=== PATIENT | female | born 1930 | race Caucasian/White ===

== ENCOUNTER 2016-10-25 07:49 | Inpatient (IN) ==
--- NOTE | 2016-10-25 08:07 | Emergency Department Note ---
Disposition Clinical Impression: Congestive heart failure Qualifiers: Congestive heart failure type: unspecified congestive heart failure type Congestive heart failure chronicity: acute on chronic Qualified Code(s): I50.9 - Heart failure, unspecified Disposition: Admitted As Inpatient Condition: Good Time of Disposition: 11:31 General Adult HPI - General Chief complaint: ED Shortness of Breath/Dyspnea Stated complaint: shortness of breat Time Seen by Provider: 10/25/16 07:50 Source: EMS Limitations: no limitations Nursing Notes Reviewed: Yes Vital Signs Reviewed: Yes - History of Present Illness HPI Narrative: Patient presenting to the emergency department via EMS. Patient complaining of a 2 day history of shortness of breath. She denies any nausea vomiting or diarrhea. She denies any chest pain however she does report a tightness across her upper abdomen. This is also been going on for 2 days. History of CHF. She is reporting an increase in swelling in her lower extremities. Pain Scale: 0 - Related Data Allergies Allergy/AdvReac Type Severity Reaction Status Date / Time Penicillins [PCN] Allergy Hives Verified 10/19/16 12:26 All systems ED: reviewed and negative except as stated. Constitutional: Denies: fever, chills ENT ED: Denies: congestion, dysphagia Cardiovascular: Reports: edema (Bilateral lower extremities worse than normal.) . Denies: chest pain, palpitations, syncope Respiratory: Reports: dyspnea (Progressively getting worse over the last 2 days. ). Denies: cough, sputum production Gastrointestinal: Reports: abdominal pain (Upper abdominal tightness.). Denies : nausea, vomiting, diarrhea Genitourinary: Denies: urgency, dysuria, frequency, hematuria Musculoskeletal: Denies: back pain, neck pain Past Medical History - Past Medical History Medical history: Reports: CHF - Social History Smoking Status: Never smoker Smokeless Tobacco Status: No Alcohol use: Reports: none Drug use: Reports: none Physical Exam - General Limitations: no limitations General appearance: alert, in distress (Mild respiratory distress. She is using accessory muscles.) - Head Head exam: atraumatic, normocephalic, normal inspection - Eye Eye exam: Present: normal appearance, PERRL, EOMI, scleral icterus - ENT ENT exam: normal exam, normal oropharynx, mucous membranes moist, normal external ear exam - Neck Neck exam: Present: normal inspection, full ROM, trachea midline. Absent: tenderness, meningismus, lymphadenopathy - Chest Chest inspection: Present: normal inspection, symmetric chest wall rise - Respiratory Respiratory exam: Present: normal lung sounds bilaterally. Absent: respiratory distress, wheezes, stridor - Cardiovascular Cardiovascular exam: Present: regular rate, normal rhythm, normal heart sounds - Abdominal Exam Abdominal exam: Present: soft, Non-Tender, normal bowel sounds. Absent: tenderness, distention, organomegaly, Walls's sign, Rovsing's sign, tenderness at McBurney's Point - Extremities Exam Extremities exam: Present: normal inspection, full ROM, normal capillary refill , pedal edema (Bilaterally. Up to The tibias.). Absent: tenderness - Back Exam Back exam: Present: normal inspection, full ROM. Absent: tenderness, CVA tenderness (R), CVA tenderness (L) - Neurological Exam Neurological exam: Present: alert, oriented X3 - Psychiatric Psychiatric exam: Present: normal affect, normal mood - Skin Skin exam: Present: warm, dry, intact, normal color. Absent: rash, cyanosis Course Course Narrative: Female patient presents emergency department by EMS. Patient is complaining of a increase in shortness of breath over the past 2 days. She states she is also had an increase in her pedal edema over the past 2 days. Also complaining of an upper abdominal tightness. She denies any nausea vomiting or diarrhea. She denies any fevers or chills. She does have a history of CHF but no COPD. She states she has been taking her Lasix as prescribed. Her lung sounds are remarkably clear. She does have some pedal edema up to her tibias. This is mild. We will get basic lab workup due to a cardiac workup on the patient as well. On presentation she is on 2 L and satting 98%. She does not wear oxygen at home. However she is using her accessory muscles to breathe. - Reevaluation(s) Reevaluation #1: Female patient still mildly short of breath. Does appear to have CHF exacerbation on her chest x-ray. Patient ambulated throughout the emergency department and her oxygen saturation decreased into the 80s. We are admitting her for an acute on chronic CHF exacerbation. Vital Signs Temperature 97.6 F 10/25/16 07:50 Pulse Rate 95 10/25/16 07:50 Respiratory Rate 20 10/25/16 07:50 Blood Pressure 166/98 10/25/16 07:50 O2 Sat by Pulse Oximetry 98 10/25/16 07:50 Temperature 97.6 F 10/25/16 07:50 Pulse Rate 69 10/25/16 10:57 Respiratory Rate 24 10/25/16 10:57 Blood Pressure 171/94 10/25/16 10:57 O2 Sat by Pulse Oximetry 93 10/25/16 10:57 Oxygen Delivery Oxygen Delivery Nasal Cannula Medical Decision Making - Medical Records Medical records reviewed: Yes I reviewed the patient's medical records. - Lab Data Lab results reviewed: Yes I reviewed the patient's lab results. Result diagrams: 10/25/16 08:26 10/25/16 08:26 Lab Results 10/25/16 10/25/16 10/25/16 Range/Units 08:26 08:26 08:26 WBC 6.1 (4.3-11.1) K/mcL RBC 4.07 (3.82-4.97) M/mcL Hgb 10.9 L (11.5-15.4) g/dL Hct 34.7 L (35.3-44.9) % MCV 85.3 (83.0-100.0) fL MCH 26.8 L (28.0-33.3) pg MCHC 31.4 L (31.6-35.5) g/dL RDW 16.1 H (11.5-14.5) % Plt Count 155 (140-400) K/mcL MPV 11.8 (9.4-12.4) fL Immature Gran % 0.3 (0-4) % Seg Neutrophils % 74.2 % Lymphocytes % 11.6 % Monocytes % 9.8 % Eosinophils % 3.3 % Basophils % 0.8 % Neutrophils # 4.5 (1.6-8.9) K/mcL Lymphocytes # 0.7 (0.6-4.6) K/mcL Monocytes # 0.6 (0.0-1.3) K/mcL Eosinophils # 0.2 (0.0-0.6) K/mcL Basophils # 0.1 (0.0-0.2) K/mcL Immature Plt Fraction 8.1 H (1.1-6.1) % Sodium 142 (136-145) mEq/L Potassium 3.5 (3.5-4.5) mEq/L Chloride 106 (98-109) mEq/L Carbon Dioxide 23 (19-29) mEq/L BUN 19 (7-20) mg/dL Creatinine 1.01 (0.57-1.11) mg/dL Est GFR ( Amer) > 60 (> 60) Est GFR (Non-Af Amer) 52 L (> 60) BUN/Creatinine Ratio 19 (6-26) Glucose 128 H (70-99) mg/dL Calculated Osmolality 298 (280-300) Calcium 9.5 (8.6-10.8) mg/dL Troponin I 0.02 (0-0.03) ng/mL B-Natriuretic Peptide (0-100) pg/mL 10/25/16 Range/Units 08:26 WBC (4.3-11.1) K/mcL RBC (3.82-4.97) M/mcL Hgb (11.5-15.4) g/dL Hct (35.3-44.9) % MCV (83.0-100.0) fL MCH (28.0-33.3) pg MCHC (31.6-35.5) g/dL RDW (11.5-14.5) % Plt Count (140-400) K/mcL MPV (9.4-12.4) fL Immature Gran % (0-4) % Seg Neutrophils % % Lymphocytes % % Monocytes % % Eosinophils % % Basophils % % Neutrophils # (1.6-8.9) K/mcL Lymphocytes # (0.6-4.6) K/mcL Monocytes # (0.0-1.3) K/mcL Eosinophils # (0.0-0.6) K/mcL Basophils # (0.0-0.2) K/mcL Immature Plt Fraction (1.1-6.1) % Sodium (136-145) mEq/L Potassium (3.5-4.5) mEq/L Chloride (98-109) mEq/L Carbon Dioxide (19-29) mEq/L BUN (7-20) mg/dL Creatinine (0.57-1.11) mg/dL Est GFR ( Amer) (> 60) Est GFR (Non-Af Amer) (> 60) BUN/Creatinine Ratio (6-26) Glucose (70-99) mg/dL Calculated Osmolality (280-300) Calcium (8.6-10.8) mg/dL Troponin I (0-0.03) ng/mL B-Natriuretic Peptide 843 H (0-100) pg/mL - Radiology Data Radiology results reviewed: Yes I reviewed the patient's radiology results. - EKG Data EKG #1 EKG attestation: Yes I reviewed and interpreted this EKG. EKG results narrative: Ventricularly paced rhythm at a rate of 99. QRS duration is 206. QT is 448. QTC is 504. No significant changes from previous EKG dated 07/09/2014.
[2016-10-25 08:34] LABS: Basophils # 0.1 K/mcL (0.0-0.2); Basophils % 0.8 %; Eosinophils # 0.2 K/mcL (0.0-0.6); Eosinophils % 3.3 %; Hematocrit 34.7 % (35.3-44.9); Hemoglobin 10.9 g/dL (11.5-15.4); Immature Granulocytes % 0.3 % (0-4); Immature Platelets 8.1 % (1.1-6.1); Lymphocytes # 0.7 K/mcL (0.6-4.6); Lymphocytes % 11.6 %; Mean Corpuscular HGB Conc 31.4 g/dL (31.6-35.5); Mean Corpuscular Hemoglobin 26.8 pg (28.0-33.3); Mean Corpuscular Volume 85.3 fL (83.0-100.0); Mean Platelet Volume 11.8 fL (9.4-12.4); Monocytes # 0.6 K/mcL (0.0-1.3); Monocytes % 9.8 %; Neutrophils # 4.5 K/mcL (1.6-8.9); Platelet Count 155 K/mcL (140-400); Red Blood Count 4.07 M/mcL (3.82-4.97); Red Cell Distribution Width 16.1 % (11.5-14.5); Segmented Neutrophils % 74.2 %
--- NOTE | 2016-10-25 08:43 | Emergency Department Note ---
START Narrative - START START: I examined this patient and my medical decision-making was reviewed with the ASSISTANT MECHANIC/PA/Advanced Practice Nurse/Resident Physician. I agree with the documented findings, disposition and treatment plan as described except to the extent set forth below. ED attending note: Patient seen with emergency medicine resident Dr. Edward. Please see a copy of his note for details of the H&P, evaluation, management and disposition of this patient. We independently had [id number] contact with the patient Briefly: A 5-year-old female with history of CHF but not COPD by EMS from home for 2 days increasing shortness of breath and upper abdominal fullness. Afebrile with stable vital signs. Physical exam shows a mild peripheral edema but the lungs are clear. EKG shows no acute ischemic changes. Screening labs and itching are pending. Disposition pending.
[2016-10-25 08:48] LABS: BUN/Creatinine Ratio 19 (6-26); Blood Urea Nitrogen 19 mg/dL (7-20); Calcium 9.5 mg/dL (8.6-10.8); Carbon Dioxide 23 mEq/L (19-29); Chloride 106 mEq/L (98-109); Glucose 128 mg/dL (70-99); Osmolality,Calculated 298 (280-300); Potassium 3.5 mEq/L (3.5-4.5); Sodium 142 mEq/L (136-145); eGFR For African Americans > 60 (> 60); eGFR For Non-African Americans 52 (> 60)
[2016-10-25] MEDS ORDERED: Furosemide 40 MG/4 ML VIAL IVP ONE ×2 (09:29→10:21)
[2016-10-25] MEDS ORDERED: Naloxone 0.4 MG/ML INJ IVP PRN (10:53)
[2016-10-25] MEDS ORDERED: Acetaminophen 325 MG TABLET PO PRN (10:53)
--- NOTE | 2016-10-25 12:21 | Internal Med History&Physical ---
Date of Encounter: 10/25/16 Time of Encounter: 12:12 Assessment and Plan (1) Acute on chronic diastolic (congestive) heart failure Current visit: Yes Status: Acute Patient reports waking this morning with difficulty breathing. She has a history of CHF and her Lasix was recently increased from 40mg daily to 40mg/ 20mg AM/PM. Echo on 09/22/16 shows LVEF of 30-35% moderately dilated left ventricle, indeterminate left ventricular diastolic function, mild to moderate aortic regurg, moderate mitral regurg, moderate pulmonary hypertension. Chest x -ray showed interstitial pulmonary edema with possible perihilar alveolar edema , bilateral pleural effusions and mild cardiomegaly. BNP was elevated at 843. On exam, she was tachypnic, using accessory muscles, and had diminished breath sounds. She was diaphoretic and was satting 95% on 4-5L NC. 80mg Lasix IV Push in the ER. Cardiology consult. 60mg Lasix IVP BID BiPAP NItro drip titrate oxygen to maintain O2 sats > 92% Daily weights I/Os Cardiac diet with 1.5L fluid restriction. serial troponins (2) Acute respiratory failure Current visit: Yes Status: Acute Secondary to acute on chronic diastolic congestive heart failure. Patient does not wear oxygen at home. She is tachypnic, using accessory muscles, and satting 95% on 4-5L NC. Bipap ordered will diurese with lasix. Qualifiers: Respiratory failure complication: hypoxia Qualified Code(s): J96.01 - Acute respiratory failure with hypoxia (3) Atrial fibrillation Current visit: Yes Status: Chronic S/p ventricular pacemaker. Continue home doses of carvedilol for rate control and Coumadin for anti-coagulation. Qualifiers: Atrial fibrillation type: chronic Qualified Code(s): I48.2 - Chronic atrial fibrillation (4) Anticoagulated on Coumadin Current visit: Yes Status: Acute PT/INR ordered. Patient has been following in the [facility] anti-coagulation clinic. Continue home dose of coumadin as long as INR is therapeutic. If not therapeutic, have pharmacy dose coumadin. (5) DVT prophylaxis Current visit: Yes Status: Acute anti-embolic stockings Patient on Coumadin for her afib. Additional pharmacologic prophylaxis is not warranted. Internal Medicine - H&P: HPI Chief complaint: shortness of breath Admitted From: Emergency Dept Plans for Post Hospital Care: Home History of present illness: Ms. Amanda is a 86 year old female with hypertension, hyperlipidemia, congestive heart failure, valvular disease, atrial fibrillation, bradycardia tachycardia syndrome status post pacemaker, cardiomyopathy who presented to the emergency department today with complaints of shortness of breath. She reports she woke up at 3:30 this morning with difficulty breathing. She reports she was sleeping flat on one pillow when this happened. She said at the side of the bed was helped a little bit. She denies any chest pain, palpitations, recent cough, fever, chills, sweats. Patient denies shortness of breath leading up to this incident, however her daughter reports that she has been short of breath on exertion over the last several days. Evaluation in emergency department included a chest x-ray which showed interstitial pulmonary edema with possible perihilar alveolar edema, bilateral pleural effusions and mild cardiomegaly. EKG showed a ventricular paced rhythm. Troponin was negative at 0.02. BNP was elevated to 843. On exam, patient was to And dyspneic, using accessory muscles to breathe. Satting 95% on 4-5 L nasal cannula. Lungs had diminished breath sounds. Bilateral lower extremity had +2 pitting edema. Past Med Surg Social Fam HX - Past Medical History Medical history: atrial fibrillation, cardiomyopathy, CHF, hyperlipidemia, hypertension, thyroid disease - Past Surgical History Surgical History: angioplasty/stent, appendectomy, cholecystectomy, hysterectomy , pacemaker - Social History Smoking Status: Never smoker Smokeless Tobacco Status: No Alcohol use: none Drug use: none - Family History Father Living Status: Cause of : cancer Hx Family Cancer: Yes Mother Living Status: Cause of : CVA Daughter Living Status: Cause of : Cancer Hx Family Cancer: Yes Internal Medicine - H&P: Meds Carvedilol [Coreg] 25 mg PO BID 10/25/16 [History] Cholecalciferol (Vitamin D3) [Vitamin D] 1,000 unit PO DAILY 10/25/16 [History] Cyanocobalamin (Vitamin B-12) [Vitamin B12] 1,000 mcg PO DAILY 10/25/16 [History ] Febuxostat [Uloric] 40 mg PO DAILY 10/25/16 [History] Ferrous Sulfate [Slow Fe] 65 mg PO DAILY 10/25/16 [History] Furosemide [Lasix] 20 mg PO QPM 10/25/16 [History] Furosemide [Lasix] 40 mg PO QAM 10/25/16 [History] Krill Oil 500 mg PO DAILY 10/25/16 [History] Levothyroxine [Synthroid] 100 mcg PO DAILY 10/25/16 [History] Lisinopril [Zestril] 40 mg PO DAILY 10/25/16 [History] Multivitamin [Multi-Day Vitamins] 1 tab PO DAILY 10/25/16 [History] Omeprazole [PriLOSEC] 20 mg PO DAILY 10/25/16 [History] Pravastatin Sodium [Pravachol] 80 mg PO DAILY 10/25/16 [History] Vit C/Vit E/Lutein/Min/[place]-3 [Ocuvite Softgel] 1 cap PO DAILY 10/25/16 [ History] Warfarin [Coumadin] 2 mg PO DAILY 10/25/16 [History] Allergies Penicillins [PCN] Allergy (Verified 10/19/16 12:26) Hives All Systems PM: A 10-system review of systems was performed and is negative for pertinent findings except as documented above in the HPI. - Constitutional Constitutional: no chills, no fever(s), no night sweats - EENT Eyes: no change in vision, no discharge, no pain, no photophobia Ears: no ear discharge, no ear pain, no tinnitus Nose, mouth and throat: no dysphagia, no nasal discharge, no neck pain, no sore throat - Cardiovascular Cardiovascular ROS IM: dyspnea, dyspnea on exertion, edema, orthopnea, no chest pain, no diaphoresis, no lightheadedness, no palpitations, no syncope - Respiratory Respiratory: dyspnea, dyspnea on exertion, no cough, no wheezing, no excessive phlegm production - Gastrointestinal Gastrointestinal: no abdominal pain, no diarrhea, no hematemesis, no hematochezia, no melena, no nausea, no vomiting - Genitourinary Genitourinary: no change in urinary stream, no dysuria, no flank pain, no hematuria - Musculoskeletal Musculoskeletal ROS IM: no numbness, no tingling - Integumentary Integumentary IM: no rash, no unusual bruising - Neurological Neurological ROS: no confusion, no convulsions, no focal weakness, no numbness, no tingling, no tremor(s) - Hematologic/Lymphatic Hematologic/Lymphatic: no easy bruising - Constitutional Vitals: Temp Pulse Resp BP Pulse Ox 97.6 F 69 24 170/94 93 10/25/16 07:50 10/25/16 10:57 10/25/16 11:49 10/25/16 11:49 10/25/16 10:57 General appearance: Present: mild distress, A&O X 3, pleasant - Head Head exam: Present: atraumatic, normocephalic - Eye Eye exam: Present: PERRL, conjuntiva pink, sclera anicteric Pupils: Present: PERRL - Neck Neck exam general surgery: Present: supple, trachea midline. Absent: lymphadenopathy - Respiratory Respiratory exam: Present: accessory muscle use, decreased breath sounds, respiratory distress, tachypnea. Absent: rales, rhonchi, wheezes - Cardiovascular Cardiovascular exam: Present: RRR, +S1, +S2. Absent: diastolic murmur, gallop, rubs, systolic murmur - GI/Abdominal GI/Abdominal exam: Present: normal bowel sounds, soft, no peritoneal signs. Absent: distended, tenderness - Extremities Exam Extremities exam: Present: pedal edema (+2 BLE edema), warm, radial pulses palpable and symetrical. Absent: calf tenderness, cyanotic - Neurological Exam Neurological exam: Present: CN II-XII intact, oriented X3, no focal deficits. Absent: facial droop, speech deficit - Skin Skin exam: Present: dry, intact Internal Med - H&P Results - Labs CBC & Chem 7: 10/25/16 08:26 10/25/16 08:26 Labs: All Lab Results (24 Hours) 10/25/16 10/25/16 10/25/16 Range/Units 08:26 08:26 08:26 WBC 6.1 (4.3-11.1) K/mcL RBC 4.07 (3.82-4.97) M/mcL Hgb 10.9 L (11.5-15.4) g/dL Hct 34.7 L (35.3-44.9) % MCV 85.3 (83.0-100.0) fL MCH 26.8 L (28.0-33.3) pg MCHC 31.4 L (31.6-35.5) g/dL RDW 16.1 H (11.5-14.5) % Plt Count 155 (140-400) K/mcL MPV 11.8 (9.4-12.4) fL Immature Gran % 0.3 (0-4) % Seg Neutrophils % 74.2 % Lymphocytes % 11.6 % Monocytes % 9.8 % Eosinophils % 3.3 % Basophils % 0.8 % Neutrophils # 4.5 (1.6-8.9) K/mcL Lymphocytes # 0.7 (0.6-4.6) K/mcL Monocytes # 0.6 (0.0-1.3) K/mcL Eosinophils # 0.2 (0.0-0.6) K/mcL Basophils # 0.1 (0.0-0.2) K/mcL Immature Plt Fraction 8.1 H (1.1-6.1) % Sodium 142 (136-145) mEq/L Potassium 3.5 (3.5-4.5) mEq/L Chloride 106 (98-109) mEq/L Carbon Dioxide 23 (19-29) mEq/L BUN 19 (7-20) mg/dL Creatinine 1.01 (0.57-1.11) mg/dL Est GFR ( Amer) > 60 (> 60) Est GFR (Non-Af Amer) 52 L (> 60) BUN/Creatinine Ratio 19 (6-26) Glucose 128 H (70-99) mg/dL Calculated Osmolality 298 (280-300) Calcium 9.5 (8.6-10.8) mg/dL Troponin I 0.02 (0-0.03) ng/mL B-Natriuretic Peptide (0-100) pg/mL 10/25/16 Range/Units 08:26 WBC (4.3-11.1) K/mcL RBC (3.82-4.97) M/mcL Hgb (11.5-15.4) g/dL Hct (35.3-44.9) % MCV (83.0-100.0) fL MCH (28.0-33.3) pg MCHC (31.6-35.5) g/dL RDW (11.5-14.5) % Plt Count (140-400) K/mcL MPV (9.4-12.4) fL Immature Gran % (0-4) % Seg Neutrophils % % Lymphocytes % % Monocytes % % Eosinophils % % Basophils % % Neutrophils # (1.6-8.9) K/mcL Lymphocytes # (0.6-4.6) K/mcL Monocytes # (0.0-1.3) K/mcL Eosinophils # (0.0-0.6) K/mcL Basophils # (0.0-0.2) K/mcL Immature Plt Fraction (1.1-6.1) % Sodium (136-145) mEq/L Potassium (3.5-4.5) mEq/L Chloride (98-109) mEq/L Carbon Dioxide (19-29) mEq/L BUN (7-20) mg/dL Creatinine (0.57-1.11) mg/dL Est GFR ( Amer) (> 60) Est GFR (Non-Af Amer) (> 60) BUN/Creatinine Ratio (6-26) Glucose (70-99) mg/dL Calculated Osmolality (280-300) Calcium (8.6-10.8) mg/dL Troponin I (0-0.03) ng/mL B-Natriuretic Peptide 843 H (0-100) pg/mL - Diagnostic Studies Chest x-ray Additional comments: Chest X-Ray 10/25/16 07:56 IMPRESSION: 1. Interstitial pulmonary edema with possible perihilar alveolar edema, bilateral pleural effusions, and mild cardiomegaly, suggesting congestive heart failure. 2. Bibasilar atelectasis. D/ / Jaiden Fisher MD / Jaiden Fisher MD Interpreting Provider: Jaiden Fisher MD
[2016-10-25 12:32] LABS: INR 2.9; Prothrombin Time 31.9 Seconds (9.4-12.1)
[2016-10-25 12:34] LABS: Activated Partial Thrombo Time 40.3 Seconds (26.0-36.0)
--- NOTE | 2016-10-25 12:53 | Event Note ---
Date of Encounter: 10/25/16 Time of Encounter: 12:51 Patients examined with nurse practitioner. Agree with this assessment and plan. Pulmonary edema. 80 mg IV lasix given in the ED and campos catheter placed. still hypertensive so nitroglycerin drip will be started. few hours of BiPAP till oxygenation improves. Currently on 5 L of oxygen. Continue Lasix 60 mg IV twice a day. She had a cath in 1998 no occlsive disease but no recent cardiology evaluation. Serial troponin and cardiology consultation. She is full code.
[2016-10-25] MEDS ORDERED: Nitroglycerin 25 MG/250 ML INFUS..BTL IVC SCH (13:00)
[2016-10-25] MEDS ORDERED: 0.9 % Sodium Chloride 500 ML ONE (13:23)
[2016-10-25] MEDS: Lisinopril 20 MG TABLET PO SCH (13:30)
[2016-10-25] MEDS ORDERED: Furosemide 40 MG/4 ML VIAL IVP SCH (17:00)
[2016-10-25] MEDS: Furosemide 40 MG/4 ML VIAL IVP SCH (17:03)
[2016-10-25] MEDS ORDERED: Warfarin perPT PO PRN (18:00)
[2016-10-25] MEDS ORDERED: *HR* Warfarin 1 MG TABLET PO SCH (18:00)
[2016-10-26] MEDS ORDERED: *HR* LORazepam 0.5 MG TABLET PO ONE (03:10)
[2016-10-26 05:18] LABS: INR 3.7; Prothrombin Time 41.2 Seconds (9.4-12.1)
[2016-10-26 05:33] LABS: Basophils % 0.5 %; Eosinophils # 0.2 K/mcL (0.0-0.6); Eosinophils % 2.7 %; Hematocrit 32.6 % (35.3-44.9); Hemoglobin 10.1 g/dL (11.5-15.4); Immature Granulocytes % 0.5 % (0-4); Lymphocytes # 0.5 K/mcL (0.6-4.6); Lymphocytes % 8.4 %; Mean Corpuscular Hemoglobin 26.6 pg (28.0-33.3); Mean Platelet Volume 11.4 fL (9.4-12.4); Monocytes # 0.8 K/mcL (0.0-1.3); Monocytes % 12.3 %; Neutrophils # 4.8 K/mcL (1.6-8.9); Platelet Count 138 K/mcL (140-400); Red Blood Count 3.79 M/mcL (3.82-4.97); Segmented Neutrophils % 75.6 %
[2016-10-26 05:38] LABS: BUN/Creatinine Ratio 20 (6-26); Blood Urea Nitrogen 18 mg/dL (7-20); Calcium 8.9 mg/dL (8.6-10.8); Carbon Dioxide 31 mEq/L (19-29); Chloride 103 mEq/L (98-109); Glucose 101 mg/dL (70-99); Osmolality,Calculated 296 (280-300); Potassium 3.2 mEq/L (3.5-4.5); Sodium 142 mEq/L (136-145); eGFR For African Americans > 60 (> 60); eGFR For Non-African Americans 58 (> 60)
[2016-10-26] MEDS: Furosemide 40 MG/4 ML VIAL IVP SCH (07:49)
[2016-10-26] MEDS: Lisinopril 20 MG TABLET PO SCH (07:54)
[2016-10-26] MEDS ORDERED: *HR* Warfarin 2 MG TABLET PO SCH ×2 (09:00→18:00)
[2016-10-26] MEDS ORDERED: Lisinopril 20 MG TABLET PO SCH (09:00)
--- NOTE | 2016-10-26 09:47 | Cardiology Consult Note ---
Date of Encounter: 10/26/16 Time of Encounter: 09:00 Assessment and Plan (1) Congestive heart failure Current Visit: Yes Status: Acute Acute on chronic CHF exacerbation likely secondary to dietary indiscretion to Na /fluid. Hx of systolic CHF dating back to 2013. Most recent TTE (09/22/16): EF 30-35%, LV moderately dilated, RV mildly dilated and hypokinetic, mild-moderate AR, moderate MR and TR. Recent nuclear stress on 10/19/16 demonstrated fixed perfusion to inferior wall and apex; perfusion imaging negative for ischemia. Gated EF=42%, LV is dilated. - Continue IV diuresis for additional 24 hours, transition to Lasix 40 mg BID at discharge. (Home Lasix 40 in AM, 20 in PM). Cumulative I&O: -3333mL. Patient states dyspnea and edema have significantly improved. Reinforced importance of CHF guidelines including low Na/1.5 fluid restriction diet. Continue betablocker and ACEi. Follow-up with [facility] in 1-2 weeks after discharge. Qualifiers: Congestive heart failure type: systolic Congestive heart failure chronicity : acute on chronic Qualified Code(s): I50.23 - Acute on chronic systolic ( congestive) heart failure (2) Atrial fibrillation Current Visit: Yes Status: Chronic Hx of atrial fibrillation on Coumadin therapy (followed by [facility]) INR supratherapeutic today--pharmacy dosing as inpatient. Continue betablocker for rate control. Qualifiers: Atrial fibrillation type: chronic Qualified Code(s): I48.2 - Chronic atrial fibrillation Discussion w patient/family: The assessment and plan as outlined above was discussed with the patient and/or family members who expressed understanding and agreement. All questions were answered. Thank you for involving us in the care of your patient. Please call with any questions. The patient will be discussed with Dr. Torres; changes to be made accordingly. History of Present Illness Consult date: 10/26/16 Requesting physician: Andres Whyte Consult reason: CHF Chief complaint: Shortness of breath History of present illness: Ms. Patel is a 86 year old female with PMH significant for tachybrady s/p PPM , afib (coumadin), HTN, HLD, systolic CHF, and hypothyroidism who presented to the ED with 2-day history of worsening shortness of breath with associated increase in lower extremity edema. She reports non-compliance with dietary fluid and sodium intake. She denies any other CV symptoms including chest pain or discomfort, syncope, palpitations, or dizziness. Prior CV testing: TTE 01/08/14: LVEF 40%, moderately dilated LV, severely enlarged LA, moderately enlarged RA, mildly dilated RV with mild RV hypokinesis, moderate MR , mild AR, mild-moderate TR, RVSP 50 TTE 07/09/14: LVEF 35%, moderately dilated LV, severe biatrial enlargement, moderately dilated RV, mild-moderate AR, probably severe MR, moderate TN, moderate TR, RVSP 67. TTE 09/22/16: LVEF 30-35%, moderately dilated, RV mildly dilated and hypokinetic, mild-moderate AR, moderate MR, moderate TR, mild TN, RVSP 57. Regadenoson nuclear 10/19/16: perfusion negative for ischemia, fixed perfusion defect to the inferior wall and apex, gated EF=42%, LV is dilated Past Med Surg Social Fam HX - Past Medical History Attestation: Yes The following information was validated with the patient. Source: patient, old records reviewed Medical history: atrial fibrillation, CHF, hyperlipidemia, hypertension, thyroid disease Psychiatric history: anxiety - Past Surgical History Surgical History: appendectomy, cholecystectomy, hysterectomy, pacemaker - Social History Smoking Status: Never smoker Smokeless Tobacco Status: No Alcohol use: none Drug use: none - Family History Father Living Status: Cause of : cancer Hx Family Cancer: Yes Mother Living Status: Cause of : CVA Daughter Living Status: Cause of : Cancer Hx Family Cancer: Yes Medications and Allergies Carvedilol [Coreg] 25 mg PO BID 10/25/16 [History] Cholecalciferol (Vitamin D3) [Vitamin D] 1,000 unit PO DAILY 10/25/16 [History] Cyanocobalamin (Vitamin B-12) [Vitamin B12] 1,000 mcg PO DAILY 10/25/16 [History ] Febuxostat [Uloric] 40 mg PO DAILY 10/25/16 [History] Ferrous Sulfate [Slow Fe] 65 mg PO DAILY 10/25/16 [History] Furosemide [Lasix] 20 mg PO QPM 10/25/16 [History] Furosemide [Lasix] 40 mg PO QAM 10/25/16 [History] Krill Oil 500 mg PO DAILY 10/25/16 [History] Levothyroxine [Synthroid] 100 mcg PO DAILY 10/25/16 [History] Lisinopril [Zestril] 40 mg PO DAILY 10/25/16 [History] Multivitamin [Multi-Day Vitamins] 1 tab PO DAILY 10/25/16 [History] Omeprazole [PriLOSEC] 20 mg PO DAILY 10/25/16 [History] Pravastatin Sodium [Pravachol] 80 mg PO DAILY 10/25/16 [History] Vit C/Vit E/Lutein/Min/[place]-3 [Ocuvite Softgel] 1 cap PO DAILY 10/25/16 [ History] Warfarin [Coumadin] 2 mg PO DAILY 10/25/16 [History] Allergies Penicillins [PCN] Allergy (Verified 10/19/16 12:26) Hives All Systems Review: A 10-system review of systems was performed and is negative for pertinent findings except as documented above in the HPI. - Cardiovascular Cardiovascular: as per HPI Physical Examination Vital Signs, Last 4 Hours Temp Pulse Resp BP Pulse Ox 10/26/16 07:59 93 10/26/16 06:50 97.6 F 69 16 117/72 95 General: Conversant, No Apparent Distress HEENT: Atraumatic, Normocephaly Neck: No JVD Cardiac: Reg Rate and Rhythm (paced) Lungs: Other (Bibasilar diminished; few expiratory wheezes noted. ) Neuro: Alert and responsive Abdomen: Soft Skin: No rashes noted on visualized skin Musculoskeletal: No Chest Wall Tenderness Extremities: Other (mild pre-tibial edema; non-pitting. ) Results 10/26/16 04:46 10/26/16 04:46 Lab Results 10/25/16 10/25/16 10/26/16 14:43 20:37 04:46 WBC 6.4 Hgb 10.1 L Hct 32.6 L Plt Count 138 L INR Sodium Potassium Chloride Carbon Dioxide BUN Creatinine Glucose Calcium Troponin I 0.02 0.03 10/26/16 10/26/16 04:46 04:46 WBC Hgb Hct Plt Count INR 3.7 Sodium 142 Potassium 3.2 L Chloride 103 Carbon Dioxide 31 H BUN 18 Creatinine 0.92 Glucose 101 H Calcium 8.9 Troponin I - Imaging and Cardiology Stress Test: report reviewed Echo: report reviewed Other Results: 12 hour tele: avg HR=72 paced. - EKG Interpretation EKG results cardiology: personally reviewed Consult Discharge Plan - Plan Referrals: Clemencia Velasquez CNP [Primary Care Provider] -
--- NOTE | 2016-10-26 12:10 | Internal Med Progress Note ---
Date of Encounter: 10/26/16 Time of Encounter: 12:10 - Assessment and plan (1) Acute on chronic diastolic (congestive) heart failure Current Visit: Yes Status: Acute Assessment and plan: Improving transition to lasix po Continue to monitor (2) Acute respiratory failure Current Visit: Yes Status: Acute Assessment and plan: Still requiring 2L O2 Qualify for home O2 prior to d/c Continue O2 supplement Qualifiers: Respiratory failure complication: hypoxia Qualified Code(s): J96.01 - Acute respiratory failure with hypoxia (3) Atrial fibrillation Current Visit: Yes Status: Chronic Assessment and plan: HR is controlled, continue home meds Qualifiers: Atrial fibrillation type: chronic Qualified Code(s): I48.2 - Chronic atrial fibrillation (4) Anticoagulated on Coumadin Current Visit: Yes Status: Acute Assessment and plan: INR 3.7 Pharmacy to adjust dose with INR Monitor INR (5) DVT prophylaxis Current Visit: Yes Status: Acute - Subjective Interval history: 86 year old female with PMH significant for tachybrady s/p PPM, afib (coumadin) , HTN, HLD, systolic CHF, and hypothyroidism She is admitted for management of CHF exacerbation and HTN Urgency She is seen at bedside, sitting out of bed , in chair Denies new complains, reports improvement in symptoms BP is controlled now Nitro drip has been discontinued Cardiology eval appreciated She is still requiring oxygen - Constitutional Vitals: Temp Pulse Resp BP Pulse Ox 98.2 F 71 16 117/73 95 10/26/16 11:45 10/26/16 11:45 10/26/16 11:45 10/26/16 11:45 10/26/16 11:46 General appearance: Present: A&O X 3, pleasant, no acute distress, obese - Head Head exam: Present: atraumatic, normocephalic - Eye Eye exam: Present: PERRL, conjuntiva pink, sclera anicteric Pupils: Present: PERRL - Neck Neck exam general surgery: Present: supple, trachea midline. Absent: lymphadenopathy - Respiratory Respiratory exam: Present: CTAB. Absent: accessory muscle use, rales, rhonchi, wheezes - Cardiovascular Cardiovascular exam: Present: irregular rhythm, +S1, +S2. Absent: diastolic murmur, gallop, rubs, systolic murmur - GI/Abdominal GI/Abdominal exam: Present: normal bowel sounds, soft, no peritoneal signs. Absent: distended, tenderness - Extremities Exam Extremities exam: Present: warm, radial pulses palpable and symetrical. Absent : calf tenderness, cyanotic, pedal edema - Neurological Exam Neurological exam: Present: alert, CN II-XII intact, oriented X3, no focal deficits. Absent: pronater drift, facial droop, speech deficit - Skin Skin exam: Present: dry, intact Internal Medicine: Result - Labs CBC & Chem 7: 10/26/16 04:46 10/26/16 04:46 Labs: Short CBC 10/26/16 Range/Units 04:46 WBC 6.4 (4.3-11.1) K/mcL Hgb 10.1 L (11.5-15.4) g/dL Hct 32.6 L (35.3-44.9) % Plt Count 138 L (140-400) K/mcL Neutrophils # 4.8 (1.6-8.9) K/mcL BMP 10/26/16 04:46 Sodium 142 Potassium 3.2 L Chloride 103 Carbon Dioxide 31 H BUN 18 Creatinine 0.92 Glucose 101 H Calcium 8.9 Cardiac Enzymes 10/25/16 10/25/16 Range/Units 14:43 20:37 Troponin I 0.02 0.03 (0-0.03) ng/mL - ABG Interpretation ABG results: PT/INR, D-dimer PT 41.2 Seconds (9.4-12.1) H 10/26/16 04:46 - VTE Documentation of Mechanical Device: Graduated compression elastic hosiery Consult Discharge Plan - Plan Referrals: Clemencia Velasquez CNP [Primary Care Provider] - Jaiden Torres MD [Partnered Physician] - 11/09/16 10:45 am
[2016-10-26] MEDS: Furosemide 40 MG TABLET PO SCH (15:55)
--- NOTE | 2016-10-26 16:02 | Electrocardiograph Report ---
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
[2016-10-27 04:30] LABS: INR 3.5; Prothrombin Time 39.2 Seconds (9.4-12.1)
[2016-10-27 04:44] LABS: BUN/Creatinine Ratio 22 (6-26); Blood Urea Nitrogen 22 mg/dL (7-20); Calcium 9.5 mg/dL (8.6-10.8); Carbon Dioxide 30 mEq/L (19-29); Chloride 102 mEq/L (98-109); Glucose 107 mg/dL (70-99); Osmolality,Calculated 298 (280-300); Potassium 3.9 mEq/L (3.5-4.5); Sodium 142 mEq/L (136-145); eGFR For African Americans > 60 (> 60); eGFR For Non-African Americans 52 (> 60)
[2016-10-27] MEDS: Lisinopril 20 MG TABLET PO SCH (08:06)
[2016-10-27] MEDS: Furosemide 40 MG TABLET PO SCH ×2 (08:06→16:08)
--- NOTE | 2016-10-27 09:48 | Discharge Summary ---
Date of Encounter: 10/28/16 Time of Encounter: 09:47 - Discharge Diagnosis (1) Acute on chronic diastolic (congestive) heart failure Status: Acute (2) Acute respiratory failure Status: Acute Qualifiers: Respiratory failure complication: hypoxia Qualified Code(s): J96.01 - Acute respiratory failure with hypoxia (3) Atrial fibrillation Status: Chronic Qualifiers: Atrial fibrillation type: chronic Qualified Code(s): I48.2 - Chronic atrial fibrillation (4) Anticoagulated on Coumadin Status: Acute (5) DVT prophylaxis Status: Acute - Discharge Medications Prescriptions: Furosemide [Lasix] 40 mg PO BIDDIURETIC #60 tablet Warfarin [Coumadin] 1 mg PO 1800 #6 tablet Home Medications: Carvedilol [Coreg] 25 mg PO BID 10/25/16 [History] Cholecalciferol (Vitamin D3) [Vitamin D3] 1,000 unit PO DAILY 10/25/16 [History] Cyanocobalamin (Vitamin B-12) [Vitamin B12] 1,000 mcg PO DAILY 10/25/16 [History ] Febuxostat [Uloric] 40 mg PO DAILY 10/25/16 [History] Ferrous Sulfate [Slow Fe] 65 mg PO DAILY 10/25/16 [History] Krill Oil 500 mg PO DAILY 10/25/16 [History] Levothyroxine [Synthroid] 100 mcg PO DAILY 10/25/16 [History] Lisinopril [Zestril] 40 mg PO DAILY 10/25/16 [History] Multivitamin [Multi-Day Vitamins] 1 tab PO DAILY 10/25/16 [History] Omeprazole [PriLOSEC] 20 mg PO DAILY 10/25/16 [History] Pravastatin Sodium [Pravachol] 80 mg PO DAILY 10/25/16 [History] Vit C/Vit E/Lutein/Min/[place]-3 [Ocuvite Softgel] 1 cap PO DAILY 10/25/16 [ History] Furosemide [Lasix] 40 mg PO BIDDIURETIC #60 tablet 10/27/16 [Rx] Warfarin [Coumadin] 1 mg PO 1800 #6 tablet 10/27/16 [Rx] Allergies/Adverse Reactions: Allergies Penicillins [PCN] Allergy (Verified 10/19/16 12:26) Hives Date of admission: 10/25/16 12:38 Primary care physician: Clemencia Velasquez, Consults: 10/25/16 12:56 Consult to Cardiology [CONS] Routine Comment: Consulting Provider: Cardiology Sarah Beth Reason for Consult: Patient of Dr. Torres with acute CHF requiring bipap, nitro, aggressive diuresis. concern for underlying coronary disease Call Completed: No 10/27/16 08:17 Consult to [place] [CONS] Routine Reason for SW Consult: Patient will need home o2 Discharging clinician: Michael Araujo Anticipated date of discharge: 10/27/16 - Patient Status Disposition: Home, Self-Care Condition: Good - Discharge Instructions Follow Up With: Clemencia Velasquez CNP [Primary Care Provider] - Jaiden Torres MD [Partnered Physician] - 11/09/16 10:45 am Hospital course: Ms. Patel is a 86 year old female - Time Spent with Patient Total time spent providing and/or coordinating discharge services: - Constitutional Vitals: Temp Pulse Resp BP Pulse Ox 98.0 F 81 18 141/84 91 10/27/16 08:00 10/27/16 08:00 10/27/16 08:00 10/27/16 08:00 10/27/16 08:15 General appearance: Present: A&O X 3, pleasant, no acute distress, obese - Head Head exam: Present: atraumatic, normocephalic - Eye Eye exam: Present: PERRL, conjuntiva pink, sclera anicteric Pupils: Present: PERRL - Neck Neck exam general surgery: Present: supple, trachea midline. Absent: lymphadenopathy - Respiratory Respiratory exam: Present: CTAB. Absent: accessory muscle use, rales, rhonchi, wheezes - Cardiovascular Cardiovascular exam: Present: irregular rhythm, +S1, +S2. Absent: diastolic murmur, gallop, rubs, systolic murmur - GI/Abdominal GI/Abdominal exam: Present: normal bowel sounds, soft, no peritoneal signs. Absent: distended, tenderness - Extremities Exam Extremities exam: Present: warm, radial pulses palpable and symetrical. Absent : calf tenderness, cyanotic, pedal edema - Neurological Exam Neurological exam: Present: alert, CN II-XII intact, oriented X3, no focal deficits. Absent: pronater drift, facial droop, speech deficit - Skin Skin exam: Present: dry, intact - VTE Documentation of Mechanical Device: Graduated compression elastic hosiery
--- NOTE | 2016-10-27 10:00 | Internal Med Progress Note ---
Date of Encounter: 10/27/16 Time of Encounter: 09:58 - Assessment and plan (1) Acute on chronic diastolic (congestive) heart failure Current Visit: Yes Status: Acute Assessment and plan: Improving Continue lasix po Continue to monitor (2) Acute respiratory failure Current Visit: Yes Status: Acute Assessment and plan: Still requiring 1-2L L O2 Qualify for home O2 prior to d/c Continue O2 supplement Qualifiers: Respiratory failure complication: hypoxia Qualified Code(s): J96.01 - Acute respiratory failure with hypoxia (3) Atrial fibrillation Current Visit: Yes Status: Chronic Assessment and plan: HR is controlled, continue home meds Qualifiers: Atrial fibrillation type: chronic Qualified Code(s): I48.2 - Chronic atrial fibrillation (4) Anticoagulated on Coumadin Current Visit: Yes Status: Acute Assessment and plan: INR 3.5 Pharmacy to adjust dose with INR Monitor INR (5) DVT prophylaxis Current Visit: Yes Status: Acute - Subjective Interval history: 86 year old female with PMH significant for tachybrady s/p PPM, afib (coumadin) , HTN, HLD, systolic CHF, and hypothyroidism She is admitted for management of CHF exacerbation and HTN Urgency She is seen at bedside, sitting out of bed , in chair I turned off patient's O2 as I walked into her room ans she saturated between 94 -98% throughout my evaluation She denies new complains but has requested to stay one more might for diuresis Her INR today is 3.5, coumadin will be adjusted by pharmacy Home O2 qualification before discharge a.m - Constitutional Vitals: Temp Pulse Resp BP Pulse Ox 98.0 F 81 18 141/84 91 10/27/16 08:00 10/27/16 08:00 10/27/16 08:00 10/27/16 08:00 10/27/16 08:15 General appearance: Present: A&O X 3, pleasant, no acute distress, obese - Head Head exam: Present: atraumatic, normocephalic - Eye Eye exam: Present: PERRL, conjuntiva pink, sclera anicteric Pupils: Present: PERRL - Neck Neck exam general surgery: Present: supple, trachea midline. Absent: lymphadenopathy - Respiratory Respiratory exam: Present: CTAB. Absent: accessory muscle use, rales, rhonchi, wheezes - Cardiovascular Cardiovascular exam: Present: irregular rhythm, +S1, +S2. Absent: diastolic murmur, gallop, rubs, systolic murmur - GI/Abdominal GI/Abdominal exam: Present: normal bowel sounds, soft, no peritoneal signs. Absent: distended, tenderness - Extremities Exam Extremities exam: Present: warm, radial pulses palpable and symetrical. Absent : calf tenderness, cyanotic, pedal edema - Neurological Exam Neurological exam: Present: alert, CN II-XII intact, oriented X3, no focal deficits. Absent: pronater drift, facial droop, speech deficit - Skin Skin exam: Present: dry, intact Internal Medicine: Result - Labs CBC & Chem 7: 10/26/16 04:46 10/27/16 04:15 Labs: BMP 10/27/16 04:15 Sodium 142 Potassium 3.9 Chloride 102 Carbon Dioxide 30 H BUN 22 H Creatinine 1.02 Glucose 107 H Calcium 9.5 - ABG Interpretation ABG results: PT/INR, D-dimer PT 39.2 Seconds (9.4-12.1) H 10/27/16 04:15 - VTE Documentation of Mechanical Device: Graduated compression elastic hosiery Consult Discharge Plan - Plan Referrals: Clemencia Velasquez CNP [Primary Care Provider] - Jaiden Torres MD [Partnered Physician] - 11/09/16 10:45 am Prescriptions: Furosemide [Lasix] 40 mg PO BIDDIURETIC #60 tablet Warfarin [Coumadin] 1 mg PO 1800 #6 tablet
[2016-10-28 06:49] LABS: INR 2.8; Prothrombin Time 31.4 Seconds (9.4-12.1)
[2016-10-28] MEDS: Lisinopril 20 MG TABLET PO SCH (08:27)
[2016-10-28] MEDS: Furosemide 40 MG TABLET PO SCH (08:27)
[2016-10-28 08:29] VITALS: BP 142/77
--- NOTE | 2016-10-28 11:07 | Discharge Summary ---
Date of Encounter: 10/28/16 Time of Encounter: 11:05 - Discharge Diagnosis (1) Acute on chronic diastolic (congestive) heart failure Priority: Primary Status: Acute (2) Acute respiratory failure Priority: Primary Status: Acute Qualifiers: Respiratory failure complication: hypoxia Qualified Code(s): J96.01 - Acute respiratory failure with hypoxia (3) Atrial fibrillation Priority: Secondary Status: Chronic Qualifiers: Atrial fibrillation type: chronic Qualified Code(s): I48.2 - Chronic atrial fibrillation (4) Anticoagulated on Coumadin Priority: Secondary Status: Chronic (5) DVT prophylaxis Priority: Secondary Status: Chronic - Discharge Medications Prescriptions: Furosemide [Lasix] 40 mg PO BIDDIURETIC #60 tablet Warfarin [Coumadin] 1 mg PO 1800 #6 tablet Home Medications: Carvedilol [Coreg] 25 mg PO BID 10/25/16 [History] Cholecalciferol (Vitamin D3) [Vitamin D3] 1,000 unit PO DAILY 10/25/16 [History] Cyanocobalamin (Vitamin B-12) [Vitamin B12] 1,000 mcg PO DAILY 10/25/16 [History ] Febuxostat [Uloric] 40 mg PO DAILY 10/25/16 [History] Ferrous Sulfate [Slow Fe] 65 mg PO DAILY 10/25/16 [History] Krill Oil 500 mg PO DAILY 10/25/16 [History] Levothyroxine [Synthroid] 100 mcg PO DAILY 10/25/16 [History] Lisinopril [Zestril] 40 mg PO DAILY 10/25/16 [History] Multivitamin [Multi-Day Vitamins] 1 tab PO DAILY 10/25/16 [History] Omeprazole [PriLOSEC] 20 mg PO DAILY 10/25/16 [History] Pravastatin Sodium [Pravachol] 80 mg PO DAILY 10/25/16 [History] Vit C/Vit E/Lutein/Min/[place]-3 [Ocuvite Softgel] 1 cap PO DAILY 10/25/16 [ History] Furosemide [Lasix] 40 mg PO BIDDIURETIC #60 tablet 10/27/16 [Rx] Warfarin [Coumadin] 1 mg PO 1800 #6 tablet 10/27/16 [Rx] Allergies/Adverse Reactions: Allergies Penicillins [PCN] Allergy (Verified 10/19/16 12:26) Hives Date of admission: 10/25/16 12:38 Primary care physician: Clemencia Velasquez, Consults: 10/25/16 12:56 Consult to Cardiology [CONS] Routine Comment: Consulting Provider: Heather Burleson Reason for Consult: Patient of Dr. Torres with acute CHF requiring bipap, nitro, aggressive diuresis. concern for underlying coronary disease Call Completed: No 10/27/16 08:17 Consult to Farm Implement Engine Mechanic [CONS] Routine Reason for SW Consult: Patient will need home o2 Discharging clinician: Michael Araujo Anticipated date of discharge: 10/28/16 - Patient Status Disposition: Home, Self-Care Condition: Fair Functional capacity at discharge: independent ambulation Overall status at discharge: patient is progressing back to baseline - Discharge Instructions Instructions: Furosemide (By mouth), Warfarin (By mouth), Heart Failure (DC) Follow Up With: Clemencia Velasquez CNP [Primary Care Provider] - 11/02/16 1:30 pm Jaiden Torres MD [Partnered Physician] - 11/09/16 10:45 am - Diet and Activity Activity: resume usual activities as tolerated, wear oxygen at all times Diet: low salt diet Interval History: See below Hospital course: 86 year old female with PMH significant for tachybrady s/p PPM, afib (coumadin) , HTN, HLD, systolic CHF, (with EF 30-35%) and hypothyroidism She was admitted for management of acute hypoxic respirator failure secondary to acute on chronic CHF exacerbation and HTN Urgency likely secondary to indiscretion with fluid and sodium intake She was managed with IV diuretics, supplemental O2, nitro drip. Cardiology was consulted and agreed with management Work up was negative for ischemia. EKG unremarkable, Troponin negative, CBC and chem were at her baseline Most recent TTE (09/22/16): EF 30-35%, LV moderately dilated, RV mildly dilated and hypokinetic, mild-moderate AR, moderate MR and TR. Recent nuclear stress on 10/19/16 demonstrated fixed perfusion to inferior wall and apex; perfusion imaging negative for ischemia. Gated EF=42%, LV is dilated. She was transitioned to po lasix 10/27 and total intake/output was negative -[id number] She continues to require oxygen supplementation Her INR has been supra-therapeutic since admission but is 2.8 on 1mg Coumadin this morning She is seen at [facility] today, stable with no complains She is discharged on home oxygen and po lasix 40mg bid, as well as 1mg Coumadin daily until INR check by INR clinic She stated she has an appointment in her INR clinic 10/19, advised to keep Follow up with PCP within one week and with cardiology within 2 weeks Verbalized understanding to plan of care - Time Spent with Patient Total time spent providing and/or coordinating discharge services: Less than 30 minutes - Constitutional Vitals: Temp Pulse Resp BP Pulse Ox 97.9 F 72 18 142/77 94 10/28/16 08:26 10/28/16 08:26 10/28/16 08:26 10/28/16 08:26 10/28/16 10:49 General appearance: Present: A&O X 3, pleasant, no acute distress, obese - Head Head exam: Present: atraumatic, normocephalic - Eye Eye exam: Present: PERRL, conjuntiva pink, sclera anicteric Pupils: Present: PERRL - Neck Neck exam general surgery: Present: supple, trachea midline. Absent: lymphadenopathy - Respiratory Respiratory exam: Present: CTAB. Absent: accessory muscle use, rales, rhonchi, wheezes - Cardiovascular Cardiovascular exam: Present: irregular rhythm, +S1, +S2. Absent: diastolic murmur, gallop, rubs, systolic murmur - GI/Abdominal GI/Abdominal exam: Present: normal bowel sounds, soft, no peritoneal signs. Absent: distended, tenderness - Extremities Exam Extremities exam: Present: warm, radial pulses palpable and symetrical. Absent : calf tenderness, cyanotic, pedal edema - Neurological Exam Neurological exam: Present: alert, CN II-XII intact, oriented X3, no focal deficits. Absent: pronater drift, facial droop, speech deficit - Skin Skin exam: Present: dry, intact - VTE Documentation of Mechanical Device: Graduated compression elastic hosiery
[2016-10-28] MEDS ORDERED: *HR* Warfarin 1 MG TABLET PO ONE (18:00)
== END 2016-10-28 13:15 | disposition home or self-care (01) | DRG 291 ==
LOC: 2ANU 07:49 → EMEROO 07:49 → 2ANU 12:07
PROVIDERS: ADMIT Hospitalist; ATTEND Internal Medicine

== ENCOUNTER 2017-04-23 11:34 | Observation (INO) ==
[2017-04-23] MEDS ORDERED: Lidocaine -MPF 1% 2 ML VIAL ID ONE (12:20)
[2017-04-23] MEDS ORDERED: Clindamycin 900 MG/50 ML 900 MG/50 ML IV.SOLN IVPB ONE (12:20)
[2017-04-23] MEDS: Ringers Solution, Lactated 1,000 ML IVC SCH (12:25)
[2017-04-23] MEDS ORDERED: Bupivacaine/EPI 1:200k 0.5%PF 10 ML VIAL ONE (12:26)
[2017-04-23] MEDS ORDERED: *HR* Midazolam HCl 2 MG/2 ML VIAL ONE (12:42)
[2017-04-23] MEDS ORDERED: *HR* Succinylcholine 200 MG/10 ML VIAL IVP ONE (12:42)
[2017-04-23] MEDS ORDERED: *HR* FentaNYL (PF) 100 MCG/2 ML VIAL ONE (12:42)
[2017-04-23] MEDS ORDERED: Lidocaine -MPF 2% 2 ML VIAL ONE (12:42)
[2017-04-23] MEDS ORDERED: Dexamethasone 4 MG/ML VIAL ONE (12:42)
[2017-04-23] MEDS ORDERED: *HR* Propofol 200 MG/20 ML VIAL IVP ONE (12:42)
[2017-04-23] MEDS ORDERED: Ondansetron 4 MG/2 ML VIAL ONE (12:42)
[2017-04-23] MEDS ORDERED: *HR* Etomidate 40 MG/20 ML VIAL IVP ONE (12:43)
[2017-04-23] MEDS ORDERED: *HR* EPINEPHrine 1 MG/ML AMPUL ONE (12:47)
--- NOTE | 2017-04-23 13:13 | History & Physical Report ---
Date of Encounter: 04/23/17 Time of Encounter: 13:13 24 Hour HP Update - Instructions Instructions: If the History and Physical is less than 30 days old and was completed prior to A.M. admission and or procedure and has NOT been updated on calendar day of procedure please complete this update prior to performing procedure. - Update Patient reports changes in Medical Condition: No Changes in examination, assessment, or condition: No Changes in Medication: No Preop tests/diagnostics Reviewed: Yes Surgery Remains Indicated: Yes Consent for Planned Operative Procedure(s) Verified: Yes
--- NOTE | 2017-04-23 13:31 | Anesthesia Evaluation PreOp ---
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: Denies Any Significant HX Other Medical History: Thyroid, GERD (Heartburn, controlled) Anesthesia History: No Prior Anesthetic Complications Alcohol Use: none Drug use: none Medications and Allergies Carvedilol [Coreg] 25 mg PO BID 10/25/16 [History] Cholecalciferol (Vitamin D3) [Vitamin D3] 1,000 unit PO DAILY 10/25/16 [History] Cyanocobalamin (Vitamin B-12) [Vitamin B12] 1,000 mcg PO DAILY 10/25/16 [History ] Ferrous Sulfate [Slow Fe] 65 mg PO DAILY 10/25/16 [History] Krill Oil 500 mg PO DAILY 10/25/16 [History] Levothyroxine [Synthroid] 100 mcg PO DAILY 10/25/16 [History] Lisinopril [Zestril] 40 mg PO DAILY 10/25/16 [History] Multivitamin [Multi-Day Vitamins] 1 tab PO DAILY 10/25/16 [History] Omeprazole [PriLOSEC] 20 mg PO DAILY 10/25/16 [History] Pravastatin Sodium [Pravachol] 80 mg PO DAILY 10/25/16 [History] Vit C/Vit E/Lutein/Min/[place]-3 [Ocuvite Softgel] 1 cap PO DAILY 10/25/16 [ History] Furosemide [Lasix] 40 mg PO BIDDIURETIC #60 tablet 10/27/16 [Rx] Ibuprofen 400 mg PO Q4-6H PRN #30 tablet 03/31/17 [Rx] Warfarin [Coumadin] 1 mg PO TH 04/23/17 [History] Warfarin [Coumadin] 2 mg PO SUMOTUWEFRSA 04/23/17 [History] 3 Allergy/AdvReac Type Severity Reaction Status Date / Time Penicillins [PCN] Allergy Hives Verified 04/23/17 12:41 - Meds/Allergy Pre-op Review Medications Reviewed: Yes Allergies Reviewed: Yes Anesthesia Results - Labs Laboratory Tests 03/04/17 04/20/17 04/22/17 09:49 11:28 10:31 Hgb 9.8 L Hct 31.0 L Plt Count 190 INR APTT Sodium 142 Potassium 4.2 BUN 49 H Creatinine 1.45 H 04/22/17 10:31 Hgb Hct Plt Count INR 1.2 APTT 31.8 Sodium Potassium BUN Creatinine Anesthesia Exam Vital Signs/O2 Sat/Glucose, Most Recent Temp Pulse Resp BP Pulse Ox 98.1 F 74 18 133/68 95 04/23/17 12:14 04/23/17 12:14 04/23/17 12:14 04/23/17 12:14 04/23/17 12:14 - Cardiac Rhythm: Regular - Pulmonary Breath Sounds: bilateral Clear Anesthesia Assess/Plan ASA Score: 3 Anesthetic Plan: General Monitoring Plan: Standard Monitors Recovery Plan: PACU Anes Supervising Prov Stmt: I have participated in the evaluation of this patient. Patient informed and consented. Risks, benefits, and alternatives discussed. Patient wishes to proceed.
[2017-04-23] MEDS ORDERED: *HR* Promethazine 25 MG/ML VIAL IVP PRN (14:28)
[2017-04-23] MEDS ORDERED: *HR* OxyCODONE/APAP 5/325 TABLET PO PRN (15:35)
--- NOTE | 2017-04-23 15:37 | Discharge Summary ---
Outpatient Proc Discharge Plan - Plan Additional Instructions: DISCHARGE INSTRUCTIONS Dr. Sumner DISCHARGE DIAGNOSIS/PROCEDURE Open reduction and internal fixation of the right distal radius PAIN AND SWELLING: The goal of pain medication is to reduce your pain and make you more comfortable. Pain medication may not completely relieve all discomfort. Control of swelling is an important part of pain control. To control swelling and pain: 1. Use a pillow to elevate the hand 10 to 14 inches above the heart level. 2. If your splint is positioned so that one or more of your fingers is free, then we encourage gentle movement of those fingers. If the splint blocks your motion, then we ask that you avoid motion of these fingers or hand. If the splint does not include the elbow, then we encourage you to bend and straighten your elbow 4 to 5 times per day to prevent stiffness. 3. Use ice packs over the affected area (on the soft side of the dressings is preferred - if there is one) for 10 minute intervals every hour while the hand is elevated. Be careful, however, to keep the dressing dry! 4. If you were given a sling, then wear the sling on when walking around for long periods of time. Otherwise, elevated as directed above. Continued use of the sling does not provide proper elevation of the extremity to prevent swelling. 5. The anesthesiologist may have given you a nerve block (an injection near your neck or shoulder) to numb your hand and arm. This is to help control your pain. Therefore, it is normal to experience some numbness and tingling in your arm and fingers up to approximately 18 hours after surgery. Your surgeon may have given a nerve block directly at the site of surgery which may also cause some numbness and tingling to the affected area. ACTIVITY: Avoid aggressive activities with the right upper extremity WOUND CARE: Keep the wound clean, dry, and covered. The purpose of the dressing is to keep the surgical site protected and to promote healing. If you have a splint or a cast, it is designed to also help protect the surgical site. You may take a shower or bath with your dressing, splint, or cast in place, but you must keep it dry. One common way to do this is to place a bag over the area and seal with tape. If your dressing, splint, or cast becomes soaked, then phone our office as soon as possible. Unless otherwise instructed, do not remove your dressing or splint. There may be some bloody spotting on the dressing initially , and this is normal. Excessive bleeding that soaks the dressing must be reported to us. DRIVING: Do not drive while taking narcotic pain medications. DIET: Begin with clear liquids, and then increase your diet as you feel comfortable. MEDICATIONS: Pain: Percocet Your prescribed pain medication contains Tylenol. You must be careful not to exceed 4,000 mg (4 g) of Tylenol (or generic equivalent), from all sources, within a single 24-hour period. Gradually wean to Tylenol (or generic equivalent) for pain. Over the counter ibuprofen can be taken as directed in addition to your prescribed pain medication unless otherwise stated by your doctor. DO NOT TAKE IBUPROFEN IF YOU HAVE A HISTORY OF STOMACH ULCERS OR ARE TAKING BLOOD THINNERS LIKE COUMADIN OR PLAVIX. FOLLOW-UP Follow-up with Dr. Sumenr at the office 2 weeks from the surgery date for a post operative evaluation. Call the office at [phone] to schedule or confirm your appointment. WHEN TO CALL THE DOCTOR OR WHEN TO SEEK CARE BEFORE YOUR APPOINTMENT 1. Excess swelling or increased numbness not made better by elevating the hand and moving the fingers. 2. Uncontrolled pain. 3. A color change in your hand or fingers. 4. Worsening redness or drainage. 5. Fevers over 100.5 degrees F or 38.1 degrees C. 6. Any symptoms that bring concern to you. Prescriptions: OxyCODONE/APAP 5/325 [Percocet 5/325 MG] 1 each PO Q6HR PRN #25 tablet PRN Reason: Pain Home Medications: Carvedilol [Coreg] 25 mg PO BID 10/25/16 [History] Cholecalciferol (Vitamin D3) [Vitamin D3] 1,000 unit PO DAILY 10/25/16 [History] Cyanocobalamin (Vitamin B-12) [Vitamin B12] 1,000 mcg PO DAILY 10/25/16 [History ] Ferrous Sulfate [Slow Fe] 65 mg PO DAILY 10/25/16 [History] Krill Oil 500 mg PO DAILY 10/25/16 [History] Levothyroxine [Synthroid] 100 mcg PO DAILY 10/25/16 [History] Lisinopril [Zestril] 40 mg PO DAILY 10/25/16 [History] Multivitamin [Multi-Day Vitamins] 1 tab PO DAILY 10/25/16 [History] Omeprazole [PriLOSEC] 20 mg PO DAILY 10/25/16 [History] Pravastatin Sodium [Pravachol] 80 mg PO DAILY 10/25/16 [History] Vit C/Vit E/Lutein/Min/[place]-3 [Ocuvite Softgel] 1 cap PO DAILY 10/25/16 [ History] Furosemide [Lasix] 40 mg PO BIDDIURETIC #60 tablet 10/27/16 [Rx] Ibuprofen 400 mg PO Q4-6H PRN #30 tablet 03/31/17 [Rx] OxyCODONE/APAP 5/325 [Percocet 5/325 MG] 1 each PO Q6HR PRN #25 tablet 04/23/17 [Rx] Warfarin [Coumadin] 1 mg PO TH 04/23/17 [History] Warfarin [Coumadin] 2 mg PO SUMOTUWEFRSA 04/23/17 [History]
[2017-04-23] MEDS: *HR* HYDROmorphone (PF) 1 MG/ML SYRINGE IVP PRN ×2 (15:51→15:58)
[2017-04-23] MEDS ORDERED: *HR* OxyCODONE/APAP 5/325 TABLET PO STA (18:14)
--- NOTE | 2017-04-23 19:39 | Anesthesia Evaluation Post Op ---
Date of Encounter: 04/23/17 Time of Encounter: 19:38 - Vital Signs Vital Signs: Last Vital Signs Temp 97.5 F L 04/23/17 16:23 Pulse 70 04/23/17 16:53 Resp 16 04/23/17 16:53 BP 111/59 04/23/17 16:53 Pulse Ox 96 04/23/17 16:53 - Lungs Lungs: Clear Ascult./Percussion - Airway Airway: Non-obstructed - Cardiovascular Regular Rate - Mental Status Mental Status: Alert & Oriented, Answers Appropriately - Pain Pain Scale: 2 - Nausea Vomiting Nausea Vomiting: Not Present - Hydration Hydration: Tolerates oral liquids - Discharge PostOp Status: Discharge Patient to home
--- NOTE | 2017-04-23 20:41 | Orthopedic Operative Note ---
Date of procedure: 04/23/17 Procedure: OPERATIVE REPORT DATE OF PROCEDURE: 04/23/2017 SURGEON: Humberto Sumner MD CLARIFYING PLANT OPERATOR(S): There were no assistants PREOPERATIVE DIAGNOSIS: Right intra-articular distal radius fracture with 2 articular fragments. POSTOPERATIVE DIAGNOSIS: Same PROCEDURE: Open reduction and internal fixation of the right distal radius. ANESTHESIA: General anesthesia PREOPERATIVE ANTIBIOTICS: 900 mg Clindamycin ESTIMATED BLOOD LOSS: 2 milliliters TOURNIQUET TIME: 64 minutes at 250 mmHg IMPLANTS: Skeletal dynamics distal radius volar locking plate LOCAL INJECTION: 0.5% bupivacaine with 1:200,000 epinephrine; 10 mL used in total PREOPERATIVE NOTE AND INDICATIONS: This patient is an 87-year-old female who sustained a right distal radius fracture which had gone on to displacement after nonoperative management. Treatment options were discussed and she wished to pursue open reduction and internal fixation are to stabilize and prevent further displacement which could potentially cause pain in the future. The surgical plan was discussed with the patient. The risks, benefits, alternatives, and potential complications of this procedure were discussed with the patient including injury to veins, arteries, nerves, tendons, ligaments, and bone. Also discussed were the risks of infection, bleeding, pain, blood clots, the possible need for a blood transfusion, the possible need for further procedures, heart attack, stroke, and . Additional risks including malunion, nonunion, symptomatically, and tendon ruptures and possibly the need to remove the hardware in the future. All of this was explained in simple terms , and the patient verbalized understanding and wished to proceed. Consent was given to proceed with surgery. PROCEDURE: The patient was seen in the preoperative holding area where the identify and the consent were confirmed. The right wrist was marked. Final questions were answered. The patient was brought back to the operating room and placed supine on the operating room table. A huddle was performed with the patient and all vital surgical team members confirming patient identity, the correct procedure, and the correct operative site. General anesthesia was administered. The right upper extremity was prepped and draped in the usual sterile fashion. A surgical time out was performed immediately preceding the incision with all personnel in the operating room to confirm patient identity, the correct operative site and extremity, correct radiographic studies, availability of appropriate surgical equipment, and agreement on the planned procedure. The limb was exsanguinated and the tourniquet was inflated. A longitudinal incision was made per the approach of [place]. Dissection proceeded to the FCR which was reflected ulnarly. Antebrachial fascia deep to this was opened and the contents of the volar forearm reflected ulnarly and the radial artery reflected radially. The radial septum was taken down. The space of [place] was opened. The transitional fibrous zone as well as the pronator was taken down. The fracture was partially healed and broken apart with an osteotome. Dissection proceeded radially and the shaft was pronated out of the wound and the dorsal periosteum was broken apart. This allowed for easy reduction of the fracture. The definitive plate was placed on the bone and fixed proximally with a cortical screw in the oblong hole. Distal pegs were placed followed by 2 cortical screws in the shaft proximally given her poor bone quality. X-ray showed good position and the tourniquet was deflated. Discrete bleeders were liked cauterized. The skin was closed with interrupted nylon stitches. A sterile dressing and volar short arm splint were placed. The instrument, sponge, and needle counts were correct after wound closure. POST OPERATIVE PLAN: Weight Bearing: Nonweightbearing to the right upper extremity. DVT Prophylaxis: Ambulation Activity: Avoid aggressive activities with right upper extremity. Wound Care: Keep the dressing and splint clean, dry, and intact Pain Control: Percocet Follow Up: 2 weeks
--- NOTE | 2017-04-23 20:59 | Internal Med History&Physical ---
<Rajesh Herrera - Last Filed: 04/24/17 02:19> Date of Encounter: 04/23/17 Time of Encounter: 20:59 Assessment and Plan (1) Acute respiratory failure Current visit: No Status: Acute Patient with post-op hypoxia in the PACU on POD#0 likely anesthesia induced from preceding operation Supplemental O2 prn Duonebs Lasix Continue to monitor Qualifiers: Respiratory failure complication: hypoxia Qualified Code(s): J96.01 - Acute respiratory failure with hypoxia (2) Systolic CHF, acute on chronic Current visit: Yes Status: Acute CXR reveals mild pulmonary edema with small bilateral pleural effusions. BNP 356, rales on exam, leg edema 09/22/16 Echo revealed LVEF 30-35%, Left ventricle is moderately dilated, Indeterminate left venticular diastoic function, RV is mildly dilated and hypokinetic. Moderate pulmonary hypertension. The IVC is dilated. Continue Lasix Fluid restriction (3) Fracture of right distal radius Current visit: Yes Status: Acute POD#0 s/p open reduction and internal fixation of right intra-articular distal radius. X-ray reveals postoperative change of plate and screw fixation in the distal right radius, with fragments in anatomic alignment. Dilaudid/Percocet prn pain PT/OT consulted Qualifiers: Fracture type: closed Fracture morphology: unspecified fracture morphology Fracture healing: with nonunion Qualified Code(s): S52.501K - Unspecified fracture of the lower end of right radius, subsequent encounter for closed fracture with nonunion (4) Atrial fibrillation Current visit: Yes Status: Chronic Continue home meds Qualifiers: Atrial fibrillation type: chronic Qualified Code(s): I48.2 - Chronic atrial fibrillation (5) Anticoagulated on Coumadin Current visit: Yes Status: Chronic Resume home Coumadin INR 1.2 (6) Anemia Current visit: Yes Status: Acute Likely acute blood loss related to recent surgery No signs of bleeding on exam Continue to monitor Qualifiers: Anemia type: unspecified type Qualified Code(s): D64.9 - Anemia, unspecified (7) HTN (hypertension) Current visit: Yes Status: Chronic Continue home meds Qualifiers: Hypertension type: unspecified Qualified Code(s): I10 - Essential (primary ) hypertension (8) HLD (hyperlipidemia) Current visit: Yes Status: Chronic Continue home meds Qualifiers: Hyperlipidemia type: unspecified Qualified Code(s): E78.5 - Hyperlipidemia , unspecified (9) Hypothyroidism Current visit: Yes Status: Chronic Continue home meds Qualifiers: Hypothyroidism type: unspecified Qualified Code(s): E03.9 - Hypothyroidism , unspecified (10) Obesity (BMI 30-39.9) Current visit: Yes Status: Chronic Discussed diet modification and exercise (11) DVT prophylaxis Current visit: Yes Status: Acute Resume Coumadin. Encourage ambulation Internal Medicine - H&P: HPI Chief complaint: Post-op hypoxia Admitted From: Home Plans for Post Hospital Care: Home History of present illness: Ms. Patel is a 87 year old female with a PMH of systolic CHF, HTN, HLD, A-fib on Coumadin, PACER, and POD#0 s/p open reduction and internal fixation of right intra-articular distal radius that was admitted due to post-op hypoxia in the PACU. She reports no difficulty breathing at time of exam. Her SpO2 has been between 92 -99% on 2L NC. Her right upper extremity is immobilized. Patient denies fever, chills, CP, SOB, abd pain, N/V/D/C, or leg edema. Past Med Surg Social Fam HX - Past Medical History Medical history: atrial fibrillation, CHF, hyperlipidemia, hypertension, thyroid disease Psychiatric history: no psych history - Past Surgical History Surgical History: appendectomy, cholecystectomy, hysterectomy, orthopedic, other (right distal radius ORIF), pacemaker - Social History Smoking Status: Never smoker Smokeless Tobacco Status: No Alcohol use: none Drug use: none - Family History Father Living Status: Hx Family Cancer: Yes Mother Living Status: Daughter Living Status: Hx Family Cancer: Yes Internal Medicine - H&P: Meds Carvedilol [Coreg] 25 mg PO BID 10/25/16 [History] Cholecalciferol (Vitamin D3) [Vitamin D3] 1,000 unit PO DAILY 10/25/16 [History] Cyanocobalamin (Vitamin B-12) [Vitamin B12] 1,000 mcg PO DAILY 10/25/16 [History ] Ferrous Sulfate [Slow Fe] 65 mg PO DAILY 10/25/16 [History] Krill Oil 500 mg PO DAILY 10/25/16 [History] Levothyroxine [Synthroid] 100 mcg PO DAILY 10/25/16 [History] Lisinopril [Zestril] 40 mg PO DAILY 10/25/16 [History] Multivitamin [Multi-Day Vitamins] 1 tab PO DAILY 10/25/16 [History] Omeprazole [PriLOSEC] 20 mg PO DAILY 10/25/16 [History] Pravastatin Sodium [Pravachol] 80 mg PO DAILY 10/25/16 [History] Vit C/Vit E/Lutein/Min/[place]-3 [Ocuvite Softgel] 1 cap PO DAILY 10/25/16 [ History] Furosemide [Lasix] 40 mg PO BIDDIURETIC #60 tablet 10/27/16 [Rx] Ibuprofen 400 mg PO Q4-6H PRN #30 tablet 03/31/17 [Rx] OxyCODONE/APAP 5/325 [Percocet 5/325 MG] 1 each PO Q6HR PRN #25 tablet 04/23/17 [Rx] Warfarin [Coumadin] 1 mg PO TH 04/23/17 [History] Warfarin [Coumadin] 2 mg PO SUMOTUWEFRSA 04/23/17 [History] 3 Allergy/AdvReac Type Severity Reaction Status Date / Time Penicillins [PCN] Allergy Hives Verified 04/23/17 12:41 All Systems PM: A 10-system review of systems was performed and is negative for pertinent findings except as documented above in the HPI. - Constitutional Constitutional: no chills, no fatigue, no falls, no weakness, no weight gain, no weight loss - EENT Eyes: no change in vision Nose, mouth and throat: no nasal congestion, no sore throat - Cardiovascular Cardiovascular ROS IM: no chest pain, no palpitations - Respiratory Respiratory: no cough, no dyspnea, no pain on inspiration, no chest congestion - Gastrointestinal Gastrointestinal: no abdominal pain, no bloating, no diarrhea, no nausea, no vomiting - Genitourinary Genitourinary: no dysuria, no urinary frequency, no urinary urgency Menstruation: post hysterectomy - Musculoskeletal Musculoskeletal ROS IM: arthralgias, limited range of motion, myalgias, no numbness, no tingling - Integumentary Integumentary IM: new lesions, no skin ulcer - Neurological Neurological ROS: no dizziness, no numbness, no tingling, no weakness - Psychiatric Psychiatric: no anxiety, no depression - Endocrine Endocrine IM: no polydipsia, no polyphagia, no polyuria - Constitutional Vitals: Temp Pulse Resp BP Pulse Ox 97.5 F L 76 16 126/69 99 04/23/17 16:23 04/23/17 20:00 04/23/17 20:00 04/23/17 20:00 04/23/17 20:00 General appearance: Present: cooperative, A&O X 3, pleasant, no acute distress, obese, answers questions appropriately - Head Head exam: Present: atraumatic, normal inspection, normocephalic - Eye Eye exam: Present: EOMI, PERRL - ENT ENT exam: Present: mucous membranes moist, normal oropharynx - Neck Neck exam general surgery: Present: normal inspection, supple. Absent: tenderness - Respiratory Respiratory exam: Present: decreased breath sounds (bibasilar), rales (mild) - Cardiovascular Cardiovascular exam: Present: RRR, +S1, +S2 - GI/Abdominal GI/Abdominal exam: Present: normal bowel sounds, soft. Absent: guarding - Additional comments: no campos - Extremities Exam Extremities exam: Present: pedal edema (1+), warm. Absent: full ROM (Right upper extremity immobilized) - Back Exam Back exam: Present: normal inspection. Absent: paraspinal tenderness, tenderness - Neurological Exam Neurological exam: Present: alert, oriented X3, no focal deficits. Absent: facial droop, speech deficit - Psychiatric Psychiatric exam: Present: normal affect, normal mood - Skin Skin exam: Present: dry, normal color, warm Internal Med - H&P Results - Labs CBC & Chem 7: 04/23/17 22:07 04/23/17 22:07 - EKG Data -: EKG Interpreted by Myself (Paced rhythm) - EKG Data Prior EKG available for review: yes When compared to previous EKG: there is no significant change - Impressions Impressions Fluoroscopy 04/23/17 00:00 IMPRESSION: Intraprocedural fluoroscopic spot images as above. See separate procedure report for more information. D/ / Geremias Ames MD / Geremias Ames MD Interpreting Provider: Geremias Aems MD Wrist X-Ray 04/23/17 00:00 IMPRESSION: Intraprocedural fluoroscopic spot images as above. See separate procedure report for more information. D/ / Geremias Ames MD / Geremias Ames MD Interpreting Provider: Geremias Ames MD Chest X-Ray 04/23/17 21:27 IMPRESSION: Mild pulmonary edema with small bilateral pleural effusions. D/ / Roseanne Hendricks MD / Roseanne Hendricks MD Interpreting Provider: Roseanne Hendricks MD <Humera Choudhury - Last Filed: 04/24/17 06:14> Date of Encounter: 04/24/17 Internal Medicine - H&P: HPI History of present illness: Ms. Patel is a 87 year old female All Systems PM: A 10-system review of systems was performed and is negative for pertinent findings except as documented above in the HPI. - Constitutional Vitals: Temp Pulse Resp BP Pulse Ox 97.5 F L 75 18 108/66 100 04/24/17 04:16 04/24/17 04:16 04/24/17 04:16 04/24/17 04:16 04/24/17 04:16 Internal Med - H&P Results - Labs CBC & Chem 7: 04/24/17 05:00 04/24/17 05:00 Labs: Short CBC 04/23/17 04/24/17 Range/Units 22:07 05:00 WBC 7.0 7.3 (4.3-11.1) K/mcL Hgb 9.1 L 8.6 L (11.5-15.4) g/dL Hct 28.3 L 27.4 L (35.3-44.9) % Plt Count 150 156 (140-400) K/mcL Neutrophils # 6.1 (1.6-8.9) K/mcL BMP 04/23/17 04/24/17 22:07 05:00 Sodium 138 140 Potassium 4.3 4.1 Chloride 104 103 Carbon Dioxide 26 29 BUN 22 H 20 Creatinine 1.19 H 1.08 Glucose 171 H 126 H Calcium 9.1 9.2 Liver Function 04/23/17 Range/Units 22:07 Total Bilirubin 1.0 (0.2-1.2) mg/dL AST 37 H (5-34) Units/L ALT 27 (0-55) Units/L Alkaline Phosphatase 103 (38-126) Units/L Albumin 3.5 (3.5-5.0) g/dL - Impressions ITS Impressions Fluoroscopy 04/23/17 00:00 IMPRESSION: Intraprocedural fluoroscopic spot images as above. See separate procedure report for more information. D/ / Geremias Ames MD / Geremias Ames MD Interpreting Provider: Geremias Ames MD Wrist X-Ray 04/23/17 00:00 IMPRESSION: Intraprocedural fluoroscopic spot images as above. See separate procedure report for more information. D/ / Geremias Ames MD / Geremias Ames MD Interpreting Provider: Geremias Ames MD Chest X-Ray 04/23/17 21:27 IMPRESSION: Mild pulmonary edema with small bilateral pleural effusions. D/ / Roseanne Hendricks MD / Roseanne Hendricks MD Interpreting Provider: Roseanne Hendricks MD - Attending Attestation I have seen and examined the patient independently. I have discussed with resident Dr Herrera regarding the management plan. Agree with the documentation. Patient has low saturation after general anesthesia. Need close monitoring. Now patient feels fine. No cardiopulmonary problems identified so far. We will continue to closely monitor pt.
[2017-04-23] MEDS ORDERED: Ondansetron 4 MG/2 ML VIAL IVP PRN (21:17)
[2017-04-23] MEDS ORDERED: Naloxone 0.4 MG/ML INJ IVP PRN (21:17)
[2017-04-23] MEDS ORDERED: Ibuprofen 400 MG TABLET PO PRN (21:27)
[2017-04-23] MEDS: Furosemide 40 MG TABLET PO SCH (22:11)
[2017-04-23 22:17] LABS: Basophils % 0.3 %; Eosinophils % 0.1 %; Hematocrit 28.3 % (35.3-44.9); Hemoglobin 9.1 g/dL (11.5-15.4); Immature Granulocytes % 0.4 % (0-4); Lymphocytes # 0.5 K/mcL (0.6-4.6); Lymphocytes % 7.1 %; Mean Corpuscular HGB Conc 32.2 g/dL (31.6-35.5); Mean Corpuscular Hemoglobin 28.6 pg (28.0-33.3); Mean Platelet Volume 10.7 fL (9.4-12.4); Monocytes # 0.3 K/mcL (0.0-1.3); Monocytes % 4.9 %; Neutrophils # 6.1 K/mcL (1.6-8.9); Platelet Count 150 K/mcL (140-400); Red Blood Count 3.18 M/mcL (3.82-4.97); Red Cell Distribution Width 14.5 % (11.5-14.5); Segmented Neutrophils % 87.2 %
[2017-04-23 22:22] LABS: INR 1.2; Prothrombin Time 13.2 Seconds (9.4-12.1)
[2017-04-23 22:24] LABS: Activated Partial Thrombo Time 29.6 Seconds (26.0-36.0)
[2017-04-23 22:30] LABS: Albumin 3.5 g/dL (3.5-5.0); Albumin/Globulin Ratio 1.1 (1.1-2.2); Calcium 9.1 mg/dL (8.6-10.8); Globulin 3.1 g/dL (2.4-3.5); Potassium 4.3 mEq/L (3.5-4.5); Total Protein 6.6 g/dL (6.0-8.3)
[2017-04-23] MEDS: Clindamycin 900 MG/50 ML 900 MG/50 ML IV.SOLN IVPB SCH (23:38)
[2017-04-24] MEDS: Ipratropium/Albuterol Neb 3 ML IH SCH ×4 (01:19→10:43)
[2017-04-24 05:38] LABS: Hematocrit 27.4 % (35.3-44.9); Hemoglobin 8.6 g/dL (11.5-15.4); Immature Platelets 6.1 % (1.1-6.1); Mean Corpuscular HGB Conc 31.4 g/dL (31.6-35.5); Mean Corpuscular Hemoglobin 28.3 pg (28.0-33.3); Mean Corpuscular Volume 90.1 fL (83.0-100.0); Mean Platelet Volume 11.1 fL (9.4-12.4); Red Blood Count 3.04 M/mcL (3.82-4.97); Red Cell Distribution Width 14.5 % (11.5-14.5)
[2017-04-24 05:51] LABS: Calcium 9.2 mg/dL (8.6-10.8); Potassium 4.1 mEq/L (3.5-4.5)
[2017-04-24] MEDS ORDERED: Famotidine 20 MG/2 ML VIAL IVP SCH (06:00)
[2017-04-24] MEDS: Clindamycin 900 MG/50 ML 900 MG/50 ML IV.SOLN IVPB SCH (08:53)
[2017-04-24] MEDS: Furosemide 40 MG TABLET PO SCH (08:56)
[2017-04-24] MEDS ORDERED: Cyanocobalamin (B-12) 1,000 MCG TABLET PO SCH (09:00)
[2017-04-24] MEDS ORDERED: FERROUS SULFATE 65 MG PO SCH (09:00)
[2017-04-24] MEDS ORDERED: Lisinopril 20 MG TABLET PO SCH (09:00)
[2017-04-24] MEDS ORDERED: Multivit/Ca/Min/Fe/FA 1 TAB TABLET PO SCH ×2 (09:00)
[2017-04-24] MEDS ORDERED: Cholecalciferol (D-3) 1,000 UNIT TABLET PO SCH (09:00)
[2017-04-24 09:02] VITALS: BP 112/66
--- NOTE | 2017-04-24 10:01 | Orthopedics Progress Note ---
Date of Encounter: 04/24/17 Time of Encounter: 09:59 - Assessment and Plan (1) Fracture of right distal radius Current Visit: Yes Status: Acute POD#1 s/p ORIF R distal radius -Keep splint on -No lifting with right arm -Ok to d/c when cleared medically Qualifiers: Fracture type: closed Fracture morphology: unspecified fracture morphology Fracture healing: with nonunion Qualified Code(s): S52.501K - Unspecified fracture of the lower end of right radius, subsequent encounter for closed fracture with nonunion Subjective Interval history: Doing well 1 day s/p ORIF R distal radius. Denies CP or SOB currently. Pain controlled Objective Vital signs: Vital Signs Temp Pulse Resp BP Pulse Ox 04/24/17 09:25 100 04/24/17 09:02 75 112/66 04/24/17 08:17 16 100 04/24/17 07:18 97.9 F 71 16 110/68 98 04/24/17 04:16 97.5 F L 75 18 108/66 100 04/23/17 23:45 97.9 F 80 18 119/70 99 04/23/17 21:27 98 F 79 16 118/69 98 04/23/17 20:00 76 16 126/69 99 04/23/17 18:53 75 16 125/79 93 04/23/17 17:53 70 18 123/62 97 04/23/17 17:23 70 18 121/60 97 04/23/17 16:53 70 16 111/59 96 04/23/17 16:23 97.5 F L 75 16 118/63 92 04/23/17 16:15 97.5 F L 69 17 118/65 98 04/23/17 16:05 97.5 F L 69 14 116/61 94 04/23/17 15:55 70 15 116/61 97 04/23/17 15:45 70 17 123/64 94 04/23/17 15:35 97.8 F 88 14 121/75 93 04/23/17 12:14 98.1 F 74 18 133/68 95 Intake and Output 04/23/17 04/24/17 04/24/17 23:59 07:59 15:59 Intake Total 50 / 50 240 / 240 Output Total 0 / 0 375 / 375 Balance 0 / 0 -325 / -325 240 / 240 Intake: IV Fluids 50 / 50 Cleocin Premix 900 MG/50 ML 900 50 / 50 mg In 50 ml @ 50 mls/hr IVPB Q8HR [facility] Rx#:[id number] Oral 240 / 240 Output: Urine 0 / 0 375 / 375 Other: Meal Breakfast Percent of Meal Consumed 100% # Voids 1 1 Weight 103.52 kg Patient Weight 04/24/17 23:59 Weight 103.52 kg Dressing c/d/i. Splint in place Wiggles fingers +m/r/u - Labs CBC & BMP: 04/24/17 05:00 04/24/17 05:00 Labs: Abnormal lab results RBC 3.04 M/mcL (3.82-4.97) L 04/24/17 05:00 Hgb 8.6 g/dL (11.5-15.4) L 04/24/17 05:00 Hct 27.4 % (35.3-44.9) L 04/24/17 05:00 MCHC 31.4 g/dL (31.6-35.5) L 04/24/17 05:00 Lymphocytes # 0.5 K/mcL (0.6-4.6) L 04/23/17 22:07 PT 13.2 Seconds (9.4-12.1) H 04/23/17 22:07 Est GFR ( Amer) 58 (> 60) L 04/24/17 05:00 Est GFR (Non-Af Amer) 48 (> 60) L 04/24/17 05:00 Glucose 126 mg/dL (70-99) H 04/24/17 05:00 AST 37 Units/L (5-34) H 04/23/17 22:07 B-Natriuretic Peptide 536 pg/mL (0-100) H 04/23/17 22:07 - VTE Documentation of Mechanical Device: Intermittent pneumatic compression device Consult Discharge Plan - Plan Additional Instructions: DISCHARGE INSTRUCTIONS Dr. Sumner DISCHARGE DIAGNOSIS/PROCEDURE Open reduction and internal fixation of the right distal radius PAIN AND SWELLING: The goal of pain medication is to reduce your pain and make you more comfortable. Pain medication may not completely relieve all discomfort. Control of swelling is an important part of pain control. To control swelling and pain: 1. Use a pillow to elevate the hand 10 to 14 inches above the heart level. 2. If your splint is positioned so that one or more of your fingers is free, then we encourage gentle movement of those fingers. If the splint blocks your motion, then we ask that you avoid motion of these fingers or hand. If the splint does not include the elbow, then we encourage you to bend and straighten your elbow 4 to 5 times per day to prevent stiffness. 3. Use ice packs over the affected area (on the soft side of the dressings is preferred - if there is one) for 10 minute intervals every hour while the hand is elevated. Be careful, however, to keep the dressing dry! 4. If you were given a sling, then wear the sling on when walking around for long periods of time. Otherwise, elevated as directed above. Continued use of the sling does not provide proper elevation of the extremity to prevent swelling. 5. The anesthesiologist may have given you a nerve block (an injection near your neck or shoulder) to numb your hand and arm. This is to help control your pain. Therefore, it is normal to experience some numbness and tingling in your arm and fingers up to approximately 18 hours after surgery. Your surgeon may have given a nerve block directly at the site of surgery which may also cause some numbness and tingling to the affected area. ACTIVITY: Avoid aggressive activities with the right upper extremity WOUND CARE: Keep the wound clean, dry, and covered. The purpose of the dressing is to keep the surgical site protected and to promote healing. If you have a splint or a cast, it is designed to also help protect the surgical site. You may take a shower or bath with your dressing, splint, or cast in place, but you must keep it dry. One common way to do this is to place a bag over the area and seal with tape. If your dressing, splint, or cast becomes soaked, then phone our office as soon as possible. Unless otherwise instructed, do not remove your dressing or splint. There may be some bloody spotting on the dressing initially , and this is normal. Excessive bleeding that soaks the dressing must be reported to us. DRIVING: Do not drive while taking narcotic pain medications. DIET: Begin with clear liquids, and then increase your diet as you feel comfortable. MEDICATIONS: Pain: Percocet Your prescribed pain medication contains Tylenol. You must be careful not to exceed 4,000 mg (4 g) of Tylenol (or generic equivalent), from all sources, within a single 24-hour period. Gradually wean to Tylenol (or generic equivalent) for pain. Over the counter ibuprofen can be taken as directed in addition to your prescribed pain medication unless otherwise stated by your doctor. DO NOT TAKE IBUPROFEN IF YOU HAVE A HISTORY OF STOMACH ULCERS OR ARE TAKING BLOOD THINNERS LIKE COUMADIN OR PLAVIX. FOLLOW-UP Follow-up with Dr. Sumner at the office 2 weeks from the surgery date for a post operative evaluation. Call the office at [phone] to schedule or confirm your appointment. WHEN TO CALL THE DOCTOR OR WHEN TO SEEK CARE BEFORE YOUR APPOINTMENT 1. Excess swelling or increased numbness not made better by elevating the hand and moving the fingers. 2. Uncontrolled pain. 3. A color change in your hand or fingers. 4. Worsening redness or drainage. 5. Fevers over 100.5 degrees F or 38.1 degrees C. 6. Any symptoms that bring concern to you. Home Medication List * You have been given a list of your current medications. If you have changes in your medications, update your list. * Provide a list of current medications to your primary care physician. * Carry a copy of your current medications with you in case of an emergency. Follow Up Appointment * Please call your surgeon's office within 24 hours or next business day to schedule a follow up appointment. Referrals: Clemencia Velasquez, [employer] [Primary Care Provider] -
--- NOTE | 2017-04-24 13:13 | Discharge Summary ---
<Alison Lozada - Last Filed: 04/24/17 16:47> Date of Encounter: 04/24/17 Time of Encounter: 10:30 - Discharge Diagnosis (1) Acute respiratory failure Priority: Primary Status: Resolved Qualifiers: Respiratory failure complication: hypoxia Qualified Code(s): J96.01 - Acute respiratory failure with hypoxia (2) Systolic CHF, acute on chronic Priority: Secondary Status: Acute (3) Fracture of right distal radius Priority: Secondary Status: Acute Qualifiers: Fracture type: closed Fracture morphology: unspecified fracture morphology Qualified Code(s): S52.501A - Unspecified fracture of the lower end of right radius, initial encounter for closed fracture (4) Anemia Priority: Secondary Status: Acute Qualifiers: Anemia type: unspecified type Qualified Code(s): D64.9 - Anemia, unspecified (5) Atrial fibrillation Priority: Secondary Status: Chronic Qualifiers: Atrial fibrillation type: chronic Qualified Code(s): I48.2 - Chronic atrial fibrillation - Discharge Medications Prescriptions: Oxycodone HCl/Acetaminophen [Percocet 5-325 mg Tablet] 1 each PO Q6H PRN #10 tablet PRN Reason: Pain Home Medications: Carvedilol [Coreg] 25 mg PO BID 10/25/16 [History] Cholecalciferol (Vitamin D3) [Vitamin D3] 1,000 unit PO DAILY 10/25/16 [History] Cyanocobalamin (Vitamin B-12) [Vitamin B12] 1,000 mcg PO DAILY 10/25/16 [History ] Ferrous Sulfate [Slow Fe] 65 mg PO DAILY 10/25/16 [History] Krill Oil 500 mg PO DAILY 10/25/16 [History] Levothyroxine [Synthroid] 100 mcg PO DAILY 10/25/16 [History] Lisinopril [Zestril] 40 mg PO DAILY 10/25/16 [History] Multivitamin [Multi-Day Vitamins] 1 tab PO DAILY 10/25/16 [History] Omeprazole [PriLOSEC] 20 mg PO DAILY 10/25/16 [History] Pravastatin Sodium [Pravachol] 80 mg PO DAILY 10/25/16 [History] Vit C/Vit E/Lutein/Min/Randolph-3 [Ocuvite Softgel] 1 cap PO DAILY 10/25/16 [ History] Furosemide [Lasix] 40 mg PO BIDDIURETIC #60 tablet 10/27/16 [Rx] Ibuprofen 400 mg PO Q4-6H PRN #30 tablet 03/31/17 [Rx] OxyCODONE/APAP 5/325 [Percocet 5/325 MG] 1 each PO Q6HR PRN #25 tablet 04/23/17 [Rx] Warfarin [Coumadin] 1 mg PO TH 04/23/17 [History] Warfarin [Coumadin] 2 mg PO SUMOTUWEFRSA 04/23/17 [History] Oxycodone HCl/Acetaminophen [Percocet 5-325 mg Tablet] 1 each PO Q6H PRN #10 tablet 04/24/17 [Rx] Allergies/Adverse Reactions: 3 Allergy/AdvReac Type Severity Reaction Status Date / Time Penicillins [PCN] Allergy Hives Verified 04/23/17 12:41 Procedures/tests Complete & Pending: Procedures Performed prior 72 hours Category Date Time Status EKG [ECG 12 lead ECG] [ECG] Stat Y 04/23/17 21:29 Ordered Date of admission: 04/23/17 20:35 Primary care physician: Clemencia Velasquez, Consults: 04/23/17 21:21 Consult to Occupational Therapy [CONS] Routine Comment: Evaluate, develop and implement POC Reason for Consult: post-op right radial ORIF Consult to Physical Therapy [CONS] Routine Comment: Evaluate, develop and implement POC Reason for Consult: post-op right radial ORIF Discharging clinician: Alison Lozada Anticipated date of discharge: 04/24/17 - Patient Status Disposition: Home, Self-Care Condition: Fair Functional capacity at discharge: independent ambulation Overall status at discharge: patient is progressing back to baseline - Discharge Instructions Follow Up With: Clemencia Velasquez CNP [Primary Care Provider] - Humberto Sumner MD [Partnered Physician] - (Web request made, office will call you with an appointment) Additional Instructions: DISCHARGE INSTRUCTIONS Dr. Sumner DISCHARGE DIAGNOSIS/PROCEDURE Open reduction and internal fixation of the right distal radius PAIN AND SWELLING: The goal of pain medication is to reduce your pain and make you more comfortable. Pain medication may not completely relieve all discomfort. Control of swelling is an important part of pain control. To control swelling and pain: 1. Use a pillow to elevate the hand 10 to 14 inches above the heart level. 2. If your splint is positioned so that one or more of your fingers is free, then we encourage gentle movement of those fingers. If the splint blocks your motion, then we ask that you avoid motion of these fingers or hand. If the splint does not include the elbow, then we encourage you to bend and straighten your elbow 4 to 5 times per day to prevent stiffness. 3. Use ice packs over the affected area (on the soft side of the dressings is preferred - if there is one) for 10 minute intervals every hour while the hand is elevated. Be careful, however, to keep the dressing dry! 4. If you were given a sling, then wear the sling on when walking around for long periods of time. Otherwise, elevated as directed above. Continued use of the sling does not provide proper elevation of the extremity to prevent swelling. 5. The anesthesiologist may have given you a nerve block (an injection near your neck or shoulder) to numb your hand and arm. This is to help control your pain. Therefore, it is normal to experience some numbness and tingling in your arm and fingers up to approximately 18 hours after surgery. Your surgeon may have given a nerve block directly at the site of surgery which may also cause some numbness and tingling to the affected area. ACTIVITY: Avoid aggressive activities with the right upper extremity WOUND CARE: Keep the wound clean, dry, and covered. The purpose of the dressing is to keep the surgical site protected and to promote healing. If you have a splint or a cast, it is designed to also help protect the surgical site. You may take a shower or bath with your dressing, splint, or cast in place, but you must keep it dry. One common way to do this is to place a bag over the area and seal with tape. If your dressing, splint, or cast becomes soaked, then phone our office as soon as possible. Unless otherwise instructed, do not remove your dressing or splint. There may be some bloody spotting on the dressing initially , and this is normal. Excessive bleeding that soaks the dressing must be reported to us. DRIVING: Do not drive while taking narcotic pain medications. DIET: Begin with clear liquids, and then increase your diet as you feel comfortable. MEDICATIONS: Pain: Percocet Your prescribed pain medication contains Tylenol. You must be careful not to exceed 4,000 mg (4 g) of Tylenol (or generic equivalent), from all sources, within a single 24-hour period. Gradually wean to Tylenol (or generic equivalent) for pain. Over the counter ibuprofen can be taken as directed in addition to your prescribed pain medication unless otherwise stated by your doctor. DO NOT TAKE IBUPROFEN IF YOU HAVE A HISTORY OF STOMACH ULCERS OR ARE TAKING BLOOD THINNERS LIKE COUMADIN OR PLAVIX. FOLLOW-UP Follow-up with Dr. Sumner at the office 2 weeks from the surgery date for a post operative evaluation. Call the office at [phone] to schedule or confirm your appointment. WHEN TO CALL THE DOCTOR OR WHEN TO SEEK CARE BEFORE YOUR APPOINTMENT 1. Excess swelling or increased numbness not made better by elevating the hand and moving the fingers. 2. Uncontrolled pain. 3. A color change in your hand or fingers. 4. Worsening redness or drainage. 5. Fevers over 100.5 degrees F or 38.1 degrees C. 6. Any symptoms that bring concern to you. Home Medication List * You have been given a list of your current medications. If you have changes in your medications, update your list. * Provide a list of current medications to your primary care physician. * Carry a copy of your current medications with you in case of an emergency. Follow Up Appointment * Please call your surgeon's office within 24 hours or next business day to schedule a follow up appointment. - Diet and Activity Activity: increase activity as tolerated, resume usual activities as tolerated Diet: low fat, low cholesterol, low salt diet Interval History: Patient seen and examined this morning at bedside. She states she feels well, would like to go home today, and has no complaints. Pt denies any shortness of breath, chest pain, heart palpitations, nausea, vomiting. Hospital course: Ms. Patel is an 87 year old female who was admitted for post-op hypoxia in the PACU following the ORIF of her right distal radius. Her CXR showed pulmonary edema with small pleural effusions bilaterally. Supplemental oxygen and duonebs were given. She was diuresed with lasix and fluids were restricted. Patient's hypoxia resolved by the time of discharge, saturating 100% on 1L NC. Labwork was largely unremarkable. Anemia, however, was noted but no signs of bleeding were found and likely was the result of acute blood loss during surgery. - Time Spent with Patient Total time spent providing and/or coordinating discharge services: - Constitutional Vitals: Temp Pulse Resp BP Pulse Ox 97.9 F 75 16 112/66 100 04/24/17 07:18 04/24/17 09:02 04/24/17 10:47 04/24/17 09:02 04/24/17 10:47 General appearance: Present: cooperative, A&O X 3, pleasant, no acute distress, answers questions appropriately - Head Head exam: Present: atraumatic, normocephalic - Eye Eye exam: Present: EOMI, normal appearance - Neck Neck exam general surgery: Present: full ROM, supple - Respiratory Respiratory exam: Present: CTAB. Absent: rales, respiratory distress, rhonchi, wheezes - Cardiovascular Cardiovascular exam: Present: RRR, +S1, +S2 Additional comments: no murmurs - GI/Abdominal GI/Abdominal exam: Present: soft. Absent: distended, tenderness - Extremities Exam Additional comments: Rt UE with cast and sling. Able to move all fingers. Capillary refill < 2 seconds. Good library assistant strength bilaterally. - Neurological Exam Neurological exam: Present: alert, oriented X3. Absent: no focal deficits, facial droop, speech deficit - Psychiatric Psychiatric exam: Present: normal affect - VTE Documentation of Mechanical Device: Intermittent pneumatic compression device <Deondre Geller - Last Filed: 04/24/17 18:01> Date of Encounter: 04/24/17 - Discharge Diagnosis (1) Acute respiratory failure Status: Resolved Qualifiers: Respiratory failure complication: hypoxia Qualified Code(s): J96.01 - Acute respiratory failure with hypoxia (2) Systolic CHF, acute on chronic Status: Acute (3) HTN (hypertension) Status: Chronic Qualifiers: Hypertension type: essential hypertension Qualified Code(s): I10 - Essential (primary) hypertension (4) HLD (hyperlipidemia) Priority: Secondary Status: Chronic Qualifiers: Hyperlipidemia type: mixed hyperlipidemia Qualified Code(s): E78.2 - Mixed hyperlipidemia (5) Atrial fibrillation Status: Chronic Qualifiers: Atrial fibrillation type: chronic Qualified Code(s): I48.2 - Chronic atrial fibrillation (6) Hypothyroidism Priority: Secondary Status: Chronic Qualifiers: Hypothyroidism type: acquired Qualified Code(s): E03.9 - Hypothyroidism, unspecified (7) Fracture of right distal radius Status: Acute Qualifiers: Encounter type: subsequent encounter Fracture type: closed Fracture morphology: unspecified fracture morphology Fracture healing: with routine healing Qualified Code(s): S52.501D - Unspecified fracture of the lower end of right radius, subsequent encounter for closed fracture with routine healing Procedures/tests Complete & Pending: Procedures Performed prior 72 hours Category Date Time Status EKG [ECG 12 lead ECG] [ECG] Stat Y 04/23/17 21:29 Ordered Date of admission: 04/23/17 20:35 Primary care physician: Clemencia Velasquez, Consults: 04/23/17 21:21 Consult to Occupational Therapy [CONS] Routine Comment: Evaluate, develop and implement POC Reason for Consult: post-op right radial ORIF Consult to Physical Therapy [CONS] Routine Comment: Evaluate, develop and implement POC Reason for Consult: post-op right radial ORIF Hospital course: Ms. Patel is a 87 year old female - Time Spent with Patient Total time spent providing and/or coordinating discharge services: - Constitutional Vitals: Temp Pulse Resp BP Pulse Ox 97.9 F 75 16 112/66 100 04/24/17 07:18 04/24/17 09:02 04/24/17 10:47 04/24/17 09:02 04/24/17 10:47 - Attending Attestation I examined this patient and my medical decision-making was reviewed with the Resident Physician on 04/24/17. I agree with the documented findings, disposition and treatment plan as described except to the extent set forth below. Ms Patel has been placed in observation due to acute hypoxia following orthopedic surgical procedure. She was noted to have acute exac of CHF. She was diuresed and is much improved today. She is afebrile and vitals are stable. She is ready for discharge home today. Exam Alert. Comfortable Mucus membranes dry Heart reg No wheeze Plan D/C today Follow up with Dr. Sumner and PCP.
[2017-04-24] MEDS: Ringers Solution, Lactated 1,000 ML IVC SCH (13:21)
[2017-04-24] MEDS ORDERED: *HR* Warfarin 1 MG TABLET PO SCH (18:00)
--- NOTE | 2017-04-26 06:12 | Electrocardiograph Report ---
[address] [address] Test Date: 2017-04-23 Pat Name: Angela Patel Department: 114 Room: 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
[2017-04-29] MEDS ORDERED: *HR* Warfarin 1 MG TABLET PO SCH (18:00)
== END 2017-04-24 15:05 | disposition home or self-care (01) ==
LOC: 3NENU 11:34 → SAMDAY 11:34
PROVIDERS: ADMIT Hospitalist; ATTEND Internal Medicine

== ENCOUNTER 2017-07-15 06:26 | Inpatient (IN) ==
[2017-07-15] MEDS ORDERED: Furosemide 40 MG/4 ML VIAL IVP ONE (06:31)
--- NOTE | 2017-07-15 06:34 | Emergency Department Note ---
Disposition Clinical Impression: Shortness of breath CHF (congestive heart failure) Qualifiers: Congestive heart failure type: unspecified Congestive heart failure chronicity : unspecified Qualified Code(s): I50.9 - Heart failure, unspecified Disposition: Still a Patient Condition: Good Referrals: Clemencia Velasquez CNP [Primary Care Provider] - Forms: ED Satisfaction Letter Time of Disposition: 07:01 General Adult HPI - General Chief complaint: ED Shortness of Breath/Dyspnea Stated complaint: difficulty in breathing Time Seen by Provider: 07/15/17 06:29 Source: patient, EMS Mode of arrival: EMS Limitations: no limitations Nursing Notes Reviewed: Yes Vital Signs Reviewed: Yes - History of Present Illness HPI Narrative: Patient is a 87-year-old female with a past medical history of congestive heart failure presents to the emergency department with worsening shortness of breath. She states that she feels like she cannot catch her breath. She feels like she is unable to take area. She states that this is happened before but not like this. She states that she has had some mild increased swelling in her lower extremities. Patient states that nothing seems to make her symptoms any worse. She states that she seems to be better when she sitting up. - Related Data Home Medications Medication Instructions Recorded Confirmed Carvedilol [Coreg] 25 mg PO BID 10/25/16 04/23/17 Cholecalciferol (Vitamin D3) 1,000 unit PO DAILY 10/25/16 04/23/17 [Vitamin D3] Cyanocobalamin (Vitamin B-12) 1,000 mcg PO DAILY 10/25/16 04/23/17 [Vitamin B12] Ferrous Sulfate [Slow Fe] 65 mg PO DAILY 10/25/16 04/23/17 Krill Oil 500 mg PO DAILY 10/25/16 04/23/17 Levothyroxine [Synthroid] 100 mcg PO DAILY 10/25/16 04/23/17 Lisinopril [Zestril] 40 mg PO DAILY 10/25/16 04/23/17 Multivitamin [Multi-Day Vitamins] 1 tab PO DAILY 10/25/16 04/23/17 Omeprazole [PriLOSEC] 20 mg PO DAILY 10/25/16 04/23/17 Pravastatin Sodium [Pravachol] 80 mg PO DAILY 10/25/16 04/23/17 Vit C/Vit E/Lutein/Min/[place]-3 1 cap PO DAILY 10/25/16 04/23/17 [Ocuvite Softgel] Warfarin [Coumadin] 1 mg PO TH 04/23/17 04/23/17 Warfarin [Coumadin] 2 mg PO SUMOTUWEFRSA 04/23/17 04/23/17 Previous Rx's Medication Instructions Recorded Furosemide [Lasix] 40 mg PO BIDDIURETIC #60 tablet 10/27/16 Ibuprofen 400 mg PO Q4-6H PRN #30 tablet 03/31/17 OxyCODONE/APAP 5/325 [Percocet 1 each PO Q6HR PRN #25 tablet 04/23/17 5/325 MG] Oxycodone HCl/Acetaminophen 1 each PO Q6H PRN #10 tablet 04/24/17 [Percocet 5-325 mg Tablet] Allergies Allergy/AdvReac Type Severity Reaction Status Date / Time Penicillins [PCN] Allergy Hives Verified 04/23/17 12:41 All systems ED: reviewed and negative except as stated. Respiratory: Reports: dyspnea Past Medical History - Past Medical History Medical history: Reports: atrial fibrillation, CHF, hyperlipidemia, hypertension , thyroid disease Surgical history: Reports: appendectomy, cholecystectomy, hysterectomy, orthopedic, other (right distal radius ORIF), pacemaker Psychiatric history: Reports: no psych history - Social History Smoking Status: Never smoker Smokeless Tobacco Status: No Alcohol use: Reports: none Drug use: Reports: none Physical Exam - General Limitations: no limitations General appearance: alert, anxious - Head Head exam: atraumatic, normocephalic - Eye Eye exam: Present: normal appearance, EOMI - Neck Neck exam: Present: normal inspection, full ROM - Respiratory Respiratory exam: Present: other (Crackles bilaterally) - Cardiovascular Cardiovascular exam: Present: regular rate, normal rhythm, normal heart sounds, +S1, +S2 - Abdominal Exam Abdominal exam: Present: soft, Non-Tender, normal bowel sounds - Extremities Exam Extremities exam: Present: pedal edema, other (Lower extremity edema bilaterally ) - Neurological Exam Neurological exam: Present: alert, oriented X3 - Psychiatric Psychiatric exam: Present: normal affect, anxious - Skin Skin exam: Present: warm, dry, intact Course Vital Signs Temperature 97.7 F 07/15/17 06:27 Pulse Rate 102 07/15/17 06:27 Respiratory Rate 23 07/15/17 06:27 Blood Pressure 156/105 07/15/17 06:27 O2 Sat by Pulse Oximetry 94 07/15/17 06:27 Temperature 97.7 F 07/15/17 06:27 Pulse Rate 72 07/15/17 06:53 Respiratory Rate 24 07/15/17 06:53 Blood Pressure 147/95 07/15/17 06:53 O2 Sat by Pulse Oximetry 96 07/15/17 06:53 Oxygen Delivery Oxygen Delivery Bipap Medical Decision Making - MDM Narrative Medical decision making narrative: To the patient presenting to the emergency department with shortness of breath and increased work of breathing the patient will get a cardiac workup including laboratory testing, EKG, chest x-ray. We will give the patient a dose of Lasix and put her BiPAP. Patient will be signed out to the day team of Dr Badillo and Dr Jarquin. I anticipate that this patient will require admission to the hospital for further evaluation and management. - Lab Data Result diagrams: 07/15/17 06:25 Lab Results 07/15/17 07/15/17 07/15/17 Range/Units 06:25 06:25 06:39 WBC 8.7 (4.3-11.1) K/mcL RBC 4.50 (3.82-4.97) M/mcL Hgb 12.0 (11.5-15.4) g/dL Hct 38.4 (35.3-44.9) % MCV 85.3 (83.0-100.0) fL MCH 26.7 L (28.0-33.3) pg MCHC 31.3 L (31.6-35.5) g/dL RDW 15.5 H (11.5-14.5) % Plt Count 212 (140-400) K/mcL MPV 11.3 (9.4-12.4) fL Immature Gran % 0.5 (0-4) % Seg Neutrophils % 68.4 % Lymphocytes % 13.9 % Monocytes % 10.7 % Eosinophils % 5.6 % Basophils % 0.9 % Neutrophils # 6.0 (1.6-8.9) K/mcL Lymphocytes # 1.2 (0.6-4.6) K/mcL Monocytes # 0.9 (0.0-1.3) K/mcL Eosinophils # 0.5 (0.0-0.6) K/mcL Basophils # 0.1 (0.0-0.2) K/mcL Ur Specimen Adequacy See below A Urine Color Dark Yellow (Yellow) Urine Clarity Cloudy A (Clear) Urine pH 5.0 (5.0-8.0) pH Units Ur Specific [place] 1.027 H (1.010-1.025) Urine Protein 30 H (Neg-Trace) mg/dL Urine Glucose (UA) Normal (Normal) mg/dL Urine Ketones Trace H (Negative) mg/dL Urine Blood Moderate H (Negative) Urine Nitrite Positive A (Negative) Urine Bilirubin Small H (Negative) Urine Urobilinogen Normal (Normal) mg/dL Ur Leukocyte Esterase Moderate H (Negative) Urine Microscopic RBC 0-3 (0-3) per hpf Urine Microscopic WBC 0-3 (0-3) per hpf Ur Squamous Epith Cells Moderate H (None-Few) per lpf Urine Bacteria Many H (None-Few) per hpf Urine Mucus Moderate H (Few) Ur Culture Indicated? YES A (NO) Specimen Rejected Container - EKG Data EKG #1 EKG attestation: Yes I reviewed and interpreted this EKG. EKG results narrative: EKG showed a electronically ventricularly paced rhythm at 91 beats a minute, she was duration of 203, QTC of 485 there is no staining noted on this EKG. This is compared to previous EKG on 04/23/17 which showed a electronically ventricular paced rhythm at 69 bpm S.B.A.R. - S.B.A.R. Situation: Demographics, MOA Background: Presenting Complaint, Relevant PMH, Meds, & Allergies Assessment: Vital Signs, Course and respsone to treatment, Exam Concerns, Patient/Family Expectation, Pertinant Lab Results, Outstanding Labs Recommendation: Barrier(s) to disposition, Recommendation based on pending studies, treatments, or consults S.B.A.R. Report Given to: Dr Ozuna and Britton S.B.A.RKylah Repor Time: 07:01
--- NOTE | 2017-07-15 06:37 | Emergency Department Note ---
START Narrative - START START: I examined this patient and my medical decision-making was reviewed with the Resident Physician. I agree with the documented findings, disposition and treatment plan as described except to the extent set forth below. 87 year old female with HX of CHF and presents with worsening orthopnea and exetional dyspnea over the past three days and states that she is now experingincg chest pain but denies volume overload. PAtinet will be placed on bipap due to respiratory distress and we will treat with lasix and start cardiopulmonary workup and admit to medicine. This patinet will likely be signed out to the day team (Britton).
[2017-07-15 06:54] LABS: Bilirubin,Urine Small (Negative); Blood,Urine Moderate (Negative); Clarity,Urine Cloudy (Clear); Color,Urine Dark Yellow (Yellow); Glucose,Urine (UA) Normal (Normal); Ketones,Urine Trace mg/dL (Negative); Leukocyte Esterase,Urine Moderate (Negative); Nitrite,Urine Positive (Negative); Protein,Urine 30 mg/dL (Neg-Trace); Specific Gravity,Urine 1.027 (1.010-1.025); Urobilinogen,Urine Normal (Normal)
[2017-07-15 06:55] LABS: Basophils # 0.1 K/mcL (0.0-0.2); Basophils % 0.9 %; Eosinophils # 0.5 K/mcL (0.0-0.6); Eosinophils % 5.6 %; Hematocrit 38.4 % (35.3-44.9); Immature Granulocytes % 0.5 % (0-4); Lymphocytes # 1.2 K/mcL (0.6-4.6); Lymphocytes % 13.9 %; Mean Corpuscular HGB Conc 31.3 g/dL (31.6-35.5); Mean Corpuscular Hemoglobin 26.7 pg (28.0-33.3); Mean Corpuscular Volume 85.3 fL (83.0-100.0); Mean Platelet Volume 11.3 fL (9.4-12.4); Monocytes # 0.9 K/mcL (0.0-1.3); Monocytes % 10.7 %; Platelet Count 212 K/mcL (140-400); Red Cell Distribution Width 15.5 % (11.5-14.5); Segmented Neutrophils % 68.4 %
[2017-07-15 06:56] LABS: RBC,Urine 0-3 per hpf (0-3); Squamous Epithelial Cell,Urine Moderate per lpf (None-Few); WBC,Urine 0-3 per hpf (0-3)
[2017-07-15 06:57] LABS: Bacteria,Urine Many per hpf (None-Few); Mucus,Urine Moderate (Few)
--- NOTE | 2017-07-15 07:08 | Emergency Department Note ---
Disposition Clinical Impression: Shortness of breath CHF (congestive heart failure) Qualifiers: Congestive heart failure type: unspecified Congestive heart failure chronicity : unspecified Qualified Code(s): I50.9 - Heart failure, unspecified UTI (urinary tract infection) Qualifiers: Urinary tract infection type: site unspecified Hematuria presence: without hematuria Qualified Code(s): N39.0 - Urinary tract infection, site not specified Disposition: Admitted As Inpatient Condition: Fair Referrals: Clemencia Velasquez [employer] [Primary Care Provider] - Forms: ED Satisfaction Letter Time of Disposition: 07:09 General Adult HPI - General Chief complaint: ED Shortness of Breath/Dyspnea Stated complaint: difficulty in breathing Time Seen by Provider: 07/15/17 06:29 Source: patient, EMS Mode of arrival: EMS Limitations: no limitations - History of Present Illness HPI Narrative: Patient was signed out by the primary provider. Please see their history of physical for complete documentation. Pain Scale: 0 - Related Data Home Medications Medication Instructions Recorded Confirmed Carvedilol [Coreg] 25 mg PO BID 10/25/16 07/15/17 Cholecalciferol (Vitamin D3) 1,000 unit PO DAILY 10/25/16 07/15/17 [Vitamin D3] Cyanocobalamin (Vitamin B-12) 1,000 mcg PO DAILY 10/25/16 07/15/17 [Vitamin B12] Ferrous Sulfate [Slow Fe] 65 mg PO DAILY 10/25/16 07/15/17 Krill Oil 500 mg PO DAILY 10/25/16 07/15/17 Lisinopril [Zestril] 40 mg PO DAILY 10/25/16 07/15/17 Multivitamin [Multi-Day Vitamins] 1 tab PO DAILY 10/25/16 07/15/17 Omeprazole [PriLOSEC] 20 mg PO DAILY 10/25/16 07/15/17 Pravastatin Sodium [Pravachol] 80 mg PO DAILY 10/25/16 07/15/17 Vit C/Vit E/Lutein/Min/[place]-3 1 cap PO DAILY 10/25/16 07/15/17 [Ocuvite Softgel] Warfarin [Coumadin] 1 mg PO TH 04/23/17 07/15/17 Warfarin [Coumadin] 2 mg PO SUMOTUWEFRSA 04/23/17 07/15/17 Levothyroxine [Synthroid] 112 mcg PO 0630 07/15/17 07/15/17 Previous Rx's Medication Instructions Recorded Furosemide [Lasix] 40 mg PO BIDDIURETIC #60 tablet 10/27/16 Ibuprofen 400 mg PO Q4-6H PRN #30 tablet 03/31/17 Allergies Allergy/AdvReac Type Severity Reaction Status Date / Time Penicillins [PCN] Allergy Hives Verified 07/15/17 07:21 Respiratory: Reports: dyspnea Past Medical History - Past Medical History Medical history: Reports: atrial fibrillation, CHF, hyperlipidemia, hypertension , thyroid disease Surgical history: Reports: appendectomy, cholecystectomy, hysterectomy, orthopedic, other (right distal radius ORIF), pacemaker Psychiatric history: Reports: no psych history - Social History Smoking Status: Never smoker Smokeless Tobacco Status: No Alcohol use: Reports: none Drug use: Reports: none Physical Exam - General Limitations: no limitations General appearance: alert, in no apparent distress, obese - Head Head exam: atraumatic, normocephalic, normal inspection - Eye Eye exam: Present: normal appearance, EOMI - ENT ENT exam: normal exam, mucous membranes moist - Neck Neck exam: Present: normal inspection - Chest Chest inspection: Present: normal inspection, symmetric chest wall rise - Respiratory Respiratory exam: Present: accessory muscle use, other (BiPAP in place Bibasilar Rales) - Cardiovascular Cardiovascular exam: Present: regular rate, normal rhythm. Absent: systolic murmur - Abdominal Exam Abdominal exam: Present: soft, Non-Tender - Extremities Exam Extremities exam: Present: normal inspection, full ROM, pedal edema (2+ bilateral pedal edema). Absent: tenderness - Back Exam Back exam: Present: normal inspection - Neurological Exam Neurological exam: Present: alert, oriented X3 - Skin Skin exam: Present: warm, dry, intact, normal color Course Course Narrative: 87-year-old female presents for evaluation of shortness of breath. Patient states she has been gradually having worsening dyspnea over the past few days. Patient woke up this morning and could not breathe. Patient does have a history of congestive heart failure. Patient is not oxygen dependent home. States she has been taking her diuresis medication at home. Denying any chest pain. No fevers or cough. Per report the patient was hypoxic on room air at home initiating BiPAP on ED presentation. - Reevaluation(s) Reevaluation #1: Patient seen and examined. Patient appears resting comfortably on BiPAP. Patient's chest x-ray shows findings of congestive heart failure. Patient was started on Lasix 40 mg IV. Time: 07:08 Vital Signs Temperature 97.7 F 07/15/17 06:27 Pulse Rate 102 07/15/17 06:27 Respiratory Rate 23 07/15/17 06:27 Blood Pressure 156/105 07/15/17 06:27 O2 Sat by Pulse Oximetry 94 07/15/17 06:27 Temperature 97.7 F 07/15/17 06:27 Pulse Rate 69 07/15/17 07:33 Respiratory Rate 26 07/15/17 08:13 Blood Pressure 126/81 07/15/17 07:33 O2 Sat by Pulse Oximetry 95 07/15/17 08:13 Oxygen Delivery Oxygen Delivery Bipap Medical Decision Making - MDM Narrative Medical decision making narrative: 87-year-old female presents for evaluation of dyspnea. Patient does have a history of congestive heart failure. Patient was found to be hypoxic on room air. Patient is not oxygen dependent at home. Patient was placed on BiPAP. Patient respiratory status improved. Patient's labs reviewed. Patient's been denying any chest pain. Patient's urine does show signs of infection with prior cultures grew Escherichia coli which was sensitive to Rocephin. Patient was placed on Rocephin the emergency department. Patient's been resting comfortably in the emergency department. - Lab Data Lab results reviewed: Yes I reviewed the patient's lab results. Result diagrams: 07/15/17 06:25 07/15/17 06:25 Lab Results 07/15/17 07/15/17 07/15/17 Range/Units 06:25 06:25 06:25 WBC 8.7 (4.3-11.1) K/mcL RBC 4.50 (3.82-4.97) M/mcL Hgb 12.0 (11.5-15.4) g/dL Hct 38.4 (35.3-44.9) % MCV 85.3 (83.0-100.0) fL MCH 26.7 L (28.0-33.3) pg MCHC 31.3 L (31.6-35.5) g/dL RDW 15.5 H (11.5-14.5) % Plt Count 212 (140-400) K/mcL MPV 11.3 (9.4-12.4) fL Immature Gran % 0.5 (0-4) % Seg Neutrophils % 68.4 % Lymphocytes % 13.9 % Monocytes % 10.7 % Eosinophils % 5.6 % Basophils % 0.9 % Neutrophils # 6.0 (1.6-8.9) K/mcL Lymphocytes # 1.2 (0.6-4.6) K/mcL Monocytes # 0.9 (0.0-1.3) K/mcL Eosinophils # 0.5 (0.0-0.6) K/mcL Basophils # 0.1 (0.0-0.2) K/mcL Sodium 140 (136-145) mEq/L Potassium 4.7 (3.5-5.1) mEq/L Chloride 110 H (98-107) mEq/L Carbon Dioxide 21 L (23-29) mEq/L BUN 26 H (8-23) mg/dL Creatinine 1.13 (0.60-1.20) mg/dL Est GFR ( Amer) 55 L (> 60) Est GFR (Non-Af Amer) 46 L (> 60) BUN/Creatinine Ratio 23 (6-26) Glucose 131 H (70-105) mg/dL Calculated Osmolality 297 (280-300) Lactic Acid (0.5-2.2) mmol/L Calcium 10.0 (8.6-10.3) mg/dL Troponin I < 0.03 (< 0.04) ng/mL B-Natriuretic Peptide (Less than 100) pg/mL Ur Specimen Adequacy Urine Color (Yellow) Urine Clarity (Clear) Urine pH (5.0-8.0) pH Units Ur Specific [place] (1.010-1.025) Urine Protein (Neg-Trace) mg/dL Urine Glucose (UA) (Normal) mg/dL Urine Ketones (Negative) mg/dL Urine Blood (Negative) Urine Nitrite (Negative) Urine Bilirubin (Negative) Urine Urobilinogen (Normal) mg/dL Ur Leukocyte Esterase (Negative) Urine Microscopic RBC (0-3) per hpf Urine Microscopic WBC (0-3) per hpf Ur Squamous Epith Cells (None-Few) per lpf Urine Bacteria (None-Few) per hpf Urine Mucus (Few) Ur Culture Indicated? (NO) Specimen Rejected 07/15/17 07/15/1707/15/18 Range/Units 06:25 06:25 06:39 WBC (4.3-11.1) K/mcL RBC (3.82-4.97) M/mcL Hgb (11.5-15.4) g/dL Hct (35.3-44.9) % MCV (83.0-100.0) fL MCH (28.0-33.3) pg MCHC (31.6-35.5) g/dL RDW (11.5-14.5) % Plt Count (140-400) K/mcL MPV (9.4-12.4) fL Immature Gran % (0-4) % Seg Neutrophils % % Lymphocytes % % Monocytes % % Eosinophils % % Basophils % % Neutrophils # (1.6-8.9) K/mcL Lymphocytes # (0.6-4.6) K/mcL Monocytes # (0.0-1.3) K/mcL Eosinophils # (0.0-0.6) K/mcL Basophils # (0.0-0.2) K/mcL Sodium (136-145) mEq/L Potassium (3.5-5.1) mEq/L Chloride (98-107) mEq/L Carbon Dioxide (23-29) mEq/L BUN (8-23) mg/dL Creatinine (0.60-1.20) mg/dL Est GFR ( Amer) (> 60) Est GFR (Non-Af Amer) (> 60) BUN/Creatinine Ratio (6-26) Glucose (70-105) mg/dL Calculated Osmolality (280-300) Lactic Acid (0.5-2.2) mmol/L Calcium (8.6-10.3) mg/dL Troponin I (< 0.04) ng/mL B-Natriuretic Peptide 603 H (Less than 100) pg/mL Ur Specimen Adequacy See below A Urine Color Dark Yellow (Yellow) Urine Clarity Cloudy A (Clear) Urine pH 5.0 (5.0-8.0) pH Units Ur Specific [place] 1.027 H (1.010-1.025) Urine Protein 30 H (Neg-Trace) mg/dL Urine Glucose (UA) Normal (Normal) mg/dL Urine Ketones Trace H (Negative) mg/dL Urine Blood Moderate H (Negative) Urine Nitrite Positive A (Negative) Urine Bilirubin Small H (Negative) Urine Urobilinogen Normal (Normal) mg/dL Ur Leukocyte Esterase Moderate H (Negative) Urine Microscopic RBC 0-3 (0-3) per hpf Urine Microscopic WBC 0-3 (0-3) per hpf Ur Squamous Epith Cells Moderate H (None-Few) per lpf Urine Bacteria Many H (None-Few) per hpf Urine Mucus Moderate H (Few) Ur Culture Indicated? YES A (NO) Specimen Rejected Container 07/15/17 Range/Units 06:51 WBC (4.3-11.1) K/mcL RBC (3.82-4.97) M/mcL Hgb (11.5-15.4) g/dL Hct (35.3-44.9) % MCV (83.0-100.0) fL MCH (28.0-33.3) pg MCHC (31.6-35.5) g/dL RDW (11.5-14.5) % Plt Count (140-400) K/mcL MPV (9.4-12.4) fL Immature Gran % (0-4) % Seg Neutrophils % % Lymphocytes % % Monocytes % % Eosinophils % % Basophils % % Neutrophils # (1.6-8.9) K/mcL Lymphocytes # (0.6-4.6) K/mcL Monocytes # (0.0-1.3) K/mcL Eosinophils # (0.0-0.6) K/mcL Basophils # (0.0-0.2) K/mcL Sodium (136-145) mEq/L Potassium (3.5-5.1) mEq/L Chloride (98-107) mEq/L Carbon Dioxide (23-29) mEq/L BUN (8-23) mg/dL Creatinine (0.60-1.20) mg/dL Est GFR ( Amer) (> 60) Est GFR (Non-Af Amer) (> 60) BUN/Creatinine Ratio (6-26) Glucose (70-105) mg/dL Calculated Osmolality (280-300) Lactic Acid 1.2 (0.5-2.2) mmol/L Calcium (8.6-10.3) mg/dL Troponin I (< 0.04) ng/mL B-Natriuretic Peptide (Less than 100) pg/mL Ur Specimen Adequacy Urine Color (Yellow) Urine Clarity (Clear) Urine pH (5.0-8.0) pH Units Ur Specific [place] (1.010-1.025) Urine Protein (Neg-Trace) mg/dL Urine Glucose (UA) (Normal) mg/dL Urine Ketones (Negative) mg/dL Urine Blood (Negative) Urine Nitrite (Negative) Urine Bilirubin (Negative) Urine Urobilinogen (Normal) mg/dL Ur Leukocyte Esterase (Negative) Urine Microscopic RBC (0-3) per hpf Urine Microscopic WBC (0-3) per hpf Ur Squamous Epith Cells (None-Few) per lpf Urine Bacteria (None-Few) per hpf Urine Mucus (Few) Ur Culture Indicated? (NO) Specimen Rejected - Radiology Data Radiology results reviewed: Yes I reviewed the patient's radiology results. Chest X-Ray 07/15/17 06:29 IMPRESSION: Cardiomegaly with moderate to severe pulmonary edema. Trace bilateral effusions. D/ / Geremias Ames MD / Geremias Ames MD Interpreting Provider: Geremias Ames MD S.B.AKylahR. - S.B.A.R. Situation: Demographics Background: Presenting Complaint Assessment: Vital Signs, Course and respsone to treatment, Patient/Family Expectation Recommendation: Barrier(s) to disposition, Recommendation based on pending studies, treatments, or consults S.B.A.R. Report Given to: Dr. Gonzalez Attestation Statement - Attestation Attestation: I examined this patient and my medical decision-making was reviewed with the Resident Physician. I agree with the documented findings, disposition and treatment plan as described except to the extent set forth below. 87-year-old female presents the ED because of difficulty breathing. She has had about 24 progression of dyspnea with orthopnea and exertional symptoms. Denies focal pain. No fever. No productive cough. Presented to the ED by EMS with moderate oxygen demands and required placement on BiPAP upon arrival. Elderly female was currently awake and interactive. On BiPAP tolerating well. Neck is supple. No JVD. Chest with inspiratory rales in both bases. Cardiac exam distant heart tones, no murmurs. Abdomen soft and nontender. Extremities warm and dry with 1+ edema. No asymmetric calf tenderness. Chest x-ray consistent with pulmonary edema. Urinalysis was also unremarkable positive nitrites and moderate leukocytes and bacteria. She is started on IV diuresis and IV antibiotics and will be admitted.
[2017-07-15 07:19] LABS: Potassium 4.7 mEq/L (3.5-5.1)
[2017-07-15] MEDS ORDERED: cefTRIAXone 1,000 MG in Water for inj. (sterile) 20 ML 10 ML IVP ONE (07:42)
[2017-07-15] MEDS ORDERED: *HR* Morphine 2 MG/ML SYRINGE IVP PRN (08:39)
[2017-07-15] MEDS ORDERED: Naloxone 0.4 MG/ML INJ IVP PRN (08:39)
[2017-07-15] MEDS ORDERED: Ondansetron ODT 4 MG TAB.RAPDIS SL PRN (08:39)
--- NOTE | 2017-07-15 08:59 | Internal Med History&Physical ---
Date of Encounter: 07/15/17 Time of Encounter: 08:51 Assessment and Plan (1) Systolic CHF, acute on chronic Current visit: No Status: Acute 87/female Multiple comorbid issues. Systolic congestive heart failure: EKG ( today): Left ventricular hypertrophy. Chest x-ray ( today): Bilateral vascular condition. Echocardiogram ( 09/2016): Ejection fraction: 30-35%. Dilated LV. RV hypokinetic, moderate AR/MR/TR Stress test: 10/2016: fixed perfusion to inferior wall and apex, perfusion imaging: Negative for ischemia, gaited EF: 42% Etiology for congestive heart failure: Likely nonischemic cardiomyopathy. Patient presented with worsening shortness of breath along with cough. Noted that urine analysis is suggestive for urinary tract infection. Precipitating factor for acute on chronic systolic CHF: Noncompliance versus infection( Source :?Urine) Plan: Admit as inpatient: Patient needs intravenous diuretics, was monitoring of the respiratory status, monitoring of electrolytes. Intravenous furosemide 20 mg twice a day HOld Oral Lasix. Resume home medications. Blood cultures/urine culture. Intravenous ceftriaxone 1 g every 24 hours. Close monitoring Of note: I examined this patient in the emergency room #4. Patient's family member was at bedside. Patient's daughter was at bedside. Plan of care discussed with the patient and family members. All questions answered. (2) UTI (urinary tract infection) Current visit: Yes Status: Acute Possible urinary tract infection. Started on antibiotics: IV ceftriaxone in the emergency room. We will continue same antibiotics for now. We will monitor the blood cultures/urine cultures closely. Qualifiers: Urinary tract infection type: acute cystitis Hematuria presence: without hematuria Qualified Code(s): N30.00 - Acute cystitis without hematuria (3) Atrial fibrillation Current visit: No Status: Chronic Chronic atrial fibrillation. Rate control: Coreg 25 mg twice a day. Present heart rate between 60 and 80 Anticoagulation: Coumadin Awaiting for INR. Qualifiers: Atrial fibrillation type: chronic Qualified Code(s): I48.2 - Chronic atrial fibrillation (4) HTN (hypertension) Current visit: No Status: Chronic Blood pressure is within acceptable range. We will resume home medication. Close monitoring of the blood pressure. Qualifiers: Hypertension type: essential hypertension Qualified Code(s): I10 - Essential (primary) hypertension (5) HLD (hyperlipidemia) Current visit: No Status: Chronic Stable. Resume home medication. Lipid panel in the morning. Qualifiers: Hyperlipidemia type: mixed hyperlipidemia Qualified Code(s): E78.2 - Mixed hyperlipidemia (6) DVT prophylaxis Current visit: No Status: Acute Coumadin Medical decision making: This patient has a moderate to severe risk of worsening in spite of being on appropriate medication/treatment due to the chronic underlying comorbid conditions. Internal Medicine - H&P: HPI Chief complaint: Shortness of breath Admitted From: Emergency Dept Plans for Post Hospital Care: Home History of present illness: PCP: [facility] Clemencia Velasquez. Cardiology : Dr Anderson. Brief PMH: Hypertension, hyperlipidemia, hypothyroidism, atrial fibrillation, systolic congestive heart failure with ejection fraction 30-35% in September 2016. History of present medical illness: The patient claims that she has worsening shortness of breath. Per patient: When I get up in the morning I was more short of breath and over a day it was gradually worsened. I am unable to walk even 10 steps. I feel that someone is sitting on my chest and I cannot lay down flat. Patient denies abdominal pain, nausea, vomiting, dizziness or diarrhea. In view of the persistent worsening shortness of breath patient was brought to the emergency room for further evaluation. Workup in the emergency room: Patient was evaluated in the emergency room. She was hypoxic. She was started on IV Lasix in view of the pulmonary vascular congestion on radiological examination. She was placed on a BiPAP as it was very difficult for her to breath. Reason for admission: Acute exacerbation of systolic congestive heart failure. Precipitating factor: Possible noncompliance with the fluid intake versus infection (source :? Urine). Etiology: Nonischemic cardiomyopathy Family history: Noncontributory Past Med Surg Social Fam HX - Past Medical History Medical history: atrial fibrillation, CHF, hyperlipidemia, hypertension, thyroid disease Psychiatric history: no psych history - Past Surgical History Surgical History: appendectomy, cholecystectomy, hysterectomy, orthopedic, other (right distal radius ORIF), pacemaker - Social History Smoking Status: Never smoker Smokeless Tobacco Status: No Alcohol use: none Drug use: none - Family History Father Living Status: Hx Family Cancer: Yes Mother Living Status: Daughter Living Status: Hx Family Cancer: Yes Internal Medicine - H&P: Meds Carvedilol [Coreg] 25 mg PO BID 10/25/16 [History] Cholecalciferol (Vitamin D3) [Vitamin D3] 1,000 unit PO DAILY 10/25/16 [History] Cyanocobalamin (Vitamin B-12) [Vitamin B12] 1,000 mcg PO DAILY 10/25/16 [History ] Ferrous Sulfate [Slow Fe] 65 mg PO DAILY 10/25/16 [History] Krill Oil 500 mg PO DAILY 10/25/16 [History] Lisinopril [Zestril] 40 mg PO DAILY 10/25/16 [History] Multivitamin [Multi-Day Vitamins] 1 tab PO DAILY 10/25/16 [History] Omeprazole [PriLOSEC] 20 mg PO DAILY 10/25/16 [History] Pravastatin Sodium [Pravachol] 80 mg PO DAILY 10/25/16 [History] Vit C/Vit E/Lutein/Min/[place]-3 [Ocuvite Softgel] 1 cap PO DAILY 10/25/16 [ History] Furosemide [Lasix] 40 mg PO BIDDIURETIC #60 tablet 10/27/16 [Rx] Ibuprofen 400 mg PO Q4-6H PRN #30 tablet 03/31/17 [Rx] Warfarin [Coumadin] 1 mg PO TH 04/23/17 [History] Warfarin [Coumadin] 2 mg PO SUMOTUWEFRSA 04/23/17 [History] Levothyroxine [Synthroid] 112 mcg PO 0630 07/15/17 [History] 3 Allergy/AdvReac Type Severity Reaction Status Date / Time Penicillins [PCN] Allergy Hives Verified 07/15/17 07:21 All Systems PM: A 10-system review of systems was performed and is negative for pertinent findings except as documented above in the HPI. - Constitutional Constitutional: no chills, no fever(s), no night sweats - EENT Eyes: no change in vision, no discharge, no pain, no photophobia Ears: no ear discharge, no ear pain, no tinnitus Nose, mouth and throat: no dysphagia, no nasal discharge, no neck pain, no sore throat - Cardiovascular Cardiovascular ROS IM: diaphoresis, dyspnea, edema, lightheadedness, no chest pain, no palpitations, no syncope - Respiratory Respiratory: cough, dyspnea, wheezing, no excessive phlegm production - Gastrointestinal Gastrointestinal: no abdominal pain, no diarrhea, no hematemesis, no hematochezia, no melena, no nausea, no vomiting - Genitourinary Genitourinary: no change in urinary stream, no dysuria, no flank pain, no hematuria - Musculoskeletal Musculoskeletal ROS IM: no numbness, no tingling - Integumentary Integumentary IM: no rash, no unusual bruising - Neurological Neurological ROS: no confusion, no convulsions, no focal weakness, no numbness, no tingling, no tremor(s) - Hematologic/Lymphatic Hematologic/Lymphatic: no easy bruising - Constitutional Vitals: Temp Pulse Resp BP Pulse Ox 97.7 F 69 26 126/81 95 07/15/17 06:27 07/15/17 07:33 07/15/17 08:13 07/15/17 07:33 07/15/17 08:13 General appearance: Present: A&O X 3, pleasant, no acute distress, answers questions appropriately - Head Head exam: Present: atraumatic, normocephalic - Eye Eye exam: Present: PERRL, conjuntiva pink, sclera anicteric Pupils: Present: PERRL - Neck Neck exam general surgery: Present: supple, trachea midline. Absent: lymphadenopathy Additional comments: Elevated JVP - Respiratory Respiratory exam: Present: CTAB, rales. Absent: accessory muscle use, rhonchi, wheezes Additional comments: Bilateral, bibasilar crepitations. - Cardiovascular Cardiovascular exam: Present: gallop, RRR, +S1, +S2, +S3. Absent: diastolic murmur, rubs, systolic murmur - GI/Abdominal GI/Abdominal exam: Present: normal bowel sounds, soft, no peritoneal signs. Absent: distended, tenderness - Extremities Exam Extremities exam: Present: warm, radial pulses palpable and symmetrical. Absent : calf tenderness, cyanotic, pedal edema - Neurological Exam Neurological exam: Present: CN II-XII intact, oriented X3, no focal deficits. Absent: pronater drift, facial droop, speech deficit - Skin Skin exam: Present: dry, intact Internal Med - H&P Results - Labs CBC & Chem 7: 07/15/17 06:25 07/15/17 06:25
[2017-07-15 10:15] LABS: INR 2.7; Prothrombin Time 29.9 Seconds (9.4-12.1)
[2017-07-15] MEDS: Furosemide 20 MG/2 ML VIAL IVP SCH ×2 (13:27→17:34)
[2017-07-15] MEDS: Lisinopril 20 MG TABLET PO SCH (15:34)
[2017-07-15] MEDS ORDERED: *HR* Warfarin 1 MG TABLET PO SCH (18:00)
[2017-07-16 03:07] LABS: Basophils # 0.1 K/mcL (0.0-0.2); Basophils % 0.8 %; Eosinophils # 0.5 K/mcL (0.0-0.6); Eosinophils % 7.6 %; Immature Granulocytes % 0.3 % (0-4); Lymphocytes # 0.9 K/mcL (0.6-4.6); Lymphocytes % 13.7 %; Mean Corpuscular HGB Conc 31.9 g/dL (31.6-35.5); Mean Corpuscular Hemoglobin 27.3 pg (28.0-33.3); Mean Corpuscular Volume 85.4 fL (83.0-100.0); Monocytes # 0.7 K/mcL (0.0-1.3); Monocytes % 11.5 %; Neutrophils # 4.2 K/mcL (1.6-8.9); Platelet Count 152 K/mcL (140-400); Red Blood Count 3.63 M/mcL (3.82-4.97); Red Cell Distribution Width 15.2 % (11.5-14.5); Segmented Neutrophils % 66.1 %
[2017-07-16 03:08] LABS: Hemoglobin 9.9 g/dL (11.5-15.4)
[2017-07-16 03:12] LABS: INR 3.4; Prothrombin Time 37.8 Seconds (9.4-12.1)
[2017-07-16 03:14] LABS: Activated Partial Thrombo Time 41.9 Seconds (26.0-36.0)
[2017-07-16 03:27] LABS: Albumin 3.6 g/dL (3.5-5.7); Albumin/Globulin Ratio 1.4 (1.1-2.2); Bilirubin,Total 0.8 mg/dL (0.3-1.0); Calcium 8.9 mg/dL (8.6-10.3); Globulin 2.6 g/dL (2.4-3.5); Phosphorous 3.9 mg/dL (2.7-4.5); Potassium 3.9 mEq/L (3.5-5.1); Total Protein 6.2 g/dL (6.4-8.9)
[2017-07-16] MEDS: Furosemide 20 MG/2 ML VIAL IVP SCH ×2 (08:42→17:54)
[2017-07-16] MEDS: Lisinopril 20 MG TABLET PO SCH (08:42)
[2017-07-16] MEDS ORDERED: cefTRIAXone 1,000 MG in Water for inj. (sterile) 20 ML 10 ML IVP SCH (10:00)
--- NOTE | 2017-07-16 12:19 | Electrocardiograph Report ---
[place] [id number] Test Date: 2017-07-15 Pat Name: Angela Patel Department: 102 Room: 2NE22 Gender: F Recreation Director: Giacomo : [id number] Requested By: Adonis Roberts Order Number: [id number] Reading MD: Yrn Jasmine MD Measurements Intervals [place] Rate: 91 P: OR: 0 QRS: -59 QRSD: 203 T: 109 QT: 436 QTc: 485 Interpretive Statements ELECTRONIC VENTRICULAR PACEMAKER, UNCERTAIN UNDERLYING RHYTHM Electronically Signed On 07-16-2017 12:17:58 EST by Yrn Jasmine MD
--- NOTE | 2017-07-16 12:58 | Internal Med Progress Note ---
Date of Encounter: 07/16/17 Time of Encounter: 12:56 - Assessment and plan (1) Systolic CHF, acute on chronic Current Visit: No Status: Acute Assessment and plan: Acute systolic CHF exacerbation Chest x-ray shows severe pulmonary edema with bilateral pleural effusions Strict I's and O's and daily weight Takes Lasix 40 mg twice a day, continue IV Lasix Echocardiogram from September 2016 showed Ejection fraction was 30-35% with moderate mitral regurgitation and tricuspid regurgitation (2) UTI (urinary tract infection) Current Visit: Yes Status: Acute Assessment and plan: The patient has history of Escherichia coli ESBL was Stop Rocephin and start Invanz final culture report and sensitivity are available Urine culture is showing gram-negative rods Qualifiers: Urinary tract infection type: acute cystitis Hematuria presence: without hematuria Qualified Code(s): N30.00 - Acute cystitis without hematuria (3) Atrial fibrillation Current Visit: No Status: Chronic Assessment and plan: Continue Coreg and dose warfarin per pharmacy May hold tonight's dose of warfarin due to supratherapeutic INR Qualifiers: Atrial fibrillation type: chronic Qualified Code(s): I48.2 - Chronic atrial fibrillation (4) HTN (hypertension) Current Visit: No Status: Chronic Qualifiers: Hypertension type: essential hypertension Qualified Code(s): I10 - Essential (primary) hypertension (5) HLD (hyperlipidemia) Current Visit: No Status: Chronic Qualifiers: Hyperlipidemia type: mixed hyperlipidemia Qualified Code(s): E78.2 - Mixed hyperlipidemia (6) Hypothyroidism Current Visit: No Status: Chronic Assessment and plan: Continue levothyroxine Qualifiers: Hypothyroidism type: acquired Qualified Code(s): E03.9 - Hypothyroidism, unspecified (7) Anemia Current Visit: No Status: Acute Assessment and plan: Chronic iron deficiency anemia Qualifiers: Anemia type: unspecified type Qualified Code(s): D64.9 - Anemia, unspecified - Subjective Interval history: Feeling still short of breath, no abdominal pain, no dysuria, no chest pain, no nausea or vomiting - Constitutional Vitals: Temp Pulse Resp BP Pulse Ox 97.7 F 74 15 121/75 92 07/16/17 11:00 07/16/17 11:00 07/16/17 11:00 07/16/17 11:00 07/16/17 11:00 General appearance: Present: A&O X 3, pleasant, no acute distress, answers questions appropriately - Head Head exam: Present: atraumatic, normocephalic - Eye Eye exam: Present: PERRL, conjuntiva pink, sclera anicteric Pupils: Present: PERRL - Neck Neck exam general surgery: Present: supple, trachea midline. Absent: lymphadenopathy - Respiratory Respiratory exam: Present: CTAB, rales (Diffuse fine crackles). Absent: accessory muscle use, rhonchi, wheezes - Cardiovascular Cardiovascular exam: Present: RRR, +S1, +S2. Absent: diastolic murmur, gallop, rubs, systolic murmur - GI/Abdominal GI/Abdominal exam: Present: normal bowel sounds, soft, no peritoneal signs. Absent: distended, tenderness - Extremities Exam Extremities exam: Present: warm, radial pulses palpable and symmetrical. Absent : calf tenderness, cyanotic, pedal edema - Neurological Exam Neurological exam: Present: CN II-XII intact, oriented X3, no focal deficits. Absent: pronater drift, facial droop, speech deficit - Skin Skin exam: Present: dry, intact Internal Medicine: Result - Labs CBC & Chem 7: 07/16/17 02:33 07/16/17 02:33 Labs: Short CBC 07/16/17 Range/Units 02:33 WBC 6.3 (4.3-11.1) K/mcL Hgb 9.9 L D (11.5-15.4) g/dL Hct 31.0 L (35.3-44.9) % Plt Count 152 (140-400) K/mcL Neutrophils # 4.2 (1.6-8.9) K/mcL BMP 07/16/17 02:33 Sodium 140 Potassium 3.9 Chloride 106 Carbon Dioxide 26 BUN 24 H Creatinine 1.09 Glucose 94 Calcium 8.9 Cardiac Enzymes 07/15/17 07/15/17 Range/Units 16:40 20:29 Troponin I < 0.03 < 0.03 (< 0.04) ng/mL Liver Function 07/16/17 Range/Units 02:33 Total Bilirubin 0.8 (0.3-1.0) mg/dL AST 15 (13-39) Units/L ALT 11 (7-52) Units/L Alkaline Phosphatase 77 (34-104) Units/L Albumin 3.6 (3.5-5.7) g/dL - ABG Interpretation ABG results: PT/INR, D-dimer PT 37.8 Seconds (9.4-12.1) H 07/16/17 02:33 - VTE Documentation of Mechanical Device: Graduated compression elastic hosiery Consult Discharge Plan - Plan Referrals: Clemencia Velasquez, MOLD PRESSER [Primary Care Provider] -
[2017-07-16] MEDS: Ertapenem 1,000 MG in Water for inj. (sterile) 20 ML 10 ML IVP SCH (15:25)
[2017-07-16] MEDS ORDERED: Warfarin perPT PO PRN (18:00)
[2017-07-16] MEDS ORDERED: *HR* Warfarin 2 MG TABLET PO SCH (18:00)
[2017-07-17 05:12] LABS: Hematocrit 33.5 % (35.3-44.9); Hemoglobin 10.4 g/dL (11.5-15.4); Mean Corpuscular Hemoglobin 26.4 pg (28.0-33.3); Mean Platelet Volume 11.8 fL (9.4-12.4); Platelet Count 170 K/mcL (140-400); Red Blood Count 3.94 M/mcL (3.82-4.97)
[2017-07-17 05:31] LABS: Calcium 8.8 mg/dL (8.6-10.3); INR 2.9; Potassium 3.8 mEq/L (3.5-5.1); Prothrombin Time 31.9 Seconds (9.4-12.1)
[2017-07-17] MEDS ORDERED: Water for inj. (sterile) 20 ML 20 ML IV ONE (08:02)
[2017-07-17] MEDS: Lisinopril 20 MG TABLET PO SCH (08:07)
[2017-07-17] MEDS: Furosemide 20 MG/2 ML VIAL IVP SCH ×2 (08:08→17:28)
[2017-07-17] MEDS: Ertapenem 1,000 MG in Water for inj. (sterile) 20 ML 10 ML IVP SCH (08:08)
--- NOTE | 2017-07-17 15:07 | Internal Med Progress Note ---
Date of Encounter: 07/17/17 Time of Encounter: 15:05 - Assessment and plan (1) Systolic CHF, acute on chronic Current Visit: No Status: Acute Assessment and plan: Acute hypoxic respiratory failure secondary to acute pulmonary edema and bilateral pleural effusions due to acute systolic CHF exacerbation Chest x-ray shows severe pulmonary edema with bilateral pleural effusions Strict I's and O's and daily weight Takes Lasix 40 mg twice a day, continue IV Lasix 40 mg twice a day Echocardiogram from September 2016 showed Ejection fraction was 30-35% with moderate mitral regurgitation and tricuspid regurgitation (2) UTI (urinary tract infection) Current Visit: Yes Status: Acute Assessment and plan: The patient has history of Escherichia coli ESBL , but the new culture shows Escherichia coli only resistant to Levaquin Resume Rocephin (day 3 of antibiotics) and stop Invanz Qualifiers: Urinary tract infection type: acute cystitis Hematuria presence: without hematuria Qualified Code(s): N30.00 - Acute cystitis without hematuria (3) Atrial fibrillation Current Visit: No Status: Chronic Assessment and plan: Continue Coreg and dose warfarin per pharmacy Qualifiers: Atrial fibrillation type: chronic Qualified Code(s): I48.2 - Chronic atrial fibrillation (4) HTN (hypertension) Current Visit: No Status: Chronic Qualifiers: Hypertension type: essential hypertension Qualified Code(s): I10 - Essential (primary) hypertension (5) HLD (hyperlipidemia) Current Visit: No Status: Chronic Qualifiers: Hyperlipidemia type: mixed hyperlipidemia Qualified Code(s): E78.2 - Mixed hyperlipidemia (6) Hypothyroidism Current Visit: No Status: Chronic Assessment and plan: Continue levothyroxine Qualifiers: Hypothyroidism type: acquired Qualified Code(s): E03.9 - Hypothyroidism, unspecified (7) Anemia Current Visit: No Status: Acute Assessment and plan: Chronic iron deficiency anemia Qualifiers: Anemia type: unspecified type Qualified Code(s): D64.9 - Anemia, unspecified - Subjective Interval history: Feeling better, less short of breath, no abdominal pain, no dysuria, no chest pain, no nausea or vomiting - Constitutional Vitals: Temp Pulse Resp BP Pulse Ox 97.9 F 71 16 135/60 93 07/17/17 06:31 07/17/17 06:31 07/17/17 06:31 07/17/17 06:31 07/17/17 06:31 General appearance: Present: A&O X 3, pleasant, no acute distress, answers questions appropriately Internal Medicine: Result - Labs CBC & Chem 7: 07/17/17 04:05 07/17/17 04:05 Labs: Short CBC 07/17/17 Range/Units 04:05 WBC 6.5 (4.3-11.1) K/mcL Hgb 10.4 L (11.5-15.4) g/dL Hct 33.5 L (35.3-44.9) % Plt Count 170 (140-400) K/mcL BMP 07/17/17 04:05 Sodium 137 Potassium 3.8 Chloride 106 Carbon Dioxide 30 H BUN 22 Creatinine 1.11 Glucose 91 Calcium 8.8 - ABG Interpretation ABG results: PT/INR, D-dimer PT 31.9 Seconds (9.4-12.1) H 07/17/17 04:05 - VTE Documentation of Mechanical Device: Graduated compression elastic hosiery Consult Discharge Plan - Plan Referrals: Clemencia Velaqsuez CNP [Primary Care Provider] - 07/26/17 1:00 pm Anson Guzman DO [Partnered Physician] - 08/06/17 11:00 am
[2017-07-17] MEDS: cefTRIAXone 1,000 MG in Water for inj. (sterile) 20 ML 10 ML IVPB SCH (17:26)
[2017-07-17] MEDS ORDERED: *HR* Warfarin 3 MG TABLET PO ONE (18:00)
[2017-07-18 04:03] LABS: INR 2.3; Prothrombin Time 25.6 Seconds (9.4-12.1)
[2017-07-18 06:29] VITALS: BP 128/66
--- NOTE | 2017-07-18 08:57 | Discharge Summary ---
Date of Encounter: 07/18/17 Time of Encounter: 08:54 - Discharge Diagnosis (1) Systolic CHF, acute on chronic Priority: Primary Status: Acute Comments: Acute hypoxic respiratory failure secondary to acute pulmonary edema and bilateral pleural effusions due to acute systolic CHF exacerbation (2) UTI (urinary tract infection) Priority: Secondary Status: Acute Qualifiers: Urinary tract infection type: acute cystitis Hematuria presence: without hematuria Qualified Code(s): N30.00 - Acute cystitis without hematuria (3) Atrial fibrillation Priority: Secondary Status: Chronic Qualifiers: Atrial fibrillation type: chronic Qualified Code(s): I48.2 - Chronic atrial fibrillation (4) HTN (hypertension) Priority: Secondary Status: Chronic Qualifiers: Hypertension type: essential hypertension Qualified Code(s): I10 - Essential (primary) hypertension (5) HLD (hyperlipidemia) Priority: Secondary Status: Chronic Qualifiers: Hyperlipidemia type: mixed hyperlipidemia Qualified Code(s): E78.2 - Mixed hyperlipidemia (6) Hypothyroidism Priority: Secondary Status: Chronic Qualifiers: Hypothyroidism type: acquired Qualified Code(s): E03.9 - Hypothyroidism, unspecified (7) Anemia Priority: Secondary Status: Acute Qualifiers: Anemia type: unspecified type Qualified Code(s): D64.9 - Anemia, unspecified - Discharge Medications Prescriptions: Furosemide [Lasix] 40 mg PO BIDDIURETIC #60 tablet Potassium Chloride 10 meq PO DAILY #30 tab.er.prt Home Medications: Carvedilol [Coreg] 25 mg PO BID 10/25/16 [History] Cholecalciferol (Vitamin D3) [Vitamin D3] 1,000 unit PO DAILY 10/25/16 [History] Cyanocobalamin (Vitamin B-12) [Vitamin B12] 1,000 mcg PO DAILY 10/25/16 [History ] Ferrous Sulfate [Slow Fe] 65 mg PO DAILY 10/25/16 [History] Krill Oil 500 mg PO DAILY 10/25/16 [History] Lisinopril [Zestril] 40 mg PO DAILY 10/25/16 [History] Multivitamin [Multi-Day Vitamins] 1 tab PO DAILY 10/25/16 [History] Omeprazole [PriLOSEC] 20 mg PO DAILY 10/25/16 [History] Pravastatin Sodium [Pravachol] 80 mg PO DAILY 10/25/16 [History] Vit C/Vit E/[place]/Min/[place]-3 [Ocuvite Softgel] 1 cap PO DAILY 10/25/16 [ History] Ibuprofen 400 mg PO Q4-6H PRN #30 tablet 03/31/17 [Rx] Warfarin [Coumadin] 1 mg PO TH 04/23/17 [History] Warfarin [Coumadin] 2 mg PO SUMOTUWEFRSA 04/23/17 [History] Levothyroxine [Synthroid] 112 mcg PO 0630 07/15/17 [History] Furosemide [Lasix] 40 mg PO BIDDIURETIC #60 tablet 07/18/17 [Rx] Potassium Chloride 10 meq PO DAILY #30 tab.er.prt 07/18/17 [Rx] Allergies/Adverse Reactions: 3 Allergy/AdvReac Type Severity Reaction Status Date / Time Penicillins [PCN] Allergy Hives Verified 07/15/17 07:21 Date of admission: 07/15/17 08:41 Primary care physician: Clemencia Velasquez, - Patient Status Disposition: Home, Self-Care Condition: Fair Overall status at discharge: patient is progressing back to baseline - Discharge Instructions Follow Up With: Clemencia Velasquez, MARK [Primary Care Provider] - 07/26/17 1:00 pm Anson Guzman DO [Partnered Physician] - 08/06/17 11:00 am Additional Instructions: Follow-up with primary care physician within the next 7 days. Continue doses of Lasix at home. Decrease fluid intake. - Diet and Activity Activity: increase activity as tolerated Diet: low fat, low cholesterol Hospital course: Ms. Patel is a 87 year old female with a past medical history of hypertension , hyperlipidemia, hypothyroidism, atrial fibrillation on Coumadin, systolic congestive heart failure. Echocardiogram from September 2016 showed Ejection fraction was 30-35% with moderate mitral regurgitation and tricuspid regurgitation. Was feeling short of breath, Chest x-ray showed severe pulmonary edema with bilateral pleural effusions. Was started on IV Lasix. Was diagnosed with a possible UTI and was started on Rocephin, she was switched to Invanz as she has history of Escherichia coli ESBL. This time she did not grow ESBL for which she was switched back to Rocephin. Takes Lasix 40 mg twice a day, but drinks lots of fluid at home. INR has been therapeutic during her entire hospitalization and today is 2.3 Prefers to be discharged today and control her fluid intake at home. - Time Spent with Patient Total time spent providing and/or coordinating discharge services: Greater than 30 minutes (40 min) - Constitutional Vitals: Temp Pulse Resp BP Pulse Ox 97.6 F 75 15 128/66 94 07/18/17 06:25 07/18/17 06:25 07/18/17 06:25 07/18/17 06:25 07/18/17 06:25 General appearance: Present: A&O X 3, pleasant, no acute distress, answers questions appropriately - Head Head exam: Present: atraumatic, normocephalic - Eye Eye exam: Present: PERRL, conjuntiva pink, sclera anicteric Pupils: Present: PERRL - Neck Neck exam general surgery: Present: supple, trachea midline. Absent: lymphadenopathy - Respiratory Respiratory exam: Present: CTAB. Absent: accessory muscle use, rales, rhonchi, wheezes - Cardiovascular Cardiovascular exam: Present: RRR, +S1, +S2. Absent: diastolic murmur, gallop, rubs, systolic murmur - GI/Abdominal GI/Abdominal exam: Present: normal bowel sounds, soft, no peritoneal signs. Absent: distended, tenderness - Extremities Exam Extremities exam: Present: warm, radial pulses palpable and symmetrical. Absent : calf tenderness, cyanotic, pedal edema - Neurological Exam Neurological exam: Present: CN II-XII intact, oriented X3, no focal deficits. Absent: pronater drift, facial droop, speech deficit - Skin Skin exam: Present: dry, intact - VTE Documentation of Mechanical Device: Graduated compression elastic hosiery
[2017-07-18] MEDS ORDERED: ERTAPENEM IVP SCH (09:00)
[2017-07-18] MEDS ORDERED: WATER FOR INJ IVP SCH (09:00)
[2017-07-18] MEDS: Furosemide 20 MG/2 ML VIAL IVP SCH (14:33)
[2017-07-18] MEDS: Lisinopril 20 MG TABLET PO SCH (14:34)
[2017-07-18] MEDS: cefTRIAXone 1,000 MG in Water for inj. (sterile) 20 ML 10 ML IVPB SCH (14:34)
[2017-07-18] MEDS ORDERED: *HR* Warfarin 2 MG TABLET PO ONE (18:00)
== END 2017-07-18 14:19 | disposition home or self-care (01) | DRG 291 ==
LOC: EMEROO 06:26 → 3BNU 08:27 → SUATTDRO 08:41 → 2SOUTHHOLD 16:49 → 2NENU 16:55
PROVIDERS: ADMIT Internal Medicine; ATTEND Internal Medicine

== ENCOUNTER 2017-11-21 17:37 | Inpatient (IN) ==
--- NOTE | 2017-11-21 18:08 | Emergency Department Note ---
Disposition Clinical Impression: Congestive heart failure Community acquired pneumonia Qualifiers: Laterality: unspecified laterality Qualified Code(s): J18.9 - Pneumonia, unspecified organism Disposition: Admitted As Inpatient Condition: Fair Referrals: Clemencia Velasquez CNP [Primary Care Provider] - Forms: ED Satisfaction Letter Time of Disposition: 19:15 SOB HPI - General Chief Complaint: ED Shortness of Breath/Dyspnea Stated Complaint: JILL Time Seen by Provider: 11/21/17 17:40 Source: patient, EMS Limitations: no limitations Nursing Notes Reviewed: Yes Vital Signs Reviewed: Yes - History of Present Illness Patient presents to ED if the chief complaint of shortness of breath. Patient has a history of CHF and is on Lasix. Also has a history of A. fib with pacemaker and is on Coumadin. History of coronary artery disease. States that she went to see her primary care physician 4 days ago for a sore throat and nasal congestion and was placed on "erythromycin" states that she took all of that and is not getting any better. About 2 days ago she started developing some shortness of breath and exertional dyspnea, which is gradually worsened. States that she chronically has peripheral edema and that it is slightly worse than baseline. Does have some associated pleuritic chest tightness and pain that central. Nothing really seems to make it better. She is not oxygen dependent and has no history of COPD. She denies any headache, changes in vision, neck pain, rash, abdominal pain, nausea, vomiting or diarrhea. She denies any fever but states that she has had the sweats and chills over the last few days. - Related Data Home Medications Medication Instructions Recorded Confirmed Carvedilol [Coreg] 25 mg PO BID 10/25/16 07/15/17 Cholecalciferol (Vitamin D3) 1,000 unit PO DAILY 10/25/16 07/15/17 [Vitamin D3] Cyanocobalamin (Vitamin B-12) 1,000 mcg PO DAILY 10/25/16 07/15/17 [Vitamin B12] Ferrous Sulfate [Slow Fe] 65 mg PO DAILY 10/25/16 07/15/17 Krill Oil 500 mg PO DAILY 10/25/16 07/15/17 Lisinopril [Zestril] 40 mg PO DAILY 10/25/16 07/15/17 Multivitamin [Multi-Day Vitamins] 1 tab PO DAILY 10/25/16 07/15/17 Omeprazole [PriLOSEC] 20 mg PO DAILY 10/25/16 07/15/17 Pravastatin Sodium [Pravachol] 80 mg PO DAILY 10/25/16 07/15/17 Vit C/Vit E/Lutein/Min/[place]-3 1 cap PO DAILY 10/25/16 07/15/17 [Ocuvite Softgel] Warfarin [Coumadin] 1 mg PO TH 04/23/17 07/15/17 Warfarin [Coumadin] 2 mg PO SUMOTUWEFRSA 04/23/17 07/15/17 Levothyroxine [Synthroid] 112 mcg PO 0630 07/15/17 07/15/17 Previous Rx's Medication Instructions Recorded Ibuprofen 400 mg PO Q4-6H PRN #30 tablet 03/31/17 Furosemide [Lasix] 40 mg PO BIDDIURETIC #60 tablet 07/18/17 Potassium Chloride 10 meq PO DAILY #30 tab.er.prt 07/18/17 Allergies Allergy/AdvReac Type Severity Reaction Status Date / Time Penicillins [PCN] Allergy Hives Verified 07/15/17 07:21 Review of Systems: As reviewed in the HPI. All other systems reviewed are negative or normal. Past Medical History - Past Medical History Attestation: Yes The following information was validated with the patient. Source: patient, old records reviewed Medical history: Reports: atrial fibrillation, CHF, hyperlipidemia, hypertension , thyroid disease Surgical history: Reports: appendectomy, cholecystectomy, hysterectomy, orthopedic, other, pacemaker Psychiatric history: Reports: no psych history - Social History Smoking Status: Never smoker Smokeless Tobacco Status: No Alcohol use: Reports: none Drug use: Reports: none Physical Exam CONSTITUTIONAL: [well appearing in no acute distress] SKIN: [Warm, dry, and intact without rash] EYES: [extraocular movements are grossly intact, clear conjunctiva] HENT: [Normocephalic, atraumatic, moist mucus membranes] NECK: [no obvious swelling, normal range of motion] PULMONARY: [normal chest rise and fall, no respiratory distress or stridor, mild Rales bilateral bases CARDIOVASCULAR: [regular rate, distal extremities are warm and well perfused, irregularly irregular rhythm, soft systolic murmur] GASTROINSTESTINAL: [nondistended, non-tender] GENITOURINARY: [deferred] NEUROLOGIC: [normal speech, moves all extremities,] MUSCULOSKELETAL: [no gross deformities, pedal edema, atraumatic] PSYCHIATRIC: [normal mood and affect] - General Limitations: no limitations General appearance: alert, in no apparent distress Course Course Narrative: Patient presenting with shortness of breath and cough. Sounds like she has CHF. We will get labs and workup. - Reevaluation(s) Reevaluation #1: Patient has pneumonia. We will start her on Rocephin and azithromycin. Also given a dose of Lasix. Patient will be admitted to the hospital service. Vital Signs Temperature 97.9 F 11/21/17 17:38 Pulse Rate 81 11/21/17 17:38 Respiratory Rate 18 11/21/17 17:38 Blood Pressure 143/73 11/21/17 17:38 O2 Sat by Pulse Oximetry 93 11/21/17 17:38 Temperature 97.9 F 11/21/17 17:38 Pulse Rate 81 11/21/17 17:38 Respiratory Rate 18 11/21/17 17:38 Blood Pressure 143/73 11/21/17 17:38 O2 Sat by Pulse Oximetry 93 11/21/17 17:53 Oxygen Delivery Oxygen Delivery Nasal Cannula Shortness of Breath/Dyspnea - Medical Records Medical records reviewed: Yes I reviewed the patient's medical records. - Lab Data Lab results reviewed: Yes I reviewed the patient's lab results. Result diagrams: 11/21/17 18:11 11/21/17 18:11 Lab Results 11/21/17 11/21/17 11/21/17 Range/Units 18:11 18:11 18:11 WBC 9.8 (4.3-11.1) K/mcL RBC 3.99 (3.82-4.97) M/mcL Hgb 11.2 L (11.5-15.4) g/dL Hct 34.0 L (35.3-44.9) % MCV 85.2 (83.0-100.0) fL MCH 28.1 (28.0-33.3) pg MCHC 32.9 (31.6-35.5) g/dL RDW 14.7 H (11.5-14.5) % Plt Count 198 (140-400) K/mcL MPV 10.7 (9.4-12.4) fL Immature Gran % 0.6 (0-4) % Seg Neutrophils % 74.0 % Lymphocytes % 10.4 % Monocytes % 11.4 % Eosinophils % 3.0 % Basophils % 0.6 % Neutrophils # 7.2 (1.6-8.9) K/mcL Lymphocytes # 1.0 (0.6-4.6) K/mcL Monocytes # 1.1 (0.0-1.3) K/mcL Eosinophils # 0.3 (0.0-0.6) K/mcL Basophils # 0.1 (0.0-0.2) K/mcL Nucleated RBCs/100 WBC 0.2 H (0) /100 WBC PT 36.0 H (9.4-12.1) Seconds INR 3.3 Sodium 141 (136-145) mEq/L Potassium 3.9 (3.5-5.1) mEq/L Chloride 107 (98-107) mEq/L Carbon Dioxide 23 (23-29) mEq/L BUN 37 H (8-23) mg/dL Creatinine 1.25 H (0.60-1.20) mg/dL Est GFR ( Amer) 49 L (> 60) Est GFR (Non-Af Amer) 41 L (> 60) BUN/Creatinine Ratio 30 H (6-26) Glucose 119 H (70-105) mg/dL Calculated Osmolality 302 H (280-300) Lactic Acid (0.5-2.2) mmol/L Calcium 9.6 (8.6-10.3) mg/dL Troponin I < 0.03 (< 0.04) ng/mL B-Natriuretic Peptide (Less than 100) pg/mL 11/21/17 11/21/17 Range/Units 18:11 18:11 WBC (4.3-11.1) K/mcL RBC (3.82-4.97) M/mcL Hgb (11.5-15.4) g/dL Hct (35.3-44.9) % MCV (83.0-100.0) fL MCH (28.0-33.3) pg MCHC (31.6-35.5) g/dL RDW (11.5-14.5) % Plt Count (140-400) K/mcL MPV (9.4-12.4) fL Immature Gran % (0-4) % Seg Neutrophils % % Lymphocytes % % Monocytes % % Eosinophils % % Basophils % % Neutrophils # (1.6-8.9) K/mcL Lymphocytes # (0.6-4.6) K/mcL Monocytes # (0.0-1.3) K/mcL Eosinophils # (0.0-0.6) K/mcL Basophils # (0.0-0.2) K/mcL Nucleated RBCs/100 WBC (0) /100 WBC PT (9.4-12.1) Seconds INR Sodium (136-145) mEq/L Potassium (3.5-5.1) mEq/L Chloride (98-107) mEq/L Carbon Dioxide (23-29) mEq/L BUN (8-23) mg/dL Creatinine (0.60-1.20) mg/dL Est GFR ( Amer) (> 60) Est GFR (Non-Af Amer) (> 60) BUN/Creatinine Ratio (6-26) Glucose (70-105) mg/dL Calculated Osmolality (280-300) Lactic Acid 0.8 (0.5-2.2) mmol/L Calcium (8.6-10.3) mg/dL Troponin I (< 0.04) ng/mL B-Natriuretic Peptide 638 H (Less than 100) pg/mL - Radiology Data Radiology results reviewed: Yes I reviewed the patient's radiology results. - EKG Data EKG attestation: Yes I reviewed and interpreted this EKG. EKG results narrative: Patient's rhythm, rate 75, QRS to 10, QTC 496, no previous available at this time
[2017-11-21 18:20] LABS: Basophils # 0.1 K/mcL (0.0-0.2); Basophils % 0.6 %; Eosinophils # 0.3 K/mcL (0.0-0.6); Hemoglobin 11.2 g/dL (11.5-15.4); Immature Granulocytes % 0.6 % (0-4); Lymphocytes % 10.4 %; Mean Corpuscular HGB Conc 32.9 g/dL (31.6-35.5); Mean Corpuscular Hemoglobin 28.1 pg (28.0-33.3); Mean Corpuscular Volume 85.2 fL (83.0-100.0); Mean Platelet Volume 10.7 fL (9.4-12.4); Monocytes # 1.1 K/mcL (0.0-1.3); Monocytes % 11.4 %; Neutrophils # 7.2 K/mcL (1.6-8.9); Nucleated Red Blood Cells 0.2 /100 WBC (0); Platelet Count 198 K/mcL (140-400); Red Blood Count 3.99 M/mcL (3.82-4.97); Red Cell Distribution Width 14.7 % (11.5-14.5)
[2017-11-21 18:27] LABS: INR 3.3
[2017-11-21 18:42] LABS: BUN/Creatinine Ratio 30 (6-26); Blood Urea Nitrogen 37 mg/dL (8-23); Calcium 9.6 mg/dL (8.6-10.3); Carbon Dioxide 23 mEq/L (23-29); Chloride 107 mEq/L (98-107); Glucose 119 mg/dL (70-105); Osmolality,Calculated 302 (280-300); Potassium 3.9 mEq/L (3.5-5.1); Sodium 141 mEq/L (136-145); Troponin I < 0.03 ng/mL (< 0.04); eGFR For African Americans 49 (> 60); eGFR For Non-African Americans 41 (> 60)
[2017-11-21] MEDS ORDERED: cefTRIAXone 1,000 MG in Water for inj. (sterile) 20 ML 10 ML IVP ONE (18:50)
[2017-11-21] MEDS ORDERED: Azithromycin 500 MG in D5% in Water 250 ML IVPB ONE (18:50)
[2017-11-21] MEDS ORDERED: Furosemide 40 MG/4 ML VIAL IVP ONE (18:54)
--- NOTE | 2017-11-21 18:54 | Emergency Department Note ---
Disposition Clinical Impression: Congestive heart failure Community acquired pneumonia Qualifiers: Laterality: unspecified laterality Qualified Code(s): J18.9 - Pneumonia, unspecified organism Disposition: Admitted As Inpatient Condition: Fair Referrals: Clemencia Velasquez CNP [Primary Care Provider] - Forms: ED Satisfaction Letter Time of Disposition: 19:44 General Adult HPI - General Chief complaint: ED Shortness of Breath/Dyspnea Stated complaint: JILL Time Seen by Provider: 11/21/17 17:40 Source: patient, EMS Limitations: no limitations - History of Present Illness Pain Scale: 0 - Related Data Home Medications Medication Instructions Recorded Confirmed Carvedilol [Coreg] 25 mg PO BID 10/25/16 07/15/17 Cholecalciferol (Vitamin D3) 1,000 unit PO DAILY 10/25/16 07/15/17 [Vitamin D3] Cyanocobalamin (Vitamin B-12) 1,000 mcg PO DAILY 10/25/16 07/15/17 [Vitamin B12] Ferrous Sulfate [Slow Fe] 65 mg PO DAILY 10/25/16 07/15/17 Krill Oil 500 mg PO DAILY 10/25/16 07/15/17 Lisinopril [Zestril] 40 mg PO DAILY 10/25/16 07/15/17 Multivitamin [Multi-Day Vitamins] 1 tab PO DAILY 10/25/16 07/15/17 Omeprazole [PriLOSEC] 20 mg PO DAILY 10/25/16 07/15/17 Pravastatin Sodium [Pravachol] 80 mg PO DAILY 10/25/16 07/15/17 Vit C/Vit E/Lutein/Min/[place]-3 1 cap PO DAILY 10/25/16 07/15/17 [Ocuvite Softgel] Warfarin [Coumadin] 1 mg PO TH 04/23/17 07/15/17 Warfarin [Coumadin] 2 mg PO SUMOTUWEFRSA 04/23/17 07/15/17 Levothyroxine [Synthroid] 112 mcg PO 0630 07/15/17 07/15/17 Previous Rx's Medication Instructions Recorded Ibuprofen 400 mg PO Q4-6H PRN #30 tablet 03/31/17 Furosemide [Lasix] 40 mg PO BIDDIURETIC #60 tablet 07/18/17 Potassium Chloride 10 meq PO DAILY #30 tab.er.prt 07/18/17 Allergies Allergy/AdvReac Type Severity Reaction Status Date / Time Penicillins [PCN] Allergy Hives Verified 07/15/17 07:21 Past Medical History - Past Medical History Medical history: Reports: atrial fibrillation, CHF, hyperlipidemia, hypertension , thyroid disease Surgical history: Reports: appendectomy, cholecystectomy, hysterectomy, orthopedic, other, pacemaker Psychiatric history: Reports: no psych history - Social History Smoking Status: Never smoker Smokeless Tobacco Status: No Alcohol use: Reports: none Drug use: Reports: none Physical Exam - General Limitations: no limitations General appearance: alert, in no apparent distress Course Vital Signs Temperature 97.9 F 11/21/17 17:38 Pulse Rate 81 11/21/17 17:38 Respiratory Rate 18 11/21/17 17:38 Blood Pressure 143/73 11/21/17 17:38 O2 Sat by Pulse Oximetry 93 11/21/17 17:38 Temperature 97.9 F 11/21/17 17:38 Pulse Rate 81 11/21/17 17:38 Respiratory Rate 18 11/21/17 17:38 Blood Pressure 143/73 11/21/17 17:38 O2 Sat by Pulse Oximetry 93 11/21/17 17:53 Oxygen Delivery Oxygen Delivery Nasal Cannula Medical Decision Making - Lab Data Result diagrams: 11/21/17 18:11 11/21/17 18:11 Lab Results 11/21/17 11/21/17 11/21/17 Range/Units 18:11 18:11 18:11 WBC 9.8 (4.3-11.1) K/mcL RBC 3.99 (3.82-4.97) M/mcL Hgb 11.2 L (11.5-15.4) g/dL Hct 34.0 L (35.3-44.9) % MCV 85.2 (83.0-100.0) fL MCH 28.1 (28.0-33.3) pg MCHC 32.9 (31.6-35.5) g/dL RDW 14.7 H (11.5-14.5) % Plt Count 198 (140-400) K/mcL MPV 10.7 (9.4-12.4) fL Immature Gran % 0.6 (0-4) % Seg Neutrophils % 74.0 % Lymphocytes % 10.4 % Monocytes % 11.4 % Eosinophils % 3.0 % Basophils % 0.6 % Neutrophils # 7.2 (1.6-8.9) K/mcL Lymphocytes # 1.0 (0.6-4.6) K/mcL Monocytes # 1.1 (0.0-1.3) K/mcL Eosinophils # 0.3 (0.0-0.6) K/mcL Basophils # 0.1 (0.0-0.2) K/mcL Nucleated RBCs/100 WBC 0.2 H (0) /100 WBC PT 36.0 H (9.4-12.1) Seconds INR 3.3 Sodium 141 (136-145) mEq/L Potassium 3.9 (3.5-5.1) mEq/L Chloride 107 (98-107) mEq/L Carbon Dioxide 23 (23-29) mEq/L BUN 37 H (8-23) mg/dL Creatinine 1.25 H (0.60-1.20) mg/dL Est GFR ( Amer) 49 L (> 60) Est GFR (Non-Af Amer) 41 L (> 60) BUN/Creatinine Ratio 30 H (6-26) Glucose 119 H (70-105) mg/dL Calculated Osmolality 302 H (280-300) Lactic Acid (0.5-2.2) mmol/L Calcium 9.6 (8.6-10.3) mg/dL Troponin I < 0.03 (< 0.04) ng/mL B-Natriuretic Peptide (Less than 100) pg/mL 11/21/17 11/21/17 Range/Units 18:11 18:11 WBC (4.3-11.1) K/mcL RBC (3.82-4.97) M/mcL Hgb (11.5-15.4) g/dL Hct (35.3-44.9) % MCV (83.0-100.0) fL MCH (28.0-33.3) pg MCHC (31.6-35.5) g/dL RDW (11.5-14.5) % Plt Count (140-400) K/mcL MPV (9.4-12.4) fL Immature Gran % (0-4) % Seg Neutrophils % % Lymphocytes % % Monocytes % % Eosinophils % % Basophils % % Neutrophils # (1.6-8.9) K/mcL Lymphocytes # (0.6-4.6) K/mcL Monocytes # (0.0-1.3) K/mcL Eosinophils # (0.0-0.6) K/mcL Basophils # (0.0-0.2) K/mcL Nucleated RBCs/100 WBC (0) /100 WBC PT (9.4-12.1) Seconds INR Sodium (136-145) mEq/L Potassium (3.5-5.1) mEq/L Chloride (98-107) mEq/L Carbon Dioxide (23-29) mEq/L BUN (8-23) mg/dL Creatinine (0.60-1.20) mg/dL Est GFR ( Amer) (> 60) Est GFR (Non-Af Amer) (> 60) BUN/Creatinine Ratio (6-26) Glucose (70-105) mg/dL Calculated Osmolality (280-300) Lactic Acid 0.8 (0.5-2.2) mmol/L Calcium (8.6-10.3) mg/dL Troponin I (< 0.04) ng/mL B-Natriuretic Peptide 638 H (Less than 100) pg/mL Critical Care Time Critical Care Time: Yes Total Critical Care Time: 35 Attestation: Critical care performed: Time is exclusive of separately billable procedures. Time includes: direct patient care, patient reassessment, coordination of patient care, interpretation of data (laboratory data, radiology data, and respiratory data), review of patient's medical records, medical consultation and documentation of patient care. Procedures included in critical care time: Procedures excluded from critical care time: Attestation Statement - Attestation Attestation: I examined this patient and my medical decision-making was reviewed with the Resident Physician. I agree with the documented findings, disposition and treatment plan as described except to the extent set forth below. Patient to ED with shortness of breath. Cough. Recently saw her nurse practitioner was started on erythromycin. She took the last dose today and is feeling worse. Congestion. History of CHF. She states she usually gets pedal edema but she has an exacerbation. She is not swollen at this time. On examination she is in no acute distress. Lung exam display some rhonchi in the bases. No pedal edema. She is in no respiratory distress. She is noted to be hypoxic on room air. Plan. Patient requiring 2-3 L of oxygen sat above 92%. Chest x-ray shows patchy airspace disease. We will give her some Lasix and antibiotic. She will be treated for kidney requiring pneumonia. Hypoxic. Admitted to medicine.
[2017-11-21] MEDS ORDERED: Acetaminophen 325 MG TABLET PO PRN (19:28)
[2017-11-21] MEDS ORDERED: Naloxone 0.4 MG/ML INJ IVP PRN (19:28)
--- NOTE | 2017-11-21 19:36 | Internal Med History&Physical ---
Date of Encounter: 11/21/17 Time of Encounter: 19:31 Internal Medicine - H&P: HPI Chief complaint: Shortness of breath Admitted From: Emergency Dept Plans for Post Hospital Care: Home History of present illness: Ms. Patel is a 87 year old female with a past medical history of hypertension , hyperlipidemia, CKD3, hypothyroidism, atrial fibrillation on Coumadin s/p pacemaker, systolic congestive heart failure. Echocardiogram from September 2016 showed Ejection fraction was 30-35% with moderate mitral regurgitation and tricuspid regurgitation who presents with shortness of breath for 4 days or so. Started as sore throat adn congestion. Wentot PCP and put on abx "erythromycin" and didnt feel better. She started feeling short of breath last couple of days. Describes exertional dyspnea. Has chronic LE edema that is worse for her. Dry cough. No measured fever but reports chills. In the ED, reportedly O2 sats in the 80s but nothing documented and put on supplemental O2. Was found to have pneumonia on CXR. Given ceftriaxone and azithro in the ED. Given lasix 40 mg IV as well. Denies headache, blurry vision, nausea, vomiting, chest pain, diarrhea, constipation, abdominal pain, urinary symptoms, or neurological symptoms. Past Med Surg Social Fam HX - Past Medical History Medical history: atrial fibrillation, CHF, hyperlipidemia, hypertension, thyroid disease Psychiatric history: no psych history - Past Surgical History Surgical History: appendectomy, cholecystectomy, hysterectomy, orthopedic, other , pacemaker - Social History Smoking Status: Never smoker Smokeless Tobacco Status: No Alcohol use: none Drug use: none - Family History Father Living Status: Hx Family Cancer: Yes Mother Living Status: Daughter Living Status: Hx Family Cancer: Yes Internal Medicine - H&P: Meds Carvedilol [Coreg] 25 mg PO BID 10/25/16 [History] Cholecalciferol (Vitamin D3) [Vitamin D3] 1,000 unit PO DAILY 10/25/16 [History] Cyanocobalamin (Vitamin B-12) [Vitamin B12] 1,000 mcg PO DAILY 10/25/16 [History ] Ferrous Sulfate [Slow Fe] 65 mg PO DAILY 10/25/16 [History] Krill Oil 500 mg PO DAILY 10/25/16 [History] Lisinopril [Zestril] 40 mg PO DAILY 10/25/16 [History] Multivitamin [Multi-Day Vitamins] 1 tab PO DAILY 10/25/16 [History] Omeprazole [PriLOSEC] 20 mg PO DAILY 10/25/16 [History] Pravastatin Sodium [Pravachol] 80 mg PO DAILY 10/25/16 [History] Vit C/Vit E/Lutein/Min/[place]-3 [Ocuvite Softgel] 1 cap PO DAILY 10/25/16 [ History] Ibuprofen 400 mg PO Q4-6H PRN #30 tablet 03/31/17 [Rx] Warfarin [Coumadin] 1 mg PO TH 04/23/17 [History] Warfarin [Coumadin] 2 mg PO SUMOTUWEFRSA 04/23/17 [History] Levothyroxine [Synthroid] 112 mcg PO 0630 07/15/17 [History] Furosemide [Lasix] 40 mg PO BIDDIURETIC #60 tablet 07/18/17 [Rx] Potassium Chloride 10 meq PO DAILY #30 tab.er.prt 07/18/17 [Rx] 3 Allergy/AdvReac Type Severity Reaction Status Date / Time Penicillins [PCN] Allergy Hives Verified 07/15/17 07:21 All Systems PM: A 10-system review of systems was performed and is negative for pertinent findings except as documented above in the HPI. Review of systems: All systems reviewed are negative except for as mentioned - Constitutional Vitals: Temp Pulse Resp BP Pulse Ox 97.9 F 81 18 143/73 93 11/21/17 17:38 11/21/17 17:38 11/21/17 17:38 11/21/17 17:38 11/21/17 17:53 Exam: GEN: NAD HEENT: AT, NC, No cyanosis, oral mucosa is moist, No JVD Lymphatics: No lymphadenoapthy Eyes: Extrocular muscles intact, anicteric CVS: RRR. S1, S2, No m/r/g RESP: Bibasilar crackles with coarse breath sounds bilaterally ABD: Soft, NT, ND, +BS EXT: Pedal edema, No rashes, 2+ DP NEURO: Nonfocal, CN II-XII intact, No focal motor or sensory deficits Psych: Cooperative, Not anxious or depressed Internal Med - H&P Results - Labs CBC & Chem 7: 11/21/17 18:11 11/21/17 18:11 Labs: Short CBC 05/20/18 Range/Units 18:11 WBC 9.8 (4.3-11.1) K/mcL Hgb 11.2 L (11.5-15.4) g/dL Hct 34.0 L (35.3-44.9) % Plt Count 198 (140-400) K/mcL Neutrophils # 7.2 (1.6-8.9) K/mcL BMP 11/21/17 18:11 Sodium 141 Potassium 3.9 Chloride 107 Carbon Dioxide 23 BUN 37 H Creatinine 1.25 H Glucose 119 H Calcium 9.6 Cardiac Enzymes 11/21/17 Range/Units 18:11 Troponin I < 0.03 (< 0.04) ng/mL - Impressions ITS Impressions Chest X-Ray 11/21/17 17:42 IMPRESSION: Bilateral patchy airspace disease could represent a multifocal pneumonia. Follow-up is recommended to ensure resolution. D/ / Jaiden Valdez MD / Jaiden Valdez MD Interpreting Provider: Jaiden Valdez MD - Assessment and plan (1) Community acquired pneumonia Current Visit: Yes Status: Acute Assessment and plan: We will place the patient on azithromycin and Rocephin. Check sputum culture. Check urine strep and Legionella. O2 support as needed. Nebulizers. Follow- up on blood cultures. Qualifiers: Laterality: unspecified laterality Qualified Code(s): J18.9 - Pneumonia, unspecified organism (2) Systolic CHF, acute on chronic Current Visit: No Status: Acute Assessment and plan: This is mild. BNP mildly elevated at 6.. We will continue diuresis with Lasix 40 mg IV twice a day. Monitor I&O's. Cardiac diet. Resume rest of cardiac meds. (3) Atrial fibrillation Current Visit: No Status: Chronic Assessment and plan: Continue anticoagulation with Coumadin. Resume beta rex once verified. Qualifiers: Atrial fibrillation type: chronic Qualified Code(s): I48.2 - Chronic atrial fibrillation (4) HTN (hypertension) Current Visit: No Status: Chronic Assessment and plan: Resume home antihypertensives Qualifiers: Hypertension type: essential hypertension Qualified Code(s): I10 - Essential (primary) hypertension (5) HLD (hyperlipidemia) Current Visit: No Status: Chronic Assessment and plan: Continue home statin Qualifiers: Hyperlipidemia type: mixed hyperlipidemia Qualified Code(s): E78.2 - Mixed hyperlipidemia (6) Hypothyroidism Current Visit: No Status: Chronic Assessment and plan: Continue home dose levothyroxine Qualifiers: Hypothyroidism type: acquired Qualified Code(s): E03.9 - Hypothyroidism, unspecified (7) DVT prophylaxis Current Visit: No Status: Acute Assessment and plan: On Coumadin - Time Spent With Patient Total time spent is greater than 50% in coordination of care (as documented) at patient's floor/unit and/or counseling patient:
[2017-11-21] MEDS ORDERED: Azithromycin 500 MG in D5% in Water 250 ML IVPB SCH (20:00)
[2017-11-21] MEDS ORDERED: *HR* Warfarin 1 MG TABLET PO ONE (20:15)
[2017-11-21] MEDS ORDERED: Furosemide 40 MG/4 ML VIAL IVP SCH (21:00)
[2017-11-21 21:19] LABS: Bilirubin,Urine Negative (Negative); Blood,Urine Trace (Negative); Clarity,Urine Clear (Clear); Color,Urine Yellow (Yellow); Glucose,Urine (UA) Normal (Normal); Ketones,Urine Trace mg/dL (Negative); Leukocyte Esterase,Urine Trace (Negative); Nitrite,Urine Negative (Negative); Protein,Urine Negative (Neg-Trace); Specific Gravity,Urine 1.016 (1.010-1.025); Urobilinogen,Urine Normal (Normal)
[2017-11-21 21:22] LABS: Bacteria,Urine Few per hpf (None-Few); Hyaline Casts,Urine None Seen per lpf (None-Few); RBC,Urine 0-3 per hpf (0-3); Squamous Epithelial Cell,Urine Few per lpf (None-Few); WBC,Urine 0-3 per hpf (0-3)
[2017-11-21] MEDS: Ipratropium/Albuterol Neb 3 ML IH SCH (22:12)
[2017-11-22] MEDS: Ipratropium/Albuterol Neb 3 ML IH SCH ×4 (04:22→21:33)
[2017-11-22 06:00] LABS: Basophils % 0.6 %; Eosinophils # 0.2 K/mcL (0.0-0.6); Eosinophils % 2.4 %; Hematocrit 29.6 % (35.3-44.9); Hemoglobin 9.7 g/dL (11.5-15.4); INR 3.9; Immature Granulocytes % 0.3 % (0-4); Lymphocytes # 0.9 K/mcL (0.6-4.6); Lymphocytes % 13.1 %; Mean Corpuscular HGB Conc 32.8 g/dL (31.6-35.5); Mean Corpuscular Volume 85.5 fL (83.0-100.0); Mean Platelet Volume 11.2 fL (9.4-12.4); Monocytes # 0.9 K/mcL (0.0-1.3); Monocytes % 13.3 %; Platelet Count 175 K/mcL (140-400); Prothrombin Time 42.7 Seconds (9.4-12.1); Red Blood Count 3.46 M/mcL (3.82-4.97); Red Cell Distribution Width 14.7 % (11.5-14.5); Segmented Neutrophils % 70.3 %
[2017-11-22 06:16] LABS: Magnesium 2.2 mg/dL (1.6-2.6); Potassium 3.5 mEq/L (3.5-5.1)
[2017-11-22] MEDS: Cholecalciferol (D-3) 1,000 UNIT TABLET PO SCH (08:23)
[2017-11-22] MEDS: Cyanocobalamin (B-12) 1,000 MCG TABLET PO SCH (08:23)
[2017-11-22] MEDS: Furosemide 40 MG/4 ML VIAL IVP SCH ×2 (08:23→18:12)
[2017-11-22] MEDS: Multivit/Ca/Min/Fe/FA 1 TAB TABLET PO SCH (08:23)
[2017-11-22] MEDS: Patient Taking Own Medication 1 EACH PO SCH (08:24)
[2017-11-22] MEDS: cefTRIAXone 1,000 MG in Water for inj. (sterile) 20 ML 10 ML IVP SCH (08:24)
--- NOTE | 2017-11-22 12:17 | Internal Med Progress Note ---
Date of Encounter: 11/22/17 Time of Encounter: 12:15 - Assessment and plan (1) Congestive heart failure Current Visit: Yes Status: Acute Assessment and plan: Acute on chronic systolic heart failure receiving IV diuresis clinically better Qualifiers: Heart failure type: systolic Heart failure chronicity: acute on chronic Qualified Code(s): I50.23 - Acute on chronic systolic (congestive) heart failure (2) Atrial fibrillation Current Visit: No Status: Chronic Assessment and plan: Patient rhythm is paced she is anticoagulated INR is therapeutic Qualifiers: Atrial fibrillation type: chronic Qualified Code(s): I48.2 - Chronic atrial fibrillation (3) Anticoagulated on Coumadin Current Visit: No Status: Chronic Assessment and plan: : Therapeutic (4) HTN (hypertension) Current Visit: No Status: Chronic Assessment and plan: Chronic and well controlled Qualifiers: Hypertension type: essential hypertension Qualified Code(s): I10 - Essential (primary) hypertension (5) HLD (hyperlipidemia) Current Visit: No Status: Chronic Qualifiers: Hyperlipidemia type: pure hypercholesterolemia Qualified Code(s): E78.00 - Pure hypercholesterolemia, unspecified; E78.0 - Pure hypercholesterolemia (6) Obesity (BMI 30-39.9) Current Visit: No Status: Chronic Assessment and plan: Chronic (7) Anemia Current Visit: No Status: Chronic Qualifiers: Anemia type: unspecified type Qualified Code(s): D64.9 - Anemia, unspecified (8) Community acquired pneumonia Current Visit: Yes Status: Acute Assessment and plan: Patient on Rocephin and Zithromax clinically better Qualifiers: Laterality: unspecified laterality Qualified Code(s): J18.9 - Pneumonia, unspecified organism - Time Spent With Patient Total time spent is greater than 50% in coordination of care (as documented) at patient's floor/unit and/or counseling patient: - Subjective Interval history: Patient with history of chronic atrial fibrillation on Coumadin, cardiomyopathy EF to 35%, high cholesterol, hypertension, has a pacemaker, CK D, and hypothyroidism. Patient was admitted with 4 days of progressive shortness of breath which is exertional also increased leg edema emergency room chest x-ray shows pneumonia BNP was 638 patient receiving IV diureses and on Zithromax and Rocephin monitor showed paced rhythm. Patient states she felt clinically better shortness of breath is better no chest pain leg edema is also better - Constitutional Vitals: Temp Pulse Resp BP Pulse Ox 97.8 F 70 18 131/71 94 11/22/17 07:00 11/22/17 11:00 11/22/17 11:00 11/22/17 11:00 11/22/17 10:46 - Head Head exam: Present: atraumatic, normocephalic - Respiratory Respiratory exam: Present: rales, rhonchi - Cardiovascular Cardiovascular exam: Present: RRR, systolic murmur - GI/Abdominal GI/Abdominal exam: Present: normal bowel sounds, soft, no peritoneal signs. Absent: distended, tenderness - Extremities Exam Extremities exam: Present: pedal edema Internal Medicine: Result - Labs CBC & Chem 7: 11/22/17 05:08 11/22/17 05:08 Labs: Short CBC 11/22/17 Range/Units 05:08 WBC 7.1 (4.3-11.1) K/mcL Hgb 9.7 L D (11.5-15.4) g/dL Hct 29.6 L (35.3-44.9) % Plt Count 175 (140-400) K/mcL Neutrophils # 5.0 (1.6-8.9) K/mcL BMP 11/22/17 05:08 Sodium 144 Potassium 3.5 Chloride 109 H Carbon Dioxide 28 BUN 32 H Creatinine 1.09 Glucose 98 Calcium 9.0 Urine 11/21/17 Range/Units 20:55 Urine Color Yellow (Yellow) Urine Clarity Clear (Clear) Urine pH 6.0 (5.0-8.0) pH Units Ur Specific [place] 1.016 (1.010-1.025) Urine Protein Negative (Neg-Trace) mg/dL Urine Glucose (UA) Normal (Normal) mg/dL - ABG Interpretation ABG results: PT/INR, D-dimer PT 42.7 Seconds (9.4-12.1) H 11/22/17 05:08 Consult Discharge Plan - Plan Referrals: Clemencia Velasquez CNP [Primary Care Provider] - 12/02/17 1:30 pm
--- NOTE | 2017-11-22 13:56 | Electrocardiograph Report ---
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
[2017-11-22] MEDS ORDERED: Warfarin perPT PO PRN (18:00)
[2017-11-22] MEDS: Azithromycin 500 MG in D5% in Water 250 ML IVPB SCH (20:25)
[2017-11-22] MEDS ORDERED: GuaiFENesin Liq 200 MG/10 ML UDC PO PRN (21:21)
[2017-11-23] MEDS: Ipratropium/Albuterol Neb 3 ML IH SCH ×4 (03:50→22:09)
[2017-11-23 06:24] LABS: INR 3.4; Prothrombin Time 38.1 Seconds (9.4-12.1)
[2017-11-23] MEDS: cefTRIAXone 1,000 MG in Water for inj. (sterile) 20 ML 10 ML IVP SCH (09:23)
[2017-11-23] MEDS: Multivit/Ca/Min/Fe/FA 1 TAB TABLET PO SCH (09:24)
[2017-11-23] MEDS: Furosemide 40 MG/4 ML VIAL IVP SCH (09:24)
[2017-11-23] MEDS: Cholecalciferol (D-3) 1,000 UNIT TABLET PO SCH (09:24)
[2017-11-23] MEDS: Cyanocobalamin (B-12) 1,000 MCG TABLET PO SCH (09:24)
[2017-11-23] MEDS: Patient Taking Own Medication 1 EACH PO SCH (09:24)
--- NOTE | 2017-11-23 11:20 | Internal Med Progress Note ---
Addendum entered and electronically signed by Calin Zafar DO 11:30: UTI: urine culture growing gram negative krish: on ceftriaxone Original Note: <Calin Zafar - Last Filed: 11/23/17 11:17> Date of Encounter: 11/23/17 Time of Encounter: 11:18 - Assessment and plan (1) Acute respiratory failure Current Visit: Yes Status: Acute Assessment and plan: 2nd to community acquired PNA and chf exacerbation continue O2 supplementation, duonebs Qualifiers: Respiratory failure complication: hypoxia Qualified Code(s): J96.01 - Acute respiratory failure with hypoxia (2) Systolic CHF, acute on chronic Current Visit: Yes Status: Resolved Assessment and plan: BNP mildly elevated at 638 previous echo: 09/22/2016: LVEF of 30-35% with LV dilation, LV distolic dysfucniton. resolved transtion to PO prednisone I/O: -2009 Monitor I&O's. Cardiac diet. Resume rest of cardiac meds. (3) Atrial fibrillation Current Visit: Yes Status: Chronic Assessment and plan: continue coreg and coumadin Qualifiers: Atrial fibrillation type: chronic Qualified Code(s): I48.2 - Chronic atrial fibrillation (4) DVT prophylaxis Current Visit: Yes Status: Acute Assessment and plan: On Coumadin (5) HTN (hypertension) Current Visit: Yes Status: Chronic Assessment and plan: controlled continue coreg and lasix, lisinopril Qualifiers: Hypertension type: essential hypertension Qualified Code(s): I10 - Essential (primary) hypertension (6) HLD (hyperlipidemia) Current Visit: Yes Status: Chronic Assessment and plan: Continue home statin Qualifiers: Hyperlipidemia type: pure hypercholesterolemia Qualified Code(s): E78.00 - Pure hypercholesterolemia, unspecified; E78.0 - Pure hypercholesterolemia (7) Hypothyroidism Current Visit: Yes Status: Chronic Assessment and plan: Continue home dose levothyroxine Qualifiers: Hypothyroidism type: acquired Qualified Code(s): E03.9 - Hypothyroidism, unspecified (8) Community acquired pneumonia Current Visit: Yes Status: Acute Assessment and plan: cxr: Bilateral patchy airspace disease could represent a multifocal pneumonia. requiring O2 supplementation blood cultures negative urine antigens negative afebrile wb WNl continue ceftriazone and azithromcyn day 3 Qualifiers: Laterality: unspecified laterality Qualified Code(s): J18.9 - Pneumonia, unspecified organism - Time Spent With Patient Total time spent is greater than 50% in coordination of care (as documented) at patient's floor/unit and/or counseling patient: - Subjective Interval history: Patient reports her breathing has improved. She deniesh chest pain, abdominal pain, N/V. She is tolerating her diet. She is on 3L O2 and does not use O2 at home. - Constitutional Vitals: Temp Pulse Resp BP Pulse Ox 98.2 F 77 15 120/77 93 11/23/17 10:40 11/23/17 10:40 11/23/17 10:40 11/23/17 10:40 11/23/17 10:40 General appearance: Present: A&O X 3 - Head Head exam: Present: atraumatic, normocephalic - Eye Eye exam: Present: PERRL, conjuntiva pink, sclera anicteric - Neck Neck exam general surgery: Present: supple, trachea midline. Absent: lymphadenopathy - Respiratory Respiratory exam: Present: decreased breath sounds. Absent: accessory muscle use, rales, rhonchi, wheezes - Cardiovascular Cardiovascular exam: Present: RRR, +S1, +S2. Absent: diastolic murmur, gallop, rubs, systolic murmur - GI/Abdominal GI/Abdominal exam: Present: normal bowel sounds, soft, no peritoneal signs. Absent: distended, tenderness - Extremities Exam Extremities exam: Present: warm, radial pulses palpable and symmetrical. Absent : calf tenderness, cyanotic, pedal edema - Neurological Exam Neurological exam: Present: oriented X3. Absent: facial droop, speech deficit - Skin Skin exam: Present: dry, intact Internal Medicine: Result - Labs CBC & Chem 7: 11/22/17 05:08 11/22/17 05:08 - ABG Interpretation ABG results: PT/INR, D-dimer PT 38.1 Seconds (9.4-12.1) H 11/23/17 05:43 Consult Discharge Plan - Plan Referrals: Clemencia Velasquez CNP [Primary Care Provider] - 12/02/17 1:30 pm <Ramiro Diggs - Last Filed: 11/23/17 15:35> Date of Encounter: 11/23/17 - Assessment and plan (1) Acute respiratory failure Current Visit: Yes Status: Acute Qualifiers: Respiratory failure complication: hypoxia Qualified Code(s): J96.01 - Acute respiratory failure with hypoxia (2) Atrial fibrillation Current Visit: Yes Status: Chronic Qualifiers: Atrial fibrillation type: chronic Qualified Code(s): I48.2 - Chronic atrial fibrillation (3) DVT prophylaxis Current Visit: Yes Status: Acute (4) HTN (hypertension) Current Visit: Yes Status: Chronic Qualifiers: Hypertension type: essential hypertension Qualified Code(s): I10 - Essential (primary) hypertension (5) HLD (hyperlipidemia) Current Visit: Yes Status: Chronic Qualifiers: Hyperlipidemia type: pure hypercholesterolemia Qualified Code(s): E78.00 - Pure hypercholesterolemia, unspecified; E78.0 - Pure hypercholesterolemia (6) Hypothyroidism Current Visit: Yes Status: Chronic Qualifiers: Hypothyroidism type: acquired Qualified Code(s): E03.9 - Hypothyroidism, unspecified (7) Systolic CHF, acute on chronic Current Visit: Yes Status: Resolved (8) Community acquired pneumonia Current Visit: Yes Status: Acute Qualifiers: Laterality: unspecified laterality Qualified Code(s): J18.9 - Pneumonia, unspecified organism - Time Spent With Patient Total time spent is greater than 50% in coordination of care (as documented) at patient's floor/unit and/or counseling patient: - Constitutional Vitals: Temp Pulse Resp BP Pulse Ox 98.2 F 77 15 120/77 93 11/23/17 10:40 11/23/17 10:40 11/23/17 10:40 11/23/17 10:40 11/23/17 11:36 Internal Medicine: Result - Labs CBC & Chem 7: 11/22/17 05:08 11/22/17 05:08 - ABG Interpretation ABG results: PT/INR, D-dimer PT 38.1 Seconds (9.4-12.1) H 11/23/17 05:43 - Attending Attestation Acute hypoxic respiratory failure secondary to mono, unknown agent/possible UTI Possible acute systolic CHF exacerbation Order echocardiogram Continue Lasix Continue Rocephin day #3, azithromycin day #2 I examined this patient and my medical decision-making was reviewed with the Resident Physician. I agree with the documented findings, disposition and treatment plan as described except to the extent set forth below.
[2017-11-23] MEDS: Furosemide 40 MG TABLET PO SCH (17:25)
[2017-11-23] MEDS: Azithromycin 500 MG in D5% in Water 250 ML IVPB SCH (22:52)
[2017-11-24 04:17] LABS: Basophils # 0.1 K/mcL (0.0-0.2); Basophils % 0.9 %; Eosinophils # 0.6 K/mcL (0.0-0.6); Eosinophils % 8.5 %; Hematocrit 27.3 % (35.3-44.9); Immature Granulocytes % 0.6 % (0-4); Lymphocytes # 0.8 K/mcL (0.6-4.6); Lymphocytes % 11.8 %; Mean Corpuscular Hemoglobin 28.3 pg (28.0-33.3); Mean Corpuscular Volume 85.8 fL (83.0-100.0); Mean Platelet Volume 10.8 fL (9.4-12.4); Monocytes % 14.9 %; Neutrophils # 4.3 K/mcL (1.6-8.9); Platelet Count 155 K/mcL (140-400); Red Blood Count 3.18 M/mcL (3.82-4.97); Red Cell Distribution Width 14.6 % (11.5-14.5); Segmented Neutrophils % 63.3 %
[2017-11-24 04:22] LABS: INR 2.9; Prothrombin Time 31.4 Seconds (9.4-12.1)
[2017-11-24] MEDS: Ipratropium/Albuterol Neb 3 ML IH SCH ×2 (04:23→10:51)
[2017-11-24 04:33] LABS: Calcium 8.6 mg/dL (8.6-10.3); Potassium 3.6 mEq/L (3.5-5.1)
[2017-11-24 07:19] VITALS: BP 124/65
[2017-11-24] MEDS ORDERED: Lisinopril 20 MG TABLET PO SCH (09:00)
[2017-11-24] MEDS: Furosemide 40 MG TABLET PO SCH (10:10)
[2017-11-24] MEDS: Patient Taking Own Medication 1 EACH PO SCH (10:11)
[2017-11-24] MEDS: Cholecalciferol (D-3) 1,000 UNIT TABLET PO SCH (10:11)
[2017-11-24] MEDS: Multivit/Ca/Min/Fe/FA 1 TAB TABLET PO SCH (10:11)
[2017-11-24] MEDS: Cyanocobalamin (B-12) 1,000 MCG TABLET PO SCH (10:11)
--- NOTE | 2017-11-24 10:21 | Discharge Summary ---
<Calin Zafar - Last Filed: 11/24/17 10:19> - NOTES TO OUTPATIENT PROVIDER Notes to Outpatient Provider: Patient abdomen before coming acquired pneumonia. Received 3 days of azithromycin and 3 days of ceftriaxone. Will be discharged on 4 additional days of Cefdinir. Also found to have ESBL Escherichia coli in urine. Will be sent home on Macrobid for 6 days. She qualified for home oxygen at 3 L. Date of Encounter: 11/24/17 Time of Encounter: 10:19 - Discharge Diagnosis (1) Acute respiratory failure Priority: Primary Status: Resolved Assessment and Plan: 2nd to community acquired PNA and chf exacerbation Qualified for home oxygen at 3 L. Qualifiers: Respiratory failure complication: hypoxia Qualified Code(s): J96.01 - Acute respiratory failure with hypoxia (2) UTI (urinary tract infection) Priority: Secondary Status: Acute Assessment and Plan: ESBL Escherichia coli Received 1 dose of ertapenem inpatient Discharged on Macrobid 6 days. Qualifiers: Urinary tract infection type: acute cystitis Hematuria presence: without hematuria Qualified Code(s): N30.00 - Acute cystitis without hematuria (3) Systolic CHF, acute on chronic Priority: Secondary Status: Resolved Assessment and Plan: BNP mildly elevated at 638 previous echo: 09/22/2016: LVEF of 30-35% with LV dilation, LV distolic dysfucniton. resolved Given IV Lasix Continue home dose Lasix on discharge (4) Atrial fibrillation Priority: Secondary Status: Chronic Assessment and Plan: continue coreg and coumadin Qualifiers: Atrial fibrillation type: chronic Qualified Code(s): I48.2 - Chronic atrial fibrillation (5) DVT prophylaxis Priority: Secondary Status: Acute (6) HTN (hypertension) Priority: Secondary Status: Chronic Assessment and Plan: controlled continue coreg and lasix, lisinopril Qualifiers: Hypertension type: essential hypertension Qualified Code(s): I10 - Essential (primary) hypertension (7) HLD (hyperlipidemia) Priority: Secondary Status: Chronic Assessment and Plan: Continue home statin Qualifiers: Hyperlipidemia type: pure hypercholesterolemia Qualified Code(s): E78.00 - Pure hypercholesterolemia, unspecified; E78.0 - Pure hypercholesterolemia (8) Hypothyroidism Priority: Secondary Status: Chronic Assessment and Plan: Continue home dose levothyroxine Qualifiers: Hypothyroidism type: acquired Qualified Code(s): E03.9 - Hypothyroidism, unspecified (9) Community acquired pneumonia Priority: Secondary Status: Acute Assessment and Plan: cxr: Bilateral patchy airspace disease could represent a multifocal pneumonia. requiring O2 supplementation blood cultures negative urine antigens negative afebrile wb WNl Completed 3 days of azithromycin and ceftriaxone. Discharged on Cefdinir 4 days Qualifiers: Laterality: unspecified laterality Qualified Code(s): J18.9 - Pneumonia, unspecified organism Hospital course: Ms. Patel is a 87 year old female presented with shortness of breath. Found to have grown acquired pneumonia treated with IV antibiotics. Blood culture negative. Urine Legionella and streptococcal antigens negative. Urine culture positive for Escherichia coli MDRO. Treated with one day of ertapenem. Patient will be discharged on Macrobid. Patient qualified for home oxygen at 3 L. She is tolerating her diet and ambulating independently. Discharge discussed with: patient - Time Spent with Patient Total time spent providing and/or coordinating discharge services: Greater than 30 minutes - Discharge Medications Prescriptions: Cefdinir [Omnicef] 300 mg PO BID #8 capsule Nitrofurantoin (BID) [Macrobid] 100 mg PO BID #12 capsule Home Medications: Cholecalciferol (Vitamin D3) [Vitamin D3] 1,000 unit PO DAILY 10/25/16 [History] Cyanocobalamin (Vitamin B-12) [Vitamin B12] 1,000 mcg PO DAILY 10/25/16 [History ] Ferrous Sulfate [Slow Fe] 65 mg PO DAILY 10/25/16 [History] Krill Oil 500 mg PO DAILY 10/25/16 [History] Lisinopril [Zestril] 40 mg PO DAILY 10/25/16 [History] Omeprazole [PriLOSEC] 20 mg PO DAILY 10/25/16 [History] Pravastatin Sodium [Pravachol] 80 mg PO DAILY 10/25/16 [History] Vit C/Vit E/Lutein/Min/[place]-3 [Ocuvite Softgel] 1 cap PO DAILY 10/25/16 [ History] Levothyroxine [Synthroid] 112 mcg PO 0630 07/15/17 [History] Furosemide [Lasix] 40 mg PO BIDDIURETIC #60 tablet 07/18/17 [Rx] Potassium Chloride 10 meq PO DAILY #30 tab.er.prt 07/18/17 [Rx] Warfarin [Coumadin] 2 mg PO SUTUWETHSA@1800 11/21/17 [History] Warfarin [Coumadin] 3 mg PO MOFR@1800 11/21/17 [History] amLODIPine [Norvasc] 5 mg PO DAILY 11/22/17 [History] Carvedilol [Coreg] 25 mg PO BIDWM #0 tablet 11/24/17 [Rx] Cefdinir [Omnicef] 300 mg PO BID #8 capsule 11/24/17 [Rx] Nitrofurantoin (BID) [Macrobid] 100 mg PO BID #12 capsule 11/24/17 [Rx] Allergies/Adverse Reactions: 3 Allergy/AdvReac Type Severity Reaction Status Date / Time Penicillins [PCN] Allergy Hives Verified 07/15/17 07:21 Date of admission: 11/21/17 20:51 Primary care physician: Clemencia Velasquez, Discharging clinician: Calin Zafar Anticipated date of discharge: 11/24/17 - Constitutional Vitals: Temp Pulse Resp BP Pulse Ox 98.1 F 78 18 124/65 93 11/24/17 07:00 11/24/17 07:00 11/24/17 07:00 11/24/17 07:00 11/24/17 07:00 General appearance: Present: A&O X 3 - Head Head exam: Present: atraumatic, normocephalic - Eye Eye exam: Present: PERRL, conjuntiva pink, sclera anicteric - Neck Neck exam general surgery: Present: supple, trachea midline. Absent: lymphadenopathy - Respiratory Respiratory exam: Present: CTAB. Absent: accessory muscle use, rales, rhonchi, wheezes - Cardiovascular Cardiovascular exam: Present: RRR, +S1, +S2. Absent: diastolic murmur, gallop, rubs, systolic murmur - GI/Abdominal GI/Abdominal exam: Present: normal bowel sounds, soft, no peritoneal signs. Absent: distended, tenderness - Extremities Exam Extremities exam: Present: warm, radial pulses palpable and symmetrical. Absent : calf tenderness, cyanotic, pedal edema - Neurological Exam Neurological exam: Present: CN II-XII intact, oriented X3, no focal deficits. Absent: pronater drift, facial droop, speech deficit - Skin Skin exam: Present: dry, intact - Patient Status Disposition: Home, Self-Care Condition: Fair Functional capacity at discharge: independent ambulation Overall status at discharge: patient is progressing back to baseline - Discharge Instructions Instructions: Heart Failure (DC), Atrial Fibrillation (DC), Acute Respiratory Distress Syndrome (DC), Hypothyroidism (DC), Chronic Hypertension (DC), Pneumonia (DC) Follow Up With: Clemencia Velasquez CNP [Primary Care Provider] - 12/02/17 1:30 pm - Diet and Activity Activity: increase activity as tolerated Diet: low fat, low cholesterol, low salt diet <Ramiro Diggs - Last Filed: 11/24/17 13:06> Date of Encounter: 11/24/17 - Discharge Diagnosis (1) Acute respiratory failure Status: Resolved Qualifiers: Respiratory failure complication: hypoxia Qualified Code(s): J96.01 - Acute respiratory failure with hypoxia (2) Atrial fibrillation Status: Chronic Qualifiers: Atrial fibrillation type: chronic Qualified Code(s): I48.2 - Chronic atrial fibrillation (3) DVT prophylaxis Status: Acute (4) HTN (hypertension) Status: Chronic Qualifiers: Hypertension type: essential hypertension Qualified Code(s): I10 - Essential (primary) hypertension (5) HLD (hyperlipidemia) Status: Chronic Qualifiers: Hyperlipidemia type: pure hypercholesterolemia Qualified Code(s): E78.00 - Pure hypercholesterolemia, unspecified; E78.0 - Pure hypercholesterolemia (6) Hypothyroidism Status: Chronic Qualifiers: Hypothyroidism type: acquired Qualified Code(s): E03.9 - Hypothyroidism, unspecified (7) Systolic CHF, acute on chronic Status: Resolved (8) UTI (urinary tract infection) Status: Acute Qualifiers: Urinary tract infection type: acute cystitis Hematuria presence: without hematuria Qualified Code(s): N30.00 - Acute cystitis without hematuria (9) Community acquired pneumonia Status: Acute Qualifiers: Laterality: unspecified laterality Qualified Code(s): J18.9 - Pneumonia, unspecified organism Hospital course: Ms. Patel is a 87 year old female - Time Spent with Patient Total time spent providing and/or coordinating discharge services: Date of admission: 11/21/17 20:51 Primary care physician: Clemencia Velasquez, - Constitutional Vitals: Temp Pulse Resp BP Pulse Ox 98.1 F 78 18 124/65 93 11/24/17 07:00 05/23/18 07:00 11/24/17 07:00 11/24/17 07:00 11/24/17 07:00 - Attending Attestation Acute hypoxic respiratory failure secondary to community acquired pneumonia, unknown agent/ also E coli ESBL UTI feeling much better, denies any dysuria, was given 1 dose of ertapenem Possible acute systolic CHF exacerbation Echocardiogram showed on change in EF 30-35%, mod-severe MR, MoTR Continue Lasix Continue cefdinir and nitrofurantoin time spent: 40 min I examined this patient and my medical decision-making was reviewed with the Resident Physician. I agree with the documented findings, disposition and treatment plan as described except to the extent set forth below.
[2017-11-24] MEDS ORDERED: *HR* Warfarin 3 MG TABLET PO ONE (18:00)
== END 2017-11-24 15:58 | disposition home or self-care (01) | DRG 291 ==
LOC: EMEROO 17:37 → 2NENU 20:51
PROVIDERS: ADMIT Internal Medicine; ATTEND Internal Medicine

== ENCOUNTER 2018-12-08 16:49 | Inpatient (IN) ==
--- NOTE | 2018-12-08 19:23 | Emergency Department Note ---
Disposition Clinical Impression: Anemia Qualifiers: Anemia type: unspecified type Qualified Code(s): D64.9 - Anemia, unspecified CHF (congestive heart failure) Qualifiers: Heart failure type: unspecified Heart failure chronicity: unspecified Qualified Code(s): I50.9 - Heart failure, unspecified Disposition: Admitted As Inpatient Condition: Serious Forms: ED Satisfaction Letter Time of Disposition: 20:21 Recheck wound or abnormal lab - General Chief Complaint: ED Recheck/Abnormal Lab/Rx Stated Complaint: abnormal labs Time Seen by Provider: 12/08/18 18:24 Source: patient, family Mode of arrival: ambulatory Limitations: no limitations Nursing Notes Reviewed: Yes Vital Signs Reviewed: Yes - History of Present Illness HPI Narrative: 88 yo female with past medical history of CHF, anemia currently taking iron supplements daily, A. fib, CAD, hypertension presents to the emergency department after an abnormal lab result. Patient states she has been feeling weaker than normal for the past several weeks and family states they have noticed her looking pale for the past week. She had labs drawn today which showed anemia with hemoglobin of 5.6. She was told to report to the emergency department for further evaluation and possible blood transfusion. She states she has never had to have a blood transfusion before but has needed iron transfusions in the past. She states her stools have been dark ever since she started taking iron supplements but they have not changed in color or consistency recently. She has not had any nausea or vomiting. She denies blood loss in her urine. - Related Data Home Medications Medication Instructions Recorded Confirmed Cholecalciferol (Vitamin D3) 1,000 unit PO DAILY 10/25/16 06/25/18 [Vitamin D3] Cyanocobalamin (Vitamin B-12) 1,000 mcg PO DAILY 10/25/16 06/25/18 [Vitamin B12] Ferrous Sulfate [Slow Fe] 65 mg PO DAILY 10/25/16 06/25/18 Krill Oil 500 mg PO DAILY 10/25/16 06/25/18 Lisinopril [Zestril] 40 mg PO DAILY 10/25/16 06/25/18 Omeprazole [PriLOSEC] 20 mg PO DAILY 10/25/16 06/25/18 Pravastatin Sodium [Pravachol] 80 mg PO DAILY 10/25/16 06/25/18 Vit C/Vit E/Lutein/Min/[place]-3 1 cap PO DAILY 10/25/16 06/25/18 [Ocuvite Softgel] Levothyroxine [Synthroid] 112 mcg PO 0630 07/15/17 06/25/18 amLODIPine [Norvasc] 5 mg PO DAILY 11/22/17 06/25/18 Furosemide [Lasix] 40 mg PO BID 06/25/18 06/25/18 Warfarin Sodium 2 mg PO SUTUWETHFRSA 06/25/18 06/25/18 Warfarin Sodium 3 mg PO MO 06/25/18 06/25/18 Previous Rx's Medication Instructions Recorded Potassium Chloride 10 meq PO DAILY #30 tab.er.prt 07/18/17 Carvedilol [Coreg] 25 mg PO BIDWM #0 tablet 11/24/17 Allergies Allergy/AdvReac Type Severity Reaction Status Date / Time Penicillins [PCN] Allergy Hives Verified 07/15/17 07:21 All systems ED: reviewed and negative except as stated. Review of Systems: As Per HPI Constitutional: Reports: weakness. Denies: fever, chills Eyes: Denies: vision change Cardiovascular: Denies: chest pain, palpitations, dyspnea on exertion Respiratory: Denies: cough, dyspnea, wheezes Gastrointestinal: Denies: abdominal pain, nausea, vomiting, diarrhea, hematemesis, melena, hematochezia Genitourinary: Denies: dysuria, hematuria Musculoskeletal: Denies: back pain, neck pain Integumentary: Denies: rash Neurological: Denies: headache Endocrine: Reports: fatigue Past Medical History - Past Medical History Attestation: Yes The following information was validated with the patient. Source: patient Medical history: Reports: atrial fibrillation, cardiomyopathy, CHF, coronary artery disease, hyperlipidemia, hypertension, thyroid disease, valvular heart disease Surgical history: Reports: appendectomy, cholecystectomy, hysterectomy, orthopedic, other, pacemaker Psychiatric history: Reports: no psych history - Social History Smoking Status: Never smoker Smokeless Tobacco Status: No Alcohol use: Reports: none Drug use: Reports: none Physical Exam - General Limitations: no limitations General appearance: alert, in no apparent distress, other (Appears pale) - Head Head exam: atraumatic, normocephalic - Eye Eye exam: Present: normal appearance, PERRL, EOMI, other (Conjunctival pallor) - ENT ENT exam: normal exam, normal oropharynx - Neck Neck exam: Present: normal inspection. Absent: tenderness, lymphadenopathy - Chest Chest inspection: Present: normal inspection. Absent: tenderness - Respiratory Respiratory exam: Present: normal lung sounds bilaterally. Absent: wheezes - Cardiovascular Cardiovascular exam: Present: regular rate, normal rhythm - Abdominal Exam Abdominal exam: Present: soft, Non-Tender. Absent: distention, guarding, rebound, rigidity - Extremities Exam Extremities exam: Present: normal inspection, pedal edema (1+ pedal edema bilaterally), other (Chronic venous stasis changes over the patient's bilateral frontal tibias). Absent: tenderness - Neurological Exam Neurological exam: Present: alert, oriented X3 - Psychiatric Psychiatric exam: Present: normal affect, normal mood - Skin Skin exam: Present: warm, dry, intact Course Vital Signs Temperature 97.9 F 12/08/18 17:13 Pulse Rate 74 12/08/18 17:13 Respiratory Rate 18 12/08/18 17:13 Blood Pressure 113/69 12/08/18 17:13 O2 Sat by Pulse Oximetry 95 12/08/18 17:13 Temperature 97.9 F 12/08/18 17:13 Pulse Rate 74 12/08/18 17:13 Respiratory Rate 18 12/08/18 17:13 Blood Pressure 113/69 12/08/18 17:13 O2 Sat by Pulse Oximetry 95 12/08/18 17:13 Oxygen Delivery Oxygen Delivery Room Air Recheck wound or abnormal lab - MDM Narrative Medical decision making narrative: Patient presents significant anemia of 5.6. We will repeat the labs and ordered 2 units of blood for at this time. As she is taking iron supplements, stool guaiac testing will likely be positive and will not be an honest determination of GI loss therefore will not be performed at this time. Patient's repeat hemoglobin was 6 and she is supratherapeutic on her INR 4.4. We will transfuse 2 units slowly to the patient and reverse her INR with oral vitamin K. The patient will be admitted to the hospitalist service for observation and further workup of her worsening anemia. Patient is agreeable with this plan of care. - Medical Records Medical records reviewed: Yes I reviewed the patient's medical records. - Lab Data Lab results reviewed: Yes I reviewed the patient's lab results. Result diagrams: 12/08/18 19:19 12/08/18 19:19 Lab Results 12/08/18 12/08/18 12/08/18 Range/Units 19:19 19:19 19:19 WBC 6.1 (4.3-11.1) K/mcL RBC 2.44 L (3.82-4.97) M/mcL Hgb 6.0 L* (11.5-15.4) g/dL Hct 19.5 L (35.3-44.9) % MCV 79.9 L (83.0-100.0) fL MCH 24.6 L (28.0-33.3) pg MCHC 30.8 L (31.6-35.5) g/dL RDW 14.9 H (11.5-14.5) % Plt Count 233 (140-400) K/mcL MPV 10.7 (9.4-12.4) fL Immature Gran % 0.3 (0-4) % Seg Neutrophils % 69.6 % Lymphocytes % 15.9 % Monocytes % 10.5 % Eosinophils % 3.0 % Basophils % 0.7 % Neutrophils # 4.3 (1.6-8.9) K/mcL Lymphocytes # 1.0 (0.6-4.6) K/mcL Monocytes # 0.6 (0.0-1.3) K/mcL Eosinophils # 0.2 (0.0-0.6) K/mcL Basophils # 0.0 (0.0-0.2) K/mcL PT (9.4-12.1) Seconds INR Sodium 137 (136-145) mEq/L Potassium 4.1 (3.5-5.1) mEq/L Chloride 101 (98-107) mEq/L Carbon Dioxide 26 (23-29) mEq/L BUN 62 H (8-23) mg/dL Creatinine 1.69 H (0.60-1.20) mg/dL Est GFR ( Amer) 35 L (> 60) Est GFR (Non-Af Amer) 29 L (> 60) BUN/Creatinine Ratio 37 H (6-26) Glucose 121 H (70-105) mg/dL Calculated Osmolality 303 H (280-300) Calcium 9.6 (8.6-10.3) mg/dL Troponin I < 0.03 (< 0.04) ng/mL Blood Type A POSITIVE Antibody Screen NEGATIVE Crossmatch See Detail 12/08/18 Range/Units 19:19 WBC (4.3-11.1) K/mcL RBC (3.82-4.97) M/mcL Hgb (11.5-15.4) g/dL Hct (35.3-44.9) % MCV (83.0-100.0) fL MCH (28.0-33.3) pg MCHC (31.6-35.5) g/dL RDW (11.5-14.5) % Plt Count (140-400) K/mcL MPV (9.4-12.4) fL Immature Gran % (0-4) % Seg Neutrophils % % Lymphocytes % % Monocytes % % Eosinophils % % Basophils % % Neutrophils # (1.6-8.9) K/mcL Lymphocytes # (0.6-4.6) K/mcL Monocytes # (0.0-1.3) K/mcL Eosinophils # (0.0-0.6) K/mcL Basophils # (0.0-0.2) K/mcL PT 49.7 H* (9.4-12.1) Seconds INR 4.4 H* Sodium (136-145) mEq/L Potassium (3.5-5.1) mEq/L Chloride (98-107) mEq/L Carbon Dioxide (23-29) mEq/L BUN (8-23) mg/dL Creatinine (0.60-1.20) mg/dL Est GFR ( Amer) (> 60) Est GFR (Non-Af Amer) (> 60) BUN/Creatinine Ratio (6-26) Glucose (70-105) mg/dL Calculated Osmolality (280-300) Calcium (8.6-10.3) mg/dL Troponin I (< 0.04) ng/mL Blood Type Antibody Screen Crossmatch - Radiology Data Radiology results reviewed: Yes I reviewed the patient's radiology results. - EKG Data EKG attestation: Yes I reviewed and interpreted this EKG. EKG results narrative: EKG obtained at 18:41 on 12/08/2018 Heart rate 71 bpm, NC interval 184, QRS duration 144, QTC 462, QTC 503 Ventricular paced rhythm without any ST segment elevations or depressions meeting sgarbossa criteria. No other T-wave abnormalities. Unchanged when compared to previous EKG dated 06/25/2018. Attestation Statement - Attestation Attestation: I, Adonis Han DO, examined this patient [id number] and my medical decision-making was reviewed with Kacie Mendosa DO, Resident Physician. I agree with the documented findings, disposition and treatment plan as described except to the extent set forth below. I personally supervised and was present for the chao/critical portions of the procedures completed by the resident documented below. Please see my progress notes for details.
--- NOTE | 2018-12-08 19:35 | Emergency Department Note ---
Disposition Clinical Impression: Anemia Qualifiers: Anemia type: unspecified type Qualified Code(s): D64.9 - Anemia, unspecified CHF (congestive heart failure) Qualifiers: Heart failure type: unspecified Heart failure chronicity: unspecified Qualified Code(s): I50.9 - Heart failure, unspecified Disposition: Admitted As Inpatient Condition: Fair Referrals: Clemencia Velasquez [employer] [Primary Care Provider] - Forms: ED Satisfaction Letter Time of Disposition: 20:28 General Adult HPI - General Chief complaint: ED Recheck/Abnormal Lab/Rx Stated complaint: abnormal labs Time Seen by Provider: 12/08/18 18:24 Source: patient, family Mode of arrival: ambulatory Limitations: no limitations - History of Present Illness Pain Scale: 0 - Related Data Home Medications Medication Instructions Recorded Confirmed Cholecalciferol (Vitamin D3) 1,000 unit PO DAILY 10/25/16 06/25/18 [Vitamin D3] Cyanocobalamin (Vitamin B-12) 1,000 mcg PO DAILY 10/25/16 06/25/18 [Vitamin B12] Ferrous Sulfate [Slow Fe] 65 mg PO DAILY 10/25/16 06/25/18 Krill Oil 500 mg PO DAILY 10/25/16 06/25/18 Lisinopril [Zestril] 40 mg PO DAILY 10/25/16 06/25/18 Omeprazole [PriLOSEC] 20 mg PO DAILY 10/25/16 06/25/18 Pravastatin Sodium [Pravachol] 80 mg PO DAILY 10/25/16 06/25/18 Vit C/Vit E/Lutein/Min/[place]-3 1 cap PO DAILY 10/25/16 06/25/18 [Ocuvite Softgel] Levothyroxine [Synthroid] 112 mcg PO 0630 07/15/17 06/25/18 amLODIPine [Norvasc] 5 mg PO DAILY 11/22/17 06/25/18 Furosemide [Lasix] 40 mg PO BID 06/25/18 06/25/18 Warfarin Sodium 2 mg PO SUTUWETHFRSA 06/25/18 06/25/18 Warfarin Sodium 3 mg PO MO 06/25/18 06/25/18 Previous Rx's Medication Instructions Recorded Potassium Chloride 10 meq PO DAILY #30 tab.er.prt 07/18/17 Carvedilol [Coreg] 25 mg PO BIDWM #0 tablet 11/24/17 Allergies Allergy/AdvReac Type Severity Reaction Status Date / Time Penicillins [PCN] Allergy Hives Verified 07/15/17 07:21 Constitutional: Reports: weakness. Denies: fever, chills Eyes: Denies: vision change Cardiovascular: Denies: chest pain, palpitations, dyspnea on exertion Respiratory: Denies: cough, dyspnea, wheezes Gastrointestinal: Denies: abdominal pain, nausea, vomiting, diarrhea, hematemesis, melena, hematochezia Genitourinary: Denies: dysuria, hematuria Musculoskeletal: Denies: back pain, neck pain Integumentary: Denies: rash Neurological: Denies: headache Endocrine: Reports: fatigue Past Medical History - Past Medical History Medical history: Reports: atrial fibrillation, cardiomyopathy, CHF, coronary artery disease, hyperlipidemia, hypertension, thyroid disease, valvular heart disease Surgical history: Reports: appendectomy, cholecystectomy, hysterectomy, orthopedic, other, pacemaker Psychiatric history: Reports: no psych history - Social History Smoking Status: Never smoker Smokeless Tobacco Status: No Alcohol use: Reports: none Drug use: Reports: none Physical Exam - General Limitations: no limitations General appearance: alert, in no apparent distress, other (Appears pale) Course Vital Signs Temperature 97.9 F 12/08/18 17:13 Pulse Rate 74 12/08/18 17:13 Respiratory Rate 18 12/08/18 17:13 Blood Pressure 113/69 12/08/18 17:13 O2 Sat by Pulse Oximetry 95 12/08/18 17:13 Temperature 97.9 F 12/08/18 17:13 Pulse Rate 74 12/08/18 17:13 Respiratory Rate 18 12/08/18 17:13 Blood Pressure 113/69 12/08/18 17:13 O2 Sat by Pulse Oximetry 95 12/08/18 17:13 Oxygen Delivery Oxygen Delivery Room Air Medical Decision Making - Lab Data Result diagrams: 12/08/18 19:19 12/08/18 19:19 Lab Results 12/08/18 12/08/18 12/08/18 Range/Units 19:19 19:19 19:19 WBC 6.1 (4.3-11.1) K/mcL RBC 2.44 L (3.82-4.97) M/mcL Hgb 6.0 L* (11.5-15.4) g/dL Hct 19.5 L (35.3-44.9) % MCV 79.9 L (83.0-100.0) fL MCH 24.6 L (28.0-33.3) pg MCHC 30.8 L (31.6-35.5) g/dL RDW 14.9 H (11.5-14.5) % Plt Count 233 (140-400) K/mcL MPV 10.7 (9.4-12.4) fL Immature Gran % 0.3 (0-4) % Seg Neutrophils % 69.6 % Lymphocytes % 15.9 % Monocytes % 10.5 % Eosinophils % 3.0 % Basophils % 0.7 % Neutrophils # 4.3 (1.6-8.9) K/mcL Lymphocytes # 1.0 (0.6-4.6) K/mcL Monocytes # 0.6 (0.0-1.3) K/mcL Eosinophils # 0.2 (0.0-0.6) K/mcL Basophils # 0.0 (0.0-0.2) K/mcL PT (9.4-12.1) Seconds INR Sodium 137 (136-145) mEq/L Potassium 4.1 (3.5-5.1) mEq/L Chloride 101 (98-107) mEq/L Carbon Dioxide 26 (23-29) mEq/L BUN 62 H (8-23) mg/dL Creatinine 1.69 H (0.60-1.20) mg/dL Est GFR ( Amer) 35 L (> 60) Est GFR (Non-Af Amer) 29 L (> 60) BUN/Creatinine Ratio 37 H (6-26) Glucose 121 H (70-105) mg/dL Calculated Osmolality 303 H (280-300) Calcium 9.6 (8.6-10.3) mg/dL Troponin I < 0.03 (< 0.04) ng/mL Blood Type A POSITIVE Antibody Screen NEGATIVE Crossmatch See Detail 12/08/18 Range/Units 19:19 WBC (4.3-11.1) K/mcL RBC (3.82-4.97) M/mcL Hgb (11.5-15.4) g/dL Hct (35.3-44.9) % MCV (83.0-100.0) fL MCH (28.0-33.3) pg MCHC (31.6-35.5) g/dL RDW (11.5-14.5) % Plt Count (140-400) K/mcL MPV (9.4-12.4) fL Immature Gran % (0-4) % Seg Neutrophils % % Lymphocytes % % Monocytes % % Eosinophils % % Basophils % % Neutrophils # (1.6-8.9) K/mcL Lymphocytes # (0.6-4.6) K/mcL Monocytes # (0.0-1.3) K/mcL Eosinophils # (0.0-0.6) K/mcL Basophils # (0.0-0.2) K/mcL PT 49.7 H* (9.4-12.1) Seconds INR 4.4 H* Sodium (136-145) mEq/L Potassium (3.5-5.1) mEq/L Chloride (98-107) mEq/L Carbon Dioxide (23-29) mEq/L BUN (8-23) mg/dL Creatinine (0.60-1.20) mg/dL Est GFR ( Amer) (> 60) Est GFR (Non-Af Amer) (> 60) BUN/Creatinine Ratio (6-26) Glucose (70-105) mg/dL Calculated Osmolality (280-300) Calcium (8.6-10.3) mg/dL Troponin I (< 0.04) ng/mL Blood Type Antibody Screen Crossmatch Critical Care Time Critical Care Time: Yes Total Critical Care Time: 45 Attestation: Critical care performed: Time is exclusive of separately billable procedures. Time includes: direct patient care, patient reassessment, coordination of patient care, interpretation of data (laboratory data, radiology data, and respiratory data), review of patient's medical records, medical consultation and documentation of patient care. Procedures included in critical care time: Procedures excluded from critical care time: Attestation Statement - Attestation Attestation: I, Adonis Han DO, examined this patient [id number] and my medical decision-making was reviewed with Kacie Mendosa DO, Resident Physician. I agree with the documented findings, disposition and treatment plan as described except to the extent set forth below. I personally supervised and was present for the chao/critical portions of the procedures completed by the resident documented below. Please see my progress notes for details. 88-year-old female presents emergency room after being seen by her primary care provider today for evaluation of generalized malaise and weakness. Patient was found to have a hemoglobin of 5.6. She is recommended come the emergency room. She denies any chest pain or shortness of breath. Denies any fevers or chills. She has not had any nausea vomiting or diarrhea. She does not remember ever being anemic but she is chronically on iron pills. Denies any nausea vomiting or diarrhea. No headache no vision change. She has not fallen or injured herself. She is on blood thinners secondary to a history of vascular issues. Head is atraumatic. Pupils are equal and reactive. Conjunctiva is pale. Oral mucosa is patent. Trachea is midline. Lungs are clear. Heart is regular. Abdomen is soft nontender nondistended with no guarding no rigidity no peritoneal symptoms. Rectal examination is deferred at this point considering a grossly be positive secondary to the iron supplementation will have a skewed result. Urinalysis will be collected. Extremities otherwise normal in no specific signs of pitting edema or abnormality. Patient is otherwise in no distress and stable. CBC chemistry type and screen urinalysis chest x-ray EKG will be collected and resulted. EKG will be reviewed by myself in documented by the resident physician. Patient will be ordered for 2 units of blood to be transfused. Patient will most likely require admission after the workup for continued management and observation secondary to being on blood thinners and have any acute blood loss. See detailed documentation of the physical exam, medical intervention, medical decision-making and disposition in the resident physician's note. 45 minutes of critical care will be applied the patient's treatment course at this time. 1945 INR is 4.4. Patient will be provided with 15 mg of vitamin K here. 2 units of blood been ordered. Patient is otherwise asymptomatic. Admission process to be established. 2014 Patient was reviewed with the hospitalist Dr. Roman. Detailed review the presentation the symptoms medical intervention as well as the workup were discussed. No other emergent recommendations or concerns noted this time. Ute ent will be monitored here in the emergency department to the admission process is completed. Patient is otherwise clinical stable and showing no acute signs of decompensation.
[2018-12-08 19:42] LABS: Basophils % 0.7 %; Eosinophils # 0.2 K/mcL (0.0-0.6); Hematocrit 19.5 % (35.3-44.9); Immature Granulocytes % 0.3 % (0-4); Lymphocytes % 15.9 %; Mean Corpuscular HGB Conc 30.8 g/dL (31.6-35.5); Mean Corpuscular Hemoglobin 24.6 pg (28.0-33.3); Mean Corpuscular Volume 79.9 fL (83.0-100.0); Mean Platelet Volume 10.7 fL (9.4-12.4); Monocytes # 0.6 K/mcL (0.0-1.3); Monocytes % 10.5 %; Neutrophils # 4.3 K/mcL (1.6-8.9); Platelet Count 233 K/mcL (140-400); Red Blood Count 2.44 M/mcL (3.82-4.97); Red Cell Distribution Width 14.9 % (11.5-14.5); Segmented Neutrophils % 69.6 %; White Blood Count 6.1 K/mcL (4.3-11.1)
[2018-12-08] MEDS ORDERED: *HR* Phytonadione 5 MG TABLET PO ONE (19:48)
[2018-12-08 19:57] LABS: Prothrombin Time 49.7 Seconds (9.4-12.1)
[2018-12-08 19:58] LABS: INR 4.4
[2018-12-08 20:08] LABS: BUN/Creatinine Ratio 37 (6-26); Blood Urea Nitrogen 62 mg/dL (8-23); Calcium 9.6 mg/dL (8.6-10.3); Carbon Dioxide 26 mEq/L (23-29); Chloride 101 mEq/L (98-107); Glucose 121 mg/dL (70-105); Osmolality,Calculated 303 (280-300); Potassium 4.1 mEq/L (3.5-5.1); Sodium 137 mEq/L (136-145); Troponin I < 0.03 ng/mL (< 0.04); eGFR For African Americans 35 (> 60); eGFR For Non-African Americans 29 (> 60)
[2018-12-08] MEDS ORDERED: 0.9 % Sodium Chloride 500 ML ONE (21:07)
--- NOTE | 2018-12-08 23:58 | Internal Med History&Physical ---
<Prem Zimmer S - Last Filed: 12/09/18 02:27> Date of Encounter: 12/09/18 Time of Encounter: 00:46 Internal Medicine - H&P: HPI Chief complaint: anemia Admitted From: Home Plans for Post Hospital Care: Home History of present illness: Ms. Patel is a 88 year old female with PMH of atrial fibrillation, ca rdiomyopathy, CHF, coronary artery disease, hyperlipidemia, hypertension, thyroid disease, and valvular heart disease. She is coming here today at the request of her PCP for the chief complaint of abnormal labs. She was found to have a low blood count while being evaluated this morning at her doctor. She has had increasing weakness over the last few weeks and feels as tho she looks much more paler. She was found to have a hemoglobin of 5.6 and was told to go to the ER. She denies any chest pain, SOB, or falls. She denies seeing evidence of active bleeding such as hemoptysis, epistaxis, bleeding from her gums when she brushes her teeth, hematochezia/melana or dysuria. She does take iron suppl ementation and hasn't noticed a difference in the appearance of her stools. She has never had the need for a blood transfusion before. In the ER she was found to have a hemoglobin of 6. She was typed and screened and given a transfusion of blood. She was found to have a supratheraputic INR and was given vitamin K. She will be admitted for further evaluation. Past Med Surg Social Fam HX - Past Medical History Medical history: atrial fibrillation, cardiomyopathy, CHF, coronary artery disease, hyperlipidemia, hypertension, thyroid disease, valvular heart disease Additional medical history: per daughter Psychiatric history: no psych history - Past Surgical History Surgical History: appendectomy, cholecystectomy, hysterectomy, orthopedic, other, pacemaker Additional surgical history: knees - Social History Smoking Status: Never smoker Smokeless Tobacco Status: No Alcohol use: none Drug use: none - Family History Father Living Status: Hx Family Cancer: Yes Mother Living Status: Hx Family Cardiac Disorders: No Hx Family Respiratory Disorders: No Hx Family Cancer: No Hx Family GI Disorders: No Hx Family Endocrine Disorder: No Hx Family Neuromuscular Disorders: No Hx Family Neurologic Disorders: No Hx Family HEENT Disorders: No Hx Family Autoimmune Disorders: No Daughter Living Status: Still Living Hx Family Cardiac Disorders: No Hx Family Respiratory Disorders: No Hx Family Cancer: No Hx Family GI Disorders: No Hx Family Endocrine Disorder: No Hx Family Neuromuscular Disorders: No Hx Family Neurologic Disorders: No Hx Family HEENT Disorders: No Hx Family Autoimmune Disorders: No Internal Medicine - H&P: Meds Cholecalciferol (Vitamin D3) [Vitamin D3] 1,000 unit PO DAILY 10/25/16 [History] Cyanocobalamin (Vitamin B-12) [Vitamin B12] 1,000 mcg PO DAILY 10/25/16 [History] Ferrous Sulfate [Slow Fe] 65 mg PO DAILY 10/25/16 [History] Krill Oil 500 mg PO DAILY 10/25/16 [History] Lisinopril [Zestril] 40 mg PO DAILY 10/25/16 [History] Omeprazole [PriLOSEC] 20 mg PO DAILY 10/25/16 [History] Pravastatin Sodium [Pravachol] 80 mg PO DAILY 10/25/16 [History] Vit C/Vit E/Lutein/Min/[place]-3 [Ocuvite Softgel] 1 cap PO DAILY 10/25/16 [Histo ry] Levothyroxine [Synthroid] 112 mcg PO 0630 07/15/17 [History] Potassium Chloride 10 meq PO DAILY #30 tab.er.prt 07/18/17 [Rx] amLODIPine [Norvasc] 5 mg PO DAILY 11/22/17 [History] Carvedilol [Coreg] 25 mg PO BIDWM #0 tablet 11/24/17 [Rx] Furosemide [Lasix] 40 mg PO BID 06/25/18 [History] Warfarin Sodium 2 mg PO SUTUWETHFRSA 06/25/18 [History] Warfarin Sodium 3 mg PO MO 06/25/18 [History] Allergy/AdvReac Type Severity Reaction Status Date / Time Penicillins [PCN] Allergy Hives Verified 07/15/17 07:21 All Systems PM: A 10-system review of systems was performed and is negative for pertinent findings except as documented above in the HPI. - Constitutional Constitutional: fatigue, lethargy, weakness - EENT Eyes: no blurry vision, no change in vision Ears: no tinnitus Nose, mouth and throat: no bleeding gums, no epistaxis - Cardiovascular Cardiovascular ROS IM: no chest pain, no dyspnea, no dyspnea on exertion, no lightheadedness - Respiratory Respiratory: no cough, no dyspnea, no hemoptysis, no dyspnea on exertion - Gastrointestinal Gastrointestinal: no abdominal pain, no diarrhea, no hematemesis, no hematochezia, no melena, no vomiting - Genitourinary Genitourinary: dysuria, no hematuria - Musculoskeletal Musculoskeletal ROS IM: muscle weakness, no numbness, no tingling - Integumentary Integumentary IM: no new lesions, no unusual bruising - Neurological Neurological ROS: weakness, no focal weakness, no frequent falls, no numbness, no tremor(s) - Psychiatric Psychiatric: no anxiety, no depression - Endocrine Endocrine IM: fatigue - Hematologic/Lymphatic Hematologic/Lymphatic: no easy bleeding, no easy bruising - Constitutional Vitals: Temp Pulse Resp BP Pulse Ox 98.0 F 73 16 110/57 95 12/08/18 21:26 12/08/18 21:26 12/08/18 21:26 12/08/18 21:26 12/08/18 17:13 Exam: general - aox3, nad, laying in bed comfortably heent - no scleral icterus, pale conjunctiva, dry MM cardio - rrr,s1s2 cta no mrg lungs - ctab no wheeze/rhonchi/rales, not in respirtory distress abd - soft, ntnd, no rebound or guarding, no peritoneal signs extremities - moves all extremities equally, strength intact, no significant edema skin - chronic venous stasis changes bilaterally, warm/dry/intact neuro - no fnd, sensation intact psych - appropriate mood/affect Internal Med - H&P Results - Labs CBC & Chem 7: 12/08/18 19:19 12/08/18 19:19 Labs: Short CBC 12/08/18 Range/Units 19:19 WBC 6.1 (4.3-11.1) K/mcL Hgb 6.0 L* (11.5-15.4) g/dL Hct 19.5 L (35.3-44.9) % Plt Count 233 (140-400) K/mcL Neutrophils # 4.3 (1.6-8.9) K/mcL BMP 12/08/18 19:19 Sodium 137 Potassium 4.1 Chloride 101 Carbon Dioxide 26 BUN 62 H Creatinine 1.69 H Glucose 121 H Calcium 9.6 Cardiac Enzymes 12/08/18 Range/Units 19:19 Troponin I < 0.03 (< 0.04) ng/mL - Impressions ITS Impressions Chest X-Ray 12/08/18 18:25 IMPRESSION: Pulmonary vascular congestion with bibasilar airspace disease, likely reflecting pulmonary edema. Correlate with any clinical evidence of superimposed pneumonia. D/ / Jarred Baptiste MD / Jarred Baptiste MD Interpreting Provider: Jarred Baptiste MD - Assessment and Plan (1) Supratherapeutic INR Current Visit: Yes Status: Acute Assessment and plan: Supratheraputic INR on admission in the setting of acute anemia - pt on coumadin for a fib - not sure when she had last coumadin clinic check up - denies active bleeding, hematuria, dysuria, melena, hemetemesis, hematochezia INR 4.4 on admission, given one dose of vitamin K in the ER Hemoglobin of 6.0 with low MCV, previous baseline around 9-10 Transfused two unit pRBC CHADVASc of 6 HASBLED 5 Plan: - transfuse as needed if hgb<7 - H&H q6hr - iron panel pending - can consider transfusing iron in AM - telemetry monitoring - GI consulted - PT/INR in the AM - hold coumadin - FEN: NPO - dvt prophylaxis: scd - dispo: GI workup, transfusion of pRBC, theraputic INR anticoagulation discussion and weighing risks and benefits of continuing therapy in AM (2) Obesity Current Visit: No Status: Chronic Assessment and plan: bmi 37.1, chronic, counselled. Qualifiers: Obesity type: due to excess calories Obesity classification: adult class 2 (BMI 35 - 39.9) Serious obesity comorbidity presence: without serious comorbidity Body mass index: BMI 37.0-37.9 Qualified Code(s): E66.09 - Other obesity due to excess calories; Z68.37 - Body mass index (BMI) 37.0-37.9, adult (3) Anemia Current Visit: Yes Status: Acute Assessment and plan: See above for supratheraputic INR. Qualifiers: Anemia type: unspecified type Qualified Code(s): D64.9 - Anemia, unspecified (4) Atrial fibrillation Current Visit: No Status: Chronic Assessment and plan: On BB and coumadin. Will hold home coumadin in the setting of supratheraputic INR. Qualifiers: Atrial fibrillation type: chronic Qualified Code(s): I48.2 - Chronic atrial fibrillation (5) HTN (hypertension) Current Visit: No Status: Chronic Assessment and plan: chronic, con't home meds when reconciled. Qualifiers: Hypertension type: essential hypertension Qualified Code(s): I10 - Essential (primary) hypertension (6) HLD (hyperlipidemia) Current Visit: No Status: Chronic Assessment and plan: chronic, con't home meds when reconciled. Qualifiers: Hyperlipidemia type: pure hypercholesterolemia Qualified Code(s): E78.00 - Pure hypercholesterolemia, unspecified; E78.0 - Pure hypercholesterolemia (7) Hypothyroidism Current Visit: No Status: Chronic Assessment and plan: chronic, con't home synthroid when reconciled. Qualifiers: Hypothyroidism type: acquired Qualified Code(s): E03.9 - Hypothyroidism, unspecified (8) DVT prophylaxis Current Visit: Yes Status: Acute Assessment and plan: scd (9) Acute kidney injury Current Visit: Yes Status: Acute Assessment and plan: Creatinine 1.69 on admission. Previous baseline appears to be around 1.3, will monitor renal fxn. Likely pre-renal in the setting of hypovolemia. - Time Spent With Patient Total time spent is greater than 50% in coordination of care (as documented) at patient's floor/unit and/or counseling patient: 25 - 35 minutes <Catina Roman - Last Filed: 12/09/18 07:52> Date of Encounter: 12/09/18 Internal Medicine - H&P: HPI History of present illness: Ms. Patel is a 88 year old female All Systems PM: A 10-system review of systems was performed and is negative for pertinent findings except as documented above in the HPI. - Constitutional Vitals: Temp Pulse Resp BP Pulse Ox 98.7 F 69 16 107/62 93 12/09/18 07:05 12/09/18 07:05 12/09/18 07:05 12/09/18 06:50 12/09/18 07:05 Internal Med - H&P Results - Labs CBC & Chem 7: 12/09/18 02:22 12/09/18 02:22 Labs: Short CBC 12/08/18 12/09/18 Range/Units 19:19 02:22 WBC 6.1 (4.3-11.1) K/mcL Hgb 6.0 L* 5.9 L* (11.5-15.4) g/dL Hct 19.5 L 18.8 L (35.3-44.9) % Plt Count 233 (140-400) K/mcL Neutrophils # 4.3 (1.6-8.9) K/mcL BMP 12/08/18 12/09/18 19:19 02:22 Sodium 137 136 Potassium 4.1 3.9 Chloride 101 105 Carbon Dioxide 26 26 BUN 62 H 56 H Creatinine 1.69 H 1.50 H Glucose 121 H 105 Calcium 9.6 8.9 Cardiac Enzymes 12/08/18 Range/Units 19:19 Troponin I < 0.03 (< 0.04) ng/mL Urine 12/09/18 Range/Units 00:30 Urine Color Yellow (Yellow) Urine Clarity Clear (Clear) Urine pH 6.0 (5.0-8.0) pH Units Ur Specific [place] 1.012 (1.010-1.025) Urine Protein Negative (Neg-Trace) mg/dL Urine Glucose (UA) Normal (Normal) mg/dL - Impressions ITS Impressions Chest X-Ray 12/08/18 18:25 IMPRESSION: Pulmonary vascular congestion with bibasilar airspace disease, likely reflecting pulmonary edema. Correlate with any clinical evidence of superimposed pneumonia. D/ / Jarred Baptiste MD / Jarred Baptiste MD Interpreting Provider: Jarred Baptiste MD - Time Spent With Patient Total time spent is greater than 50% in coordination of care (as documented) at patient's floor/unit and/or counseling patient: - Attending Attestation I performed a history and physical examination the patient and discussed her management with the resident. I reviewed the resident's note and agree with the assessment and plan of care. Patient is a 88 year old female with PMH of atrial fibrillation on warfarin who is referred to the ED due to outpatient laboratory workup showing anemia. Patient found to have a hemoglobin of 6.2 on arrival. Rectal exam was negative for any occult blood. Patient denies any reports of hematochezia. She states that her stool is always dark in the setting of her ir on supplementation. She has been feeling more fatigued as of late. Was additionally found to have an supratherapeutic INR 4.4 and REGLA. Patient was given a one-time dose of vitamin K transfuse 2 units of packed red blood cells. GI consult for possible GI bleed.
[2018-12-08] MEDS ORDERED: Naloxone 0.4 MG/ML INJ IVP PRN (23:59)
[2018-12-09 01:24] LABS: Bilirubin,Urine Negative (Negative); Blood,Urine Negative (Negative); Clarity,Urine Clear (Clear); Color,Urine Yellow (Yellow); Glucose,Urine (UA) Normal (Normal); Ketones,Urine Negative (Negative); Leukocyte Esterase,Urine Small (Negative); Nitrite,Urine Negative (Negative); Protein,Urine Negative (Neg-Trace); Specific Gravity,Urine 1.012 (1.010-1.025); Urobilinogen,Urine Normal (Normal)
[2018-12-09 01:30] LABS: Bacteria,Urine None Seen per hpf (None-Few); Hyaline Casts,Urine None Seen per lpf (None-Few); RBC,Urine 0-3 per hpf (0-3); Squamous Epithelial Cell,Urine Moderate per lpf (None-Few)
[2018-12-09 02:58] LABS: % Iron Saturation 9 % (15-50); Calcium 8.9 mg/dL (8.6-10.3); Iron 31 mcg/dL (50-170); Potassium 3.9 mEq/L (3.5-5.1); Transferrin 253 mg/dL (203-362)
[2018-12-09 03:02] LABS: Hematocrit 18.8 % (35.3-44.9)
[2018-12-09 03:12] LABS: Hemoglobin 5.9 g/dL (11.5-15.4)
[2018-12-09 03:32] LABS: INR 4.6; Prothrombin Time 51.5 Seconds (9.4-12.1)
[2018-12-09] MEDS ORDERED: 0.9 % Sodium Chloride 250 ML ONE ×4 (03:40→14:03)
[2018-12-09] MEDS: Pantoprazole 40 MG VIAL IVP SCH ×2 (06:12→18:01)
[2018-12-09] MEDS: Iron Sucrose Complex 200 MG in 0.9 % Sodium Chloride 100 ML IVPB SCH (09:11)
[2018-12-09 09:42] LABS: Hematocrit 20.7 % (35.3-44.9); Hemoglobin 6.5 g/dL (11.5-15.4)
[2018-12-09] MEDS ORDERED: Furosemide 40 MG/4 ML VIAL IVP ONE (12:11)
--- NOTE | 2018-12-09 12:57 | Gastroenterology Consult Note ---
<SarmientoJaiden cyr Hugh - Last Filed: 12/09/18 12:54> Date of Encounter: 12/09/18 Time of Encounter: 10:20 - Assessment and plan (1) Anemia Current Visit: Yes Status: Acute Assessment and plan: Hgb 5.6 prior to admission. On admission Hgb 6 and this AM Hgb 5.9. She has received 2 units PRBC. Continue to monitor CBC and transfuse PRBC as needed. Plan for EGD and colonoscopy once INR ~1.5. Qualifiers: Anemia type: unspecified type Qualified Code(s): D64.9 - Anemia, unspecified (2) Supratherapeutic INR Current Visit: Yes Status: Acute Assessment and plan: INR 4.4 on admission and 4.6 today. She has received one unit FFP. Recommend correcting INR to ~1.5 - Time Spent With Patient Total time spent is greater than 50% in coordination of care (as documented) at patient's floor/unit and/or counseling patient: GI History of Present Illness - Data of Consult Patient: new to practice Consult date: 12/09/18 Requesting Physician: Raffy Griffith MD - Consult Narrative Reason for consult: Anemia History of present illness: Ms. Patel is a 88 year old female with PMHx of Afib on Coumadin, cardiomyopathy, CHF, CAD, HLD, HTN, who was sent to the hospital by her PCP due to Hgb 5.6. She admits to fatigue. She denies fever, chills, chest pain, shortness of breath, abdominal pain, nausea, vomiting, melena, hematochezia. She is having daily BM. On admission Hgb 6, INR 4.4 and this AM Hgb 5.9, INR 4.6. She has received 2 units PRBC and one unit FFP. Procedures: No records NSAIDs: None Anticoagulation: Coumadin Past Med Surg Social Fam HX - Past Medical History Medical history: arthritis, atrial fibrillation, cardiomyopathy, CHF, coronary artery disease, hyperlipidemia, hypertension, thyroid disease, valvular heart disease Additional medical history: per daughter Psychiatric history: no psych history - Past Surgical History Surgical History: appendectomy, cholecystectomy, hysterectomy, orthopedic, other, pacemaker Additional surgical history: knees - Social History Smoking Status: Never smoker Smokeless Tobacco Status: No Alcohol use: none Drug use: none - Family History Father Living Status: Hx Family Cancer: Yes Mother Living Status: Hx Family Cardiac Disorders: No Hx Family Respiratory Disorders: No Hx Family Cancer: No Hx Family GI Disorders: No Hx Family Endocrine Disorder: No Hx Family Neuromuscular Disorders: No Hx Family Neurologic Disorders: No Hx Family HEENT Disorders: No Hx Family Autoimmune Disorders: No Daughter History Unknown: Yes Name: Carly Avitia Living Status: Still Living Hx Family Cardiac Disorders: No Hx Family Respiratory Disorders: No Hx Family Cancer: Yes (breast cancer) Hx Family GI Disorders: No Hx Family Endocrine Disorder: No Hx Family Neuromuscular Disorders: No Hx Family Neurologic Disorders: No Hx Family HEENT Disorders: No Hx Family Autoimmune Disorders: No - Gastrointestinal Gastrointestinal: Present: as per HPI - Constitutional Constitutional: as per HPI - EENT Eyes: as per HPI Ears: Present: as per HPI Nose, mouth and throat: Present: as per HPI - Cardiovascular Cardiovascular ROS: Present: as per HPI - Respiratory Respiratory IM: Present: as per HPI - Genitourinary Genitourinary: Absent: change in color, Urinary frequency - Neurological ROS Neurological GI: Present: as per HPI - Hematologic/Lymphatic Hematologic/Lymphatic pediatric: Present: as per HPI - Musculoskeletal Musculoskeletal ROS GI: Present: as per HPI - Integumentary Integumentary GI: Present: as per HPI - Psychiatric ROS Psychiatric GI: Present: as per HPI - Endocrine Endocrine IM: Present: as per HPI - Constitutional Vitals: Temp Pulse Resp BP Pulse Ox 98.1 F 82 18 123/61 95 12/09/18 12:01 12/09/18 12:01 12/09/18 12:01 12/09/18 12:01 12/09/18 10:44 General appearance: Present: cooperative, A&O X 3, no acute distress, answers questions appropriately - Head Head exam: Present: atraumatic, normocephalic - Eye Eye exam: Present: normal appearance, sclera anicteric - ENT ENT exam: Present: mucous membranes dry - Neck Neck exam general surgery: Present: normal inspection, trachea midline - Respiratory Respiratory exam: Present: CTAB. Absent: rales, rhonchi - Cardiovascular Cardiovascular exam: Present: RRR, +S1, +S2 - GI/Abdominal GI/Abdominal exam: Present: soft, no peritoneal signs. Absent: distended, firm, guarding, tenderness - Rectal Rectal exam: Present: deferred - Extremities Exam Extremities exam: Present: warm - Neurological Exam Neurological exam: Present: no focal deficits - Psychiatric Psychiatric exam: Present: normal affect, normal mood - Skin Skin exam: Present: dry, intact, normal color, warm Results - Labs CBC & Chem 7: 12/09/18 09:02 12/09/18 02:22 Labs: Last Result 12/09/18 12/09/18 02:22 02:22 Calcium 8.9 Iron 31 L % Saturation 9 L Transferrin 253 Entire Visit 12/09/18 12/09/18 12/09/18 02:22 02:22 09:02 Hgb 5.9 L* 6.5 L Hct 18.8 L 20.7 L PT 51.5 H* - ABG ABG results: PT/INR, D-dimer PT 51.5 Seconds (9.4-12.1) H* 12/09/18 02:22 - Impressions Impressions Chest X-Ray 12/08/18 18:25 IMPRESSION: Pulmonary vascular congestion with bibasilar airspace disease, likely reflecting pulmonary edema. Correlate with any clinical evidence of superimposed pneumonia. D/ / Jarred Baptiste MD / Jarred Baptiste MD Interpreting Provider: Jarred Baptiste MD Consult Discharge Plan - Plan Referrals: Clemencia Velasquez, [employer] [Primary Care Provider] - <Carlos Tristan - Last Filed: 12/12/18 04:36> Date of Encounter: 12/12/18 - Time Spent With Patient Total time spent is greater than 50% in coordination of care (as documented) at patient's floor/unit and/or counseling patient: GI History of Present Illness - Data of Consult Requesting Physician: Raffy Griffith MD - Consult Narrative History of present illness: Ms. Patel is a 88 year old female - Constitutional Vitals: Temp Pulse Resp BP Pulse Ox 98.0 F 75 20 105/58 97 12/12/18 02:55 12/12/18 02:55 12/12/18 02:55 12/12/18 02:55 12/12/18 02:55 Results - Labs CBC & Chem 7: 12/11/18 09:01 12/11/18 09:01 Labs: Entire Visit 12/11/18 20:17 PT 18.5 H - ABG ABG results: PT/INR, D-dimer PT 18.5 Seconds (9.4-12.1) H 12/11/18 20:17 - Impressions Impressions Chest X-Ray 12/11/18 09:09 IMPRESSION: 1. Cardiomegaly with mild interstitial edema. D/ / 12/11/2018 10:28:31 Joy Liu MD / Stella Moser Interpreting Provider: Joy Liu MD - Attending Attestation Ms Patel was admitted with severe anemia with hemoglobin of 6 gm% and was transfused with 2 units of packed cells and one FFP. Plan endoscopy. Discussed w [facility] team and patient. I have personally performed a face to face evaluation on this patient. I have reviewed and agree with the care plan. History and Exam by me shows:
--- NOTE | 2018-12-09 14:38 | Internal Med Progress Note ---
<CorinamiguelHector hoffman - Last Filed: 12/09/18 14:36> Hospitalist Progress Note - Encounter Date of Encounter: 12/09/18 Time of Encounter: 08:40 - Subjective Interval History: When seen today patient denied any chest pain, shortness of breath, abdominal pain, dysuria, hematuria, melena, or hematochezia. Patient does tell me that she used to go to the Coumadin clinic every week however the last time that she went recently was 1 month ago. - Exam Vitals: Temp Pulse Resp BP Pulse Ox 98.4 F 70 17 122/66 95 12/09/18 14:29 12/09/18 14:29 12/09/18 14:29 12/09/18 14:29 12/09/18 14:29 Exam: GENERAL APPEARANCE: Well developed, well nourished, alert and cooperative, and appears to be in no acute distress. HEAD: normocephalic. EYES: PERRL, EOMI. Fundi normal, vision is grossly intact. EARS: hearing grossly intact. NOSE: No nasal discharge. THROAT: Oral cavity and pharynx normal. No inflammation, swelling, exudate, or lesions. Teeth and gingiva in good general condition. NECK: Neck supple, non-tender without lymphadenopathy, masses or thyromegaly. CARDIAC: Normal S1 and S2. No S3, S4 or murmurs. Rhythm is regular. There is no peripheral edema, cyanosis or pallor. Extremities are warm and well perfused. Capillary refill is less than 2 seconds. No carotid bruits. LUNGS: Clear to auscultation and percussion without rales, rhonchi, wheezing or diminished breath sounds. ABDOMEN: Positive bowel sounds. Soft, nondistended, nontender. No guarding or rebound. No masses. MUSKULOSKELETAL: No joint erythema or tenderness. Normal muscular development. EXTREMITIES: No significant deformity or joint abnormality. No edema. Peripheral pulses intact. No varicosities. LOWER EXTREMITY: Examination of both feet reveals all toes to be normal in size and symmetry, normal range of motion, normal sensation with distal capillary filling of less than 2 seconds without tenderness, swelling, discoloration, nodules, weakness or deformity; SKIN: Skin normal color, texture and turgor with no lesions or eruptions. PSYCHIATRIC: The mental examination revealed the patient was oriented to person, place, and time. - Assessment and Plan (1) Supratherapeutic INR Current Visit: Yes Status: Acute Assessment and Plan: Supratheraputic INR on admission in the setting of acute anemia - pt on coumadin for a fib - Last Coumadin check up was 1 month ago. - denies active bleeding, hematuria, dysuria, melena, hemetemesis, hematochezia INR 4.4 on admission, given one dose of vitamin K in the ER Hemoglobin of 6.0 with low MCV, previous baseline around 9-10 Transfused two unit pRBC CHADVASc of 6 HASBLED 5 12/09/18: Patient's INR is at 4.6. Hemoglobin is at 5.9. Received 2 U of blood today. Iron level is low at 31 with a normal transferrin level. Anemia likely secondary to chronic disease. GI recommend correcting INR to ~1.5 Plan: - transfuse as needed if hgb<7 - Vitamin K supplement. - H&H q6hr - Start iron transfusion 200 mg IV. - telemetry monitoring - GI consulted - PT/INR in the afternoon. - hold coumadin - FEN: NPO - dvt prophylaxis: scd (2) Pulmonary congestion Current Visit: Yes Status: Acute Assessment and Plan: Patient did not display some congestion on auscultatory exam. BMP was elevated at 457. Plan: - One-time dose of Lasix 40 mg IV. (3) Obesity Current Visit: No Status: Chronic Assessment and Plan: bmi 37.1, chronic, counselled. (4) Anemia Current Visit: Yes Status: Acute Assessment and Plan: See above for supratheraputic INR. (5) Atrial fibrillation Current Visit: No Status: Chronic Assessment and Plan: HR controlled. On BB and coumadin. Will hold home coumadin in the setting of supratheraputic INR. (6) HTN (hypertension) Current Visit: No Status: Chronic Assessment and Plan: Chronic. BP currently controlled. C/W home meds when reconciled. (7) HLD (hyperlipidemia) Current Visit: No Status: Chronic Assessment and Plan: chronic, con't home meds when reconciled. (8) Hypothyroidism Current Visit: No Status: Chronic Assessment and Plan: chronic, con't home synthroid when reconciled. (9) Acute kidney injury superimposed on CKD Current Visit: Yes Status: Acute Assessment and Plan: REGLA on CKD stage III. Creatinine 1.69 on admission. Current creatinine at 1.50. Previous baseline appears to be around 1.3. Likely pre-renal in the setting of hypovolemia. Plan: - Avoid neck for toxic medications. - Renal dose medications. DVT Prophylaxis: SCDs. - Time Spent with Patient Total time spent is greater than 50% in coordination of care (as documented) at patient's floor/unit and/or counseling patient: Internal Medicine: Result - Labs CBC & Chem 7: 12/09/18 09:02 12/09/18 02:22 Labs: Short CBC 12/08/18 12/09/18 12/09/18 Range/Units 19:19 02:22 09:02 WBC 6.1 (4.3-11.1) K/mcL Hgb 6.0 L* 5.9 L* 6.5 L (11.5-15.4) g/dL Hct 19.5 L 18.8 L 20.7 L (35.3-44.9) % Plt Count 233 (140-400) K/mcL Neutrophils # 4.3 (1.6-8.9) K/mcL BMP 12/08/18 12/09/18 19:19 02:22 Sodium 137 136 Potassium 4.1 3.9 Chloride 101 105 Carbon Dioxide 26 26 BUN 62 H 56 H Creatinine 1.69 H 1.50 H Glucose 121 H 105 Calcium 9.6 8.9 Cardiac Enzymes 12/08/18 Range/Units 19:19 Troponin I < 0.03 (< 0.04) ng/mL Urine 12/09/18 Range/Units 00:30 Urine Color Yellow (Yellow) Urine Clarity Clear (Clear) Urine pH 6.0 (5.0-8.0) pH Units Ur Specific [place] 1.012 (1.010-1.025) Urine Protein Negative (Neg-Trace) mg/dL Urine Glucose (UA) Normal (Normal) mg/dL - ABG Interpretation ABG results: PT/INR, D-dimer PT 51.5 Seconds (9.4-12.1) H* 12/09/18 02:22 - Impressions Impressions Chest X-Ray 12/08/18 18:25 IMPRESSION: Pulmonary vascular congestion with bibasilar airspace disease, likely reflecting pulmonary edema. Correlate with any clinical evidence of superimposed pneumonia. D/ / Jarred Baptiste MD / Jarred Baptiste MD Interpreting Provider: Jarred Baptiste MD Consult Discharge Plan - Plan Referrals: Clemencia Velasquez, PRODUCT MANAGEMENT SPECIALIST [Primary Care Provider] - <Raffy Griffith - Last Filed: 12/09/18 19:09> Hospitalist Progress Note - Encounter Date of Encounter: 12/09/18 - Exam Vitals: Temp Pulse Resp BP Pulse Ox 98.5 F 72 18 102/54 93 12/09/18 16:56 12/09/18 16:56 12/09/18 16:56 12/09/18 16:56 12/09/18 16:56 - Time Spent with Patient Total time spent is greater than 50% in coordination of care (as documented) at patient's floor/unit and/or counseling patient: Internal Medicine: Result - Labs CBC & Chem 7: 12/09/18 17:55 12/09/18 02:22 Labs: Short CBC 12/08/18 12/09/18 12/09/18 Range/Units 19:19 02:22 09:02 WBC 6.1 (4.3-11.1) K/mcL Hgb 6.0 L* 5.9 L* 6.5 L (11.5-15.4) g/dL Hct 19.5 L 18.8 L 20.7 L (35.3-44.9) % Plt Count 233 (140-400) K/mcL Neutrophils # 4.3 (1.6-8.9) K/mcL 12/09/18 Range/Units 17:55 WBC (4.3-11.1) K/mcL Hgb 8.9 L D (11.5-15.4) g/dL Hct 27.3 L (35.3-44.9) % Plt Count (140-400) K/mcL Neutrophils # (1.6-8.9) K/mcL BMP 12/08/18 12/09/18 19:19 02:22 Sodium 137 136 Potassium 4.1 3.9 Chloride 101 105 Carbon Dioxide 26 26 BUN 62 H 56 H Creatinine 1.69 H 1.50 H Glucose 121 H 105 Calcium 9.6 8.9 Cardiac Enzymes 12/08/18 Range/Units 19:19 Troponin I < 0.03 (< 0.04) ng/mL Urine 12/09/18 Range/Units 00:30 Urine Color Yellow (Yellow) Urine Clarity Clear (Clear) Urine pH 6.0 (5.0-8.0) pH Units Ur Specific [place] 1.012 (1.010-1.025) Urine Protein Negative (Neg-Trace) mg/dL Urine Glucose (UA) Normal (Normal) mg/dL - ABG Interpretation ABG results: PT/INR, D-dimer PT 27.6 Seconds (9.4-12.1) H 12/09/18 17:55 - Impressions Impressions Chest X-Ray 12/08/18 18:25 IMPRESSION: Pulmonary vascular congestion with bibasilar airspace disease, likely reflecting pulmonary edema. Correlate with any clinical evidence of superimposed pneumonia. D/ / Jarred Baptiste MD / Jarred Baptiste MD Interpreting Provider: Jarred Baptiste MD - Attending Attestation I examined this patient and my medical decision-making was reviewed with the Resident Physician. I agree with the documented findings, disposition and treatment plan as described except to the extent set forth below. <Hector Todd - Last Filed: 12/09/18 14:36> (3) Obesity Qualifiers: Obesity type: due to excess calories Obesity classification: adult class 2 (BMI 35 - 39.9) Serious obesity comorbidity presence: without serious comorbidity Body mass index: BMI 37.0-37.9 Qualified Code(s): E66.09 - Other obesity due to excess calories; Z68.37 - Body mass index (BMI) 37.0-37.9, adult (4) Anemia Qualifiers: Anemia type: unspecified type Qualified Code(s): D64.9 - Anemia, unspecified (5) Atrial fibrillation Qualifiers: Atrial fibrillation type: chronic Qualified Code(s): I48.2 - Chronic atrial fibrillation (6) HTN (hypertension) Qualifiers: Hypertension type: essential hypertension Qualified Code(s): I10 - Essential (primary) hypertension (7) HLD (hyperlipidemia) Qualifiers: Hyperlipidemia type: pure hypercholesterolemia Qualified Code(s): E78.00 - Pure hypercholesterolemia, unspecified; E78.0 - Pure hypercholesterolemia (8) Hypothyroidism Qualifiers: Hypothyroidism type: acquired Qualified Code(s): E03.9 - Hypothyroidism, unspecified
--- NOTE | 2018-12-09 14:48 | Electrocardiograph Report ---
[place] [id number] Test Date: 2018-12-08 Pat Name: Angela Patel Department: [id number] Room: [facility] Gender: F Tearer [employer] Clipping: : [id number] Requested By: Kacie Mendosa Order Number: [id number] Reading MD: Serafin Stewart Measurements Intervals [place] Rate: 71 P: 0 MI: 184 QRS: 0 QRSD: 144 T: 107 QT: 462 QTc: 503 Interpretive Statements Ventricular-paced rhythm No further analysis attempted due to paced rhythm Electronically Signed On 12-09-2018 14:47:02 EDT by Serafin Stewart
[2018-12-09 18:06] LABS: Hematocrit 27.3 % (35.3-44.9)
[2018-12-09 18:08] LABS: Hemoglobin 8.9 g/dL (11.5-15.4)
[2018-12-09 18:14] LABS: INR 2.4; Prothrombin Time 27.6 Seconds (9.4-12.1)
[2018-12-10 01:31] LABS: Hemoglobin 8.3 g/dL (11.5-15.4); Mean Corpuscular HGB Conc 31.9 g/dL (31.6-35.5); Mean Corpuscular Hemoglobin 26.2 pg (28.0-33.3); Mean Platelet Volume 10.8 fL (9.4-12.4); Platelet Count 186 K/mcL (140-400); Red Blood Count 3.17 M/mcL (3.82-4.97); Red Cell Distribution Width 15.2 % (11.5-14.5); White Blood Count 7.8 K/mcL (4.3-11.1)
[2018-12-10 01:38] LABS: INR 2.3; Prothrombin Time 25.4 Seconds (9.4-12.1)
[2018-12-10 01:50] LABS: Potassium 3.7 mEq/L (3.5-5.1)
[2018-12-10] MEDS: Pantoprazole 40 MG VIAL IVP SCH ×2 (05:16→17:21)
[2018-12-10] MEDS ORDERED: *HR* LORazepam 2 MG/ML VIAL IVP ONE (05:19)
[2018-12-10] MEDS ORDERED: Furosemide 20 MG/2 ML VIAL IVP ONE (05:35)
[2018-12-10] MEDS: Cyanocobalamin (B-12) 1,000 MCG TABLET PO SCH (08:56)
[2018-12-10] MEDS: Iron Sucrose Complex 200 MG in 0.9 % Sodium Chloride 100 ML IVPB SCH (08:56)
[2018-12-10] MEDS: Lisinopril 20 MG TABLET PO SCH (08:57)
[2018-12-10] MEDS: amLODIPine 5 MG TABLET PO SCH (08:57)
--- NOTE | 2018-12-10 13:03 | Internal Med Progress Note ---
Hospitalist Progress Note - Encounter Date of Encounter: 12/10/18 Time of Encounter: 11:00 - Subjective Interval History: No acute events. Denies any bleeding, melena, hematochezia, hematemesis, hemoptysis. - Exam Vitals: Temp Pulse Resp BP Pulse Ox 98.2 F 71 18 112/65 92 12/10/18 11:58 12/10/18 11:58 12/10/18 11:58 12/10/18 11:58 12/10/18 11:58 Exam: GENERAL APPEARANCE: Well developed, well nourished, alert and cooperative, and appears to be in no acute distress. HEAD: normocephalic. EYES: PERRL, EOMI. Fundi normal, vision is grossly intact. EARS: hearing grossly intact. NOSE: No nasal discharge. THROAT: Oral cavity and pharynx normal. No inflammation, swelling, exudate, or lesions. Teeth and gingiva in good general condition. NECK: Neck supple, non-tender without lymphadenopathy, masses or thyromegaly. CARDIAC: Normal S1 and S2. No S3, S4 or murmurs. Rhythm is regular. There is no peripheral edema, cyanosis or pallor. Extremities are warm and well perfused. Capillary refill is less than 2 seconds. No carotid bruits. LUNGS: Clear to auscultation and percussion without rales, rhonchi, wheezing or diminished breath sounds. ABDOMEN: Positive bowel sounds. Soft, nondistended, nontender. No guarding or rebound. No masses. MUSKULOSKELETAL: No joint erythema or tenderness. Normal muscular development. EXTREMITIES: No significant deformity or joint abnormality. No edema. Peripheral pulses intact. No varicosities. LOWER EXTREMITY: Examination of both feet reveals all toes to be normal in size and symmetry, normal range of motion, normal sensation with distal capillary filling of less than 2 seconds without tenderness, swelling, discoloration, nodules, weakness or deformity; SKIN: Skin normal color, texture and turgor with no lesions or eruptions. PSYCHIATRIC: The mental examination revealed the patient was oriented to person, place, and time. - Assessment and Plan (1) Anemia Current Visit: Yes Status: Chronic Assessment and Plan: Likely acute blood loss anemia Presented with INR 4.6 and hemoglobin 5.9. S/P 4 units PRBC, now HH stable. Chadsvasc 6, has-bled 5 Ruling out GIB, needs INR <1.5 for endoscopy Hemodynamically stable. (2) Acute kidney injury superimposed on CKD Current Visit: Yes Status: Acute (3) Congestive heart failure Current Visit: Yes Status: Acute (4) Pulmonary congestion Current Visit: Yes Status: Acute (5) Supratherapeutic INR Current Visit: Yes Status: Acute (6) Valvular heart disease Current Visit: No Status: Acute (7) Anticoagulated on Coumadin Current Visit: No Status: Chronic Assessment and Plan: Plan as above, holding coumadin due to acute anemia. (8) Atrial fibrillation Current Visit: No Status: Chronic Assessment and Plan: HR controlled. On BB and coumadin. Will hold home coumadin in the setting of supratheraputic INR. (9) CKD (chronic kidney disease) Current Visit: No Status: Chronic (10) HLD (hyperlipidemia) Current Visit: No Status: Chronic (11) HTN (hypertension) Current Visit: No Status: Chronic (12) Obesity Current Visit: No Status: Chronic DVT Prophylaxis: SCDs. - Time Spent with Patient Total time spent is greater than 50% in coordination of care (as documented) at patient's floor/unit and/or counseling patient: Internal Medicine: Result - Labs CBC & Chem 7: 12/10/18 01:07 12/10/18 01:07 Labs: Short CBC 12/09/18 12/10/18 Range/Units 17:55 01:07 WBC 7.8 (4.3-11.1) K/mcL Hgb 8.9 L D 8.3 L (11.5-15.4) g/dL Hct 27.3 L 26.0 L (35.3-44.9) % Plt Count 186 (140-400) K/mcL BMP 12/10/18 01:07 Sodium 140 Potassium 3.7 Chloride 105 Carbon Dioxide 26 BUN 42 H Creatinine 1.48 H Glucose 96 Calcium 9.0 - ABG Interpretation ABG results: PT/INR, D-dimer PT 25.4 Seconds (9.4-12.1) H 12/10/18 01:07 Consult Discharge Plan - Plan Referrals: Clemencia Velasquez, METAL GRINDER [Primary Care Provider] - (1) Anemia Qualifiers: Anemia type: iron deficiency (3) Congestive heart failure Qualifiers: Heart failure type: unspecified Heart failure chronicity: unspecified Qualified Code(s): I50.9 - Heart failure, unspecified (8) Atrial fibrillation Qualifiers: Atrial fibrillation type: chronic Qualified Code(s): I48.2 - Chronic atrial fibrillation (9) CKD (chronic kidney disease) Qualifiers: Chronic kidney disease stage: stage 4 (severe) Qualified Code(s): N18.4 - Chronic kidney disease, stage 4 (severe) (10) HLD (hyperlipidemia) Qualifiers: Hyperlipidemia type: pure hypercholesterolemia Qualified Code(s): E78.00 - Pure hypercholesterolemia, unspecified; E78.0 - Pure hypercholesterolemia (11) HTN (hypertension) Qualifiers: Hypertension type: essential hypertension Qualified Code(s): I10 - Essential (primary) hypertension (12) Obesity Qualifiers: Obesity type: due to excess calories Obesity classification: adult class 2 (BMI 35 - 39.9) Serious obesity comorbidity presence: without serious comorbidity Body mass index: BMI 37.0-37.9 Qualified Code(s): E66.09 - Other obesity due to excess calories; Z68.37 - Body mass index (BMI) 37.0-37.9, adult
[2018-12-10 16:09] LABS: Hematocrit 27.7 % (35.3-44.9); Hemoglobin 8.7 g/dL (11.5-15.4)
[2018-12-10] MEDS ORDERED: *HR* Phytonadione 5 MG TABLET PO ONE (17:41)
[2018-12-11] MEDS ORDERED: Melatonin 3 MG TABLET PO PRN (03:30)
[2018-12-11] MEDS: Pantoprazole 40 MG VIAL IVP SCH ×2 (06:12→18:01)
[2018-12-11] MEDS: Lisinopril 20 MG TABLET PO SCH (08:13)
[2018-12-11] MEDS: Cyanocobalamin (B-12) 1,000 MCG TABLET PO SCH (08:13)
[2018-12-11] MEDS: amLODIPine 5 MG TABLET PO SCH (08:14)
[2018-12-11] MEDS: Iron Sucrose Complex 200 MG in 0.9 % Sodium Chloride 100 ML IVPB SCH (08:14)
--- NOTE | 2018-12-11 08:48 | Internal Med Progress Note ---
Hospitalist Progress Note - Encounter Date of Encounter: 12/11/18 Time of Encounter: 09:02 - Subjective Interval History: Patient had episode of hematuria overnight. Denies chest pain, SOB, melena, n/v, abdominal pain. - Exam Vitals: Temp Pulse Resp BP Pulse Ox 98.5 F 70 16 106/62 96 12/11/18 07:02 12/11/18 07:02 12/11/18 07:02 12/11/18 07:02 12/11/18 07:02 Exam: GENERAL APPEARANCE: Well developed, well nourished, alert and cooperative, and appears to be in no acute distress. HEAD: normocephalic. EYES: PERRL, EOMI. Fundi normal, vision is grossly intact. EARS: hearing grossly intact. NOSE: No nasal discharge. THROAT: Oral cavity and pharynx normal. No inflammation, swelling, exudate, or lesions. Teeth and gingiva in good general condition. NECK: Neck supple, non-tender without lymphadenopathy, masses or thyromegaly. CARDIAC: Normal S1 and S2. No S3, S4 or murmurs. Rhythm is regular. There is no peripheral edema, cyanosis or pallor. Extremities are warm and well perfused. Capillary refill is less than 2 seconds. No carotid bruits. LUNGS: Fine rales and both lung bases. ABDOMEN: Positive bowel sounds. Soft, nondistended, nontender. No guarding or rebound. No masses. MUSKULOSKELETAL: No joint erythema or tenderness. Normal muscular development. EXTREMITIES: No significant deformity or joint abnormality. No edema. Peripheral pulses intact. No varicosities. LOWER EXTREMITY: Trace pedal edema SKIN: Skin normal color, texture and turgor with no lesions or eruptions. PSYCHIATRIC: The mental examination revealed the patient was oriented to person, place, and time. - Assessment and Plan (1) Anemia Current Visit: Yes Status: Chronic Assessment and Plan: Acute blood loss anemia Suspect due to hematuria but will need to rule out GI bleed. On admission INR 4.6 and hemoglobin 5.9. S/P 4 units PRBC, now HH stable. Chadsvasc 6, has-bled 5 Hemodynamically stable Ruling out GIB, needs INR <1.5 for endoscopy Morning labs delayed, will await to see current INR. (2) Acute kidney injury superimposed on CKD Current Visit: Yes Status: Acute Assessment and Plan: Likely prerenal from hypoperfusion of anemia. Improving, near baseline renal function. (3) Congestive heart failure Current Visit: Yes Status: Acute Assessment and Plan: No acute issues. Giving dose of IV Lasix today as patient does appear to have f ine rales on exam and is prone to fluid overload. (4) Supratherapeutic INR Current Visit: Yes Status: Acute Assessment and Plan: Plan as above. (5) Valvular heart disease Current Visit: No Status: Acute (6) Anticoagulated on Coumadin Current Visit: No Status: Chronic Assessment and Plan: Plan as above, holding coumadin due to acute anemia. (7) Atrial fibrillation Current Visit: No Status: Chronic Assessment and Plan: HR controlled. On BB and coumadin. Will hold home coumadin in the setting of supratheraputic INR. (8) CKD (chronic kidney disease) Current Visit: No Status: Chronic (9) HLD (hyperlipidemia) Current Visit: No Status: Chronic (10) HTN (hypertension) Current Visit: No Status: Chronic (11) Obesity Current Visit: No Status: Chronic - Time Spent with Patient Total time spent is greater than 50% in coordination of care (as documented) at patient's floor/unit and/or counseling patient: Internal Medicine: Result - Labs CBC & Chem 7: 12/10/18 16:00 12/10/18 01:07 Labs: Short CBC 12/10/18 Range/Units 16:00 Hgb 8.7 L (11.5-15.4) g/dL Hct 27.7 L (35.3-44.9) % - ABG Interpretation ABG results: PT/INR, D-dimer PT 25.4 Seconds (9.4-12.1) H 12/10/18 01:07 Consult Discharge Plan - Plan Referrals: Clemencia Velasquez, FINANCIAL SERVICES TECHNICIAN [Primary Care Provider] - (1) Anemia Qualifiers: Anemia type: iron deficiency (3) Congestive heart failure Qualifiers: Heart failure type: unspecified Heart failure chronicity: unspecified Qualified Code(s): I50.9 - Heart failure, unspecified (7) Atrial fibrillation Qualifiers: Atrial fibrillation type: chronic Qualified Code(s): I48.2 - Chronic atrial fibrillation (8) CKD (chronic kidney disease) Qualifiers: Chronic kidney disease stage: stage 4 (severe) Qualified Code(s): N18.4 - Chronic kidney disease, stage 4 (severe) (9) HLD (hyperlipidemia) Qualifiers: Hyperlipidemia type: pure hypercholesterolemia Qualified Code(s): E78.00 - Pure hypercholesterolemia, unspecified; E78.0 - Pure hypercholesterolemia (10) HTN (hypertension) Qualifiers: Hypertension type: essential hypertension Qualified Code(s): I10 - Essential (primary) hypertension (11) Obesity Qualifiers: Obesity type: due to excess calories Obesity classification: adult class 2 (BMI 35 - 39.9) Serious obesity comorbidity presence: without serious comorbidity Body mass index: BMI 37.0-37.9 Qualified Code(s): E66.09 - Other obesity due to excess calories; Z68.37 - Body mass index (BMI) 37.0-37.9, adult
[2018-12-11] MEDS ORDERED: Furosemide 20 MG/2 ML VIAL IVP ONE (09:11)
[2018-12-11 09:16] LABS: Basophils % 0.5 %; Eosinophils # 0.3 K/mcL (0.0-0.6); Hematocrit 27.9 % (35.3-44.9); Hemoglobin 8.7 g/dL (11.5-15.4); Immature Granulocytes % 0.5 % (0-4); Lymphocytes # 0.9 K/mcL (0.6-4.6); Lymphocytes % 10.5 %; Mean Corpuscular HGB Conc 31.2 g/dL (31.6-35.5); Mean Corpuscular Hemoglobin 26.5 pg (28.0-33.3); Mean Corpuscular Volume 85.1 fL (83.0-100.0); Mean Platelet Volume 10.4 fL (9.4-12.4); Monocytes % 11.5 %; Neutrophils # 6.4 K/mcL (1.6-8.9); Platelet Count 202 K/mcL (140-400); Red Blood Count 3.28 M/mcL (3.82-4.97); Red Cell Distribution Width 16.1 % (11.5-14.5); White Blood Count 8.7 K/mcL (4.3-11.1)
[2018-12-11 09:22] LABS: INR 1.7; Prothrombin Time 19.1 Seconds (9.4-12.1)
[2018-12-11 09:35] LABS: Calcium 9.1 mg/dL (8.6-10.3); Potassium 3.7 mEq/L (3.5-5.1)
[2018-12-11 20:36] LABS: INR 1.6; Prothrombin Time 18.5 Seconds (9.4-12.1)
[2018-12-11] MEDS ORDERED: SODIUM CHLORIDE/NAHCO3/KCL/PEG 4,000 ML SOLN.RECON PO ONE (20:44)
[2018-12-11] MEDS: Furosemide 40 MG TABLET PO SCH (21:00)
[2018-12-11] MEDS: cefTRIAXone 2,000 MG in Water for inj. (sterile) 20 ML 20 ML IVPB SCH (21:33)
[2018-12-11] MEDS ORDERED: Ondansetron 4 MG/2 ML VIAL IVP PRN (22:27)
[2018-12-12] MEDS: Pantoprazole 40 MG VIAL IVP SCH ×2 (05:44→16:51)
[2018-12-12 07:53] LABS: Basophils # 0.1 K/mcL (0.0-0.2); Basophils % 0.8 %; Eosinophils # 0.5 K/mcL (0.0-0.6); Eosinophils % 7.5 %; Hematocrit 28.8 % (35.3-44.9); Hemoglobin 8.8 g/dL (11.5-15.4); Immature Granulocytes % 0.3 % (0-4); Lymphocytes # 0.6 K/mcL (0.6-4.6); Mean Corpuscular HGB Conc 30.6 g/dL (31.6-35.5); Mean Corpuscular Hemoglobin 26.3 pg (28.0-33.3); Mean Corpuscular Volume 86.2 fL (83.0-100.0); Mean Platelet Volume 10.8 fL (9.4-12.4); Monocytes % 15.3 %; Neutrophils # 4.2 K/mcL (1.6-8.9); Platelet Count 211 K/mcL (140-400); Red Blood Count 3.34 M/mcL (3.82-4.97); Red Cell Distribution Width 16.6 % (11.5-14.5); Segmented Neutrophils % 66.1 %; White Blood Count 6.4 K/mcL (4.3-11.1)
[2018-12-12] MEDS: Cholecalciferol (D-3) 1,000 UNIT TABLET PO SCH (07:59)
[2018-12-12] MEDS: Cyanocobalamin (B-12) 1,000 MCG TABLET PO SCH (07:59)
[2018-12-12] MEDS: Furosemide 40 MG TABLET PO SCH ×2 (07:59→22:01)
[2018-12-12] MEDS: amLODIPine 5 MG TABLET PO SCH (07:59)
[2018-12-12] MEDS: Multivit/Ca/Min/Fe/FA 1 TAB TABLET PO SCH (07:59)
[2018-12-12] MEDS: Lisinopril 20 MG TABLET PO SCH (08:00)
[2018-12-12] MEDS: Iron Sucrose Complex 200 MG in 0.9 % Sodium Chloride 100 ML IVPB SCH (08:04)
[2018-12-12 08:05] LABS: INR 1.5; Prothrombin Time 17.1 Seconds (9.4-12.1)
[2018-12-12 08:11] LABS: Calcium 8.8 mg/dL (8.6-10.3); Potassium 3.9 mEq/L (3.5-5.1)
[2018-12-12] MEDS ORDERED: NON-FORMULARY MEDICATION 1 EACH EACH (Vit C/Vit E/Lutein/Min/Omega-3 [Ocuvite Softgel] 1 C PO SCH (09:00)
--- NOTE | 2018-12-12 10:07 | Internal Med Progress Note ---
<Hector Todd - Last Filed: 12/12/18 14:33> Hospitalist Progress Note - Encounter Date of Encounter: 12/12/18 Time of Encounter: 09:50 - Subjective Interval History: When seen today patient denied any dysuria or gross hematuria. Denied any nausea or vomiting. Denied any melena or hematochezia. Denied any chest pain or shortness of breath. Denied any fever. - Exam Vitals: Temp Pulse Resp BP Pulse Ox 98.4 F 73 18 107/54 98 12/12/18 06:35 12/12/18 06:35 12/12/18 06:35 12/12/18 06:35 12/12/18 08:51 Exam: GENERAL APPEARANCE: Well developed, well nourished, alert and cooperative, and appears to be in no acute distress. HEAD: normocephalic. EYES: PERRL, EOMI. Fundi normal, vision is grossly intact. EARS: hearing grossly intact. NOSE: No nasal discharge. THROAT: Oral cavity and pharynx normal. No inflammation, swelling, exudate, or lesions. Teeth and gingiva in good general condition. NECK: Neck supple, non-tender without lymphadenopathy, masses or thyromegaly. CARDIAC: Normal S1 and S2. No S3, S4 or murmurs. Rhythm is regular. There is no peripheral edema, cyanosis or pallor. Extremities are warm and well perfused. Capillary refill is less than 2 seconds. No carotid bruits. LUNGS: Fine rales and both lung bases. ABDOMEN: Positive bowel sounds. Soft, nondistended, nontender. No guarding or rebound. No masses. MUSKULOSKELETAL: No joint erythema or tenderness. Normal muscular development. EXTREMITIES: No significant deformity or joint abnormality. No edema. Peripheral pulses intact. No varicosities. LOWER EXTREMITY: Trace pedal edema SKIN: Skin normal color, texture and turgor with no lesions or eruptions. PSYCHIATRIC: The mental examination revealed the patient was oriented to person, place, and time. - Assessment and Plan (1) Anemia Current Visit: Yes Status: Acute Assessment and Plan: Acute blood loss anemia Suspect due to hematuria but will need to rule out GI bleed. On admission INR 4.6 and hemoglobin 5.9. S/P 4 units PRBC, now HH stable. Chadsvasc 6, has-bled 5 Hemodynamically stable Ruling out GIB, needs INR <1.5 for endoscopy Another possible source might be hematuria secondary to UTI. 12/12/18: INR level at 1.5. Hemodynamically stable. Patient has been nothing by mouth since midnight. Has been doing bowel prep. Plan: - Retroperitoneal ultrasound pending. - Continue with Rocephin day #2 for UTI. - Plan for colonoscopy and EGD. -C/W iron supplements. (2) Acute kidney injury superimposed on CKD Current Visit: Yes Status: Acute Assessment and Plan: REGLA on CKD stage III. Creatinine 1.69 on admission. Current creatinine at 1.44. Previous baseline appears to be around 1.3. Likely pre-renal in the setting of hypovolemia. 12/12/18: Her creatinine did rise from 1.29 up to 1.44. This was likely due to being started on antibiotics and due to being started Lasix for pulmonary congestion. Plan: - Avoid neck for toxic medications. - Renal dose medications. (3) Obesity Current Visit: No Status: Chronic (4) Atrial fibrillation Current Visit: No Status: Chronic Assessment and Plan: HR controlled. On BB and coumadin. Will hold home coumadin in the setting of supratheraputic INR. (5) HTN (hypertension) Current Visit: No Status: Chronic Assessment and Plan: Chronic. BP currently controlled. Plan: - Continue with home meds: coreg, amlodipine, lisinopril. (6) HLD (hyperlipidemia) Current Visit: No Status: Chronic Assessment and Plan: Continue with statin. (7) Hypothyroidism Current Visit: No Status: Chronic Assessment and Plan: - Continue with synthroid home dosage. DVT Prophylaxis: SCDs. - Time Spent with Patient Total time spent is greater than 50% in coordination of care (as documented) at patient's floor/unit and/or counseling patient: Internal Medicine: Result - Labs CBC & Chem 7: 12/12/18 07:11 12/12/18 07:11 Labs: Short CBC 12/12/18 Range/Units 07:11 WBC 6.4 (4.3-11.1) K/mcL Hgb 8.8 L (11.5-15.4) g/dL Hct 28.8 L (35.3-44.9) % Plt Count 211 (140-400) K/mcL Neutrophils # 4.2 (1.6-8.9) K/mcL BMP 12/12/18 07:11 Sodium 139 Potassium 3.9 Chloride 102 Carbon Dioxide 28 BUN 31 H Creatinine 1.44 H Glucose 101 Calcium 8.8 - ABG Interpretation ABG results: PT/INR, D-dimer PT 17.1 Seconds (9.4-12.1) H 12/12/18 07:11 - Impressions Impressions Chest X-Ray 12/11/18 09:09 IMPRESSION: 1. Cardiomegaly with mild interstitial edema. D/ / 12/11/2018 10:28:31 Joy Liu MD / Stella Moser Interpreting Provider: Joy Liu MD Consult Discharge Plan - Plan Referrals: Clemencia Velasquez, [facility] [employer] [Primary Care Provider] - <Raffy Griffith - Last Filed: 12/12/18 19:21> Hospitalist Progress Note - Encounter Date of Encounter: 12/12/18 - Exam Vitals: Temp Pulse Resp BP Pulse Ox 97.8 F 70 15 88/42 93 12/12/18 19:07 12/12/18 19:07 12/12/18 19:07 12/12/18 19:08 12/12/18 19:12 - Assessment and Plan (1) Anemia Current Visit: Yes Status: Chronic (2) Acute kidney injury superimposed on CKD Current Visit: Yes Status: Acute (3) Congestive heart failure Current Visit: Yes Status: Acute (4) Supratherapeutic INR Current Visit: Yes Status: Acute (5) Valvular heart disease Current Visit: No Status: Acute (6) Anticoagulated on Coumadin Current Visit: No Status: Chronic (7) Atrial fibrillation Current Visit: No Status: Chronic (8) CKD (chronic kidney disease) Current Visit: No Status: Chronic (9) HLD (hyperlipidemia) Current Visit: No Status: Chronic (10) HTN (hypertension) Current Visit: No Status: Chronic (11) Obesity Current Visit: No Status: Chronic - Time Spent with Patient Total time spent is greater than 50% in coordination of care (as documented) at patient's floor/unit and/or counseling patient: Internal Medicine: Result - Labs CBC & Chem 7: 12/12/18 07:11 12/12/18 07:11 Labs: Short CBC 12/12/18 Range/Units 07:11 WBC 6.4 (4.3-11.1) K/mcL Hgb 8.8 L (11.5-15.4) g/dL Hct 28.8 L (35.3-44.9) % Plt Count 211 (140-400) K/mcL Neutrophils # 4.2 (1.6-8.9) K/mcL BMP 12/12/18 07:11 Sodium 139 Potassium 3.9 Chloride 102 Carbon Dioxide 28 BUN 31 H Creatinine 1.44 H Glucose 101 Calcium 8.8 - ABG Interpretation ABG results: PT/INR, D-dimer PT 17.1 Seconds (9.4-12.1) H 12/12/18 07:11 - Attending Attestation I examined this patient and my medical decision-making was reviewed with the Resident Physician. I agree with the documented findings, disposition and treatment plan as described except to the extent set forth below. <Hector Todd - Last Filed: 12/12/18 14:33> (1) Anemia Qualifiers: Anemia type: unspecified type Qualified Code(s): D64.9 - Anemia, unspecified (3) Obesity Qualifiers: Obesity type: due to excess calories Obesity classification: adult class 2 (BMI 35 - 39.9) Serious obesity comorbidity presence: without serious comorbidity Body mass index: BMI 37.0-37.9 Qualified Code(s): E66.09 - Other obesity due to excess calories; Z68.37 - Body mass index (BMI) 37.0-37.9, adult (4) Atrial fibrillation Qualifiers: Atrial fibrillation type: chronic Qualified Code(s): I48.2 - Chronic atrial fibrillation (5) HTN (hypertension) Qualifiers: Hypertension type: essential hypertension Qualified Code(s): I10 - Essential (primary) hypertension (6) HLD (hyperlipidemia) Qualifiers: Hyperlipidemia type: pure hypercholesterolemia Qualified Code(s): E78.00 - Pure hypercholesterolemia, unspecified; E78.0 - Pure hypercholesterolemia (7) Hypothyroidism Qualifiers: Hypothyroidism type: acquired Qualified Code(s): E03.9 - Hypothyroidism, unspecified <GladisBernadine Castillo - Last Filed: 12/12/18 19:21> (1) Anemia Qualifiers: Anemia type: iron deficiency (3) Congestive heart failure Qualifiers: Heart failure type: unspecified Heart failure chronicity: unspecified Qualified Code(s): I50.9 - Heart failure, unspecified (7) Atrial fibrillation Qualifiers: Atrial fibrillation type: chronic Qualified Code(s): I48.2 - Chronic atrial fibrillation (8) CKD (chronic kidney disease) Qualifiers: Chronic kidney disease stage: stage 4 (severe) Qualified Code(s): N18.4 - Chronic kidney disease, stage 4 (severe) (9) HLD (hyperlipidemia) Qualifiers: Hyperlipidemia type: pure hypercholesterolemia Qualified Code(s): E78.00 - Pure hypercholesterolemia, unspecified; E78.0 - Pure hypercholesterolemia (10) HTN (hypertension) Qualifiers: Hypertension type: essential hypertension Qualified Code(s): I10 - Essential (primary) hypertension (11) Obesity Qualifiers: Obesity type: due to excess calories Obesity classification: adult class 2 (BMI 35 - 39.9) Serious obesity comorbidity presence: without serious comorbidity Body mass index: BMI 37.0-37.9 Qualified Code(s): E66.09 - Other obesity due to excess calories; Z68.37 - Body mass index (BMI) 37.0-37.9, adult
[2018-12-12] MEDS ORDERED: *HR* Etomidate 40 MG/20 ML VIAL IVP ONE (13:32)
[2018-12-12] MEDS ORDERED: EPHEDrine 50 MG/ML VIAL ONE (13:35)
[2018-12-12] MEDS ORDERED: *HR* Propofol 200 MG/20 ML VIAL IVP ONE (13:37)
--- NOTE | 2018-12-12 13:51 | Anesthesia Evaluation PreOp ---
Date of Encounter: 12/12/18 Time of Encounter: 13:49 - Past History Planned Operation: EGD colonoscopy Cardiac History: CHF (EF 25-30%), HTN, Hyperlipidemia, Arrhythmia (Afib), Pacemaker/ICD (pacer dependent), Other (Pulm HTN) Pulmonary History: Denies Any Significant HX AREA CAPTAIN History: Denies Any Significant HX Other Medical History: Renal (CKD), Thyroid, GERD, Other (anemia) Anesthesia History: No Prior Anesthetic Complications, Past Anesthesia : No Alcohol Use: none Drug use: none Medications and Allergies Cholecalciferol (Vitamin D3) [Vitamin D3] 1,000 unit PO DAILY 10/25/16 [History] Cyanocobalamin (Vitamin B-12) [Vitamin B12] 500 mcg PO DAILY 10/25/16 [History] Ferrous Sulfate [Slow Fe] 325 mg PO DAILY 10/25/16 [History] Krill Oil 500 mg PO DAILY 10/25/16 [History] Lisinopril [Zestril] 40 mg PO DAILY 10/25/16 [History] Omeprazole [PriLOSEC] 20 mg PO DAILY 10/25/16 [History] Pravastatin Sodium [Pravachol] 80 mg PO DAILY 10/25/16 [History] Vit C/Vit E/Lutein/Min/S [place]-3 [Ocuvite Softgel] 1 cap PO DAILY 10/25/16 [History] Levothyroxine [Synthroid] 112 mcg PO 0630 07/15/17 [History] amLODIPine [Norvasc] 5 mg PO DAILY 11/22/17 [History] Carvedilol [Coreg] 25 mg PO BIDWM #0 tablet 11/24/17 [Rx] Furosemide [Lasix] 40 mg PO BID 06/25/18 [History] Warfarin Sodium 2 mg PO SUTUWETHFRSA 06/25/18 [History] Warfarin Sodium 3 mg PO MO 06/25/18 [History] Multivitamin [One Daily Essential] 1 each PO DAILY 12/09/18 [History] Allergy/AdvReac Type Severity Reaction Status Date / Time Penicillins [PCN] Allergy Hives Verified 12/09/18 19:56 - Meds/Allergy Pre-op Review Medications Reviewed: Yes Allergies Reviewed: Yes Beta Blockers on Current Med List: Yes (coreg) If Beta Blockers taken, Date/Time (Last Dose taken): 801 Anesthesia Results - Labs 12/12/18 07:11 12/12/18 07:11 Laboratory Tests 12/12/18 07:11 PT 17.1 H INR 1.5 - Imaging EKG: report reviewed Additional studies: 06/2018 echocardiogram Impressions: LVEF 25-30%. Severely dilated left ventricle. Severe global left ventricular systolic dysfunction. Mild right ventricular hypokinesis. Mildly dilated right ventricle. Severely dilated left atrium. Moderately dilated right atrium. Moderate-severe mitral regurgitation. Moderate tricuspid regurgitation. Moderate pulmonary hypertension. A device lead was visualized in the right atrium and right ventricle. Left Ventricular Wall Motion: Rest Echo Findings The apex, apical inferior, mid inferior, basal inferior, apical anterior, mid anterior, basal anterior, apical septal, mid inferior septal, basal inferior septal, apical lateral, mid anterior lateral, basal anterior lateral, mid anterior septal, mid inferior lateral, basal anterior septal and basal inferior lateral tamayo were hypokinetic. Findings: Study Quality * Technically adequate exam. ECG Findings * Normal sinus rhythm. * Sinus rhythm with BBB. Left Ventricle * LVEF 25-30%. * Severely dilated left ventricle. * Severe global left ventricular systolic dysfunction. Right Ventricle * Mild right ventricular hypokinesis. * Mildly dilated right ventricle. Left Atrium * Severely dilated left atrium. Right Atrium * Moderately dilated right atrium. Interatrial Septum * No evidence of PFO by color Doppler. Aortic Valve * Trileaflet aortic valve. * Mildly calcified aortic valve leaflets. * Mild aortic regurgitation. * No aortic stenosis. Mitral Valve * Normal mitral valve structure. * No mitral stenosis. * Moderate-severe mitral regurgitation. Tricuspid Valve * Moderate tricuspid regurgitation. * Moderate pulmonary hypertension. * Estimated RVSP is 45 mmHg. * Estimated RA pressure is 15 mmHg. Pulmonic Valve * Normal pulmonic valve structure. * Mild pulmonic regurgitation. Aorta * Normally sized aortic root. Pericardium * The pericardium appears normal. IVC * The IVC is dilated. Pleural Effusion * Moderate pleural effusion. Device lead * A device lead was visualized in the right atrium and right ventricle. Anesthesia Exam Vital Signs/O2 Sat/Glucose, Most Recent Temp Pulse Resp BP Pulse Ox 98.2 F 78 16 114/63 94 12/12/18 10:19 12/12/18 10:19 12/12/18 10:19 12/12/18 10:19 12/12/18 10:19 - HEENT Pupil (Motor): Pupils equal Mallampati: II Teeth: Normal - AREA CAPTAIN LOC: Oriented AREA CAPTAIN Motor: Normal RUE, Normal LUE, Normal RLE, Normal LLE, Normal Face AREA CAPTAIN Sensory: Normal: RUE, LUE, RLE, LLE, Face - Cardiac Rhythm: Regular Murmur: Systolic - Pulmonary Breath Sounds: bilateral Clear Respiratory Effort: Symmetrical Anesthesia Assess/Plan ASA Score: 4 (CHF, pacer, HTN, HLD, Afib, pHTN) Level of consciousness: Cooperative, Oriented Anesthetic Plan: MAC Monitoring Plan: Standard Monitors Recovery Plan: PACU
[2018-12-12] MEDS ORDERED: 0.9 % Sodium Chloride 500 ML IVC SCH (14:00)
--- NOTE | 2018-12-12 15:38 | Anesthesia Evaluation Post Op ---
Date of Encounter: 12/12/18 Time of Encounter: 15:19 - Vital Signs Vital Signs: vss - Lungs Lungs: Clear Ascult./Percussion - Airway Airway: Non-obstructed - Cardiovascular Baseline Rhythm - Mental Status Mental Status: Alert & Oriented, Answers Appropriately - Pain Pain Scale used: [place] (Faces) - Nausea Vomiting Nausea Vomiting: Not Present - Discharge PostOp Status: Transfer Patient to floor
[2018-12-12] MEDS: cefTRIAXone 2,000 MG in Water for inj. (sterile) 20 ML 20 ML IVPB SCH (22:01)
[2018-12-13] MEDS: Pantoprazole 40 MG VIAL IVP SCH (05:25)
[2018-12-13 06:08] LABS: Mean Corpuscular HGB Conc 30.8 g/dL (31.6-35.5); Mean Corpuscular Volume 87.8 fL (83.0-100.0); Mean Platelet Volume 10.9 fL (9.4-12.4); Platelet Count 177 K/mcL (140-400); Red Blood Count 2.96 M/mcL (3.82-4.97); Red Cell Distribution Width 16.9 % (11.5-14.5); White Blood Count 8.6 K/mcL (4.3-11.1)
[2018-12-13 06:17] LABS: INR 1.4; Prothrombin Time 16.2 Seconds (9.4-12.1)
[2018-12-13 06:28] LABS: Calcium 8.8 mg/dL (8.6-10.3); Potassium 3.9 mEq/L (3.5-5.1)
[2018-12-13] MEDS: Cholecalciferol (D-3) 1,000 UNIT TABLET PO SCH (09:47)
[2018-12-13] MEDS: Furosemide 40 MG TABLET PO SCH (09:47)
[2018-12-13] MEDS: Iron Sucrose Complex 200 MG in 0.9 % Sodium Chloride 100 ML IVPB SCH (09:47)
[2018-12-13] MEDS: Multivit/Ca/Min/Fe/FA 1 TAB TABLET PO SCH (09:47)
[2018-12-13] MEDS: Cyanocobalamin (B-12) 1,000 MCG TABLET PO SCH (09:47)
[2018-12-13] MEDS: amLODIPine 5 MG TABLET PO SCH (09:48)
[2018-12-13] MEDS: Lisinopril 20 MG TABLET PO SCH (09:48)
[2018-12-13] MEDS ORDERED: Furosemide 40 MG TABLET PO SCH (17:00)
--- NOTE | 2018-12-13 17:15 | Internal Med Progress Note ---
<Hector Todd - Last Filed: 12/13/18 17:31> Hospitalist Progress Note - Encounter Date of Encounter: 12/13/18 Time of Encounter: 08:30 - Subjective Interval History: When seen today, the patient denied any chest pain or SOB. She denied any dysuria, hematuria, or urinary frequency. Denied any abdominal, nausea, or vomiting. Denied any fever. - Exam Vitals: Temp Pulse Resp BP Pulse Ox 97.8 F 70 18 128/68 92 12/13/18 14:29 12/13/18 16:21 12/13/18 16:21 12/13/18 16:21 12/13/18 16:21 Exam: GENERAL APPEARANCE: Well developed, well nourished, alert and cooperative, and appears to be in no acute distress. HEAD: normocephalic. EYES: PERRL, EOMI. Fundi normal, vision is grossly intact. EARS: hearing grossly intact. NOSE: No nasal discharge. THROAT: Oral cavity and pharynx normal. No inflammation, swelling, exudate, or lesions. Teeth and gingiva in good general condition. NECK: Neck supple, non-tender without lymphadenopathy, masses or thyromegaly. CARDIAC: Normal S1 and S2. No S3, S4 or murmurs. Rhythm is regular. There is no peripheral edema, cyanosis or pallor. Extremities are warm and well perfused. C apillary refill is less than 2 seconds. No carotid bruits. LUNGS: Fine rales and both lung bases. ABDOMEN: Positive bowel sounds. Soft, nondistended, nontender. No guarding or rebound. No masses. MUSKULOSKELETAL: No joint erythema or tenderness. Normal muscular development. EXTREMITIES: No significant deformity or joint abnormality. No edema. Peripheral pulses intact. No varicosities. LOWER EXTREMITY: No pedal edema SKIN: Skin normal color, texture and turgor with no lesions or eruptions. PSYCHIATRIC: The mental examination revealed the patient was oriented to person, place, and time. - Assessment and Plan (1) Anemia Current Visit: Yes Status: Acute Assessment and Plan: Acute blood loss anemia Suspect due to hematuria but will need to rule out GI bleed. On admission INR 4.6 and hemoglobin 5.9. S/P 4 units PRBC, now HH stable. Chadsvasc 6, has-bled 5 Hemodynamically stable Ruling out GIB, needs INR <1.5 for endoscopy Another possible source might be hematuria secondary to UTI. 12/12/18: INR level at 1.5. Hemodynamically stable. Patient has been nothing by mouth since midnight. Has been doing bowel prep. 12/13/18: EGD and colonoscopy showed no evidence of active bleeding. There was diverticula noted as well as internal hemorrhoids that were mild. Retr operitoneal ultrasound showed a 2 mm calculus in the left kidney with no evidence of hydronephrosis. Patient was noted to be hypotensive at times today with her systolic blood pressure in the 90s. Her lisinopril and amlodipine were held. Repeat blood pressure readings in the afternoon were normotensive. Patient's O2 saturation would drop during her walks. Is normally on room air at rest. Repeat chest x-ray showed continued evidence of pleural effusion. Plan: - Added parameters for amlodipine. - Decreased Coreg to 12.5 mg twice a day. - Started on Lasix 20 mg IV twice a day. To be held if systolic blood pressure is less than 100. - Lisinopril on hold. - Continue with Rocephin day #3 for UTI. - Started on incentive spirometry. -C/W iron supplements. (2) Acute kidney injury superimposed on CKD Current Visit: Yes Status: Acute Assessment and Plan: REGLA on CKD stage III. Creatinine 1.69 on admission. Current creatinine at 1.44. Previous baseline appears to be around 1.3. Likely pre-renal in the setting of hypovolemia. 12/13/18: Her creatinine fell from 1.44 down to 1.30. Plan: - Avoid neck for toxic medications. - Renal dose medications. (3) Obesity Current Visit: No Status: Chronic (4) Atrial fibrillation Current Visit: No Status: Chronic Assessment and Plan: HR controlled. On BB and coumadin. Will hold home coumadin in the setting of supratheraputic INR. (5) HTN (hypertension) Current Visit: No Status: Chronic Assessment and Plan: - Continue with home meds: coreg, amlodipine, lisinopril (hold for now due to hy potension). (6) HLD (hyperlipidemia) Current Visit: No Status: Chronic Assessment and Plan: -C/W statin. (7) Hypothyroidism Current Visit: No Status: Chronic Assessment and Plan: - Continue with synthroid home dosage. DVT Prophylaxis: SCDs. - Time Spent with Patient Total time spent is greater than 50% in coordination of care (as documented) at patient's floor/unit and/or counseling patient: Internal Medicine: Result - Labs CBC & Chem 7: 12/13/18 05:22 12/13/18 05:22 Labs: Short CBC 12/13/18 Range/Units 05:22 WBC 8.6 (4.3-11.1) K/mcL Hgb 8.0 L (11.5-15.4) g/dL Hct 26.0 L (35.3-44.9) % Plt Count 177 (140-400) K/mcL BMP 12/13/18 05:22 Sodium 134 L Potassium 3.9 Chloride 102 Carbon Dioxide 28 BUN 24 H Creatinine 1.30 H Glucose 96 Calcium 8.8 - ABG Interpretation ABG results: PT/INR, D-dimer PT 16.2 Seconds (9.4-12.1) H 12/13/18 05:22 - Impressions Impressions Retroperitoneum Ultrasound 12/12/18 21:00 IMPRESSION: Tiny calculus in the left kidney. No hydronephrosis. D/ / Osmany Rodriguez MD / Osmany Rodriguez MD Interpreting Provider: Osmany Rodriguez MD Chest X-Ray 12/13/18 15:11 IMPRESSION: Findings suggest pulmonary edema, including small bilateral pleural effusions. D/ / 12/13/2018 16:22:47 Jina Loyola MD / [email or web address] Interpreting Provider: Jina Loyola MD Consult Discharge Plan - Plan Referrals: Clemencia Velasquez, [employer] [Primary Care Provider] - <Raffy Griffith - Last Filed: 12/13/18 22:53> Hospitalist Progress Note - Encounter Date of Encounter: 12/13/18 - Exam Vitals: Temp Pulse Resp BP Pulse Ox 98.2 F 70 15 116/64 93 12/13/18 19:38 12/13/18 19:38 12/13/18 19:38 12/13/18 19:38 12/13/18 19:38 - Assessment and Plan (1) Anemia Current Visit: Yes Status: Chronic (2) Acute kidney injury superimposed on CKD Current Visit: Yes Status: Acute (3) Congestive heart failure Current Visit: Yes Status: Acute (4) Supratherapeutic INR Current Visit: Yes Status: Acute (5) Valvular heart disease Current Visit: No Status: Acute (6) Anticoagulated on Coumadin Current Visit: No Status: Chronic (7) Atrial fibrillation Current Visit: No Status: Chronic (8) CKD (chronic kidney disease) Current Visit: No Status: Chronic (9) HLD (hyperlipidemia) Current Visit: No Status: Chronic (10) HTN (hypertension) Current Visit: No Status: Chronic (11) Obesity Current Visit: No Status: Chronic - Time Spent with Patient Total time spent is greater than 50% in coordination of care (as documented) at patient's floor/unit and/or counseling patient: Internal Medicine: Result - Labs CBC & Chem 7: 12/13/18 05:22 12/13/18 05:22 Labs: Short CBC 12/13/18 Range/Units 05:22 WBC 8.6 (4.3-11.1) K/mcL Hgb 8.0 L (11.5-15.4) g/dL Hct 26.0 L (35.3-44.9) % Plt Count 177 (140-400) K/mcL BMP 12/13/18 05:22 Sodium 134 L Potassium 3.9 Chloride 102 Carbon Dioxide 28 BUN 24 H Creatinine 1.30 H Glucose 96 Calcium 8.8 - ABG Interpretation ABG results: PT/INR, D-dimer PT 16.2 Seconds (9.4-12.1) H 12/13/18 05:22 - Impressions Impressions Retroperitoneum Ultrasound 12/12/18 21:00 IMPRESSION: Tiny calculus in the left kidney. No hydronephrosis. D/ / Osmany Rodriguez MD / Osmany Rodriguez MD Interpreting Provider: Osmany Rodriguez MD Chest X-Ray 12/13/18 15:11 IMPRESSION: Findings suggest pulmonary edema, including small bilateral pleural effusions. D/ / 12/13/2018 16:22:47 Jina Loyola MD / [email or web address] Interpreting Provider: Jina Loyola MD - Attending Attestation I examined this patient and my medical decision-making was reviewed with the Resident Physician. I agree with the documented findings, disposition and treatment plan as described except to the extent set forth below. Additional diagnosis: - Acute respiratory failure with hypoxia. She is in no apparent respiratory distress. She has normal to lower normal limits of SpO2 on room air but with ambulation sats drop and do not easily come up. Chest x-ray showed pulmonary edema despite diuresis with IV Lasix doses as needed. Given her age and co-morbidities such as afib and valvular disease, she will need cautious diuresis and monitoring renal function. From anemia standpoint, she is hemodynamically stable. <Hector Todd - Last Filed: 12/13/18 17:31> (1) Anemia Qualifiers: Anemia type: unspecified type Qualified Code(s): D64.9 - Anemia, unspecified (3) Obesity Qualifiers: Obesity type: due to excess calories Obesity classification: adult class 2 (BMI 35 - 39.9) Serious obesity comorbidity presence: without serious comorbidity Body mass index: BMI 37.0-37.9 Qualified Code(s): E66.09 - Other obesity due to excess calories; Z68.37 - Body mass index (BMI) 37.0-37.9, adult (4) Atrial fibrillation Qualifiers: Atrial fibrillation type: chronic Qualified Code(s): I48.2 - Chronic atrial fibrillation (5) HTN (hypertension) Qualifiers: Hypertension type: essential hypertension Qualified Code(s): I10 - Essential (primary) hypertension (6) HLD (hyperlipidemia) Qualifiers: Hyperlipidemia type: pure hypercholesterolemia Qualified Code(s): E78.00 - Pure hypercholesterolemia, unspecified; E78.0 - Pure hypercholesterolemia (7) Hypothyroidism Qualifiers: Hypothyroidism type: acquired Qualified Code(s): E03.9 - Hypothyroidism, unspecified <Raffy Griffith - Last Filed: 12/13/18 22:53> (1) Anemia Qualifiers: Anemia type: iron deficiency (3) Congestive heart failure Qualifiers: Heart failure type: unspecified Heart failure chronicity: unspecified Q ualified Code(s): I50.9 - Heart failure, unspecified (7) Atrial fibrillation Qualifiers: Atrial fibrillation type: chronic Qualified Code(s): I48.2 - Chronic atrial fibrillation (8) CKD (chronic kidney disease) Qualifiers: Chronic kidney disease stage: stage 4 (severe) Qualified Code(s): N18.4 - Chronic kidney disease, stage 4 (severe) (9) HLD (hyperlipidemia) Qualifiers: Hyperlipidemia type: pure hypercholesterolemia Qualified Code(s): E78.00 - Pure hypercholesterolemia, unspecified; E78.0 - Pure hypercholesterolemia (10) HTN (hypertension) Qualifiers: Hypertension type: essential hypertension Qualified Code(s): I10 - Essential (primary) hypertension (11) Obesity Qualifiers: Obesity type: due to excess calories Obesity classification: adult class 2 (BMI 35 - 39.9) Serious obesity comorbidity presence: without serious comorbidity Body mass index: BMI 37.0-37.9 Qualified Code(s): E66.09 - Other obesity due to excess calories; Z68.37 - Body mass index (BMI) 37.0-37.9, adult
[2018-12-13] MEDS: Furosemide 20 MG/2 ML VIAL IVP SCH (17:28)
[2018-12-13] MEDS: cefTRIAXone 2,000 MG in Water for inj. (sterile) 20 ML 20 ML IVPB SCH (20:59)
[2018-12-14 04:49] LABS: INR 1.4; Prothrombin Time 15.9 Seconds (9.4-12.1)
[2018-12-14 04:56] LABS: Calcium 9.1 mg/dL (8.6-10.3); Potassium 3.4 mEq/L (3.5-5.1)
[2018-12-14] MEDS: Multivit/Ca/Min/Fe/FA 1 TAB TABLET PO SCH (08:13)
[2018-12-14] MEDS: Cyanocobalamin (B-12) 1,000 MCG TABLET PO SCH (08:13)
[2018-12-14] MEDS: amLODIPine 5 MG TABLET PO SCH (08:13)
[2018-12-14] MEDS: Iron Sucrose Complex 200 MG in 0.9 % Sodium Chloride 100 ML IVPB SCH (08:13)
[2018-12-14] MEDS: Cholecalciferol (D-3) 1,000 UNIT TABLET PO SCH (08:13)
[2018-12-14] MEDS: Furosemide 20 MG/2 ML VIAL IVP SCH ×2 (08:13→16:11)
--- NOTE | 2018-12-14 10:03 | Discharge Summary ---
Orders not resulted at time of discharge: Pending orders 12/15/18 04:00 INR/PT [Prothrombin Time INR] [COAG] AM 0400 Date of Encounter: 12/14/18 Time of Encounter: 10:03 - Discharge Diagnosis (1) Congestive heart failure Status: Acute Qualifiers: Heart failure type: unspecified Heart failure chronicity: unspecified Qualified Code(s): I50.9 - Heart failure, unspecified (2) Atrial fibrillation Status: Chronic Qualifiers: Atrial fibrillation type: chronic Qualified Code(s): I48.2 - Chronic atrial fibrillation (3) Anticoagulated on Coumadin Status: Chronic (4) HTN (hypertension) Status: Chronic Qualifiers: Hypertension type: essential hypertension Qualified Code(s): I10 - Essential (primary) hypertension (5) HLD (hyperlipidemia) Status: Chronic Qualifiers: Hyperlipidemia type: pure hypercholesterolemia Qualified Code(s): E78.00 - Pure hypercholesterolemia, unspecified; E78.0 - Pure hypercholesterolemia (6) Anemia Status: Chronic Qualifiers: Anemia type: iron deficiency (7) Valvular heart disease Status: Acute (8) CKD (chronic kidney disease) Status: Chronic Qualifiers: Chronic kidney disease stage: stage 4 (severe) Qualified Code(s): N18.4 - Chronic kidney disease, stage 4 (severe) (9) Supratherapeutic INR Status: Acute (10) Obesity Status: Chronic Qualifiers: Obesity type: due to excess calories Obesity classification: adult class 2 (BMI 35 - 39.9) Serious obesity comorbidity presence: without serious comorbidity Body mass index: BMI 37.0-37.9 Qualified Code(s): E66.09 - Other obesity due to excess calories; Z68.37 - Body mass index (BMI) 37.0-37.9, adult (11) Acute kidney injury superimposed on CKD Status: Acute Hospital course: Ms. Patel is a 88 year old female - Time Spent with Patient Total time spent providing and/or coordinating discharge services: - Discharge Medications Prescriptions: No Action Omeprazole [PriLOSEC] 20 mg PO DAILY Vit C/Vit E/Lutein/Min/Aurora-3 [Ocuvite Softgel] 1 cap PO DAILY Pravastatin Sodium [Pravachol] 80 mg PO DAILY Lisinopril [Zestril] 40 mg PO DAILY Krill Oil 500 mg PO DAILY Ferrous Sulfate [Slow Fe] 325 mg PO DAILY Cyanocobalamin (Vitamin B-12) [Vitamin B12] 500 mcg PO DAILY Cholecalciferol (Vitamin D3) [Vitamin D3] 1,000 unit PO DAILY Levothyroxine [Synthroid] 112 mcg PO 0630 amLODIPine [Norvasc] 5 mg PO DAILY Carvedilol [Coreg] 25 mg PO BIDWM #0 tablet Furosemide [Lasix] 40 mg PO BID Warfarin Sodium 2 mg PO SUTUWETHFRSA Warfarin Sodium 3 mg PO MO Multivitamin [One Daily Essential] 1 each PO DAILY Home Medications: Cholecalciferol (Vitamin D3) [Vitamin D3] 1,000 unit PO DAILY 10/25/16 [History] Cyanocobalamin (Vitamin B-12) [Vitamin B12] 500 mcg PO DAILY 10/25/16 [History] Ferrous Sulfate [Slow Fe] 325 mg PO DAILY 10/25/16 [History] Krill Oil 500 mg PO DAILY 10/25/16 [History] Lisinopril [Zestril] 40 mg PO DAILY 10/25/16 [History] Omeprazole [PriLOSEC] 20 mg PO DAILY 10/25/16 [History] Pravastatin Sodium [Pravachol] 80 mg PO DAILY 10/25/16 [History] Vit C/Vit E/Lutein/Min/Aurora-3 [Ocuvite Softgel] 1 cap PO DAILY 10/25/16 [History] Levothyroxine [Synthroid] 112 mcg PO 0630 07/15/17 [History] amLODIPine [Norvasc] 5 mg PO DAILY 11/22/17 [History] Carvedilol [Coreg] 25 mg PO BIDWM #0 tablet 11/24/17 [Rx] Furosemide [Lasix] 40 mg PO BID 06/25/18 [History] Warfarin Sodium 2 mg PO SUTUWETHFRSA 06/25/18 [History] Warfarin Sodium 3 mg PO MO 06/25/18 [History] Multivitamin [One Daily Essential] 1 each PO DAILY 12/09/18 [History] Allergies/Adverse Reactions: Allergy/AdvReac Type Severity Reaction Status Date / Time Penicillins [PCN] Allergy Hives Verified 12/09/18 19:56 Date of admission: 12/09/18 02:20 Primary care physician: Clemencia Velasquez CNP Consults: 12/08/18 23:59 Consult to Gastroenterology [CONS] Routine Consulting Provider: Gastroenterology Sarah Beth Reason for Consult: anemia, possible gi bleed Call Completed: No - Constitutional Vitals: Temp Pulse Resp BP Pulse Ox 98.5 F 78 16 125/70 94 12/14/18 06:39 12/14/18 06:39 12/14/18 06:39 12/14/18 06:39 12/14/18 06:39 - Patient Status Condition: Fair - Discharge Instructions Follow Up With: Clemencia Velasquez, [employer]PERATOR [Primary Care Provider] -
[2018-12-14] MEDS ORDERED: Potassium Chloride Elixir 20 MEQ/15 ML UDC PO ONE (11:17)
--- NOTE | 2018-12-14 11:24 | Internal Med Progress Note ---
<Giulia Banegas - Last Filed: 12/14/18 14:04> Hospitalist Progress Note - Encounter Date of Encounter: 12/14/18 - Exam Vitals: Temp Pulse Resp BP Pulse Ox 98.5 F 73 16 119/70 90 12/14/18 10:00 12/14/18 10:00 12/14/18 10:00 12/14/18 10:00 12/14/18 10:00 - Assessment and Plan (1) Congestive heart failure Current Visit: Yes Status: Acute (2) Atrial fibrillation Current Visit: No Status: Chronic (3) Anticoagulated on Coumadin Current Visit: No Status: Chronic (4) HTN (hypertension) Current Visit: No Status: Chronic (5) HLD (hyperlipidemia) Current Visit: No Status: Chronic (6) Anemia Current Visit: Yes Status: Chronic (7) Valvular heart disease Current Visit: No Status: Acute (8) CKD (chronic kidney disease) Current Visit: No Status: Chronic (9) Supratherapeutic INR Current Visit: Yes Status: Acute (10) Obesity Current Visit: No Status: Chronic (11) Acute kidney injury superimposed on CKD Current Visit: Yes Status: Acute - Time Spent with Patient Total time spent is greater than 50% in coordination of care (as documented) at patient's floor/unit and/or counseling patient: Internal Medicine: Result - Labs CBC & Chem 7: 12/13/18 05:22 12/14/18 04:13 Labs: BMP 12/14/18 04:13 Sodium 137 Potassium 3.4 L Chloride 100 Carbon Dioxide 28 BUN 24 H Creatinine 1.34 H Glucose 95 Calcium 9.1 - ABG Interpretation ABG results: PT/INR, D-dimer PT 15.9 Seconds (9.4-12.1) H 12/14/18 04:13 - Impressions Impressions Chest X-Ray 12/13/18 15:11 IMPRESSION: Findings suggest pulmonary edema, including small bilateral pleural effusions. D/ / 12/13/2018 16:22:47 Jina Loyola MD / [email or web address] Interpreting Provider: Jina Loyola MD Consult Discharge Plan - Plan Referrals: Clemencia Velasquez, [facility] [Primary Care Provider] - - Attending Attestation I examined this patient and my medical decision-making was reviewed with the Resident Physician Dr Pope. I agree with the documented findings, disposition and treatment plan as described except to the extent set forth below. Ms Patel is admitted with suspected GIB acute anemia. She is additionally being treated for possible UTI awake, family at bedside. no fevers, chills, dysuria or abd pain. no presyncope cp or fatigue. beginning to feel nearer baseline. denies any bleeding. gen- alert, awake,appears stated age eyes- pupils equal round , no conjunctival pallor cv- reg rate and rhythm, normal s1,s2, no le edema lungs- ctabl, no wheezing, rhonchi or crackles, normal resp effort on room air abd- soft, non tender, non distended, + bs neuro- AAOx3 Acute suspected GI blood loss anemia- stable hgb, will fu with GI outpt, may resume coumadin for afib and will monitor, will need close follow up in outpt setting HTN with hypotension, low normotension this admit- cont meds as ordered with reduced BB and holding of acei, bp stable, tolerating home diuretic dose (change to PO) Afib on AC Supratherapeutic INR- resolved - resume warfarin as above and monitor, outpt fu Hypokalemia- po repletion today Possible UTI- cx no growth, believe was checked after abx- will complete abx to complete course given risk v benefit, cont rocephin inpt Acute on chronic HFrEF resolved- she is stable on her home dosing equivalent, may change IV lasix to PO further diagnoses and plan as noted by resident <Gilma Pope - Last Filed: 12/14/18 14:58> Hospitalist Progress Note - Encounter Date of Encounter: 12/14/18 Time of Encounter: 10:15 - Subjective Interval History: Patient seen and examined at bedside. Her daughter is present. The patient denies any abnormal bleeding, shortness of breath, cough, fever, chills. She reports dysuria has resolved. She has no complaints. - Exam Vitals: Temp Pulse Resp BP Pulse Ox 98.5 F 78 16 125/70 94 12/14/18 06:39 12/14/18 06:39 12/14/18 06:39 12/14/18 06:39 12/14/18 06:39 Exam: Gen.: Vitals noted. No acute distress. AAOx3 HEENT: oropharynx clear, Normocephalic, atraumatic Cardiac: RRR, no murmur, +S1/S2 Pulmonary: CTA bilaterally, no wheezes, rales or rhonchi, equal chest expansion Abdomen: soft, nontender, Bowel sounds noted, no guarding MSK: ROM intact, no joint swelling noted Extremities: nontender calf, no cyanosis or clubbing Neuro: A&Ox3, moves all extremities, no focal deficits Psych: Appropriate mood and behavior - Assessment and Plan (1) Anemia Current Visit: Yes Status: Chronic Assessment and Plan: Anemia on admission as concerning for G.I. bleed in the setting of supratherapeutic INR. G.I. bleed ruled out by colonoscopy and EGD. Patient had not been to the Coumadin clinic in about a month. -Hemoglobin decreased slightly -MCV normal -s/p 4 unit PRBC -s/p 1 unit plasma -12/13/18: colonoscopy showed no evidence of active bleeding. There was diverticula noted as well as internal hemorrhoids that were mild. Retroperitoneal ultrasound showed a 2 mm calculus in the left kidney with no evidence of hydronephrosis. -12/13/18: EGD was normal -no obvious active bleeding Plan -will restart the patient's Coumadin for treatment of her atrial fibrillation. Will continue to monitor for bleeding. Anticipate discharge tomorrow if hemoglobin does not decrease with the restart of Coumadin. -Continue monitor hemoglobin -she is to follow up with G.I. outpatient -continue home ferrous sulfate supplementation (2) Supratherapeutic INR Current Visit: Yes Status: Acute Assessment and Plan: Resolved Supratherapeutic INR on admission. INR 4.4. Patient was given one dose of vitamin K and plasma in the ED. Patient is to follow with the [facility] however had not been to an appointments in about a month. -INR 1.4 -no obvious active bleeding -will restart Coumadin today and have her follow-up in the concluding clinic in one week -continue to monitor for bleeding (3) UTI (urinary tract infection) Current Visit: No Status: Acute Assessment and Plan: Urinary tract infection. Patient was symptomatic complaining of dysuria and increased urinary frequency. -Patient currently denies dysuria. -u/a showing leukocyte esterase and WBC -urine culture no growth -continue Rocephin day 4 with total duration of treatment 7 days. Anticipate discharge the patient was Cefdinir to complete treatment. (4) Atrial fibrillation Current Visit: No Status: Chronic Assessment and Plan: Known atrial fibrillation rate controlled with carvedilol and anticoagulation with Coumadin. -Continue carvedilol at lower dose of 12 mg b.i.d. -restart Coumadin. Patient is to follow up with Coumadin clinic upon discharge in about one week. (5) HTN (hypertension) Current Visit: No Status: Chronic Assessment and Plan: History of hypertension taking amlodipine, lisinopril, Lasix 40, carvedilol 25 b.i.d. -Blood pressure stable -continue amlodipine -carvedilol decreased to 12 mg b.i.d. -currently holding lisinopril due to lower blood pressure. Will have PCP resume lisinopril (6) HLD (hyperlipidemia) Current Visit: No Status: Chronic Assessment and Plan: History of hyperlipidemia taking atorvastatin. Continue home medication (7) Acute kidney injury superimposed on CKD Current Visit: Yes Status: Acute Assessment and Plan: Resolved Acute kidney injury on chronic kidney disease stage III. Creatinine at admission 1.69. Baseline creatinine 1.3. -Etiologies likely prerenal in the setting of hypovolemia -creatinine 1.34 stable -Will continue to monitor serum creatinine and urine output. -Will continue to avoid nephrotoxic agents and renal dose medications (8) Obesity Current Visit: No Status: Chronic Assessment and Plan: Lifestyle changes (9) Hypokalemia Current Visit: Yes Status: Acute Assessment and Plan: Hypokalemia potassium 3.4 -supplement today -continue to monitor (10) Acute on chronic systolic CHF (congestive heart failure) Current Visit: No Status: Acute Assessment and Plan: Acute on chronic CHFrEF. Continue patient's home Lasix and amlodipine. Reduced carvedilol 12 mg b.i.d. Restart home lisinopril by PCP outpatient. DVT Prophylaxis: On Coumadin - Time Spent with Patient Total time spent is greater than 50% in coordination of care (as documented) at patient's floor/unit and/or counseling patient: Internal Medicine: Result - Labs CBC & Chem 7: 12/13/18 05:22 12/14/18 04:13 Labs: BMP 12/14/18 04:13 Sodium 137 Potassium 3.4 L Chloride 100 Carbon Dioxide 28 BUN 24 H Creatinine 1.34 H Glucose 95 Calcium 9.1 - ABG Interpretation ABG results: PT/INR, D-dimer PT 15.9 Seconds (9.4-12.1) H 12/14/18 04:13 - Impressions Impressions Chest X-Ray 12/13/18 15:11 IMPRESSION: Findings suggest pulmonary edema, including small bilateral pleural effusions. D/ / 12/13/2018 16:22:47 Jina Loyola MD / [email or web address] Interpreting Provider: Jina Loyola MD <Giulia Banegas - Last Filed: 12/14/18 14:04> (1) Congestive heart failure Qualifiers: Heart failure type: unspecified Heart failure chronicity: unspecified Qualified Code(s): I50.9 - Heart failure, unspecified (2) Atrial fibrillation Qualifiers: Atrial fibrillation type: chronic Qualified Code(s): I48.2 - Chronic atrial fibrillation (4) HTN (hypertension) Qualifiers: Hypertension type: essential hypertension Qualified Code(s): I10 - Essential (primary) hypertension (5) HLD (hyperlipidemia) Qualifiers: Hyperlipidemia type: pure hypercholesterolemia Qualified Code(s): E78.00 - Pure hypercholesterolemia, unspecified; E78.0 - Pure hypercholesterolemia (6) Anemia Qualifiers: Anemia type: iron deficiency (8) CKD (chronic kidney disease) Qualifiers: Chronic kidney disease stage: stage 4 (severe) Qualified Code(s): N18.4 - Chronic kidney disease, stage 4 (severe) (10) Obesity Qualifiers: Obesity type: due to excess calories Obesity classification: adult class 2 (BMI 35 - 39.9) Serious obesity comorbidity presence: without serious comorbidity Body mass index: BMI 37.0-37.9 Qualified Code(s): E66.09 - Other obesity due to excess calories; Z68.37 - Body mass index (BMI) 37.0-37.9, adult <Gilma Pope - Last Filed: 12/14/18 14:58> (1) Anemia Qualifiers: Anemia type: iron deficiency (3) UTI (urinary tract infection) Qualifiers: Urinary tract infection type: acute cystitis Hematuria presence: without hematuria Qualified Code(s): N30.00 - Acute cystitis without hematuria (4) Atrial fibrillation Qualifiers: Atrial fibrillation type: chronic Qualified Code(s): I48.2 - Chronic atrial fibrillation (5) HTN (hypertension) Qualifiers: Hypertension type: essential hypertension Qualified Code(s): I10 - Essential (primary) hypertension (6) HLD (hyperlipidemia) Qualifiers: Hyperlipidemia type: pure hypercholesterolemia Qualified Code(s): E78.00 - Pure hypercholesterolemia, unspecified; E78.0 - Pure hypercholesterolemia (8) Obesity Qualifiers: Obesity type: due to excess calories Obesity classification: adult class 2 (BMI 35 - 39.9) Serious obesity comorbidity presence: without serious comorbidity Body mass index: BMI 37.0-37.9 Qualified Code(s): E66.09 - Other obesity due to excess calories; Z68.37 - Body mass index (BMI) 37.0-37.9, adult
[2018-12-14 16:09] LABS: White Blood Count 6.3 K/mcL (4.3-11.1)
[2018-12-14 16:10] LABS: Basophils % 0.6 %; Eosinophils # 0.5 K/mcL (0.0-0.6); Eosinophils % 7.3 %; Hematocrit 27.7 % (35.3-44.9); Hemoglobin 8.4 g/dL (11.5-15.4); Immature Granulocytes % 0.3 % (0-4); Lymphocytes # 0.7 K/mcL (0.6-4.6); Lymphocytes % 11.7 %; Mean Corpuscular HGB Conc 30.3 g/dL (31.6-35.5); Mean Corpuscular Hemoglobin 26.8 pg (28.0-33.3); Mean Corpuscular Volume 88.2 fL (83.0-100.0); Mean Platelet Volume 11.5 fL (9.4-12.4); Monocytes # 0.9 K/mcL (0.0-1.3); Monocytes % 13.7 %; Neutrophils # 4.2 K/mcL (1.6-8.9); Platelet Count 194 K/mcL (140-400); Red Blood Count 3.14 M/mcL (3.82-4.97); Red Cell Distribution Width 17.7 % (11.5-14.5); Segmented Neutrophils % 66.4 %
[2018-12-14] MEDS: Cefdinir 300 MG CAPSULE PO SCH (17:32)
[2018-12-14] MEDS ORDERED: *HR* Warfarin 2 MG TABLET PO ONE (18:00)
[2018-12-14] MEDS ORDERED: Warfarin perPT PO PRN (18:00)
[2018-12-14] MEDS ORDERED: cefTRIAXone 1,000 MG in Water for inj. (sterile) 20 ML 10 ML IVP SCH (20:00)
[2018-12-15 04:16] LABS: Basophils % 0.5 %; Eosinophils # 0.3 K/mcL (0.0-0.6); Eosinophils % 3.6 %; Hematocrit 27.5 % (35.3-44.9); Hemoglobin 8.6 g/dL (11.5-15.4); Immature Granulocytes % 0.4 % (0-4); Lymphocytes # 0.7 K/mcL (0.6-4.6); Lymphocytes % 8.3 %; Mean Corpuscular HGB Conc 31.3 g/dL (31.6-35.5); Mean Corpuscular Hemoglobin 26.5 pg (28.0-33.3); Mean Corpuscular Volume 84.9 fL (83.0-100.0); Mean Platelet Volume 10.8 fL (9.4-12.4); Monocytes # 1.3 K/mcL (0.0-1.3); Monocytes % 15.1 %; Platelet Count 186 K/mcL (140-400); Red Blood Count 3.24 M/mcL (3.82-4.97); Red Cell Distribution Width 17.7 % (11.5-14.5); Segmented Neutrophils % 72.1 %; White Blood Count 8.3 K/mcL (4.3-11.1)
[2018-12-15 04:22] LABS: INR 1.3
[2018-12-15 04:34] LABS: Calcium 9.2 mg/dL (8.6-10.3); Potassium 3.5 mEq/L (3.5-5.1)
--- NOTE | 2018-12-15 07:56 | Discharge Summary ---
<Hector Todd - Last Filed: 12/15/18 16:33> - NOTES TO OUTPATIENT PROVIDER Notes to Outpatient Provider: Patient's lisinopril was held due to hypotension. Please reevaluate dosage upon resuming medication. Coreg dosage was reduced to 12.5 mg BID from 25 mg BID also due to hypotension. Patient also has right upper extremity cellulitis but will need to be evaluated. Please make sure patient has scheduled appointment with Coumadin clinic. She should have her INR checked in 3 days with the Coumadin clinic. Date of Encounter: 12/15/18 Time of Encounter: 08:30 - Discharge Diagnosis (1) Anemia Priority: Primary Status: Acute Qualifiers: Anemia type: unspecified type Qualified Code(s): D64.9 - Anemia, unspecified (2) Acute kidney injury superimposed on CKD Priority: Primary Status: Acute (3) Obesity Priority: Secondary Status: Chronic Qualifiers: Obesity type: due to excess calories Obesity classification: adult class 2 (BMI 35 - 39.9) Serious obesity comorbidity presence: without serious comorbidity Body mass index: BMI 37.0-37.9 Qualified Code(s): E66.09 - Other obesity due to excess calories; Z68.37 - Body mass index (BMI) 37.0-37.9, adult (4) Atrial fibrillation Priority: Secondary Status: Chronic Qualifiers: Atrial fibrillation type: chronic Qualified Code(s): I48.2 - Chronic atrial fibrillation (5) HTN (hypertension) Priority: Primary Status: Chronic Qualifiers: Hypertension type: essential hypertension Qualified Code(s): I10 - Essential (primary) hypertension (6) HLD (hyperlipidemia) Priority: Secondary Status: Chronic Qualifiers: Hyperlipidemia type: pure hypercholesterolemia Qualified Code(s): E78.00 - Pure hypercholesterolemia, unspecified; E78.0 - Pure hypercholesterolemia (7) Hypothyroidism Priority: Secondary Status: Chronic Qualifiers: Hypothyroidism type: acquired Qualified Code(s): E03.9 - Hypothyroidism, unspecified Hospital course: Patient is an 88-year-old female with a past medical history of A. fib on coumadin, congestive heart failure, coronary artery disease, hypertension, and valvular heart disease that was referred from her PCP for severe anemia. Patient had a hemoglobin of 5.6. She denied any symptoms of bleeding, hemoptysis, epistaxis, bleeding from gums, dysuria, hematochezia, or melena. Patient is on iron supplements at home. When she presented to the ER she was given 2 units of blood. Her INR was supra therapeutic at 4.4. Patients Coumadin was held. Blood pressure was stable. Patient was afebrile. BMP noted was 457. UA did reveal trace signs of infection. Patients iron profile labs was also indicative of anemia of chronic disease. Patient was put on IV iron for 3 days. Once patients INR was brought down to 1.5 she was taken for an EGD and colonoscopy to rule out GI bleed. The exam showed many small diverticuli in the sigmoid colon and evidence of internal hemorrhoids which were mild, but no signs of active bleeding. Patient was also noted to have complained of hematuria. She was started on antibiotics for UTI. Patient also had a retroperitoneal ultrasound which showed a 2 mm kidney stone on the left side. Patients hemoglobin has been stable. Her anemia is likely multifactorial due to bleeding from diverticulosis, hematuria, and chronic disease. During her hospital course patient did suffer episodes of hypotension. Her lisinopril was put on hold and patient's blood pressure became normotensive. Patient's warfarin was started last night and has denied any symptoms of bleeding. When seen today she was complaining of swelling in her right arm from where IV was. Upon examination there was erythema, warmth, mild tenderness. A right upper extremity ultrasound was ordered to rule out DVT. Today patient denies any chest pain or shortness of breath. She denies any abdominal pain, nausea, or vomiting. Denies any fever. Denies any cough or wheezing. Denies any weakness. Patient to be discharged home today. She is to follow-up with her PCP in 3 days. PCP to reevaluate dosage of lisinopril which was held due to hypotension in addition to her Coreg where dosage was reduced to 12.5 mg BID. Patient will also need to make an appointment with the Coumadin clinic in the next week. Also to note, patient said that she developed some swelling and redness around her antecubital region of her right arm. An ultrasound was ordered and showed only an SVT with no evidence of a DVT. Patient was instructed to apply warm compress, Tylenol as needed, and follow-up with PCP. - Time Spent with Patient Total time spent providing and/or coordinating discharge services: Time spent: Greater than 30 minutes - Discharge Medications Prescriptions: New Cefdinir [Omnicef] 300 mg PO QD 6 Days #6 capsule Carvedilol [Coreg] 12.5 mg PO BIDWM 30 Days #60 tablet Continued Omeprazole [PriLOSEC] 20 mg PO DAILY Vit C/Vit E/Lutein/Min/[place]oe-3 [Ocuvite Softgel] 1 cap PO DAILY Pravastatin Sodium [Pravachol] 80 mg PO DAILY Krill Oil 500 mg PO DAILY Ferrous Sulfate [Slow Fe] 325 mg PO DAILY Cyanocobalamin (Vitamin B-12) [Vitamin B12] 500 mcg PO DAILY Cholecalciferol (Vitamin D3) [Vitamin D3] 1,000 unit PO DAILY Levothyroxine [Synthroid] 112 mcg PO 0630 amLODIPine [Norvasc] 5 mg PO DAILY Furosemide [Lasix] 40 mg PO BID Warfarin Sodium 2 mg PO SUTUWETHFRSA Warfarin Sodium 3 mg PO MO Multivitamin [One Daily Essential] 1 each PO DAILY Discontinued Lisinopril [Zestril] 40 mg PO DAILY Home Medications: Cholecalciferol (Vitamin D3) [Vitamin D3] 1,000 unit PO DAILY 10/25/16 [History] Cyanocobalamin (Vitamin B-12) [Vitamin B12] 500 mcg PO DAILY 10/25/16 [History] Ferrous Sulfate [Slow Fe] 325 mg PO DAILY 10/25/16 [History] Krill Oil 500 mg PO DAILY 10/25/16 [History] Omeprazole [PriLOSEC] 20 mg PO DAILY 10/25/16 [History] Pravastatin Sodium [Pravachol] 80 mg PO DAILY 10/25/16 [History] Vit C/Vit E/Lutein/Min/[place]-3 [Ocuvite Softgel] 1 cap PO DAILY 10/25/16 [History] Levothyroxine [Synthroid] 112 mcg PO 0630 07/15/17 [History] amLODIPine [Norvasc] 5 mg PO DAILY 11/22/17 [History] Furosemide [Lasix] 40 mg PO BID 06/25/18 [History] Warfarin Sodium 2 mg PO SUTUWETHFRSA 06/25/18 [History] Warfarin Sodium 3 mg PO MO 06/25/18 [History] Multivitamin [One Daily Essential] 1 each PO DAILY 12/09/18 [History] Carvedilol [Coreg] 12.5 mg PO BIDWM 30 Days #60 tablet 12/15/18 [Rx] Cefdinir [Omnicef] 300 mg PO QD 6 Days #6 capsule 12/15/18 [Rx] Allergies/Adverse Reactions: Allergy/AdvReac Type Severity Reaction Status Date / Time Penicillins [PCN] Allergy Hives Verified 12/09/18 19:56 Date of admission: 12/09/18 02:20 Primary care physician: Clemencia Velasquez CNP Consults: 12/08/18 23:59 Consult to Gastroenterology [CONS] Routine Consulting Provider: Arthur Burleson Reason for Consult: anemia, possible gi bleed Call Completed: No 12/14/18 12:39 Consult to Nurse Navigator [CONS] Routine Comment: chf Discharging clinician: Hector Todd Anticipated date of discharge: 12/15/18 - Constitutional Vitals: Temp Pulse Resp BP Pulse Ox 99.1 F 76 16 130/75 90 12/15/18 07:41 12/15/18 07:41 12/15/18 07:41 12/15/18 07:41 12/15/18 07:41 Exam: ENERAL APPEARANCE: Well developed, well nourished, alert and cooperative, and appears to be in no acute distress. HEAD: normocephalic. EYES: PERRL, EOMI. Fundi normal, vision is grossly intact. EARS: hearing grossly intact. NOSE: No nasal discharge. THROAT: Oral cavity and pharynx normal. No inflammation, swelling, exudate, or lesions. Teeth and gingiva in good general condition. NECK: Neck supple, non-tender without lymphadenopathy, masses or thyromegaly. CARDIAC: Normal S1 and S2. No S3, S4 or murmurs. Rhythm is regular. There is no peripheral edema, cyanosis or pallor. Extremities are warm and well perfused. Capillary refill is less than 2 seconds. No carotid bruits. LUNGS: Fine rales and both lung bases. ABDOMEN: Positive bowel sounds. Soft, nondistended, nontender. No guarding or rebound. No masses. MUSKULOSKELETAL: No joint erythema or tenderness. Normal muscular development. EXTREMITIES: No significant deformity or joint abnormality. No edema. Peripheral pulses intact. No varicosities. LOWER EXTREMITY: No pedal edema SKIN: Skin normal color, texture and turgor with no lesions or eruptions. PSYCHIATRIC: The mental examination revealed the patient was oriented to person, place, and time. - Patient Status Disposition: Home, Self-Care Condition: Good Functional capacity at discharge: uses cane/walker - Discharge Instructions Instructions: Anemia (GEN) Follow Up With: Clemencia Velasquez CNP [Primary Care Provider] - (Web request. Office will call patient with date and time of appointment. Thank you) Aislinn Dennison MD [Partnered Physician] - Additional Instructions: Please have your INR checked in the next 3-4 days. You were diagnosed with a superficial vein clot at the site of your prior IV. Treatment is supportive care with hot compress or ice for pain, tylenol for pain, rest and elevation of arm. Please follow up with your PCP in the next week to have this re evaluated for improvement and to give any further dosing recommendations for your blood thinner You will need to see the GI doctors outpatient in follow up. 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 SITE BEING TREATED WITH SUPPORTIVE MEASURES- PLEASE FOLLOW UP FOR IMPROVEMENT AT HER NEXT PCP APPT Orders not resulted at time of discharge: Pending orders 12/16/18 04:00 PT/INR [Prothrombin Time INR] [COAG] AM 0400 12/17/18 04:00 PT/INR [Prothrombin Time INR] [COAG] AM 0400 12/18/18 04:00 PT/INR [Prothrombin Time INR] [COAG] AM 0400 Date of Encounter: 12/15/18 - Discharge Diagnosis (1) Atrial fibrillation Status: Chronic Qualifiers: Atrial fibrillation type: chronic Qualified Code(s): I48.2 - Chronic atrial fibrillation (2) HTN (hypertension) Status: Chronic Qualifiers: Hypertension type: essential hypertension Qualified Code(s): I10 - Essential (primary) hypertension (3) HLD (hyperlipidemia) Status: Chronic Qualifiers: Hyperlipidemia type: pure hypercholesterolemia Qualified Code(s): E78.00 - Pure hypercholesterolemia, unspecified; E78.0 - Pure hypercholesterolemia (4) Anemia Status: Chronic Qualifiers: Anemia type: iron deficiency (5) UTI (urinary tract infection) Status: Acute Qualifiers: Urinary tract infection type: acute cystitis Hematuria presence: without hematuria Qualified Code(s): N30.00 - Acute cystitis without hematuria (6) Acute on chronic systolic CHF (congestive heart failure) Status: Acute (7) Supratherapeutic INR Status: Acute (8) Obesity Status: Chronic Qualifiers: Obesity type: due to excess calories Obesity classification: adult class 2 (BMI 35 - 39.9) Serious obesity comorbidity presence: without serious comorbidity Body mass index: BMI 37.0-37.9 Qualified Code(s): E66.09 - Other obesity due to excess calories; Z68.37 - Body mass index (BMI) 37.0-37.9, adult (9) Acute kidney injury superimposed on CKD Status: Acute (10) Hypokalemia Status: Acute Hospital course: Ms. Patel is a 88 year old female - Time Spent with Patient Total time spent providing and/or coordinating discharge services: Time spent: Greater than 30 minutes (45 MIN) Date of admission: 12/09/18 02:20 Primary care physician: Clemencia Velasquez CNP Consults: 12/08/18 23:59 Consult to Gastroenterology [CONS] Routine Consulting Provider: Arthur Burleson Reason for Consult: anemia, possible gi bleed Call Completed: No 12/14/18 12:39 Consult to Nurse Navigator [CONS] Routine Comment: chf - Constitutional Vitals: Temp Pulse Resp BP Pulse Ox 98.5 F 75 20 123/71 93 12/15/18 11:49 12/15/18 11:49 12/15/18 11:49 12/15/18 11:49 12/15/18 11:49 - Patient Status Overall status at discharge: patient is back to baseline - Attending Attestation I examined this patient and my medical decision-making was reviewed with the Resident Physician Dr Todd. I agree with the documented findings, disposition and treatment plan as described except to the extent set forth below. Ms Patel is admitted with suspected GIB acute anemia. She is additionally being treated for possible UTI. She developed RUE SVT this admission. She is stable for dc to home. awake, family at bedside. feeling great and eager for dc. RUE sore at site of prior IV with "knot" in arm. no fevers, chills. no bladder pain or spasm. Dneies fatigue sob or lightheadedenss. No bleeding. gen- alert, awake,appears stated age cv- reg rate and rhythm, normal s1,s2 lungs- ctabl, normal resp effort on room air abd- soft, non tender, non distended, + bs skin- RUE near AC fossa with mild erythema and palpable mass, tender to palpation neuro- AAOx3 Acute suspected GI blood loss anemia- stable hgb, will fu with GI outpt, outpt INR monitoring on AC HTN with hypotension, low normotension this admit- cont meds as ordered Afib on AC Supratherapeutic INR- resolved - resumed warfarin, outpt INR check in 3 days Possible UTI- cx no growth, believe was checked after abx- will complete abx to complete course PO given risk v benefit Acute on chronic HFrEF resolved RUE SVT- supportive care further diagnoses and plan as noted by resident time spent on dc 45 min
[2018-12-15] MEDS: Cyanocobalamin (B-12) 1,000 MCG TABLET PO SCH (08:10)
[2018-12-15] MEDS: amLODIPine 5 MG TABLET PO SCH (08:10)
[2018-12-15] MEDS: Furosemide 20 MG/2 ML VIAL IVP SCH (08:10)
[2018-12-15] MEDS: Cholecalciferol (D-3) 1,000 UNIT TABLET PO SCH (08:10)
[2018-12-15] MEDS: Multivit/Ca/Min/Fe/FA 1 TAB TABLET PO SCH (08:10)
[2018-12-15 17:08] VITALS: BP 135/71
[2018-12-15] MEDS: Cefdinir 300 MG CAPSULE PO SCH (17:57)
[2018-12-15] MEDS ORDERED: *HR* Warfarin 2 MG TABLET PO ONE (18:00)
== END 2018-12-15 18:23 | disposition home or self-care (01) | DRG 377 ==
LOC: 3NENU 16:49 → EMEROOARM 16:49 → 3NENU 23:50 → SUATTDRO 12-09 02:20 → 3ANU 12-12 14:55
PROVIDERS: ADMIT Internal Medicine; ATTEND Internal Medicine

== ENCOUNTER 2019-01-20 11:39 | Inpatient (IN) ==
--- NOTE | 2019-01-20 11:44 | Emergency Department Note ---
Disposition Clinical Impression: CHF exacerbation Qualifiers: Heart failure type: unspecified Qualified Code(s): I50.9 - Heart failure, unspecified Disposition: Admitted As Inpatient Time of Disposition: 13:18 General Adult HPI - General Stated complaint: SOB Time Seen by Provider: 01/20/19 11:40 Nursing Notes Reviewed: Yes Vital Signs Reviewed: Yes - History of Present Illness HPI Narrative: 88-year-old female was is emergency Department concern for 2 days of shortness of breath. Patient states she has history of congestive heart failure and has pacemaker placed due to history of atrial fibrillation. She is on Coumadin. Patient states that she has had no fever, cough, sputum production, chest pain. EMS brought her in. She does not have oxygen at home. They placed her on 2 L due to an oxygen saturation of 85% that immediately corrected to 93%. Patient states it feels exactly like her CHF. - Related Data Home Medications Medication Instructions Recorded Confirmed Cholecalciferol (Vitamin D3) 1,000 unit PO DAILY 10/25/16 01/20/19 [Vitamin D3] Cyanocobalamin (Vitamin B-12) 500 mcg PO DAILY 10/25/16 01/20/19 [Vitamin B12] Ferrous Sulfate [Slow Fe] 325 mg PO DAILY 10/25/16 01/20/19 Krill Oil 500 mg PO DAILY 10/25/16 01/20/19 Omeprazole [PriLOSEC] 20 mg PO DAILY 10/25/16 01/20/19 Pravastatin Sodium [Pravachol] 80 mg PO DAILY 10/25/16 01/20/19 Vit C/Vit E/Lutein/Min/[place]-3 1 cap PO DAILY 10/25/16 01/20/19 [Ocuvite Softgel] Levothyroxine [Synthroid] 112 mcg PO 0630 07/15/17 01/20/19 amLODIPine [Norvasc] 5 mg PO DAILY 11/22/17 01/20/19 Furosemide [Lasix] 40 mg PO BID 06/25/18 01/20/19 Warfarin Sodium 2 mg PO DAILY 06/25/18 01/20/19 Multivitamin [One Daily Essential] 1 each PO DAILY 12/09/18 01/20/19 Allergies Allergy/AdvReac Type Severity Reaction Status Date / Time Penicillins [PCN] Allergy Hives Verified 12/09/18 19:56 All systems ED: reviewed and negative except as stated. Review of Systems: As Per HPI Constitutional: Denies: fever Cardiovascular: Denies: chest pain Respiratory: Reports: dyspnea. Denies: cough, wheezes, sputum production Gastrointestinal: Denies: abdominal pain, nausea, vomiting Genitourinary: Denies: urgency, dysuria, frequency Past Medical History - Past Medical History Attestation: Yes The following information was validated with the patient. Medical history: Reports: arthritis, atrial fibrillation, cardiomyopathy, CHF, coronary artery disease, hyperlipidemia, hypertension, thyroid disease, valvular heart disease Surgical history: Reports: appendectomy, cholecystectomy, hysterectomy, orthopedic, other, pacemaker Psychiatric history: Reports: no psych history - Social History Smoking Status: Never smoker Smokeless Tobacco Status: No Alcohol use: Reports: none Drug use: Reports: none Physical Exam - General Limitations: no limitations General appearance: alert, other (Mild increased work of breathing with some accessory muscle use) - Head Head exam: normocephalic - Eye Eye exam: Present: EOMI - ENT ENT exam: mucous membranes moist - Neck Neck exam: Present: trachea midline - Chest Chest inspection: Present: symmetric chest wall rise - Respiratory Respiratory exam: Present: accessory muscle use, other (Rales throughout) - Cardiovascular Cardiovascular exam: Present: regular rate, normal heart sounds - Abdominal Exam Abdominal exam: Present: soft, Non-Tender. Absent: distention, guarding, rebound, rigidity - Extremities Exam Extremities exam: Present: normal capillary refill, pedal edema (1+). Absent: calf tenderness - Back Exam Back exam: Present: full ROM - Neurological Exam Neurological exam: Present: alert, oriented X3 - Psychiatric Psychiatric exam: Present: normal affect, normal mood - Skin Skin exam: Present: warm, dry, intact, normal color Course Vital Signs Temperature 98.5 F 01/20/19 11:46 Pulse Rate 91 01/20/19 11:46 Respiratory Rate 22 01/20/19 11:46 Blood Pressure 141/68 01/20/19 11:46 O2 Sat by Pulse Oximetry 94 01/20/19 11:46 Temperature 98.5 F 01/20/19 11:46 Pulse Rate 70 01/20/19 12:16 Respiratory Rate 20 01/20/19 12:16 Blood Pressure 125/63 01/20/19 12:16 O2 Sat by Pulse Oximetry 94 01/20/19 12:16 Oxygen Delivery Oxygen Delivery Nasal Cannula Medical Decision Making - [facility] Narrative Medical decision making narrative: 88-year-old female presents emergency with increased shortness of breath in the setting of known CHF with 30-35% with a dilated cardiomyopathy. Chest x-ray ECG, troponin, BNP, giving patient nitroglycerin for accessory muscle use currently on 2 L of oxygen via nasal cannula. Chest x-ray reveals extensive pulmonary edema. With increased work of breathing, we administered 1 nitroglycerin. 12:16 Patient's accessory muscle use has stopped after menstruation nitroglycerin. We will provide this on an as-needed basis at this time. Patient does not need At this time. We will give Lasix as well. Patient admitted to hospitalist. - Lab Data Result diagrams: 01/20/19 11:58 01/20/19 11:58 Lab Results 01/20/19 01/20/19 01/20/19 Range/Units 11:58 11:58 11:58 WBC 7.1 (4.3-11.1) K/mcL RBC 3.95 (3.82-4.97) M/mcL Hgb 10.3 L (11.5-15.4) g/dL Hct 33.6 L (35.3-44.9) % MCV 85.1 (83.0-100.0) fL MCH 26.1 L (28.0-33.3) pg MCHC 30.7 L (31.6-35.5) g/dL RDW 19.0 H (11.5-14.5) % Plt Count 229 (140-400) K/mcL MPV 11.0 (9.4-12.4) fL Immature Gran % 0.4 (0-4) % Seg Neutrophils % 73.4 % Lymphocytes % 11.5 % Monocytes % 11.2 % Eosinophils % 2.8 % Basophils % 0.7 % Neutrophils # 5.2 (1.6-8.9) K/mcL Lymphocytes # 0.8 (0.6-4.6) K/mcL Monocytes # 0.8 (0.0-1.3) K/mcL Eosinophils # 0.2 (0.0-0.6) K/mcL Basophils # 0.1 (0.0-0.2) K/mcL PT (9.4-12.1) Seconds INR Sodium 140 (136-145) mEq/L Potassium 3.4 L (3.5-5.1) mEq/L Chloride 103 (98-107) mEq/L Carbon Dioxide 27 (23-29) mEq/L BUN 26 H (8-23) mg/dL Creatinine 1.28 H (0.60-1.20) mg/dL Est GFR ( Amer) 48 L (> 60) Est GFR (Non-Af Amer) 40 L (> 60) BUN/Creatinine Ratio 20 (6-26) Glucose 133 H (70-105) mg/dL Calculated Osmolality 297 (280-300) Lactic Acid 1.0 (0.5-2.2) mmol/L Calcium 9.3 (8.6-10.3) mg/dL Troponin I < 0.03 (< 0.04) ng/mL B-Natriuretic Peptide (Less than 100) pg/mL 01/20/19 01/20/19 Range/Units 11:58 11:58 WBC (4.3-11.1) K/mcL RBC (3.82-4.97) M/mcL Hgb (11.5-15.4) g/dL Hct (35.3-44.9) % MCV (83.0-100.0) fL MCH (28.0-33.3) pg MCHC (31.6-35.5) g/dL RDW (11.5-14.5) % Plt Count (140-400) K/mcL MPV (9.4-12.4) fL Immature Gran % (0-4) % Seg Neutrophils % % Lymphocytes % % Monocytes % % Eosinophils % % Basophils % % Neutrophils # (1.6-8.9) K/mcL Lymphocytes # (0.6-4.6) K/mcL Monocytes # (0.0-1.3) K/mcL Eosinophils # (0.0-0.6) K/mcL Basophils # (0.0-0.2) K/mcL PT 34.7 H (9.4-12.1) Seconds INR 3.0 Sodium (136-145) mEq/L Potassium (3.5-5.1) mEq/L Chloride (98-107) mEq/L Carbon Dioxide (23-29) mEq/L BUN (8-23) mg/dL Creatinine (0.60-1.20) mg/dL Est GFR ( Amer) (> 60) Est GFR (Non-Af Amer) (> 60) BUN/Creatinine Ratio (6-26) Glucose (70-105) mg/dL Calculated Osmolality (280-300) Lactic Acid (0.5-2.2) mmol/L Calcium (8.6-10.3) mg/dL Troponin I (< 0.04) ng/mL B-Natriuretic Peptide 782 H (Less than 100) pg/mL - EKG Data EKG #1 EKG attestation: Yes I reviewed and interpreted this EKG. EKG results narrative: Atrial fibrillation with ventricular paced rhythm.
--- NOTE | 2019-01-20 11:44 | Emergency Department Note ---
Disposition Clinical Impression: CHF exacerbation Qualifiers: Heart failure type: unspecified Qualified Code(s): I50.9 - Heart failure, unspecified Disposition: Admitted As Inpatient Time of Disposition: 19:48 General Adult HPI - General Stated complaint: SOB Time Seen by Provider: 01/20/19 11:40 - Related Data Home Medications Medication Instructions Recorded Confirmed Cholecalciferol (Vitamin D3) 1,000 unit PO DAILY 10/25/16 01/20/19 [Vitamin D3] Cyanocobalamin (Vitamin B-12) 500 mcg PO DAILY 10/25/16 01/20/19 [Vitamin B12] Ferrous Sulfate [Slow Fe] 325 mg PO DAILY 10/25/16 01/20/19 Krill Oil 500 mg PO DAILY 10/25/16 01/20/19 Omeprazole [PriLOSEC] 20 mg PO DAILY 10/25/16 01/20/19 Pravastatin Sodium [Pravachol] 80 mg PO DAILY 10/25/16 01/20/19 Vit C/Vit E/Lutein/Min/[place]-3 1 cap PO DAILY 10/25/16 01/20/19 [Ocuvite Softgel] Levothyroxine [Synthroid] 112 mcg PO 0630 07/15/17 01/20/19 amLODIPine [Norvasc] 5 mg PO DAILY 11/22/17 01/20/19 Furosemide [Lasix] 40 mg PO BID 06/25/18 01/20/19 Warfarin Sodium 2 mg PO DAILY 06/25/18 01/20/19 Multivitamin [One Daily Essential] 1 each PO DAILY 12/09/18 01/20/19 Carvedilol [Coreg] 12.5 mg PO BIDWM 01/20/19 01/20/19 Allergies Allergy/AdvReac Type Severity Reaction Status Date / Time Penicillins [PCN] Allergy Hives Verified 12/09/18 19:56 Past Medical History - Past Medical History Medical history: Reports: arthritis, atrial fibrillation, cardiomyopathy, CHF, coronary artery disease, hyperlipidemia, hypertension, thyroid disease, valvular heart disease Surgical history: Reports: appendectomy, cholecystectomy, hysterectomy, orthopedic, other, pacemaker Psychiatric history: Reports: no psych history - Social History Smoking Status: Never smoker Smokeless Tobacco Status: No Alcohol use: Reports: none Drug use: Reports: none Course Vital Signs Temperature 98.5 F 01/20/19 11:46 Pulse Rate 91 01/20/19 11:46 Respiratory Rate 22 01/20/19 11:46 Blood Pressure 141/68 01/20/19 11:46 O2 Sat by Pulse Oximetry 94 01/20/19 11:46 Temperature 97.9 F 01/20/19 17:35 Pulse Rate 91 01/20/19 17:35 Respiratory Rate 22 01/20/19 17:35 Blood Pressure 148/74 01/20/19 17:35 O2 Sat by Pulse Oximetry 94 01/20/19 17:35 Oxygen Delivery Oxygen Delivery Nasal Cannula Medical Decision Making - Lab Data Result diagrams: 01/20/19 11:58 01/20/19 11:58 Lab Results 01/20/19 01/20/19 01/20/19 Range/Units 11:58 11:58 11:58 WBC 7.1 (4.3-11.1) K/mcL RBC 3.95 (3.82-4.97) M/mcL Hgb 10.3 L (11.5-15.4) g/dL Hct 33.6 L (35.3-44.9) % MCV 85.1 (83.0-100.0) fL MCH 26.1 L (28.0-33.3) pg MCHC 30.7 L (31.6-35.5) g/dL RDW 19.0 H (11.5-14.5) % Plt Count 229 (140-400) K/mcL MPV 11.0 (9.4-12.4) fL Immature Gran % 0.4 (0-4) % Seg Neutrophils % 73.4 % Lymphocytes % 11.5 % Monocytes % 11.2 % Eosinophils % 2.8 % Basophils % 0.7 % Neutrophils # 5.2 (1.6-8.9) K/mcL Lymphocytes # 0.8 (0.6-4.6) K/mcL Monocytes # 0.8 (0.0-1.3) K/mcL Eosinophils # 0.2 (0.0-0.6) K/mcL Basophils # 0.1 (0.0-0.2) K/mcL PT (9.4-12.1) Seconds INR Sodium 140 (136-145) mEq/L Potassium 3.4 L (3.5-5.1) mEq/L Chloride 103 (98-107) mEq/L Carbon Dioxide 27 (23-29) mEq/L BUN 26 H (8-23) mg/dL Creatinine 1.28 H (0.60-1.20) mg/dL Est GFR ( Amer) 48 L (> 60) Est GFR (Non-Af Amer) 40 L (> 60) BUN/Creatinine Ratio 20 (6-26) Glucose 133 H (70-105) mg/dL Calculated Osmolality 297 (280-300) Lactic Acid 1.0 (0.5-2.2) mmol/L Calcium 9.3 (8.6-10.3) mg/dL Troponin I < 0.03 (< 0.04) ng/mL B-Natriuretic Peptide (Less than 100) pg/mL 01/20/19 01/20/19 Range/Units 11:58 11:58 WBC (4.3-11.1) K/mcL RBC (3.82-4.97) M/mcL Hgb (11.5-15.4) g/dL Hct (35.3-44.9) % MCV (83.0-100.0) fL MCH (28.0-33.3) pg MCHC (31.6-35.5) g/dL RDW (11.5-14.5) % Plt Count (140-400) K/mcL MPV (9.4-12.4) fL Immature Gran % (0-4) % Seg Neutrophils % % Lymphocytes % % Monocytes % % Eosinophils % % Basophils % % Neutrophils # (1.6-8.9) K/mcL Lymphocytes # (0.6-4.6) K/mcL Monocytes # (0.0-1.3) K/mcL Eosinophils # (0.0-0.6) K/mcL Basophils # (0.0-0.2) K/mcL PT 34.7 H (9.4-12.1) Seconds INR 3.0 Sodium (136-145) mEq/L Potassium (3.5-5.1) mEq/L Chloride (98-107) mEq/L Carbon Dioxide (23-29) mEq/L BUN (8-23) mg/dL Creatinine (0.60-1.20) mg/dL Est GFR ( Amer) (> 60) Est GFR (Non-Af Amer) (> 60) BUN/Creatinine Ratio (6-26) Glucose (70-105) mg/dL Calculated Osmolality (280-300) Lactic Acid (0.5-2.2) mmol/L Calcium (8.6-10.3) mg/dL Troponin I (< 0.04) ng/mL B-Natriuretic Peptide 782 H (Less than 100) pg/mL Attestation Statement - Attestation Attestation: I reviewed the residents documentation and agree with the residents assessment and plan of care. I have personally had face to face time with the patient. (Brief History, Brief Exam, and MDM) I personally supervised and was present for the chao/critical portions of the following procedures completed by the resident: (add procedures performed here). [id number] time provided Patient resume EMS complaining of dyspnea. History of congestive heart failure. She appears mildly dyspneic and tachypneic with accessory muscle use on arrival. I attest to supervising the resident physician's interpretation of the ECG
[2019-01-20] MEDS ORDERED: Nitroglycerin 0.4 MG TAB.SUBL SL PRN (11:47)
[2019-01-20] MEDS ORDERED: Furosemide 40 MG/4 ML VIAL IVP ONE (12:16)
[2019-01-20 12:17] LABS: Basophils # 0.1 K/mcL (0.0-0.2); Basophils % 0.7 %; Eosinophils # 0.2 K/mcL (0.0-0.6); Eosinophils % 2.8 %; Hematocrit 33.6 % (35.3-44.9); Hemoglobin 10.3 g/dL (11.5-15.4); Immature Granulocytes % 0.4 % (0-4); Lymphocytes # 0.8 K/mcL (0.6-4.6); Lymphocytes % 11.5 %; Mean Corpuscular HGB Conc 30.7 g/dL (31.6-35.5); Mean Corpuscular Hemoglobin 26.1 pg (28.0-33.3); Mean Corpuscular Volume 85.1 fL (83.0-100.0); Monocytes # 0.8 K/mcL (0.0-1.3); Monocytes % 11.2 %; Neutrophils # 5.2 K/mcL (1.6-8.9); Platelet Count 229 K/mcL (140-400); Red Blood Count 3.95 M/mcL (3.82-4.97); Segmented Neutrophils % 73.4 %; White Blood Count 7.1 K/mcL (4.3-11.1)
[2019-01-20 12:32] LABS: BUN/Creatinine Ratio 20 (6-26); Blood Urea Nitrogen 26 mg/dL (8-23); Calcium 9.3 mg/dL (8.6-10.3); Carbon Dioxide 27 mEq/L (23-29); Chloride 103 mEq/L (98-107); Glucose 133 mg/dL (70-105); Osmolality,Calculated 297 (280-300); Potassium 3.4 mEq/L (3.5-5.1); Sodium 140 mEq/L (136-145); Troponin I < 0.03 ng/mL (< 0.04); eGFR For African Americans 48 (> 60); eGFR For Non-African Americans 40 (> 60)
[2019-01-20 12:55] LABS: Prothrombin Time 34.7 Seconds (9.4-12.1)
[2019-01-20] MEDS ORDERED: Acetaminophen 325 MG TABLET PO PRN (14:07)
[2019-01-20] MEDS ORDERED: Naloxone 0.4 MG/ML INJ IVP PRN (14:07)
--- NOTE | 2019-01-20 17:27 | Internal Med History&Physical ---
Date of Encounter: 01/20/19 Time of Encounter: 17:14 Internal Medicine - H&P: HPI Chief complaint: Dyspnea Admitted From: Home Plans for Post Hospital Care: Home History of present illness: Ms. Patel is a 88 year old female with history of HFrEF with EF 25-30%, moderate to severe MR, atrial fibrillation on warfarin, recent admission for a diverticular GIB, and HTN presents with acute hypoxic respiratory failure. Brady de la cruz says that over the last 3 days she has had increased shortness of breath. Has chronic orthopnea which is worse as of recently. Uses 2 pillows in order to sleep. Has chronic lower extremity edema and is unsure if it is worse than normal. No change in her diet and avoids salty foods. Has not missed any doses of her Lasix. Also notes dyspnea on exertion. Denied chest pain at time of initial eval but now is complaining of chest pain. Right-sided and pressure- like sensation. In the ED, VSS but needing 5 L of oxygen to keep sats. Not on oxygen outpatient. Cr 1.28 (her BL). BNP 782. INR 3.0. CXR with pulmonary edema and left-sided pleural effusion. Admitted to medicine Past Med Surg Social Fam HX - Past Medical History Medical history: arthritis, atrial fibrillation, cardiomyopathy, CHF, coronary artery disease, hyperlipidemia, hypertension, thyroid disease, valvular heart disease Additional medical history: per daughter Psychiatric history: no psych history - Past Surgical History Surgical History: appendectomy, cholecystectomy, hysterectomy, orthopedic, other, pacemaker Additional surgical history: knees - Social History Smoking Status: Never smoker Smokeless Tobacco Status: No Alcohol use: none Drug use: none - Family History Mother Living Status: Hx Family Cardiac Disorders: No Hx Family Respiratory Disorders: No Hx Family Cancer: No Hx Family GI Disorders: No Hx Family Endocrine Disorder: No Hx Family Neuromuscular Disorders: No Hx Family Neurologic Disorders: No Hx Family HEENT Disorders: No Hx Family Autoimmune Disorders: No Daughter Living Status: Still Living Hx Family Cardiac Disorders: No Hx Family Respiratory Disorders: No Hx Family Cancer: Yes (breast cancer) Hx Family GI Disorders: No Hx Family Endocrine Disorder: No Hx Family Neuromuscular Disorders: No Hx Family Neurologic Disorders: No Hx Family HEENT Disorders: No Hx Family Autoimmune Disorders: No Father Living Status: Hx Family Cancer: Yes Internal Medicine - H&P: Meds Cholecalciferol (Vitamin D3) [Vitamin D3] 1,000 unit PO DAILY 10/25/16 [History] Cyanocobalamin (Vitamin B-12) [Vitamin B12] 500 mcg PO DAILY 10/25/16 [History] Ferrous Sulfate [Slow Fe] 325 mg PO DAILY 10/25/16 [History] Krill Oil 500 mg PO DAILY 10/25/16 [History] Omeprazole [PriLOSEC] 20 mg PO DAILY 10/25/16 [History] Pravastatin Sodium [Pravachol] 80 mg PO DAILY 10/25/16 [History] Vit C/Vit E/Lutein/Min/[place]-3 [Ocuvite Softgel] 1 cap PO DAILY 10/25/16 [History] Levothyroxine [Synthroid] 112 mcg PO 30 07/15/17 [History] amLODIPine [Norvasc] 5 mg PO DAILY 11/22/17 [History] Furosemide [Lasix] 40 mg PO BID 06/25/18 [History] Warfarin Sodium 2 mg PO DAILY 06/25/18 [History] Multivitamin [One Daily Essential] 1 each PO DAILY 12/09/18 [History] Carvedilol [Coreg] 12.5 mg PO BIDWM 01/20/19 [History] Allergy/AdvReac Type Severity Reaction Status Date / Time Penicillins [PCN] Allergy Hives Verified 12/09/18 19:56 All Systems PM: A 10-system review of systems was performed and is negative for pertinent findings except as documented above in the HPI. Review of systems: General: Fevers / Chills / Weight loss / Night sweats Eyes: Blurry Vision / Change in Vision HENT: Ear Pain / Ear Drainage / Rhinorrhea / Throat Pain / Lymphadenopathy Cardiovascular: Chest Pain / Palpatations / Orthopnea / GARCIA / Weight gain Lungs: Dyspnea / Wheezing / Cough / Sputum production / Pleurisy Abdomen: Abdomen pain / Abdominal distention / Nausea / Vomiting / Diarrhea / Const : Dysuria / Urinary Frequency / Urinary Urgency / Hematuria Extremities: LE edema / Ext pain / Ext erythema Skin: Rashes / Abrasions / Contusions Psych: Hallucinations / Anxiety / Depression Neuro: Weakness / Numbness / Tingling / Facial Droop / Dysphagia - Constitutional Vitals: Temp Pulse Resp BP Pulse Ox 98.5 F 70 20 136/71 97 01/20/19 11:46 01/20/19 14:05 01/20/19 14:05 01/20/19 14:05 01/20/19 15:31 Exam: General: Ill-appearing and in no acute distress HEENT: No erythema of posterior pharynx. No exudates. Lymphatics: No mandibular or cervical lymphadenopathy Cardiovascular: RRR. No murmurs. No chest wall tenderness. Lungs: Basilar crackles. Regular chest rise. Abdomen: Non-tender. No rebound or gaurding. Nl bowel sounds. Extremities: 1+ edema. 2+ pulses radial and pedal pulses Skin: No rahses, abrasions, or contusions. Nl cap refill. Psych: Nl attention. A&Ox3 Neuro: unloader II-XII intact. 5/5 strength. Sensation to light touch and pinprick intact. Internal Med - H&P Results - Labs CBC & Chem 7: 01/20/19 11:58 01/20/19 11:58 Labs: Short CBC 01/20/19 Range/Units 11:58 WBC 7.1 (4.3-11.1) K/mcL Hgb 10.3 L (11.5-15.4) g/dL Hct 33.6 L (35.3-44.9) % Plt Count 229 (140-400) K/mcL Neutrophils # 5.2 (1.6-8.9) K/mcL BMP 01/20/19 11:58 Sodium 140 Potassium 3.4 L Chloride 103 Carbon Dioxide 27 BUN 26 H Creatinine 1.28 H Glucose 133 H Calcium 9.3 Cardiac Enzymes 01/20/19 Range/Units 11:58 Troponin I < 0.03 (< 0.04) ng/mL - Impressions ITS Impressions Chest X-Ray 01/20/19 11:44 IMPRESSION: Acute congestive heart failure with progressive edema and left effusion/basilar consolidation compared to the prior exam. D/ / 01/20/2019 12:11:05 Pop Berger MD / bcarter Interpreting Provider: Pop Berger MD - Assessment and Plan (1) Acute and chronic respiratory failure with hypoxia Current Visit: Yes Status: Acute Assessment and plan: Patient with history of systolic heart failure presents with dyspnea in the setting of hypoxic respiratory failure with chest x-ray with pulmonary edema and left pleural effusion. -Hypoxic respiratory failure likely secondary to CHF exacerbation -Low suspicion for PE or pneumonia -Having chest pain so we will workup for ACS as well PLAN: - Treatment per below (2) Acute on chronic systolic CHF (congestive heart failure) Current Visit: No Status: Acute Assessment and plan: Patient with history of HFrEF with EF 25-30%, moderate to severe MR, and atrial fibrillation presents with hypoxic respiratory failure in the setting of hyperkalemia on exam and chest x-ray with pulmonary edema and left pleural effusion. -Unclear cause of decompensation. -May be on an appropriate Lasix dosing. -No change in diet and compliance has been good PLAN: - S/p IV lasix 40mg with good response - Strict I's and O's and daily weights - Continue Coreg - Patient should be on an JUSTICE/ARB and will start this - Hold warfarin. May need to do therapeutic thoracentesis (3) Pleural effusion on left Current Visit: Yes Status: Acute Assessment and plan: Hold warfarin. May need to do therapeutic thoracentesis on left. (4) CKD (chronic kidney disease) stage 3, GFR 30-59 ml/min Current Visit: Yes Status: Acute Assessment and plan: History of CKD with baseline creatinine of 1.2. - Avoid nephrotoxins (5) Atrial fibrillation Current Visit: No Status: Chronic Assessment and plan: Currently rate controlled with Coreg. - Hold warfarin. May need therapeutic thoracentesis on left Qualifiers: Atrial fibrillation type: chronic Qualified Code(s): I48.2 - Chronic atrial fibrillation - Time Spent With Patient Total time spent is greater than 50% in coordination of care (as documented) at patient's floor/unit and/or counseling patient: Greater than 35 minutes
--- NOTE | 2019-01-21 00:32 | Electrocardiograph Report ---
Reading Nusirt Test Date: 2019-01-20 Pat Name: Angela Patel Department: EXAM25 Room: 2A43 Gender: [facility]: : [id number] Requested By: Oumar Barrios Order Number: [id number] Reading MD: Mike Del Rosario Measurements Intervals [place] Rate: 89 P: [place]: QRS: 190 QRSD: 166 T: 118 QT: 434 QTc: 529 Interpretive Statements Afib/flut and V-paced complexes No further analysis attempted due to paced rhythm Electronically Signed On 01-21-2019 0:31:17 EDT by Mike Del Rosario
[2019-01-21 05:10] LABS: Hematocrit 30.7 % (35.3-44.9); Hemoglobin 9.4 g/dL (11.5-15.4); Mean Corpuscular HGB Conc 30.6 g/dL (31.6-35.5); Mean Corpuscular Hemoglobin 26.2 pg (28.0-33.3); Mean Corpuscular Volume 85.5 fL (83.0-100.0); Mean Platelet Volume 10.8 fL (9.4-12.4); Platelet Count 196 K/mcL (140-400); Red Blood Count 3.59 M/mcL (3.82-4.97); Red Cell Distribution Width 18.9 % (11.5-14.5); White Blood Count 7.4 K/mcL (4.3-11.1)
[2019-01-21 05:30] LABS: Calcium 8.8 mg/dL (8.6-10.3); Potassium 3.7 mEq/L (3.5-5.1)
--- NOTE | 2019-01-21 08:24 | Internal Med Progress Note ---
Hospitalist Progress Note - Encounter Date of Encounter: 01/21/19 Time of Encounter: 08:22 - Subjective Interval History: Patient notes improvement in breathing over the last 24 hours and has been net negative. - Exam Vitals: Temp Pulse Resp BP Pulse Ox 98.7 F 68 18 114/71 97 01/21/19 07:25 01/21/19 07:25 01/21/19 07:25 01/21/19 07:25 01/21/19 07:25 Exam: General: Ill-appearing and in no acute distress HEENT: No erythema of posterior pharynx. No exudates. Lymphatics: No mandibular or cervical lymphadenopathy Cardiovascular: RRR. No murmurs. No chest wall tenderness. Lungs: Basilar crackles. Regular chest rise. Abdomen: Non-tender. No rebound or gaurding. Nl bowel sounds. Extremities: 1+ edema. 2+ pulses radial and pedal pulses Skin: No rahses, abrasions, or contusions. Nl cap refill. Psych: Nl attention. A&Ox3 Neuro: locomotive repairer diesel II-XII intact. 5/5 strength. Sensation to light touch and pinprick intact. - Assessment and Plan (1) Acute and chronic respiratory failure with hypoxia Current Visit: Yes Status: Acute Assessment and Plan: Patient with history of systolic heart failure presents with dyspnea in the setting of hypoxic respiratory failure with chest x-ray with pulmonary edema and left pleural effusion. -Hypoxic respiratory failure likely secondary to CHF exacerbation -Low suspicion for PE or pneumonia -Having chest pain so we will workup for ACS as well -Improving PLAN: - Treatment per below (2) Acute on chronic systolic CHF (congestive heart failure) Current Visit: No Status: Acute Assessment and Plan: Patient with history of HFrEF with EF 25-30%, moderate to severe MR, and atrial fibrillation presents with hypoxic respiratory failure in the setting of hyperkalemia on exam and chest x-ray with pulmonary edema and left pleural effusion. -Unclear cause of decompensation. -May not be on an appropriate Lasix dose. -No change in diet and compliance has been good -Last echo was from 2018. Will repeat given no clear reason for decompensation -Appears to be doing well with diuresis but I&O's inaccurate. STANDING WEIGHT TODAY 93.2KG PLAN: - Lasix 40mg iv BID - Echocardiogram - Strict I's and O's and daily weights - Continue Coreg - Patient should be on an JUSTICE/ARB and will start this - Hold warfarin. May need to do therapeutic thoracentesis (3) Pleural effusion on left Current Visit: Yes Status: Acute Assessment and Plan: Hold warfarin. May need to do therapeutic thoracentesis on left. (4) CKD (chronic kidney disease) stage 3, GFR 30-59 ml/min Current Visit: Yes Status: Acute Assessment and Plan: History of CKD with baseline creatinine of 1.2. - Avoid nephrotoxins (5) Atrial fibrillation Current Visit: No Status: Chronic Assessment and Plan: Currently rate controlled with Coreg. - Hold warfarin. May need therapeutic thoracentesis on left DVT Prophylaxis: Hold warfarin for possible thoracentesis in 1-2 days - Time Spent with Patient Total time spent is greater than 50% in coordination of care (as documented) at patient's floor/unit and/or counseling patient: 25 - 35 minutes Plan of Care Discussed with: patient Internal Medicine: Result - Labs CBC & Chem 7: 01/21/19 04:42 01/21/19 04:42 Labs: Short CBC 01/20/19 01/21/19 Range/Units 11:58 04:42 WBC 7.1 7.4 (4.3-11.1) K/mcL Hgb 10.3 L 9.4 L (11.5-15.4) g/dL Hct 33.6 L 30.7 L (35.3-44.9) % Plt Count 229 196 (140-400) K/mcL Neutrophils # 5.2 (1.6-8.9) K/mcL BMP 01/20/19 01/21/19 11:58 04:42 Sodium 140 142 Potassium 3.4 L 3.7 Chloride 103 106 Carbon Dioxide 27 28 BUN 26 H 21 Creatinine 1.28 H 1.07 Glucose 133 H 103 Calcium 9.3 8.8 Cardiac Enzymes 01/20/19 01/20/19 Range/Units 11:58 16:59 Troponin I < 0.03 0.03 (< 0.04) ng/mL - ABG Interpretation ABG results: PT/INR, D-dimer PT 34.7 Seconds (9.4-12.1) H 01/20/19 11:58 - Impressions Impressions Chest X-Ray 01/20/19 11:44 IMPRESSION: Acute congestive heart failure with progressive edema and left effusion/basilar consolidation compared to the prior exam. D/ / 01/20/2019 12:11:05 Pop Berger MD / portillo Interpreting Provider: Pop Berger MD Consult Discharge Plan - Plan (5) Atrial fibrillation Qualifiers: Atrial fibrillation type: chronic Qualified Code(s): I48.2 - Chronic atrial fibrillation
[2019-01-21] MEDS: Furosemide 40 MG/4 ML VIAL IVP SCH ×3 (08:57→20:33)
[2019-01-21 09:34] LABS: INR 3.1; Prothrombin Time 35.2 Seconds (9.4-12.1)
[2019-01-21] MEDS ORDERED: *HR* Phytonadione 5 MG TABLET PO ONE (10:03)
[2019-01-22 02:58] LABS: Calcium 8.6 mg/dL (8.6-10.3); Potassium 4.3 mEq/L (3.5-5.1)
[2019-01-22 03:17] LABS: INR 2.5
[2019-01-22] MEDS: Furosemide 40 MG/4 ML VIAL IVP SCH ×2 (08:41→20:42)
--- NOTE | 2019-01-22 08:53 | Internal Med Progress Note ---
Hospitalist Progress Note - Encounter Date of Encounter: 01/22/19 Time of Encounter: 08:41 - Subjective Interval History: Says breathing is much better. Was able to sleep in her bed and sat up in the chair. Still on 3 L of oxygen. Not on oxygen at home. - Exam Vitals: Temp Pulse Resp BP Pulse Ox 98.6 F 83 17 108/66 93 01/22/19 06:36 01/22/19 06:36 01/22/19 06:36 01/22/19 06:36 01/22/19 06:36 Exam: General: Ill-appearing and in no acute distress HEENT: No erythema of posterior pharynx. No exudates. Lymphatics: No mandibular or cervical lymphadenopathy Cardiovascular: RRR. No murmurs. No chest wall tenderness. Lungs: Basilar crackles. Regular chest rise. Abdomen: Non-tender. No rebound or gaurding. Nl bowel sounds. Extremities: 1+ edema. 2+ pulses radial and pedal pulses Skin: No rahses, abrasions, or contusions. Nl cap refill. Psych: Nl attention. A&Ox3 Neuro: cloth roll winder II-XII intact. 5/5 strength. Sensation to light touch and pinprick intact. - Assessment and Plan (1) Acute and chronic respiratory failure with hypoxia Current Visit: Yes Status: Acute Assessment and Plan: Patient with history of systolic heart failure presents with dyspnea in the setting of hypoxic respiratory failure with chest x-ray with pulmonary edema and left pleural effusion. -Hypoxic respiratory failure likely secondary to CHF exacerbation -Low suspicion for PE or pneumonia -Having chest pain so we will workup for ACS as well -Improving PLAN: - Treatment per below (2) Acute on chronic systolic CHF (congestive heart failure) Current Visit: No Status: Acute Assessment and Plan: Patient with history of HFrEF with EF 25-30%, moderate to severe MR, and atrial fibrillation presents with hypoxic respiratory failure in the setting of hyperkalemia on exam and chest x-ray with pulmonary edema and left pleural effusion. -Unclear cause of decompensation. -May not be on an appropriate Lasix dose. -No change in diet and compliance has been good -Repeat echo at 30-35% ejection fraction and moderate mitral regurg. Somewhat improved from last study -Appears to be doing well with diuresis. STANDING WEIGHT TODAY 92.1KG, down from 93.2KG yest However, still on 3 L of oxygen and not on oxygen at home so will need further IV diuresis -Left pleural effusion appears to be resolving with diuresis. We will hold off on thoracentesis. -Wondering about how she can improve her diet to avoid salt. Will consult dietitian for education PLAN: - Lasix 40mg iv BID - Patient education for salt restriction by dietitian - Strict I's and O's and daily weights - Continue Coreg - Losartan 12.5 mg daily - Already has ICD (3) Ischemic heart disease Current Visit: Yes Status: Acute Assessment and Plan: Patient had cardiology consult back in June. Cardiomyopathy presumed to be ischemic, however, no cardiac catheterization on the past. Was offered in June 2018 but patient and daughter declined at that time. - We will ask daughter and patient if they would like to pursue this - Should be in a daily aspirin and this will be started - We will hold off on statin given no evidence of benefit in this age group (4) Pleural effusion on left Current Visit: Yes Status: Acute Assessment and Plan: Appears to be decreasing in size. We will hold off on thoracentesis. (5) CKD (chronic kidney disease) stage 3, GFR 30-59 ml/min Current Visit: Yes Status: Acute Assessment and Plan: History of CKD with baseline creatinine of 1.2. - Avoid nephrotoxins (6) Atrial fibrillation Current Visit: No Status: Chronic Assessment and Plan: Currently rate controlled with Coreg. - Home Coreg - Hold warfarin in setting of possible ischemic workup DVT Prophylaxis: Hold warfarin for possible ischemic workup - Time Spent with Patient Total time spent is greater than 50% in coordination of care (as documented) at patient's floor/unit and/or counseling patient: Internal Medicine: Result - Labs CBC & Chem 7: 01/21/19 04:42 01/22/19 01:52 Labs: BMP 01/22/19 01:52 Sodium 141 Potassium 4.3 Chloride 106 Carbon Dioxide 31 H BUN 26 H Creatinine 1.29 H Glucose 97 Calcium 8.6 - ABG Interpretation ABG results: PT/INR, D-dimer PT 28.0 Seconds (9.4-12.1) H 01/22/19 01:52 - Impressions Impressions Echocardiogram 01/21/19 08:43 Impressions: LVEF 30-35%. Severe global left ventricular systolic dysfunction. Mildly dilated left ventricle. Severely dilated left atrium. Normal right ventricular structure and mild hypokinesis. Mild aortic stenosis. Moderate mitral regurgitation. Moderate tricuspid regurgitation. Mild-moderate pulmonic regurgitation. Moderate pulmonary hypertension. Large pleural effusion. Left Ventricular Wall Motion: Rest Echo Findings The apex, apical inferior, mid inferior, basal inferior, apical anterior, mid anterior, basal anterior, apical septal, mid inferior septal, basal inferior septal, apical lateral, mid anterior lateral, basal anterior lateral, mid anterior septal, mid inferior lateral, basal anterior septal and basal inferior lateral tamayo were hypokinetic. Findings: Study Quality * Technically sub-optimal due to clinical status. ECG Findings * Paced rhythm. Left Ventricle * LVEF 30-35%. * Mildly dilated left ventricle. * Severe global left ventricular systolic dysfunction. * Normal LV wall thickness. * Indeterminate diastolic function. * Definity echo contrast was not used. * Atypical septal motion consistent with paced rhythm. Right Ventricle * Normal right ventricular structure and mild hypokinesis. Left Atrium * Severely dilated left atrium. Right Atrium * Normal right atrial size. Interatrial Septum * Interatrial septum not well evaluated. Aortic Valve * Moderately calcified aortic valve leaflets. * Mild aortic stenosis. * Mean gradient 16 mmHg. * Trace aortic regurgitation. Mitral Valve * Normal mitral valve structure. * No mitral stenosis. * Moderate mitral regurgitation. Tricuspid Valve * Normal tricuspid valve structure. * No tricuspid stenosis. * Moderate tricuspid regurgitation. * Estimated RVSP is 57 mmHg. * Estimated RA pressure is 15 mmHg. * Moderate pulmonary hypertension. Pulmonic Valve * Pulmonic valve is not well visualized. * No pulmonic stenosis. * Mild-moderate pulmonic regurgitation. Aorta * Normally sized aortic root. Pericardium * There is no pericardial effusion present. IVC * The IVC is dilated. * < 50% respiratory change. Device lead * A device lead was visualized in the right atrium and right ventricle. Pleural Effusion * Large pleural effusion. Consult Discharge Plan - Plan Referrals: Clemencia Velasquez, PRIVACY OFFICER [Primary Care Provider] - (6) Atrial fibrillation Qualifiers: Atrial fibrillation type: chronic Qualified Code(s): I48.2 - Chronic atrial fibrillation
[2019-01-22] MEDS: Aspirin 81 MG TAB.CHEW PO SCH (16:16)
[2019-01-23 05:25] LABS: Calcium 8.9 mg/dL (8.6-10.3); Magnesium 2.1 mg/dL (1.6-2.6); Potassium 3.8 mEq/L (3.5-5.1)
[2019-01-23] MEDS: Aspirin 81 MG TAB.CHEW PO SCH (09:43)
[2019-01-23] MEDS: Furosemide 40 MG/4 ML VIAL IVP SCH ×2 (09:44→17:42)
--- NOTE | 2019-01-23 10:43 | Electrocardiograph Report ---
[place] [id number] Test Date: 2019-01-20 Pat Name: Angela Patel Department: 112 Room: 2A43 Gender: F Behavioral Health Counselor: : [id number] Requested By: Jaiden Prabhakar Order Number: [id number] Reading MD: Yrn Jasmine Measurements Intervals [place] Rate: 72 P: NE: 0 QRS: -63 QRSD: 213 T: 94 QT: 503 QTc: 527 Interpretive Statements ELECTRONIC VENTRICULAR PACEMAKER Electronically Signed On 01-23-2019 10:42:11 EDT by Yrn Jasmine
--- NOTE | 2019-01-23 11:06 | Internal Med Progress Note ---
Hospitalist Progress Note - Encounter Date of Encounter: 01/23/19 Time of Encounter: 11:04 - Subjective Interval History: Feeling well this morning. Diuresing well. Shortness of breath is improved. Still on 1-2 L of oxygen. - Exam Vitals: Temp Pulse Resp BP Pulse Ox 98.7 F 69 16 112/65 92 01/23/19 06:31 01/23/19 06:31 01/23/19 06:31 01/23/19 06:31 01/23/19 06:31 Exam: General: Ill-appearing and in no acute distress HEENT: No erythema of posterior pharynx. No exudates. Lymphatics: No mandibular or cervical lymphadenopathy Cardiovascular: RRR. No murmurs. No chest wall tenderness. Lungs: Basilar crackles. Regular chest rise. Abdomen: Non-tender. No rebound or gaurding. Nl bowel sounds. Extremities: 1+ edema. 2+ pulses radial and pedal pulses Skin: No rahses, abrasions, or contusions. Nl cap refill. Psych: Nl attention. A&Ox3 Neuro: calcine furnace tender II-XII intact. 5/5 strength. Sensation to light touch and pinprick intact. - Assessment and Plan (1) Acute and chronic respiratory failure with hypoxia Current Visit: Yes Status: Acute Assessment and Plan: Patient with history of systolic heart failure presents with dyspnea in the sett ing of hypoxic respiratory failure with chest x-ray with pulmonary edema and left pleural effusion. -Hypoxic respiratory failure likely secondary to CHF exacerbation -Low suspicion for PE or pneumonia -Having chest pain so we will workup for ACS as well -Improving. Still on 1-2 L of oxygen so will need further diuresis before discharge PLAN: - Treatment per below (2) Acute on chronic systolic CHF (congestive heart failure) Current Visit: No Status: Acute Assessment and Plan: Patient with history of HFrEF with EF 25-30%, moderate to severe MR, and atrial fibrillation presents with hypoxic respiratory failure in the setting of hyperkalemia on exam and chest x-ray with pulmonary edema and left pleural effusion. -Unclear cause of decompensation. -May not be on an appropriate Lasix dose. -No change in diet and compliance has been good -Repeat echo at 30-35% ejection fraction and moderate mitral regurg. Somewhat improved from last study -Appears to be doing well with diuresis. STANDING WEIGHT TODAY 91.1KG, down from 92.1KG yest However, still on 1-2L of oxygen and not on oxygen at home so will need further IV diuresis -Left pleural effusion appears to be resolving with diuresis. We will hold off on thoracentesis. -Wondering about how she can improve her diet to avoid salt. Will consult dietitian for education PLAN: - Lasix 40mg iv BID - Patient education for salt restriction by dietitian - Strict I's and O's and daily weights - Continue Coreg - Losartan 12.5 mg daily - Already has ICD (3) Ischemic heart disease Current Visit: Yes Status: Acute Assessment and Plan: Patient had cardiology consult back in June. Cardiomyopathy presumed to be ischemic, however, no cardiac catheterization on the past. Was offered in June 2018 but patient and daughter declined at that time. Talked to both daughters and they want to discuss LHC with cardiology this admission. - Consult cardiology for consideration/conversation about LHC - Should be in a daily aspirin and this will be started - We will hold off on statin given no evidence of benefit in this age group (4) Pleural effusion on left Current Visit: Yes Status: Acute Assessment and Plan: Appears to be decreasing in size. We will hold off on thoracentesis. (5) CKD (chronic kidney disease) stage 3, GFR 30-59 ml/min Current Visit: Yes Status: Acute Assessment and Plan: History of CKD with baseline creatinine of 1.2. - Avoid nephrotoxins (6) Atrial fibrillation Current Visit: No Status: Chronic Assessment and Plan: Currently rate controlled with Coreg. - Home Coreg - Hold warfarin in setting of possible ischemic workup DVT Prophylaxis: Hold warfarin for possible ischemic workup Internal Medicine: Result - Labs CBC & Chem 7: 01/21/19 04:42 01/23/19 04:17 Labs: BMP 01/23/19 04:17 Sodium 142 Potassium 3.8 Chloride 102 Carbon Dioxide 30 H BUN 27 H Creatinine 1.28 H Glucose 95 Calcium 8.9 - ABG Interpretation ABG results: PT/INR, D-dimer PT 28.0 Seconds (9.4-12.1) H 01/22/19 01:52 Consult Discharge Plan - Plan Referrals: Clemencia Velasquez, LINER HELPER [Primary Care Provider] - (Office will call patient for an appt.) (6) Atrial fibrillation Qualifiers: Atrial fibrillation type: chronic Qualified Code(s): I48.2 - Chronic atrial fibrillation
--- NOTE | 2019-01-23 14:12 | Cardiology Consult Note ---
Date of Encounter: 01/23/19 Time of Encounter: 14:09 Assessment and Plan (1) Systolic CHF, acute on chronic Current Visit: No Status: Resolved Acute on chronic CHF. EF 30-35%. Mod MR. EF slightly improved from previos TTE in June 2018- EF 25-30% with moderate to severe MR. Medical records reviewed. Minimal CAD on [facility] in 2005. LHC recommended at last visit for CMP and MR. AT this time with improvement in EF and MR and underlying CKD continued mm i s recommended. Troponin negative. Pt denies chest pain. No strong indication to proceed with LHC. Pt voiced understanding. Continue low sodium diet. #rd admit for CHF. Recommend increase lasix at dis charge. Strict I&O and daily weights. Symptoms improving. Currently Net -[id number]. Call with questions. (2) Atrial fibrillation Current Visit: No Status: Chronic H/o atrial fibrillation on coumadin. Currently V paced. Qualifiers: Atrial fibrillation type: chronic Qualified Code(s): I48.2 - Chronic atrial fibrillation Discussion w patient/family: The assessment and plan as outlined above was discussed with the patient and/or family members who expressed understanding and agreement. All questions were answered. Thank you for involving us in the care of your patient. Please call with any questions. History of Present Illness Consult date: 01/23/19 Requesting physician: Jaiden Prabhakar Consult reason: Discuss LHC Chief complaint: SOB, edema, weight gain History of present illness: Ms. Patel is a 88 year old female with past medical history of NICMP, Minimal CAD on [facility] in 2005, and atrial fibrillation on coumadin. She presents with c/o SOB, BLE edema, and orthopnea. This is her third hospital visit in 12 months for acute CHF. She was seen in June 2018 and found to have reduced EF compared to previous and moderate to severe MR. LHC discussed at that time and patient opted for medical management. Cardiology consulted due to patient request to discuss LHC again. She denies chest pain. States that she is compliant with cardiac low sodium diet. Past Med Surg Social Fam HX - Past Medical History Medical history: arthritis, atrial fibrillation, cardiomyopathy, CHF, coronary artery disease, hyperlipidemia, hypertension, thyroid disease, valvular heart disease Additional medical history: per daughter Psychiatric history: no psych history - Past Surgical History Surgical History: appendectomy, cholecystectomy, hysterectomy, orthopedic, other, pacemaker Additional surgical history: knees - Social History Smoking Status: Never smoker Smokeless Tobacco Status: No Alcohol use: none Drug use: none - Family History Father Living Status: Hx Family Cancer: Yes Mother Living Status: Hx Family Cardiac Disorders: No Hx Family Respiratory Disorders: No Hx Family Cancer: No Hx Family GI Disorders: No Hx Family Endocrine Disorder: No Hx Family Neuromuscular Disorders: No Hx Family Neurologic Disorders: No Hx Family HEENT Disorders: No Hx Family Autoimmune Disorders: No Daughter Living Status: Still Living Hx Family Cardiac Disorders: No Hx Family Respiratory Disorders: No Hx Family Cancer: Yes (breast cancer) Hx Family GI Disorders: No Hx Family Endocrine Disorder: No Hx Family Neuromuscular Disorders: No Hx Family Neurologic Disorders: No Hx Family HEENT Disorders: No Hx Family Autoimmune Disorders: No Medications and Allergies Cholecalciferol (Vitamin D3) [Vitamin D3] 1,000 unit PO DAILY 10/25/16 [History] Cyanocobalamin (Vitamin B-12) [Vitamin B12] 500 mcg PO DAILY 10/25/16 [History] Ferrous Sulfate [Slow Fe] 325 mg PO DAILY 10/25/16 [History] Krill Oil 500 mg PO DAILY 10/25/16 [History] Omeprazole [PriLOSEC] 20 mg PO DAILY 10/25/16 [History] Pravastatin Sodium [Pravachol] 80 mg PO DAILY 10/25/16 [History] Vit C/Vit E/Lutein/Min/[place]-3 [Ocuvite Softgel] 1 cap PO DAILY 10/25/16 [History] Levothyroxine [Synthroid] 112 mcg PO 0630 07/15/17 [History] amLODIPine [Norvasc] 5 mg PO DAILY 11/22/17 [History] Furosemide [Lasix] 40 mg PO BID 06/25/18 [History] Warfarin Sodium 2 mg PO DAILY 06/25/18 [History] Multivitamin [One Daily Essential] 1 each PO DAILY 12/09/18 [History] Carvedilol [Coreg] 12.5 mg PO BIDWM 01/20/19 [History] Allergy/AdvReac Type Severity Reaction Status Date / Time Penicillins [PCN] Allergy Hives Verified 12/09/18 19:56 All Systems Review: The remainder of the systems were reviewed and are negative Physical Examination Vital Signs, Last 4 Hours Temp Pulse Resp BP Pulse Ox 07/22/19 11:03 97.6 F 70 18 120/72 91 General: Conversant, No Apparent Distress HEENT: Atraumatic, Normocephaly, Mucus Membranes Moist Neck: No JVD, Normal carotid pulses Cardiac: Reg Rate and Rhythm, Normal S1 and S2, No Murmur Lungs: Normal Breath Sounds, No Wheeze, Rales, Rhonchi Neuro: Alert and responsive, No focal deficits noted Abdomen: Soft, Non-Tender Skin: No rashes noted on visualized skin Musculoskeletal: No Chest Wall Tenderness Extremities: No Clubbing, No Cyanosis, Normal Pulses, Other (1+ BLE edema with reddish discoloration. ) Results 01/21/19 04:42 01/23/19 04:17 Lab Results 01/23/19 04:17 Sodium 142 Potassium 3.8 Chloride 102 Carbon Dioxide 30 H BUN 27 H Creatinine 1.28 H Glucose 95 Calcium 8.9 Magnesium 2.1 - Imaging and Cardiology Echo: report reviewed Consult Discharge Plan - Plan Referrals: Clemencia Velasquez TROUBLE LOCATER [Primary Care Provider] - (Office will call patient for an appt.)
[2019-01-23] MEDS ORDERED: *HR* Warfarin 2 MG TABLET PO SCH (18:59)
[2019-01-23] MEDS ORDERED: Furosemide 80 MG in 0.9 % Sodium Chloride 50 ML IVPB ONE (19:45)
[2019-01-23 20:59] LABS: INR 1.4
[2019-01-24 07:30] LABS: Calcium 9.1 mg/dL (8.6-10.3); Magnesium 2.1 mg/dL (1.6-2.6); Potassium 3.6 mEq/L (3.5-5.1)
[2019-01-24] MEDS: Aspirin 81 MG TAB.CHEW PO SCH (07:36)
[2019-01-24] MEDS ORDERED: Furosemide 40 MG/4 ML VIAL IVP ONE (07:46)
--- NOTE | 2019-01-24 08:49 | Internal Med Progress Note ---
Hospitalist Progress Note - Encounter Date of Encounter: 01/24/19 Time of Encounter: 08:46 - Subjective Interval History: Patient seen by cardiology yesterday. Not recommending [facility] at this time. Diuresing well. Off Oxygen. - Exam Vitals: Temp Pulse Resp BP Pulse Ox 97.9 F 69 16 122/72 95 01/24/19 06:56 01/24/19 06:56 01/24/19 06:56 01/24/19 06:56 01/24/19 06:56 Exam: General: Ill-appearing and in no acute distress HEENT: No erythema of posterior pharynx. No exudates. Lymphatics: No mandibular or cervical lymphadenopathy Cardiovascular: RRR. No murmurs. No chest wall tenderness. Lungs: Basilar crackles. Regular chest rise. Abdomen: Non-tender. No rebound or gaurding. Nl bowel sounds. Extremities: 1+ edema. 2+ pulses radial and pedal pulses Skin: No rahses, abrasions, or contusions. Nl cap refill. Psych: Nl attention. A&Ox3 Neuro: oracle wms consultant II-XII intact. 5/5 strength. Sensation to light touch and pinprick intact. - Assessment and Plan (1) Acute and chronic respiratory failure with hypoxia Current Visit: Yes Status: Acute Assessment and Plan: Patient with history of systolic heart failure presents with dyspnea in the setting of hypoxic respiratory failure with chest x-ray with pulmonary edema and left pleural effusion. -Hypoxic respiratory failure likely secondary to CHF exacerbation -Low suspicion for PE or pneumonia -Having chest pain so we will workup for ACS as well -Improving. Off oxygen this morning but will need ambulatory sat. -We will do one more large dose of Lasix this morning and so sure this afternoon with plans for discharge tomorrow afternoon PLAN: - IV lasix 80mg x1 - Re-assess this afternoon. If amb sat ok can switch to oral and d/c tomor afternoon (2) Acute on chronic systolic CHF (congestive heart failure) Current Visit: No Status: Acute Assessment and Plan: Patient with history of HFrEF with EF 25-30%, moderate to severe MR, and atrial fibrillation presents with hypoxic respiratory failure in the setting of hyperkalemia on exam and chest x-ray with pulmonary edema and left pleural effusion. -Unclear cause of decompensation. -May not be on an appropriate Lasix dose. -No change in diet and compliance has been good -Repeat echo at 30-35% ejection fraction and moderate mitral regurg. Somewhat improved from last study -Appears to be doing well with diuresis. STANDING WEIGHT TODAY 89.5KG, down from 91.1KG yest Off oxygen this morning but will need ambulatory sat We will do one more large dose of Lasix this morning and so sure this afternoon with plans for discharge tomorrow afternoon PLAN: - IV lasix 80mg x1 - Re-assess this afternoon. If amb sat ok can switch to oral and d/c tomor afternoon - Travel Guide stopped by yesterday for recommendations on salt restriction, appreciate recommendations - Strict I's and O's and daily weights - Continue Coreg - Losartan 12.5 mg daily - Already has ICD (3) Ischemic heart disease Current Visit: Yes Status: Acute Assessment and Plan: Patient had cardiology consult back in June. Cardiomyopathy presumed to be ischemic, however, no cardiac catheterization on the past. Was offered in June 2018 but patient and daughter declined at that time. Talked to both daughters and they want to discuss LHC with cardiology this admission. Cardiology evaluated patient - do not recommend LHC at this time given CKD and improved EF since last admission. - Daily aspirin (new medication, was not on this prior to admission) - We will hold off on statin given no evidence of benefit in this age group (4) Pleural effusion on left Current Visit: Yes Status: Acute Assessment and Plan: Appears to be decreasing in size with diuresis. We will hold off on thoracentesis. (5) CKD (chronic kidney disease) stage 3, GFR 30-59 ml/min Current Visit: Yes Status: Acute Assessment and Plan: History of CKD with baseline creatinine of 1.2. - Avoid nephrotoxins (6) Atrial fibrillation Current Visit: No Status: Chronic Assessment and Plan: Currently rate controlled with Coreg. - Home Coreg - Warfarin per pharmacy DVT Prophylaxis: warfarin Internal Medicine: Result - Labs CBC & Chem 7: 01/21/19 04:42 01/24/19 05:56 Labs: BMP 01/24/19 05:56 Sodium 139 Potassium 3.6 Chloride 100 Carbon Dioxide 32 H BUN 25 H Creatinine 1.28 H Glucose 94 Calcium 9.1 - ABG Interpretation ABG results: PT/INR, D-dimer PT 16.0 Seconds (9.4-12.1) H 01/23/19 20:39 Consult Discharge Plan - Plan Referrals: Clemencia Velasquez, WIRE WEAVER [Primary Care Provider] - (Office will call patient for an appt.) (6) Atrial fibrillation Qualifiers: Atrial fibrillation type: chronic Qualified Code(s): I48.2 - Chronic atrial fibrillation
[2019-01-24] MEDS ORDERED: Furosemide 80 MG in 0.9 % Sodium Chloride 50 ML IV ONE (15:45)
[2019-01-24] MEDS ORDERED: *HR* Warfarin 3 MG TABLET PO ONE (18:00)
[2019-01-24] MEDS ORDERED: Warfarin perPT PO PRN (18:00)
[2019-01-25 07:23] LABS: INR 1.4; Prothrombin Time 15.5 Seconds (9.4-12.1)
[2019-01-25 07:24] LABS: Calcium 9.4 mg/dL (8.6-10.3); Potassium 3.5 mEq/L (3.5-5.1)
[2019-01-25] MEDS: Aspirin 81 MG TAB.CHEW PO SCH (08:12)
[2019-01-25] MEDS ORDERED: Furosemide 40 MG TABLET PO SCH (08:49)
[2019-01-25 10:47] VITALS: BP 104/63
--- NOTE | 2019-01-25 11:46 | Discharge Summary ---
- NOTES TO OUTPATIENT PROVIDER Notes to Outpatient Provider: Patient with a history of heart failure with reduced ejection fraction, chronic kidney disease stage III, atrial fibrillation was hospitalized here with acute on chronic respiratory failure with hypoxia most likely due to CHF exacerbation. Patient was treated with intravenous Lasix with good improvement in her symptoms and lower extremity edema. So far she is had -6 L fluid balance. She is now doing much better and is clinically stable for discharge. She does appear to require O2 supplementation most likely related to her underlying congestive heart failure and would be prescribed 2-3 L home oxygen to be used with the rest and ambulation. She is being discharged on an increased dose of Lasix and will need her renal function followed closely. She is advised to stay on a low sodium and fluid restriction diet. Orders not resulted at time of discharge: Pending orders 01/26/19 04:00 PT/INR [Prothrombin Time INR] [COAG] AM 0400 01/27/19 04:00 PT/INR [Prothrombin Time INR] [COAG] AM 0400 01/28/19 04:00 PT/INR [Prothrombin Time INR] [COAG] AM 0400 Date of Encounter: 01/25/19 Time of Encounter: 11:44 - Discharge Diagnosis (1) Acute and chronic respiratory failure with hypoxia Priority: Primary Status: Acute (2) Acute on chronic systolic CHF (congestive heart failure) Priority: Secondary Status: Acute (3) Atrial fibrillation Priority: Secondary Status: Chronic Qualifiers: Atrial fibrillation type: chronic Qualified Code(s): I48.2 - Chronic atrial fibrillation (4) CKD (chronic kidney disease) stage 3, GFR 30-59 ml/min Priority: Secondary Status: Acute (5) Pleural effusion on left Priority: Secondary Status: Acute (6) Ischemic heart disease Priority: Secondary Status: Acute Hospital course: Ms. Patel is a 88 year old female Patient with a history of heart failure with reduced ejection fraction, chronic kidney disease stage III, atrial fibrillat ion was hospitalized here with acute on chronic respiratory failure with hypoxia most likely due to CHF exacerbation. Patient was treated with intravenous Lasix with good improvement in her symptoms and lower extremity edema. So far she is had -6 L fluid balance. She is now doing much better and is clinically stable for discharge. She does appear to require O2 supplementation most likely related to her underlying congestive heart failure and would be prescribed 2-3 L home oxygen to be used with the rest and ambulation. She is being discharged on an increased dose of Lasix and will need her renal function followed closely. She is advised to stay on a low sodium and fluid restriction diet. Discharge discussed with: patient - Time Spent with Patient Total time spent providing and/or coordinating discharge services: Time spent: Greater than 30 minutes (32 min) - Discharge Medications Prescriptions: New Oxygen 1 each .ROUTE AD 90 Days #1 each Losartan [Cozaar] 12.5 mg PO DAILY #30 tablet Potassium Chloride 20 meq PO DAILY #30 tab.er.prt Aspirin Enteric Coated [Aspirin EC] 81 mg PO DAILY #30 tablet.dr Continued Omeprazole [PriLOSEC] 20 mg PO DAILY Vit C/Vit E/Lutein/Min/Clive-3 [Ocuvite Softgel] 1 cap PO DAILY Pravastatin Sodium [Pravachol] 80 mg PO DAILY Krill Oil 500 mg PO DAILY Ferrous Sulfate [Slow Fe] 325 mg PO DAILY Cyanocobalamin (Vitamin B-12) [Vitamin B12] 500 mcg PO DAILY Cholecalciferol (Vitamin D3) [Vitamin D3] 1,000 unit PO DAILY Levothyroxine [Synthroid] 112 mcg PO 0630 Warfarin Sodium 2 mg PO DAILY Multivitamin [One Daily Essential] 1 each PO DAILY Carvedilol [Coreg] 12.5 mg PO BIDWM Changed Furosemide [Lasix] 60 mg PO BID #90 tablet Discontinued amLODIPine [Norvasc] 5 mg PO DAILY Home Medications: Cholecalciferol (Vitamin D3) [Vitamin D3] 1,000 unit PO DAILY 10/25/16 [History] Cyanocobalamin (Vitamin B-12) [Vitamin B12] 500 mcg PO DAILY 10/25/16 [History] Ferrous Sulfate [Slow Fe] 325 mg PO DAILY 10/25/16 [History] Krill Oil 500 mg PO DAILY 10/25/16 [History] Omeprazole [PriLOSEC] 20 mg PO DAILY 10/25/16 [History] Pravastatin Sodium [Pravachol] 80 mg PO DAILY 10/25/16 [History] Vit C/Vit E/Lutein/Min/Clive-3 [Ocuvite Softgel] 1 cap PO DAILY 10/25/16 [History] Levothyroxine [Synthroid] 112 mcg PO 0630 07/15/17 [History] Warfarin Sodium 2 mg PO DAILY 06/25/18 [History] Multivitamin [One Daily Essential] 1 each PO DAILY 12/09/18 [History] Carvedilol [Coreg] 12.5 mg PO BIDWM 01/20/19 [History] Aspirin Enteric Coated [Aspirin EC] 81 mg PO DAILY #30 tablet. 01/25/19 [Rx] Furosemide [Lasix] 60 mg PO BID #90 tablet 01/25/19 [Rx] Losartan [Cozaar] 12.5 mg PO DAILY #30 tablet 01/25/19 [Rx] Oxygen 1 each .ROUTE AD 90 Days #1 each 01/25/19 [Rx] Potassium Chloride 20 meq PO DAILY #30 tab.er.prt 01/25/19 [Rx] Allergies/Adverse Reactions: Allergy/AdvReac Type Severity Reaction Status Date / Time Penicillins [PCN] Allergy Hives Verified 12/09/18 19:56 Date of admission: 01/23/19 13:11 Primary care physician: Clemencia Velasquez CNP Consults: 01/22/19 08:52 consult to door trimmer [Consult to Nutrition] [CONS] Routine Comment: heaert failure diet education Consulting Provider: NUTRITION Reason for Dietary Consult: Diet Education 01/23/19 10:36 Consult to Nurse Navigator [CONS] Routine Comment: chf 01/23/19 11:14 Consult to Cardiology [CONS] Routine Comment: Consulting Provider: Cardiology Sarah Beth Reason for Consult: consideration/conversation about LHC. FAmily did not agree to this in past but want to consider it this admisison. Call Completed: No Discharging clinician: Jerod Sánchez Anticipated date of discharge: 01/25/19 - Constitutional Vitals: Temp Pulse Resp BP Pulse Ox 97.9 F 76 18 104/63 94 01/25/19 10:39 01/25/19 10:39 01/25/19 10:39 01/25/19 10:39 01/25/19 10:39 Exam: General: Patient is alert, no acute distress, oriented x 3 Respiratory: Good respiratory effort. Normal breath sounds. No wheezing or crackles. Cardiovascular: Regular rate and rhythm. s1 and s2 normal No clicks, rubs, gallops, or murmurs. Mild bilateral pedal edema Abdomen: Abdomen is soft, nontender. Bowel sounds are present Musculoskeletal: Spontaneously moving all extremities Skin: warm, dry, intact. Neuro: Alert oriented x 3 normal cranial nerves, no focal deficits - Patient Status Disposition: Home, Self-Care Condition: Good Functional capacity at discharge: uses cane/walker Overall status at discharge: patient is progressing back to baseline - Discharge Instructions Follow Up With: Clemencia Velasquez, DOOR PERSON [Primary Care Provider] - (Office will call patient for an appt.) Anson Guzman DO [Non-Partnered Physician] - (in 1-2 weeks) Forms: ED Satisfaction Letter - Diet and Activity Activity: increase activity as tolerated Diet: low fat, low cholesterol, low salt diet
[2019-01-25] MEDS ORDERED: *HR* Warfarin 2 MG TABLET PO ONE (18:00)
== END 2019-01-25 14:06 | disposition home or self-care (01) | DRG 291 ==
LOC: 2ANU 11:39 → EMEROOARM 11:39 → SUATTDRO 13:42 → 2ANU 14:49 → SUATTDRO 01-23 13:11
PROVIDERS: ADMIT Internal Medicine; ATTEND Internal Medicine

== ENCOUNTER 2019-05-28 10:06 | Inpatient (IN) ==
[2019-05-28 10:47] LABS: Basophils # 0.1 K/mcL (0.0-0.2); Basophils % 1.3 %; Eosinophils # 0.2 K/mcL (0.0-0.6); Eosinophils % 3.9 %; Hematocrit 30.5 % (35.3-44.9); Hemoglobin 9.7 g/dL (11.5-15.4); Immature Granulocytes % 0.2 % (0-4); Lymphocytes # 0.6 K/mcL (0.6-4.6); Lymphocytes % 13.2 %; Mean Corpuscular HGB Conc 31.8 g/dL (31.6-35.5); Mean Corpuscular Volume 88.2 fL (83.0-100.0); Mean Platelet Volume 11.2 fL (9.4-12.4); Monocytes # 0.6 K/mcL (0.0-1.3); Monocytes % 12.7 %; Neutrophils # 3.2 K/mcL (1.6-8.9); Platelet Count 194 K/mcL (140-400); Red Blood Count 3.46 M/mcL (3.82-4.97); Red Cell Distribution Width 14.6 % (11.5-14.5); Segmented Neutrophils % 68.7 %; White Blood Count 4.6 K/mcL (4.3-11.1)
[2019-05-28 10:52] LABS: INR 2.8; Prothrombin Time 32.4 Seconds (9.4-12.1)
[2019-05-28 11:12] LABS: BUN/Creatinine Ratio 21 (6-26); Blood Urea Nitrogen 29 mg/dL (8-23); Calcium 9.2 mg/dL (8.6-10.3); Carbon Dioxide 26 mEq/L (23-29); Chloride 103 mEq/L (98-107); Glucose 192 mg/dL (70-105); Potassium 3.9 mEq/L (3.5-5.1); Troponin I < 0.03 ng/mL (< 0.04); eGFR For African Americans 43 (> 60); eGFR For Non-African Americans 36 (> 60)
[2019-05-28 11:26] LABS: Thyroid Stimulating Hormone 14.151 mcIU/mL (0.340-5.600)
[2019-05-28 11:30] LABS: Osmolality,Calculated 299 (280-300); Sodium 139 mEq/L (136-145)
[2019-05-28] MEDS ORDERED: Furosemide 40 MG/4 ML VIAL IVP ONE (11:32)
[2019-05-28] MEDS ORDERED: Naloxone 0.4 MG/ML INJ IVP PRN (12:15)
[2019-05-28] MEDS ORDERED: Ondansetron 4 MG/2 ML VIAL IVP PRN (12:22)
[2019-05-28 15:03] LABS: Triiodothyronine (T3) Free 2.56 pg/mL (2.50-3.90)
[2019-05-28 15:08] LABS: Triiodothyronine (T3) Total 0.67 ng/mL (0.87-1.78)
[2019-05-28 16:21] LABS: INR 2.8; Prothrombin Time 31.8 Seconds (9.4-12.1)
[2019-05-28] MEDS ORDERED: Warfarin perPT PO PRN (18:00)
[2019-05-28] MEDS ORDERED: *HR* Warfarin 2 MG TABLET PO ONE (18:45)
[2019-05-29 07:09] LABS: Basophils % 0.9 %; Eosinophils # 0.2 K/mcL (0.0-0.6); Eosinophils % 3.5 %; Hematocrit 27.4 % (35.3-44.9); Hemoglobin 8.6 g/dL (11.5-15.4); Immature Granulocytes % 0.2 % (0-4); Lymphocytes # 0.9 K/mcL (0.6-4.6); Lymphocytes % 21.4 %; Mean Corpuscular HGB Conc 31.4 g/dL (31.6-35.5); Mean Corpuscular Hemoglobin 27.2 pg (28.0-33.3); Mean Corpuscular Volume 86.7 fL (83.0-100.0); Mean Platelet Volume 11.4 fL (9.4-12.4); Monocytes # 0.6 K/mcL (0.0-1.3); Monocytes % 13.2 %; Neutrophils # 2.6 K/mcL (1.6-8.9); Platelet Count 163 K/mcL (140-400); Red Blood Count 3.16 M/mcL (3.82-4.97); Red Cell Distribution Width 14.6 % (11.5-14.5); Segmented Neutrophils % 60.8 %; White Blood Count 4.3 K/mcL (4.3-11.1)
[2019-05-29 07:27] LABS: INR 2.8; Prothrombin Time 31.8 Seconds (9.4-12.1)
[2019-05-29 07:31] LABS: Potassium 3.5 mEq/L (3.5-5.1)
[2019-05-29] MEDS: Furosemide 40 MG/4 ML VIAL IVP SCH (09:46)
[2019-05-29] MEDS: Aspirin Enteric Coated 81 MG Tablet PO SCH (09:48)
[2019-05-29] MEDS ORDERED: *HR* Warfarin 2 MG TABLET PO ONE (18:00)
[2019-05-30 02:42] LABS: INR 2.9; Prothrombin Time 33.5 Seconds (9.4-12.1)
[2019-05-30 03:01] LABS: Calcium 9.1 mg/dL (8.6-10.3); Potassium 3.5 mEq/L (3.5-5.1)
[2019-05-30] MEDS ORDERED: *HR* LORazepam 2 MG/ML VIAL IVP ONE (04:54)
[2019-05-30] MEDS ORDERED: *HR* Warfarin 2 MG TABLET PO SCH (09:00)
[2019-05-30] MEDS: Furosemide 40 MG/4 ML VIAL IVP SCH (10:00)
[2019-05-30] MEDS: Cyanocobalamin (B-12) 1,000 MCG TABLET PO SCH (10:03)
[2019-05-30] MEDS: Aspirin Enteric Coated 81 MG Tablet PO SCH (10:04)
[2019-05-30] MEDS: Cholecalciferol (D-3) 1,000 UNIT (25MCG) TABLET PO SCH (10:04)
[2019-05-30] MEDS: Multivit/Ca/Min/Fe/FA 1 TAB TABLET PO SCH (10:04)
[2019-05-30 14:26] LABS: Hematocrit 29.3 % (35.3-44.9); Hemoglobin 8.9 g/dL (11.5-15.4)
[2019-05-30] MEDS: Spironolactone 25 MG TABLET PO SCH (17:42)
[2019-05-30] MEDS ORDERED: *HR* Warfarin 1 MG TABLET PO ONE (18:00)
[2019-05-31 02:21] LABS: INR 3.2; Prothrombin Time 35.9 Seconds (9.4-12.1)
[2019-05-31 02:37] LABS: Calcium 9.4 mg/dL (8.6-10.3); Potassium 3.7 mEq/L (3.5-5.1)
[2019-05-31] MEDS ORDERED: Furosemide 40 MG/4 ML VIAL IVP SCH (09:00)
[2019-05-31] MEDS: Spironolactone 25 MG TABLET PO SCH (09:49)
[2019-05-31] MEDS: Cyanocobalamin (B-12) 1,000 MCG TABLET PO SCH (09:49)
[2019-05-31] MEDS: Multivit/Ca/Min/Fe/FA 1 TAB TABLET PO SCH (09:50)
[2019-05-31] MEDS: Aspirin Enteric Coated 81 MG Tablet PO SCH (09:50)
[2019-05-31] MEDS: Cholecalciferol (D-3) 1,000 UNIT (25MCG) TABLET PO SCH (09:50)
[2019-05-31 10:56] VITALS: BP 108/63
[2019-05-31 13:06] LABS: Hematocrit 30.2 % (35.3-44.9); Hemoglobin 9.5 g/dL (11.5-15.4)
[2019-05-31] MEDS ORDERED: *HR* Warfarin 1 MG TABLET PO ONE (18:00)
== END 2019-05-31 15:35 | disposition home health service (06) | DRG 291 ==
LOC: EMEROOARM 10:06 → 3BNU 10:06
PROVIDERS: ADMIT Family Medicine; ATTEND Family Medicine

== ENCOUNTER 2020-12-23 08:42 | Inpatient (IN) ==
[2020-12-23] MEDS ORDERED: 0.9 % Sodium Chloride 1,000 ML IVC ONE (08:49)
[2020-12-23 09:22] LABS: Immature Platelets 1.7 % (1.1-6.1); Mean Corpuscular HGB Conc 29.2 g/dL (31.6-35.5); Mean Corpuscular Hemoglobin 29.9 pg (28.0-33.3); Mean Corpuscular Volume 102.2 fL (83.0-100.0); Mean Platelet Volume 10.3 fL (9.4-12.4); Nucleated Red Blood Cells 0.2 /100 WBC (0); Platelet Count 310 K/mcL (140-400); Red Blood Count 1.34 M/mcL (3.82-4.97); Red Cell Distribution Width 18.6 % (11.5-14.5); White Blood Count 8.3 K/mcL (4.3-11.1)
[2020-12-23 09:30] LABS: Hematocrit 13.7 % (35.3-44.9)
[2020-12-23] MEDS: 0.9 % Sodium Chloride 500 ML IVC ONE ×2 (09:35→17:44)
[2020-12-23 09:50] LABS: Albumin 3.2 g/dL (3.5-5.7); Albumin/Globulin Ratio 2.3 (1.1-2.2); Bilirubin,Total 0.4 mg/dL (0.3-1.0); Calcium 8.2 mg/dL (8.6-10.3); Globulin 1.4 g/dL (2.4-3.5); Magnesium 2.7 mg/dL (1.6-2.6); Total Protein 4.6 g/dL (6.4-8.9); Troponin I 0.03 ng/mL (< 0.04)
[2020-12-23 10:12] LABS: Potassium 4.5 mEq/L (3.5-5.1)
[2020-12-23] MEDS ORDERED: 0.9 % Sodium Chloride 250 ML ONE ×2 (10:26→22:14)
[2020-12-23 11:36] LABS: Anisocytosis 1+ (Not Present); Eosinophils # 0.2 K/mcL (0.0-0.6); Hypochromasia Present (Not Present); Lymphocytes # 1.3 K/mcL (0.6-4.6); Monocytes # 0.2 K/mcL (0.0-1.3); Neutrophils # 6.6 K/mcL (1.6-8.9); Platelet Estimate Normal (Normal); Poikilocytosis 1+ (Not Present)
[2020-12-23 11:37] LABS: Microcytosis Present (Not Present); Polychromasia 1+ (Not Present)
[2020-12-23 12:28] LABS: Bacteria,Urine Many per hpf (None-Few); Bilirubin,Urine Negative (Negative); Blood,Urine Negative (Negative); Clarity,Urine Clear (Clear); Color,Urine Light-Yellow (Yellow); Glucose,Urine (UA) Normal (Normal); Ketones,Urine Negative (Negative); Leukocyte Esterase,Urine Moderate (Negative); Mucus,Urine Few per lpf (None-Few); Nitrite,Urine Negative (Negative); Protein,Urine Negative (Neg-Trace); RBC,Urine 0-3 per hpf (0-3); Renal Epithelial Cells,Urine Few per hpf (None-Few); Specific Gravity,Urine 1.011 (1.010-1.025); Squamous Epithelial Cell,Urine Few per hpf (None-Few); Transitional Epi Cells,Urine Few per hpf (None-Few); Urobilinogen,Urine Normal (Normal)
[2020-12-23] MEDS ORDERED: Acetaminophen 325 MG TABLET PO PRN (12:31)
[2020-12-23] MEDS ORDERED: Naloxone 0.4 MG/ML INJ IVP PRN (12:31)
[2020-12-23] MEDS ORDERED: Ondansetron 4 MG/2 ML VIAL IVP PRN (12:31)
[2020-12-23] MEDS: Pantoprazole 40 MG VIAL IVP SCH ×2 (15:45→16:29)
[2020-12-23] MEDS ORDERED: 0.9 % Sodium Chloride 500 ML ONE (16:38)
[2020-12-23 16:49] LABS: INR 7.2; Prothrombin Time 78.9 Seconds (9.4-12.1)
[2020-12-23] MEDS ORDERED: Furosemide 20 MG/2 ML VIAL IVP ONE (17:08)
[2020-12-23 22:28] LABS: Hematocrit 17.6 % (35.3-44.9)
[2020-12-23 22:32] LABS: Hemoglobin 5.5 g/dL (11.5-15.4)
[2020-12-24] MEDS ORDERED: 0.9 % Sodium Chloride 250 ML ONE ×2 (03:52→06:42)
[2020-12-24] MEDS: Pantoprazole 40 MG VIAL IVP SCH ×2 (06:32→17:06)
[2020-12-24 11:32] LABS: Hematocrit 23.1 % (35.3-44.9); Hemoglobin 6.9 g/dL (11.5-15.4)
[2020-12-24 11:45] LABS: Hematocrit 22.5 % (35.3-44.9); Hemoglobin 6.9 g/dL (11.5-15.4); Mean Corpuscular HGB Conc 30.7 g/dL (31.6-35.5); Mean Corpuscular Hemoglobin 30.1 pg (28.0-33.3); Mean Corpuscular Volume 98.3 fL (83.0-100.0); Mean Platelet Volume 9.9 fL (9.4-12.4); Platelet Count 230 K/mcL (140-400); Red Blood Count 2.29 M/mcL (3.82-4.97); Red Cell Distribution Width 17.1 % (11.5-14.5); White Blood Count 8.1 K/mcL (4.3-11.1)
[2020-12-24 11:57] LABS: INR 1.8; Prothrombin Time 20.6 Seconds (9.4-12.1)
[2020-12-24 12:52] LABS: Calcium 8.3 mg/dL (8.6-10.3); Magnesium 2.6 mg/dL (1.6-2.6); Potassium 4.2 mEq/L (3.5-5.1)
[2020-12-24] MEDS: carvediloL 6.25 MG TABLET PO SCH (17:06)
[2020-12-25 03:13] LABS: Nucleated Red Blood Cells 0.3 /100 WBC (0)
[2020-12-25 03:15] LABS: Basophils % 0.5 %; Eosinophils # 0.4 K/mcL (0.0-0.6); Hematocrit 18.4 % (35.3-44.9); Immature Granulocytes % 0.5 % (0-4); Lymphocytes # 0.8 K/mcL (0.6-4.6); Lymphocytes % 11.1 %; Mean Corpuscular HGB Conc 29.3 g/dL (31.6-35.5); Mean Corpuscular Volume 98.9 fL (83.0-100.0); Mean Platelet Volume 10.3 fL (9.4-12.4); Monocytes % 12.9 %; Platelet Count 195 K/mcL (140-400); Red Blood Count 1.86 M/mcL (3.82-4.97); Red Cell Distribution Width 17.1 % (11.5-14.5); White Blood Count 7.5 K/mcL (4.3-11.1)
[2020-12-25 03:16] LABS: Neutrophils # 5.3 K/mcL (1.6-8.9)
[2020-12-25 03:18] LABS: Hemoglobin 5.4 g/dL (11.5-15.4)
[2020-12-25 03:35] LABS: Albumin 2.8 g/dL (3.5-5.7); Bilirubin,Direct 0.2 mg/dL (0.0-0.2); Bilirubin,Indirect 0.5 mg/dL (0.0-1.0); Bilirubin,Total 0.7 mg/dL (0.3-1.0); Globulin 1.4 g/dL (2.4-3.5); Magnesium 2.5 mg/dL (1.6-2.6); Potassium 4.3 mEq/L (3.5-5.1); Total Protein 4.2 g/dL (6.4-8.9)
[2020-12-25 05:13] LABS: Basophils % 0.4 %; Hematocrit 19.5 % (35.3-44.9); Platelet Count 212 K/mcL (140-400)
[2020-12-25 05:15] LABS: Eosinophils # 0.4 K/mcL (0.0-0.6); Eosinophils % 4.9 %; Immature Granulocytes % 0.7 % (0-4); Lymphocytes # 1.1 K/mcL (0.6-4.6); Lymphocytes % 12.7 %; Mean Corpuscular HGB Conc 30.8 g/dL (31.6-35.5); Mean Corpuscular Hemoglobin 30.3 pg (28.0-33.3); Mean Corpuscular Volume 98.5 fL (83.0-100.0); Mean Platelet Volume 10.3 fL (9.4-12.4); Monocytes # 1.1 K/mcL (0.0-1.3); Monocytes % 13.4 %; Neutrophils # 5.8 K/mcL (1.6-8.9); Red Blood Count 1.98 M/mcL (3.82-4.97); Segmented Neutrophils % 67.9 %; White Blood Count 8.5 K/mcL (4.3-11.1)
[2020-12-25] MEDS: Pantoprazole 40 MG VIAL IVP SCH ×2 (05:44→17:56)
[2020-12-25] MEDS ORDERED: 0.9 % Sodium Chloride 250 ML ONE (07:33)
[2020-12-25] MEDS: Cholecalciferol (D-3) 1,000 UNIT (25MCG) TABLET PO SCH (07:51)
[2020-12-25] MEDS: Aspirin Enteric Coated 81 MG Tablet PO SCH (07:51)
[2020-12-25] MEDS: carvediloL 6.25 MG TABLET PO SCH ×2 (07:52→16:35)
[2020-12-25] MEDS: Cyanocobalamin (B-12) 1,000 MCG TABLET PO SCH (07:52)
[2020-12-25] MEDS: lisinopriL 5 MG TABLET PO SCH (07:53)
[2020-12-25] MEDS: Multivit/Ca/Min/Fe/FA 1 TAB TABLET PO SCH (07:55)
[2020-12-25 12:11] LABS: Hemoglobin 7.4 g/dL (11.5-15.4)
[2020-12-25 12:18] LABS: INR 1.4; Prothrombin Time 16.1 Seconds (9.4-12.1)
[2020-12-25 12:57] LABS: % Iron Saturation 27 % (15-50); Iron 94 mcg/dL (50-170); Transferrin 245 mg/dL (203-362)
[2020-12-25 13:06] LABS: Ferritin 32 ng/mL (10-120)
[2020-12-25] MEDS ORDERED: Iron Sucrose Complex 400 MG in 0.9 % Sodium Chloride 250 ML IVPB ONE (13:46)
[2020-12-25 13:59] LABS: Folate > 22.3 ng/mL (3.0-16.0); Vitamin B12 1155 pg/mL (250-1100)
[2020-12-25] MEDS ORDERED: Lidocaine -MPF 2% 5 ML VIAL ONE (14:11)
[2020-12-25] MEDS ORDERED: *HR* Etomidate 40 MG/20 ML VIAL IVP ONE (14:17)
[2020-12-25 19:08] LABS: Hematocrit 21.1 % (35.3-44.9); Hemoglobin 6.6 g/dL (11.5-15.4)
[2020-12-26 02:02] LABS: Basophils % 0.3 %; Eosinophils # 0.2 K/mcL (0.0-0.6); Eosinophils % 2.4 %; Hematocrit 21.8 % (35.3-44.9); Hematocrit 22.1 % (35.3-44.9); Hemoglobin 6.7 g/dL (11.5-15.4); Hemoglobin 6.8 g/dL (11.5-15.4); Immature Granulocytes % 0.5 % (0-4); Lymphocytes # 0.7 K/mcL (0.6-4.6); Lymphocytes % 7.3 %; Mean Corpuscular HGB Conc 31.2 g/dL (31.6-35.5); Mean Corpuscular Hemoglobin 30.9 pg (28.0-33.3); Mean Corpuscular Volume 99.1 fL (83.0-100.0); Mean Platelet Volume 10.3 fL (9.4-12.4); Monocytes % 9.8 %; Neutrophils # 7.8 K/mcL (1.6-8.9); Platelet Count 202 K/mcL (140-400); Red Cell Distribution Width 16.3 % (11.5-14.5); Segmented Neutrophils % 79.7 %; White Blood Count 9.7 K/mcL (4.3-11.1)
[2020-12-26 02:20] LABS: Calcium 8.1 mg/dL (8.6-10.3); Magnesium 2.4 mg/dL (1.6-2.6); Potassium 4.2 mEq/L (3.5-5.1)
[2020-12-26] MEDS: Pantoprazole 40 MG VIAL IVP SCH ×2 (05:51→17:25)
[2020-12-26] MEDS: Multivit/Ca/Min/Fe/FA 1 TAB TABLET PO SCH (08:55)
[2020-12-26] MEDS: Cholecalciferol (D-3) 1,000 UNIT (25MCG) TABLET PO SCH (08:55)
[2020-12-26] MEDS: Cyanocobalamin (B-12) 1,000 MCG TABLET PO SCH (08:57)
[2020-12-26] MEDS: Aspirin Enteric Coated 81 MG Tablet PO SCH (08:57)
[2020-12-26] MEDS: lisinopriL 5 MG TABLET PO SCH (08:59)
[2020-12-26] MEDS: carvediloL 6.25 MG TABLET PO SCH (09:00)
[2020-12-26] MEDS ORDERED: 0.9 % Sodium Chloride 250 ML ONE (09:04)
[2020-12-26 18:39] LABS: Hematocrit 25.8 % (35.3-44.9); Hemoglobin 7.8 g/dL (11.5-15.4)
[2020-12-27 04:42] LABS: Hematocrit 24.4 % (35.3-44.9); Hemoglobin 7.4 g/dL (11.5-15.4); Mean Corpuscular HGB Conc 30.3 g/dL (31.6-35.5); Mean Corpuscular Volume 98.8 fL (83.0-100.0); Mean Platelet Volume 10.2 fL (9.4-12.4); Platelet Count 188 K/mcL (140-400); Red Blood Count 2.47 M/mcL (3.82-4.97); White Blood Count 6.8 K/mcL (4.3-11.1)
[2020-12-27 05:05] LABS: Calcium 8.1 mg/dL (8.6-10.3); Potassium 4.2 mEq/L (3.5-5.1)
[2020-12-27] MEDS: Pantoprazole 40 MG VIAL IVP SCH (05:13)
[2020-12-27] MEDS: Aspirin Enteric Coated 81 MG Tablet PO SCH (08:34)
[2020-12-27] MEDS: Multivit/Ca/Min/Fe/FA 1 TAB TABLET PO SCH (08:34)
[2020-12-27] MEDS: Cyanocobalamin (B-12) 1,000 MCG TABLET PO SCH (08:34)
[2020-12-27] MEDS: lisinopriL 5 MG TABLET PO SCH (08:34)
[2020-12-27] MEDS: Cholecalciferol (D-3) 1,000 UNIT (25MCG) TABLET PO SCH (08:34)
[2020-12-27] MEDS ORDERED: Metoprolol XL (24 HR) Succ 25 MG TAB.ER.24H PO SCH (09:00)
[2020-12-27 11:19] VITALS: BP 139/59
== END 2020-12-27 15:23 | disposition home or self-care (01) | DRG 392 ==
LOC: 3BNU 08:42 → EMEROOARM 08:42 → SUATTDRO 11:47 → 2NENU 12:31 → SUATTDRO 12-25 15:44
PROVIDERS: ADMIT Internal Medicine; ATTEND Internal Medicine

== ENCOUNTER 2021-12-14 12:58 | Inpatient (IN) ==
[2021-12-14 14:29] LABS: Albumin 3.3 g/dL (3.5-5.7); Albumin/Globulin Ratio 1.7 (1.1-2.2); Bilirubin,Total 0.3 mg/dL (0.3-1.0); Calcium 8.8 mg/dL (8.6-10.3); Potassium 5.2 mEq/L (3.5-5.1); Total Protein 5.3 g/dL (6.4-8.9); Troponin I 0.03 ng/mL (< 0.04)
[2021-12-14 14:35] LABS: Bacteria,Urine Few per hpf (None-Few); Bilirubin,Urine Negative (Negative); Blood,Urine Negative (Negative); Clarity,Urine Clear (Clear); Color,Urine Colorless (Yellow); Glucose,Urine (UA) Normal (Normal); Hyaline Casts,Urine Few per lpf (None Seen); Ketones,Urine Negative (Negative); Leukocyte Esterase,Urine Small (Negative); Mucus,Urine Few per lpf (None-Few); Nitrite,Urine Negative (Negative); PH,Urine 5.5 pH Units (5.0-8.0); Protein,Urine Negative (Neg-Trace); RBC,Urine 0-3 per hpf (0-3); Specific Gravity,Urine 1.011 (1.010-1.025); Squamous Epithelial Cell,Urine Few per hpf (None-Few); Urobilinogen,Urine Normal (Normal); WBC,Urine 0-3 per hpf (0-3)
[2021-12-14 14:53] LABS: Basophils % 0.3 %; Mean Corpuscular Volume 102.6 fL (83.0-100.0); Red Cell Distribution Width 22.1 % (11.5-14.5)
[2021-12-14 14:55] LABS: Eosinophils % 0.5 %; Immature Granulocytes % 0.9 % (0-4); Lymphocytes # 0.9 K/mcL (0.6-4.6); Lymphocytes % 11.6 %; Mean Corpuscular Hemoglobin 30.8 pg (28.0-33.3); Mean Platelet Volume 10.9 fL (9.4-12.4); Monocytes # 0.5 K/mcL (0.0-1.3); Monocytes % 6.3 %; Neutrophils # 6.4 K/mcL (1.6-8.9); Platelet Count 187 K/mcL (140-400); Red Blood Count 1.56 M/mcL (3.82-4.97); Segmented Neutrophils % 80.4 %; White Blood Count 7.9 K/mcL (4.3-11.1)
[2021-12-14 14:58] LABS: Hemoglobin 4.8 g/dL (11.5-15.4)
[2021-12-14 14:59] LABS: INR 1.8; Prothrombin Time 19.9 Seconds (9.4-12.1)
[2021-12-14 15:02] LABS: Activated Partial Thrombo Time 24.9 Seconds (26.0-36.0)
[2021-12-14 15:18] LABS: Anisocytosis 2+ (Not Present); Hypochromasia Present (Not Present); Platelet Estimate Normal (Normal); Poikilocytosis 1+ (Not Present); Polychromasia 1+ (Not Present)
[2021-12-14 15:28] LABS: Influenza A PCR Negative (Negative); Influenza B PCR Negative (Negative); Resp. Syncytial Virus PCR Negative (Negative); SARS-CoV-2 by PCR (In House) Negative (Negative)
[2021-12-14] MEDS ORDERED: Pantoprazole 40 MG VIAL IVP ONE (16:22)
[2021-12-14] MEDS ORDERED: 0.9 % Sodium Chloride 250 ML ONE ×2 (17:17→21:12)
[2021-12-14] MEDS ORDERED: Naloxone 0.4 MG/ML INJ IVP PRN (17:29)
[2021-12-14] MEDS: Furosemide 20 MG TABLET PO SCH (20:41)
[2021-12-15 02:54] LABS: Basophils % 0.3 %; Eosinophils # 0.1 K/mcL (0.0-0.6); Eosinophils % 1.4 %; Hematocrit 20.4 % (35.3-44.9); Immature Granulocytes % 0.8 % (0-4); Lymphocytes # 1.2 K/mcL (0.6-4.6); Lymphocytes % 16.9 %; Mean Corpuscular HGB Conc 31.9 g/dL (31.6-35.5); Mean Corpuscular Hemoglobin 30.8 pg (28.0-33.3); Mean Corpuscular Volume 96.7 fL (83.0-100.0); Mean Platelet Volume 10.6 fL (9.4-12.4); Monocytes # 0.8 K/mcL (0.0-1.3); Monocytes % 11.4 %; Nucleated Red Blood Cells 0.4 /100 WBC (0); Platelet Count 144 K/mcL (140-400); Red Blood Count 2.11 M/mcL (3.82-4.97); Red Cell Distribution Width 20.6 % (11.5-14.5); Segmented Neutrophils % 69.2 %; White Blood Count 7.3 K/mcL (4.3-11.1)
[2021-12-15 02:55] LABS: Hemoglobin 6.5 g/dL (11.5-15.4)
[2021-12-15 03:10] LABS: Calcium 8.3 mg/dL (8.6-10.3); Potassium 4.5 mEq/L (3.5-5.1)
[2021-12-15] MEDS ORDERED: 0.9 % Sodium Chloride 250 ML ONE (03:20)
[2021-12-15] MEDS: Multivit/Ca/Min/Fe/FA 1 TAB TABLET PO SCH (08:44)
[2021-12-15] MEDS: Furosemide 20 MG TABLET PO SCH (08:44)
[2021-12-15] MEDS: Spironolactone 12.5 MG TABLET PO SCH (08:44)
[2021-12-15] MEDS: carvediloL 6.25 MG TABLET PO SCH ×2 (08:44→16:54)
[2021-12-15] MEDS ORDERED: lisinopriL 5 MG TABLET PO SCH (09:00)
[2021-12-15 09:20] LABS: Hematocrit 24.5 % (35.3-44.9); Hemoglobin 7.9 g/dL (11.5-15.4)
[2021-12-15 15:35] LABS: INR 1.1; Prothrombin Time 12.6 Seconds (9.4-12.1)
[2021-12-15] MEDS: Pantoprazole 40 MG VIAL IVP SCH (16:54)
[2021-12-15] MEDS ORDERED: SODIUM CHLORIDE/NAHCO3/KCL/PEG 4,000 ML SOLN.RECON PO ONE (17:00)
[2021-12-16 04:25] LABS: Basophils % 0.3 %; Eosinophils # 0.2 K/mcL (0.0-0.6); Eosinophils % 3.6 %; Hematocrit 24.9 % (35.3-44.9); Hemoglobin 7.8 g/dL (11.5-15.4); Immature Granulocytes % 0.8 % (0-4); Lymphocytes # 1.1 K/mcL (0.6-4.6); Lymphocytes % 18.4 %; Mean Corpuscular HGB Conc 31.3 g/dL (31.6-35.5); Mean Corpuscular Hemoglobin 30.1 pg (28.0-33.3); Mean Corpuscular Volume 96.1 fL (83.0-100.0); Mean Platelet Volume 10.7 fL (9.4-12.4); Monocytes # 0.9 K/mcL (0.0-1.3); Monocytes % 14.9 %; Neutrophils # 3.7 K/mcL (1.6-8.9); Nucleated Red Blood Cells 0.3 /100 WBC (0); Platelet Count 152 K/mcL (140-400); Red Blood Count 2.59 M/mcL (3.82-4.97); Red Cell Distribution Width 21.2 % (11.5-14.5); White Blood Count 5.9 K/mcL (4.3-11.1)
[2021-12-16 04:45] LABS: Calcium 8.5 mg/dL (8.6-10.3); Potassium 4.7 mEq/L (3.5-5.1)
[2021-12-16] MEDS: Pantoprazole 40 MG VIAL IVP SCH (06:09)
[2021-12-16] MEDS: Spironolactone 12.5 MG TABLET PO SCH (09:50)
[2021-12-16] MEDS: carvediloL 6.25 MG TABLET PO SCH ×2 (09:50→18:13)
[2021-12-16] MEDS: Multivit/Ca/Min/Fe/FA 1 TAB TABLET PO SCH (09:50)
[2021-12-16] MEDS ORDERED: *HR* Propofol 200 MG/20 ML VIAL IVP ONE ×2 (15:08→15:22)
[2021-12-16] MEDS ORDERED: Lidocaine -MPF 2% 2 ML VIAL ONE (15:08)
[2021-12-16] MEDS ORDERED: EPHEDrine 50 MG/ML VIAL ONE (15:21)
[2021-12-16 17:41] VITALS: BP 109/54; PULSE 60; TEMP 97.6; O2SAT 99
== END 2021-12-16 18:45 | disposition home or self-care (01) | DRG 394 ==
LOC: 2NENU 12:58 → EMEROOARM 12:58 → 2NENU 18:28
PROVIDERS: ADMIT Hospitalist; ATTEND Hospitalist
PROC: ENDOCBX (2021-12-16 14:35)
PROC: ENDOEBX (2021-12-16 14:35)